=== PATIENT | female | born 1935 | race Caucasian/White ===

== ENCOUNTER → 2018-01-29 | Day surgery (SDC) | payer MEDICARE, OTHER ==
[2018-01-28 12:03] VITALS: BMI 23.9
[~2018-01-29] MED LIST: LACTATED RINGERS 1,000 ML IV SCH; LIDOCAINE 1% 20 ML VIAL (10MG/ML) FOR IV START INTRADERMA ONE; LIDOCAINE 1% INJ 10MG/ML (20 ML MDV) ONE; ONDANSETRON 4 MG/2 ML VIAL IVP ONE; PROPOFOL 10 MG/ML 20 ML VIAL IV ONE
[2018-01-29 12:51] VITALS: RESP 16; TEMP 98
[2018-01-29 13:02] LABS: Glucose,Whole Blood 84 mg/dL (75-99)
--- NOTE | 2018-01-29 13:49 | P.PCN ---
Date of Procedure: 01/29/18 Procedure(s) Performed: BRIEF HISTORY: Patient is a 82-year-old pleasant female, scheduled for an elective colonoscopy as a part of evaluation of prior history of colon polyps. PROCEDURE PERFORMED: Colonoscopy with snare polypectomy, hot biopsy and argon plasma coagulation. PREOPERATIVE DIAGNOSIS: Of colon polyps. IV sedation per Anesthesia. PROCEDURE: After informed consent was obtained, the patient, was brought into the endoscopy unit. IV sedation was administered by Anesthesia under continuous monitoring. Digital rectal examination was normal. Initially the Olympus CF- 160 flexible video colonoscope was then inserted in the rectum, gradually advanced into the cecum without any difficulty. Careful examination was performed as the scope was gradually being withdrawn. Ileocecal valve and the appendiceal orifice were visualized and appeared normal. Prep was fair.. Mucosa of the cecum, appeared normal. In the ascending colon there was a 2.5 cm broad-based polyp that was partially removed by piecemeal snare polypectomy. Following this the rest of polyp was removed by hot biopsy and some of the polyp was a bit tolerated using argon plasma coagulation. Rest of the ascending colon, transverse colon, descending colon, sigmoid colon, and rectum appeared normal. Retroflexion was performed in the rectum and no lesions were seen. At her sigmoidal diverticulosis seen. The patient tolerated the procedure well. IMPRESSION: 2.5 cm broad-based ascending colon polyp status post piecemeal snare polypectomy , hot biopsy and argon plasma coagulation and complete polypectomy accomplished Scattered sigmoid diverticulosis RECOMMENDATIONS: Findings of this examination were discussed with the patient as well as a family. She was advised to follow with the biopsy results and based the biopsy results will plan a repeat colonoscopy in one year.
[2018-01-29 14:01] VITALS: BP 175/89; PULSE 79
== END | disposition home or self-care (01) ==
LOC: ORWHC2ENDO 11:44
PROVIDERS: ATTEND Internal Medicine Gastroenterology
DX: D12.2 Benign neoplasm of ascending colon (principal); K57.30 Diverticulosis of large intestine without perforation or abscess without bleeding; I10 Essential (primary) hypertension; E78.5 Hyperlipidemia, unspecified; Z79.891 Long term (current) use of opiate analgesic; Z79.899 Other long term (current) drug therapy; Z88.5 Allergy status to narcotic agent
CPT/HCPCS: 88305; 45385; 45384; 45388; J2405; J2001; J2704

== ENCOUNTER 2018-08-17 10:15 | Emergency (ER) | payer MEDICARE, OTHER ==
[2018-08-17 10:22] VITALS: RESP 18
[2018-08-17] MEDS ORDERED: KETOROLAC 60 MG/2 ML VIAL IM STA (10:46)
--- NOTE | 2018-08-17 11:03 | XR ---
EXAMINATION TYPE: XR ribs LT w pa chest xray DATE OF EXAM: 08/17/2018 COMPARISON: NONE HISTORY: Pain TECHNIQUE: Single view of the chest left views of the ribs are submitted. FINDINGS: The lungs are clear. No Evidence for pneumothorax. No evidence for focal contusion. Medi astinal structures are midline. Evaluation of the ribs fails to demonstrate evidence for displaced r ib fracture or secondary sign of rib fracture. IMPRESSION: Negative study
--- NOTE | 2018-08-17 11:11 | ED ---
Fall HPI - General Source: patient, RN notes reviewed Mode of arrival: ambulatory <Jose D Soares - Last Filed: 08/17/18 11:34> <Shyam Betts - Last Filed: 08/17/18 11:38> - General Chief Complaint: Fall Stated Complaint: fall/arm & back pain Time Seen by Provider: 08/17/18 10:35 - History of Present Illness Initial Comments: 82-year-old female presents emergency Department chief complaint of left-sided rib and arm pain. Patient states she fell a few weeks ago in her bathroom fell back onto bathtub. She states she's had pain this a improving but states her last week she's had worsening pain again. Patient it's worse with deep inspiration and with movement. Patient states her tramadol was not helping her pain and she states that she called her doctor and they told her there is nothing for them to do about it but she was concerned. Patient's concerned that she may have injured her lung. Patient denies any resting shortness breath she only reports pain. Denies any abdominal pain including nausea, vomiting diarrhea constipation. Denies any anterior or substernal chest pain. (Jose D Soares) - Related Data Home Medications Medication Instructions Recorded Confirmed LORazepam [Ativan] 2 mg PO TID 01/28/18 08/17/18 Rosuvastatin [Crestor] 10 mg PO HS 01/28/18 08/17/18 amLODIPine [Norvasc] 5 mg PO DAILY 01/28/18 08/17/18 hydrOXYzine HCL [Atarax] 25 mg PO QID 01/28/18 08/17/18 Qrnxveanwqnjcx-DE-Qnqqnngvfk 1 tab PO DAILY 08/17/18 08/17/18 [Folbic] Gi Cocktail 30 ml PO TID 08/17/18 08/17/18 Omeprazole 20 mg PO BID 08/17/18 08/17/18 Ondansetron HCl [Zofran] 8 mg PO TID 08/17/18 08/17/18 Valsartan [Diovan] 320 mg PO HS 08/17/18 08/17/18 traMADol HCl [Ultram] 50 mg PO QID PRN 08/17/18 08/17/18 Allergies Allergy/AdvReac Type Severity Reaction Status Date / Time morphine Allergy Rash/Hives Verified 08/17/18 10:40 Review of Systems ROS Other: All systems not noted in ROS Statement are negative. <Jose D Soares - Last Filed: 08/17/18 11:34> ROS Other: All systems not noted in ROS Statement are negative. <Shyam Betts - Last Filed: 08/17/18 11:38> ROS Statement: Those systems with pertinent positive or pertinent negative responses have been documented in the HPI. Past Medical History Past Medical History: Hyperlipidemia, Hypertension, Osteoarthritis (OA) Additional Past Medical History / Comment(s): Gastroporesis, problems with nausea. History of Any Multi-Drug Resistant Organisms: None Reported Past Surgical History: Appendectomy, Hysterectomy, Orthopedic Surgery, Tonsillectomy Additional Past Surgical History / Comment(s): L Shoulder surgery with plate, R knee replacement, colonoscopy. Past Anesthesia/Blood Transfusion Reactions: Postoperative Nausea & Vomiting (PONV) Past Psychological History: No Psychological Hx Reported Smoking Status: Never smoker Past Alcohol Use History: None Reported Past Drug Use History: None Reported - Past Family History Mother Family Medical History: Cancer Additional Family Medical History / Comment(s): Colon Father Family Medical History: Coronary Artery Disease (CAD) <Jose D Soares - Last Filed: 08/17/18 11:34> General Exam Limitations: no limitations General appearance: alert, in no apparent distress Head exam: Present: atraumatic, normocephalic, normal inspection Eye exam: Present: normal appearance, PERRL, EOMI. Absent: scleral icterus, conjunctival injection, periorbital swelling ENT exam: Present: normal exam, normal oropharynx, mucous membranes moist, TM's normal bilaterally Neck exam: Present: normal inspection, full ROM. Absent: tenderness, meningismus, lymphadenopathy Respiratory exam: Present: normal lung sounds bilaterally, chest wall tenderness (Tenderness to the lateral posterior ribs on the left). Absent: respiratory distress, wheezes, rales, rhonchi, stridor Cardiovascular Exam: Present: regular rate, normal rhythm, normal heart sounds. Absent: systolic murmur, diastolic murmur, rubs, gallop, clicks GI/Abdominal exam: Present: soft, normal bowel sounds. Absent: distended, tenderness, guarding, rebound, rigid Back exam: Present: full ROM, tenderness. Absent: CVA tenderness (R), CVA tenderness (L) Skin exam: Present: warm, dry, intact, normal color. Absent: rash <Jose D Soares - Last Filed: 08/17/18 11:34> Course <Shyam Betts - Last Filed: 08/17/18 11:38> Vital Signs 08/17/18 10:19 Temperature 99.0 F Pulse Rate 94 Respiratory 18 Rate Blood Pressure 161/96 O2 Sat by Pulse 98 Oximetry - Reevaluation(s) Reevaluation #1: 08/17/18 11:37 PA supervision: I proceeded [id number] evaluation the patient. She presents with complaints of left lateral rib pain. She did fall 3 weeks ago. Patient has no evidence on x-ray of any rib fracture evidence pneumothorax no infiltrate. Patient will be discharged with outpatient follow-up we did discuss that if she does start presenting with fever cough phlegm production or other symptoms to be reevaluated. I do agree with the assessment and plan at this time. (Shyam Betts) Medical Decision Making <Jose D Soares - Last Filed: 08/17/18 11:34> - Medical Decision Making 82-year-old female presented from it for fall, rib pain. X-rays reviewed no acute fracture, pneumothorax or evidence of pneumonia. This is reproducible chest pain over the ribs. Patient has a rib contusion return parameters were discussed. (Jose D Soares) Disposition Is patient prescribed a controlled substance at d/c from ED?: No Time of Disposition: 11:35 <Jose D Soares - Last Filed: 08/17/18 11:34> <Shyam Betts - Last Filed: 08/17/18 11:38> Clinical Impression: Fall, Contusion of rib on left side Disposition: HOME SELF-CARE Condition: Stable Instructions (If sedation given, give patient instructions): Rib Contusion (ED) Additional Instructions: Please return to the Emergency Department if symptoms worsen or any other concerns. Referrals: Nonstaff,Physician [Primary Care Provider] - 1-2 days
[2018-08-17 11:49] VITALS: BP 146/93; PULSE 89; TEMP 98.3
== END 2018-08-17 11:49 | disposition home or self-care (01) ==
LOC: EC 10:15
DX: S20.212A Contusion of left front wall of thorax, initial encounter (principal); M79.602 Pain in left arm; E78.5 Hyperlipidemia, unspecified; I10 Essential (primary) hypertension; M19.90 Unspecified osteoarthritis, unspecified site; Z79.899 Other long term (current) drug therapy; Z88.5 Allergy status to narcotic agent; Z96.651 Presence of right artificial knee joint; W19.XXXA Unspecified fall, initial encounter; Y92.009 Unspecified place in unspecified non-institutional (private) residence as the place of occurrence of the external cause
CPT/HCPCS: 71101; 99283; 96372; J1885

== ENCOUNTER → 2018-09-20 | Outpatient (CLI) | payer MEDICARE, OTHER ==
[2018-09-20 18:26] LABS: Albumin/Globulin Ratio 2.22 (1.60-3.17); Anion Gap 6.1 mmol/L (4.00-12.00); Calcium 8.7 mg/dL (8.7-10.3); Carbon Dioxide 26.9 mmol/L (21.6-31.8); Globulin 1.8 g/dL (1.6-3.3); Potassium 4.6 mmol/L (3.5-5.5); Total Bilirubin 0.4 mg/dL (0.3-1.2); Total Protein 5.8 g/dL (6.2-8.2)
== END ==
LOC: LABWHC1 11:23
PROVIDERS: ATTEND Internal Medicine
DX: E87.8 Other disorders of electrolyte and fluid balance, not elsewhere classified (principal)
CPT/HCPCS: 36415; 80053

== ENCOUNTER → 2018-09-28 | Outpatient (CLI) | payer MEDICARE, OTHER ==
[2018-09-28 20:57] LABS: Albumin/Globulin Ratio 2.11 (1.60-3.17); Anion Gap 8.4 mmol/L (4.00-12.00); Calcium 8.9 mg/dL (8.7-10.3); Carbon Dioxide 24.6 mmol/L (21.6-31.8); Globulin 1.9 g/dL (1.6-3.3); Potassium 4.2 mmol/L (3.5-5.5); Total Bilirubin 0.3 mg/dL (0.2-1.2); Total Protein 5.9 g/dL (6.2-8.2)
== END | disposition home or self-care (01) ==
LOC: LABWHC1 12:19
PROVIDERS: ATTEND Internal Medicine
DX: E87.8 Other disorders of electrolyte and fluid balance, not elsewhere classified (principal)
CPT/HCPCS: 36415; 80053

== ENCOUNTER → 2018-10-25 | Outpatient (CLI) | payer MEDICARE, OTHER ==
[2018-10-25 21:21] LABS: Albumin 4.1 g/dL (3.80-4.90); Albumin/Globulin Ratio 2.05 (1.60-3.17); Anion Gap 3.5 mmol/L (4.00-12.00); BUN/Creat Ratio 15.56 Ratio (12.00-20.00); Calcium 9.2 mg/dL (8.7-10.3); Carbon Dioxide 28.5 mmol/L (21.6-31.8); Potassium 5.2 mmol/L (3.5-5.5); Total Bilirubin 0.3 mg/dL (0.2-1.2); Total Protein 6.1 g/dL (6.2-8.2)
== END | disposition home or self-care (01) ==
LOC: LABWHC1 09:59
PROVIDERS: ATTEND Internal Medicine Endocrinology, Diabetes & Metabolism
DX: E04.2 Nontoxic multinodular goiter (principal); E87.1 Hypo-osmolality and hyponatremia
CPT/HCPCS: 36415; 80053; 82024; 82533; 83930; 83935; 84439; 84443

== ENCOUNTER → 2018-11-22 | Outpatient (CLI) | payer MEDICARE, OTHER ==
--- NOTE | 2018-11-22 11:32 | US ---
EXAMINATION TYPE: US thyroid st tissue head/neck DATE OF EXAM: 11/22/2018 COMPARISON: NONE CLINICAL HISTORY: E04.2 Nontoxic multinodular goiter. Difficulty swallowing GLAND SIZE: Right Lobe: 6.2 x 2.6 x 2.6 cm Overall Parenchyma: heterogenous Left Lobe: 5.6 x 2.4 x 2.1 cm Overall Parenchyma: heterogeneous Isthmus Thickness: 2.0 cm NODULES RIGHT: # of nodules measured on right: 2 1. 2.3 X 2.2 x 1.9 cm hyperechoic mixed nodule at the upper pole with well-defined margins. This n odule is wider than tall and shows intranodular vascularity. 2. 0.9 X 0.9 x 0.7 cm hypoechoic cystic nodule at the lower pole with well-defined margins. This no dule is wider than tall and shows no intranodular vascularity. LEFT: # of nodules measured on left: 2 1. 1.2 X 0.8 x 0.8 cm hypoechoic solid nodule at the upper pole with well-defined margins. This no dule is wider as is tall and shows no intranodular vascularity. 2. 1.5 X 1.1 x 0.8 cm hypoechoic mixed nodule at the upper pole with poorly defined margins. This n odule is wider than tall and shows intranodular vascularity. ISTHMUS: # of nodules measured in the isthmus: 1 1. 3.2 X 3.4 x 2.2 cm isoechoic mixed nodule at the lower pole with well-defined margins; present w ith calcification. This nodule is wider than tall and shows intranodular vascularity. Bilateral neck scanned: no evidence of lymphadenopathy. IMPRESSION: 1. Thyromegaly with findings suggestive of thyroiditis and multinodular thyroid.
== END | disposition home or self-care (01) ==
LOC: RADUSWWP 10:10
PROVIDERS: ATTEND Internal Medicine Endocrinology, Diabetes & Metabolism
DX: E04.9 Nontoxic goiter, unspecified (principal)
CPT/HCPCS: 76536

== ENCOUNTER 2018-12-10 12:16 | Day surgery (SDC) | payer MEDICARE, OTHER ==
[2018-12-10 12:40] VITALS: RESP 20; TEMP 98.1
[2018-12-10] MEDS ORDERED: ALPRAZolam 0.25 MG TAB PO STA (12:40)
--- NOTE | 2018-12-10 14:10 | US ---
ULTRASOUND GUIDED FNA THYROID BIOPSY: CLINICAL HISTORY: Request for isthmus and 1.5 cm left thyroid nodule FINDINGS: The procedure was explained to the patient. The risks, complications, benefits and alternatives were discussed and any questions were answered. Informed consent was obtained. Patient was placed supin e on the ultrasound table and prepped and draped in the usual sterile fashion. Utilizing a 25 gauge needle, five passes were made into the 2 requested nodules. Patient was stable throughout the procedure. Pathology is pending. All elements of maximal barrier technique were utilized. IMPRESSION: 1. Successful ultrasound guided FNA thyroid biopsy.
[2018-12-10 14:13] VITALS: BP 128/78; PULSE 70
== END 2018-12-10 14:00 | disposition home or self-care (01) ==
LOC: RADPROMAIN 12:16
PROVIDERS: ATTEND Internal Medicine Endocrinology, Diabetes & Metabolism
DX: E04.1 Nontoxic single thyroid nodule (principal)
CPT/HCPCS: 10005; 10006; 88173; 88305

== ENCOUNTER 2019-06-21 15:23 | Emergency (ER) | payer MEDICARE, OTHER ==
[2019-06-21] MEDS ORDERED: HYDROmorphone 0.5 MG/0.5 ML SYRINGE IVP STA ×3 (16:07→18:05)
[2019-06-21] MEDS ORDERED: ONDANSETRON 4 MG/2 ML VIAL IVP STA ×2 (16:07→18:31)
[2019-06-21 17:00] LABS: Basophils % (A) 1 %; Eosinophils # (A) 0.1 k/uL (0-0.7); Eosinophils % (A) 2 %; HCT 39.5 % (34.0-46.0); HGB 12.7 gm/dL (11.4-16.0); Lymphocytes # (A) 1.2 k/uL (1.0-4.8); Lymphocytes % (A) 20 %; MCH 27.4 pg (25.0-35.0); MCHC 32.3 g/dL (31.0-37.0); MCV 84.9 fL (80.0-100.0); Monocytes # (A) 0.7 k/uL (0-1.0); Monocytes % (A) 11 %; Neutrophils % (A) 66 %; Platelet Count 235 k/uL (150-450); RBC 4.65 m/uL (3.80-5.40); RDW 12.6 % (11.5-15.5); WBC 6.1 k/uL (3.8-10.6)
[2019-06-21 17:07] LABS: Calcium 8.8 mg/dL (8.4-10.2); Potassium 4.8 mmol/L (3.5-5.1); Total Bilirubin 0.6 mg/dL (0.2-1.3); Total Protein 6.7 g/dL (6.3-8.2)
[2019-06-21] MEDS ORDERED: SODIUM CHLORIDE 0.9% 1,000 ML IV SCH (19:00)
[2019-06-21 19:13] LABS: Magnesium 1.9 mg/dL (1.6-2.3); Phosphorus 3.7 mg/dL (2.5-4.5)
--- NOTE | 2019-06-21 19:39 | ED ---
Abdominal Pain HPI - General Chief Complaint: Abdominal Pain Stated Complaint: Abd.pain Time Seen by Provider: 06/21/19 16:01 Source: patient, family Mode of arrival: wheelchair Limitations: physical limitation - History of Present Illness Initial Comments: 83-year-old female presenting today for chief complaint of left upper quadrant abdominal pain, nausea. Patient's history of hyponatremia and gastroparesis. Patient states this feels typical of the pain she experiences with gastroparesis denies chest pain shortness of breath patient denies vomiting melena hematochezia or hematemesis. Remaining abuse is negative upon arrival patient appears nontoxic. VS within acceptable limits. - Related Data Home Medications Medication Instructions Recorded Confirmed LORazepam [Ativan] 2 mg PO TID PRN 01/28/18 12/10/18 Rosuvastatin [Crestor] 10 mg PO HS 01/28/18 12/10/18 amLODIPine [Norvasc] 5 mg PO DAILY 01/28/18 12/10/18 hydrOXYzine HCL [Atarax] 25 mg PO QID PRN 01/28/18 12/10/18 Lroofgqwvswkjq-MR-Grcnaaqmtn 1 tab PO DAILY 08/17/18 12/10/18 [Folbic] Gi Cocktail 30 ml PO TID 08/17/18 12/10/18 Omeprazole 20 mg PO AC-BID 08/17/18 12/10/18 Ondansetron HCl [Zofran] 8 mg PO TID PRN 08/17/18 12/10/18 Hydrocodone/Acetaminophen [[place] 1 tab PO TID PRN 12/03/18 12/10/18 10-325] Losartan [Cozaar] 100 mg PO HS 12/03/18 12/10/18 Allergies Allergy/AdvReac Type Severity Reaction Status Date / Time morphine Allergy Rash/Hives Verified 12/10/18 12:38 tetracycline Allergy Rash/Hives Verified 12/10/18 12:38 Review of Systems ROS Statement: Those systems with pertinent positive or pertinent negative responses have been documented in the HPI. ROS Other: All systems not noted in ROS Statement are negative. Past Medical History Past Medical History: Hyperlipidemia, Hypertension, Osteoarthritis (OA) Additional Past Medical History / Comment(s): Gastroporesis, problems with nausea, thyroid nodules History of Any Multi-Drug Resistant Organisms: None Reported Past Surgical History: Appendectomy, Hysterectomy, Orthopedic Surgery, Tonsillectomy Additional Past Surgical History / Comment(s): L Shoulder surgery with plate, R knee replacement, colonoscopy, partial hysterectomy---still has her ovaries, carpal tunnel release bilaterally Past Anesthesia/Blood Transfusion Reactions: Postoperative Nausea & Vomiting (PONV) Past Psychological History: Anxiety, Panic Disorder Smoking Status: Never smoker Past Alcohol Use History: None Reported Past Drug Use History: None Reported - Past Family History Mother Family Medical History: Cancer Additional Family Medical History / Comment(s): Colon Father Family Medical History: Coronary Artery Disease (CAD) General Exam - General Exam Comments Initial Comments: General: The patient is awake and alert, in no distress, and does not appear acutely ill. Eye: +3 mm pupils are equal, round and reactive to light, extra-ocular movements are intact. No nystagmus. There is normal conjunctiva bilaterally. No signs of icterus. Ears, nose, mouth and throat: There are moist mucous membranes and no oral lesions. Neck: The neck is supple, there is no tenderness or JVD. Cardiovascular: There is a regular rate and rhythm. No murmur, rub or gallop is appreciated. Respiratory: Lungs are clear to auscultation, respirations are non-labored, breath sounds are equal. No wheezes, stridor, rales, or rhonchi. Gastrointestinal: Soft, non-distended, mild-moderate LUQ pain, remaining abdomen is nontender and without masses or organomegaly noted. There is no rebound or guarding present. Musculoskeletal: Normal ROM, no tenderness. Strength 5/5. Sensation intact. Radial pulses equal bilaterally 2+. Neurological: A&O x 3. CN II-XII intact grossly, There are no obvious motor or sensory deficits. Coordination appears grossly intact. Speech is normal. Skin: Skin is warm and dry and no rashes or lesions are noted. No LE edema. Psychiatric: Cooperative, appropriate mood & affect, normal judgment. Limitations: physical limitation Course Vital Signs 06/21/19 06/21/19 15:28 19:15 Temperature 99.5 F 99.0 F Pulse Rate 102 H 85 Respiratory 19 18 Rate Blood Pressure 150/82 139/86 O2 Sat by Pulse 98 100 Oximetry Medical Decision Making - Medical Decision Making 83-year-old female presenting today for chief complaint of nausea left upper quadrant abdominal pain history of gastroparesis. Patient with pain medications as well as antiemetics in the emergency department. Patient was found to have hyponatremia which she states she has been following nephrology outpatient 4. She states that 124 is lower than her usual baseline. Patient continues to have nausea, and at this time we feel is appropriate patient's hyponatremia to admit for further evaluation and treatment. Patient refuses admission to [facility] Emergency Department she states she would like to leave AGAINST MEDICAL ADVICE she refuses transportation via EMS tomorrow, which is the hospital she prefers treatment. Patient is aware that if she leaves the hospital she her condition may worsen with risk of permanent disability or . She states she will take all liability for this risk her son who is bedside is agreeable with patient leaving AMA and states he is transporting her to [facility] ER. Patient filled out AMA form with nurse Debora Faulkner as my witness. Ventricular rate 76 bpm, [place] interval 164 ms, QR anglican 82 ms, QT/QTC 356/400 ms. This is normal sinus normal EKG no ST elevation or depression noted. No hyperacute or flattening of the T waves. - Lab Data Result diagrams: 06/21/19 16:45 06/21/19 16:45 Lab Results 06/21/19 06/21/19 06/21/19 Range/Units 16:45 16:45 16:45 WBC 6.1 (3.8-10.6) k/uL RBC 4.65 (3.80-5.40) m/uL Hgb 12.7 (11.4-16.0) gm/dL Hct 39.5 (34.0-46.0) % MCV 84.9 (80.0-100.0) fL MCH 27.4 (25.0-35.0) pg MCHC 32.3 (31.0-37.0) g/dL RDW 12.6 (11.5-15.5) % Plt Count 235 (150-450) k/uL Neutrophils % 66 % Lymphocytes % 20 % Monocytes % 11 % Eosinophils % 2 % Basophils % 1 % Neutrophils # 4.0 (1.3-7.7) k/uL Lymphocytes # 1.2 (1.0-4.8) k/uL Monocytes # 0.7 (0-1.0) k/uL Eosinophils # 0.1 (0-0.7) k/uL Basophils # 0.0 (0-0.2) k/uL Sodium 124 L (137-145) mmol/L Potassium 4.8 (3.5-5.1) mmol/L Chloride 93 L (98-107) mmol/L Carbon Dioxide 23 (22-30) mmol/L Anion Gap 8 mmol/L BUN 9 (7-17) mg/dL Creatinine 0.76 (0.52-1.04) mg/dL Est GFR (CKD-EPI)AfAm 86 (>60 ml/min/1.73 sqM) Est GFR (CKD-EPI)NonAf 74 (>60 ml/min/1.73 sqM) Glucose 100 H (74-99) mg/dL Uric Acid (3.7-7.4) mg/dL Calcium 8.8 (8.4-10.2) mg/dL Phosphorus (2.5-4.5) mg/dL Magnesium (1.6-2.3) mg/dL Total Bilirubin 0.6 (0.2-1.3) mg/dL AST 26 (14-36) U/L ALT 14 (4-34) U/L Alkaline Phosphatase 80 (38-126) U/L Troponin I <0.012 (0.000-0.034) ng/mL Total Protein 6.7 (6.3-8.2) g/dL Albumin 4.0 (3.5-5.0) g/dL Lipase (23-300) U/L 06/21/19 Range/Units 16:45 WBC (3.8-10.6) k/uL RBC (3.80-5.40) m/uL Hgb (11.4-16.0) gm/dL Hct (34.0-46.0) % MCV (80.0-100.0) fL MCH (25.0-35.0) pg MCHC (31.0-37.0) g/dL RDW (11.5-15.5) % Plt Count (150-450) k/uL Neutrophils % % Lymphocytes % % Monocytes % % Eosinophils % % Basophils % % Neutrophils # (1.3-7.7) k/uL Lymphocytes # (1.0-4.8) k/uL Monocytes # (0-1.0) k/uL Eosinophils # (0-0.7) k/uL Basophils # (0-0.2) k/uL Sodium (137-145) mmol/L Potassium (3.5-5.1) mmol/L Chloride (98-107) mmol/L Carbon Dioxide (22-30) mmol/L Anion Gap mmol/L BUN (7-17) mg/dL Creatinine (0.52-1.04) mg/dL Est GFR (CKD-EPI)AfAm (>60 ml/min/1.73 sqM) Est GFR (CKD-EPI)NonAf (>60 ml/min/1.73 sqM) Glucose (74-99) mg/dL Uric Acid 2.0 L (3.7-7.4) mg/dL Calcium (8.4-10.2) mg/dL Phosphorus 3.7 (2.5-4.5) mg/dL Magnesium 1.9 (1.6-2.3) mg/dL Total Bilirubin (0.2-1.3) mg/dL AST (14-36) U/L ALT (4-34) U/L Alkaline Phosphatase (38-126) U/L Troponin I (0.000-0.034) ng/mL Total Protein (6.3-8.2) g/dL Albumin (3.5-5.0) g/dL Lipase 168 (23-300) U/L Disposition Clinical Impression: Hyponatremia, Nausea, LUQ abdominal pain Disposition: Left Against Medical Advice Condition: Undetermined Referrals: Davida Doss MD [Primary Care Provider] - 1-2 days Time of Disposition: 19:39
[2019-06-21 19:40] VITALS: BP 139/86; PULSE 85; RESP 18; TEMP 99
== END 2019-06-21 19:28 | disposition left against medical advice (07) ==
LOC: EC 15:23
DX: E87.1 Hypo-osmolality and hyponatremia (principal); R11.0 Nausea; R10.12 Left upper quadrant pain; I10 Essential (primary) hypertension; E78.5 Hyperlipidemia, unspecified; Z79.899 Other long term (current) drug therapy; Z88.5 Allergy status to narcotic agent; Z88.1 Allergy status to other antibiotic agents; Z96.651 Presence of right artificial knee joint
CPT/HCPCS: 36415; 93005; 80053; 84443; 82533; 83690; 83735; 84100; 84550; 84484; 85025; 99284; 96374; 96375; 96376 ×3; J2405; J1170

== ENCOUNTER 2019-07-01 20:33 | Emergency (ER) | payer MEDICARE, OTHER ==
[2019-07-01] MEDS ORDERED: SODIUM CHLORIDE 0.9% 500 ML 500 ML IV ONE (21:10)
[2019-07-01] MEDS ORDERED: HYDROmorphone 1 MG/ML 1 ML SYRINGE IVP STA (21:10)
--- NOTE | 2019-07-01 21:22 | ED ---
General Adult HPI - General Source: EMS, RN notes reviewed, old records reviewed Mode of arrival: EMS Limitations: no limitations <Benjamin Colbert - Last Filed: 07/02/19 02:06> <Adia Graham - Last Filed: 07/04/19 22:04> - General Chief complaint: Abdominal Pain Stated complaint: Nausea, abdominal pain Time Seen by Provider: 07/01/19 20:56 - History of Present Illness Initial comments: 83-year-old female patient past history significant for gastroparesis, chronic abdominal pain. Presents to ED with ceif complaint of exacerbation of chronic left upper quadrant abdominal pain, nausea and vomiting. He reports that the symptoms are typical for her. Denies any other complaints. Systemic: Pt denies fatigue, fever/chills, rash. Pt denies weakness, night sweats, weight loss. Neuro: Pt denies headache, visual disturbances, syncope or pre-syncope. HEENT: Pt denies ocular discharge or irritation, otalgia, rhinorrhea, pharyngitis or notable lymphadenopathy. Cardiopulmonary: Pt denies chest pain, SOB, heart palpitations, dyspnea on exertion. Abdominal/GI: Pt denies diarrhea. : Pt denies dysuria, burning w/ urination, frequency/urgency. Denies new onset urinary or bowel incontinence. MSK: Pt denies myalgia, loss of strength or function in extremities. Neuro: Pt denies new onset weakness, paresthesias. (Benjamin Colbert) - Related Data Home Medications Medication Instructions Recorded Confirmed LORazepam [Ativan] 2 mg PO TID PRN 01/28/18 12/10/18 Rosuvastatin [Crestor] 10 mg PO HS 01/28/18 12/10/18 amLODIPine [Norvasc] 5 mg PO DAILY 01/28/18 12/10/18 hydrOXYzine HCL [Atarax] 25 mg PO QID PRN 01/28/18 12/10/18 Vnlwxuaujxchmn-AT-Fdqxvprvyg 1 tab PO DAILY 08/17/18 12/10/18 [Folbic] Gi Cocktail 30 ml PO TID 08/17/18 12/10/18 Omeprazole 20 mg PO AC-BID 08/17/18 12/10/18 Ondansetron HCl [Zofran] 8 mg PO TID PRN 08/17/18 12/10/18 Hydrocodone/Acetaminophen [[place] 1 tab PO TID PRN 12/03/18 12/10/18 10-325] Losartan [Cozaar] 100 mg PO HS 12/03/18 12/10/18 Allergies Allergy/AdvReac Type Severity Reaction Status Date / Time morphine Allergy Rash/Hives Verified 07/01/19 20:41 tetracycline Allergy Rash/Hives Verified 07/01/19 20:41 Review of Systems ROS Other: All systems not noted in ROS Statement are negative. <Benjamin Colbert - Last Filed: 07/02/19 02:06> ROS Other: All systems not noted in ROS Statement are negative. <Adia Graham - Last Filed: 07/04/19 22:04> ROS Statement: Those systems with pertinent positive or pertinent negative responses have been documented in the HPI. Past Medical History Past Medical History: Hyperlipidemia, Hypertension, Osteoarthritis (OA) Additional Past Medical History / Comment(s): Gastroporesis, problems with nausea, thyroid nodules History of Any Multi-Drug Resistant Organisms: None Reported Past Surgical History: Appendectomy, Hysterectomy, Orthopedic Surgery, Tonsillectomy Additional Past Surgical History / Comment(s): L Shoulder surgery with plate, R knee replacement, colonoscopy, partial hysterectomy---still has her ovaries, carpal tunnel release bilaterally Past Anesthesia/Blood Transfusion Reactions: Postoperative Nausea & Vomiting (PONV) Past Psychological History: Anxiety, Panic Disorder Smoking Status: Never smoker Past Alcohol Use History: None Reported Past Drug Use History: None Reported - Past Family History Mother Family Medical History: Cancer Additional Family Medical History / Comment(s): Colon Father Family Medical History: Coronary Artery Disease (CAD) <Benjamin Colbert - Last Filed: 07/02/19 02:06> General Exam Limitations: no limitations <Benjamin Colbert - Last Filed: 07/02/19 02:06> - General Exam Comments Initial Comments: Constitutional: NAD, AOX3, Pt has pleasant affect. HEENT: NC/AT, trachea midline, neck supple, no lymphadenopathy. Posterior pharynx non erythematous, without exudates. External ears appear normal, without discharge. Mucous membranes moist. Eyes PERRLA, EOM intact. There is no scleral icterus. No pallor noted. Cardiopulmonary: RRR, no murmurs, rubs or gallops, no JVD noted. Lungs CTAB in anterior and posterior carey. No peripheral edema. Abdominal exam: Abdomen soft and non-distended. Abdomen mildly tender to palpation left upper quadrant. swathi Umbilical region. Bowel sounds active in LLQ. No hepatosplenomegaly. No ecchymosis Neuro: CN II-XII grossly intact. No nuchal rigidity. No raccon eyes, no scott sign, no hemotympanum. No cervical spinal tenderness. MSK: No posterior calf tenderness bilaterally, homans sign negative bilaterally. Posterior tibialis and radial pulse +2 bilaterally. Sensation intact in upper and lower extremities. Full active ROM in upper and lower extremities, 5/5 stregnth. (Benjamin Colbert) Course Vital Signs 07/01/19 07/01/19 07/02/19 20:42 23:25 00:44 Temperature 98.1 F 97.8 F Pulse Rate 75 70 71 Respiratory 16 18 18 Rate Blood Pressure 165/88 157/80 163/82 O2 Sat by Pulse 99 98 98 Oximetry Medical Decision Making - Lab Data Result diagrams: 07/01/19 20:57 07/01/19 20:57 - EKG Data -: EKG Interpreted by Me (and Dr. Graham ) <Benjamin Colbert - Last Filed: 07/02/19 02:06> - Lab Data Result diagrams: 07/01/19 20:57 07/01/19 20:57 <Adia Graham - Last Filed: 07/04/19 22:04> - Medical Decision Making 83-year-old female patient past history significant for gastroparesis, chronic abdominal pain. Presents to ED with ceif complaint of exacerbation of chronic left upper quadrant abdominal pain, nausea and vomiting. He reports that the symptoms are typical for her. Denies any other complaints. Patient vital signs stable, some mild tenderness of palpation on crown broke a left upper quadrant region. Laboratory investigations are non impressive. Troponin is negative. Patient declined any imaging which was recommended. EKG displayed new T-wave inversions. Patient not having chest pain. A second troponin was drawn was also negative. Patient declines admission. Patient feeling improved with analgesia. We'll follow up with primary care provider and biology professor tomorrow return to ER if condition worsens. Case discussed with Dr. Graham. (Benjamin Colbert) I was available for consultation in the emergency department. The history and physical exam were done by the midlevel provider. I was consulted for this patients care. I reviewed the case with the midlevel provider and based on their presentation of the patient, I agree with the assessment, medical decision making and plan of care as documented. Chart was dictated using Piazza dictation software. Attempts were made to correct any dictation errors however some typographical errors may persist. (Adia Graham) - Lab Data Lab Results 07/01/19 07/01/19 07/01/19 Range/Units 20:57 20:57 20:57 WBC 5.4 (3.8-10.6) k/uL RBC 4.79 (3.80-5.40) m/uL Hgb 13.1 (11.4-16.0) gm/dL Hct 41.3 (34.0-46.0) % MCV 86.2 (80.0-100.0) fL MCH 27.4 (25.0-35.0) pg MCHC 31.8 (31.0-37.0) g/dL RDW 12.9 (11.5-15.5) % Plt Count 226 (150-450) k/uL Neutrophils % 56 % Lymphocytes % 30 % Monocytes % 8 % Eosinophils % 4 % Basophils % 0 % Neutrophils # 3.0 (1.3-7.7) k/uL Lymphocytes # 1.6 (1.0-4.8) k/uL Monocytes # 0.4 (0-1.0) k/uL Eosinophils # 0.2 (0-0.7) k/uL Basophils # 0.0 (0-0.2) k/uL Sodium 134 L (137-145) mmol/L Potassium 4.3 (3.5-5.1) mmol/L Chloride 99 (98-107) mmol/L Carbon Dioxide 25 (22-30) mmol/L Anion Gap 10 mmol/L BUN 11 (7-17) mg/dL Creatinine 0.85 (0.52-1.04) mg/dL Est GFR (CKD-EPI)AfAm 75 (>60 ml/min/1.73 sqM) Est GFR (CKD-EPI)NonAf 65 (>60 ml/min/1.73 sqM) Glucose 95 (74-99) mg/dL Calcium 9.2 (8.4-10.2) mg/dL Total Bilirubin 0.5 (0.2-1.3) mg/dL AST 24 (14-36) U/L ALT 13 (4-34) U/L Alkaline Phosphatase 71 (38-126) U/L Troponin I <0.012 (0.000-0.034) ng/mL Total Protein 6.8 (6.3-8.2) g/dL Albumin 4.1 (3.5-5.0) g/dL Urine Color Urine Appearance (Clear) Urine pH (5.0-8.0) Ur Specific [place] (1.001-1.035) Urine Protein (Negative) Urine Glucose (UA) (Negative) Urine Ketones (Negative) Urine Blood (Negative) Urine Nitrite (Negative) Urine Bilirubin (Negative) Urine Urobilinogen (<2.0) mg/dL Ur Leukocyte Esterase (Negative) 07/01/19 07/02/19 Range/Units 23:22 00:43 WBC (3.8-10.6) k/uL RBC (3.80-5.40) m/uL Hgb (11.4-16.0) gm/dL Hct (34.0-46.0) % MCV (80.0-100.0) fL MCH (25.0-35.0) pg MCHC (31.0-37.0) g/dL RDW (11.5-15.5) % Plt Count (150-450) k/uL Neutrophils % % Lymphocytes % % Monocytes % % Eosinophils % % Basophils % % Neutrophils # (1.3-7.7) k/uL Lymphocytes # (1.0-4.8) k/uL Monocytes # (0-1.0) k/uL Eosinophils # (0-0.7) k/uL Basophils # (0-0.2) k/uL Sodium (137-145) mmol/L Potassium (3.5-5.1) mmol/L Chloride (98-107) mmol/L Carbon Dioxide (22-30) mmol/L Anion Gap mmol/L BUN (7-17) mg/dL Creatinine (0.52-1.04) mg/dL Est GFR (CKD-EPI)AfAm (>60 ml/min/1.73 sqM) Est GFR (CKD-EPI)NonAf (>60 ml/min/1.73 sqM) Glucose (74-99) mg/dL Calcium (8.4-10.2) mg/dL Total Bilirubin (0.2-1.3) mg/dL AST (14-36) U/L ALT (4-34) U/L Alkaline Phosphatase (38-126) U/L Troponin I <0.012 (0.000-0.034) ng/mL Total Protein (6.3-8.2) g/dL Albumin (3.5-5.0) g/dL Urine Color Colorless Urine Appearance Clear (Clear) Urine pH 6.0 (5.0-8.0) Ur Specific [place] 1.006 (1.001-1.035) Urine Protein Negative (Negative) Urine Glucose (UA) Negative (Negative) Urine Ketones Negative (Negative) Urine Blood Negative (Negative) Urine Nitrite Negative (Negative) Urine Bilirubin Negative (Negative) Urine Urobilinogen <2.0 (<2.0) mg/dL Ur Leukocyte Esterase Negative (Negative) - EKG Data EKG Comments: Integrated 62, Trental and 66, QRS 76, QT/QTc 410/416. Sinus rhythm with premature atrial complexes. New T-wave inversions are noted V2 V3. (Benjamin Colbert) Disposition Is patient prescribed a controlled substance at d/c from ED?: No <Benjamin Colbert - Last Filed: 07/02/19 02:06> <Adia Graham - Last Filed: 07/04/19 22:04> Clinical Impression: Chronic abdominal pain Disposition: HOME SELF-CARE Condition: Stable Instructions (If sedation given, give patient instructions): Abdominal Pain (ED) Additional Instructions: Follow-up with primary care provider, active directory architect and biology professor tomorrow. Return to ER if condition worsens. Referrals: Davida Doss MD [Primary Care Provider] - 1-2 days Luigi Schwartz MD [STAFF PHYSICIAN] - 1-2 days
[2019-07-01 21:32] LABS: Basophils % (A) 0 %; Eosinophils # (A) 0.2 k/uL (0-0.7); Eosinophils % (A) 4 %; HCT 41.3 % (34.0-46.0); HGB 13.1 gm/dL (11.4-16.0); Lymphocytes # (A) 1.6 k/uL (1.0-4.8); Lymphocytes % (A) 30 %; MCH 27.4 pg (25.0-35.0); MCHC 31.8 g/dL (31.0-37.0); MCV 86.2 fL (80.0-100.0); Mean Platelet Volume 7.1; Monocytes # (A) 0.4 k/uL (0-1.0); Monocytes % (A) 8 %; Neutrophils % (A) 56 %; Platelet Count 226 k/uL (150-450); RBC 4.79 m/uL (3.80-5.40); RDW 12.9 % (11.5-15.5); WBC 5.4 k/uL (3.8-10.6)
[2019-07-01 21:50] LABS: Albumin 4.1 g/dL (3.5-5.0); Calcium 9.2 mg/dL (8.4-10.2); Potassium 4.3 mmol/L (3.5-5.1); Total Bilirubin 0.5 mg/dL (0.2-1.3); Total Protein 6.8 g/dL (6.3-8.2)
[2019-07-01] MEDS ORDERED: LORazepam 2 MG/ML INJ IV STA (22:47)
[2019-07-01] MEDS ORDERED: HYDROmorphone 0.5 MG/0.5 ML SYRINGE IVP STA ×2 (22:48→22:50)
[2019-07-01 23:26] VITALS: RESP 18; TEMP 97.8
[2019-07-01 23:33] LABS: Appearance,Urine Clear (Clear); Color,Urine Colorless; Glucose,Urine (UA) Negative (Negative); Protein,Urine Negative (Negative); Specific Gravity,Urine 1.006 (1.001-1.035)
[2019-07-01 23:34] LABS: Bilirubin,Urine Negative (Negative); Blood,Urine Negative (Negative); Ketones,Urine Negative (Negative); Leukocyte Esterase,Urine Negative (Negative); Nitrite,Urine Negative (Negative); Urobilinogen,Urine <2.0 mg/dL (<2.0)
[2019-07-01] MEDS ORDERED: METOCLOPRAMIDE 5 MG/ML 2 ML VIAL IVP STA (23:38)
[2019-07-02 00:44] VITALS: BP 163/82; PULSE 71
== END 2019-07-02 02:39 | disposition home or self-care (01) ==
LOC: EC 20:33
DX: R10.12 Left upper quadrant pain (principal); G89.29 Other chronic pain; R94.31 Abnormal electrocardiogram [ECG] [EKG]; R11.2 Nausea with vomiting, unspecified; E78.5 Hyperlipidemia, unspecified; I10 Essential (primary) hypertension; M19.90 Unspecified osteoarthritis, unspecified site; K31.84 Gastroparesis; Z88.1 Allergy status to other antibiotic agents; Z88.5 Allergy status to narcotic agent; Z79.899 Other long term (current) drug therapy; Z90.49 Acquired absence of other specified parts of digestive tract; Z96.651 Presence of right artificial knee joint; Z96.698 Presence of other orthopedic joint implants; Z80.0 Family history of malignant neoplasm of digestive organs; Z82.49 Family history of ischemic heart disease and other diseases of the circulatory system; Z53.9 Procedure and treatment not carried out, unspecified reason; Z53.20 Procedure and treatment not carried out because of patient's decision for unspecified reasons
CPT/HCPCS: 36415 ×2; 93005; 80053; 84484 ×2; 85025; 81003; 99285; 96374; 96375; 96376; 96361 ×2; J2765; J1170 ×2

== ENCOUNTER 2019-11-29 22:21 | Emergency (ER) | payer MEDICARE, OTHER ==
[2019-11-29] MEDS ORDERED: SODIUM CHLORIDE 0.9% 500 ML 500 ML IV STA (22:38)
[2019-11-29] MEDS ORDERED: NALOXONE 0.4 MG/ML 10 ML VIAL IVP PRN (22:42)
--- NOTE | 2019-11-29 22:44 | ED ---
General Adult HPI - General Chief complaint: Overdose Stated complaint: overdose Time Seen by Provider: 11/29/19 22:25 Source: EMS Mode of arrival: EMS Limitations: no limitations - History of Present Illness Initial comments: Patient is an 83-year-old female past history of gastroparesis, hypertension who presents to the emergency department after a suicide attempt. Patient took an unknown amount of Ativan, Harrison and Remeron. Initial report stated that the patient took the medications at 7:30 however the patient reports that she took them at 9 PM. She has chronic issues with abdominal pain and gastroparesis. States that she took this medication in excess because her pain has been so severe and she is "tired of dealing with it". Patient wanted to "not wake up." She wrote a suicide note. She put money and embolism was on the table. She then began calling family members to notify them of what she had done. Daughter answered her phone and called police immediately after she heard what her mother done. They arrived also find the patient sedated. IV was established. No medications were administered. The remainder of HPI is limited because the patient's current condition - Related Data Home Medications Medication Instructions Recorded Confirmed LORazepam [Ativan] 2 mg PO TID PRN 01/28/18 11/29/19 Rosuvastatin [Crestor] 10 mg PO HS 01/28/18 11/29/19 amLODIPine [Norvasc] 5 mg PO DAILY 01/28/18 11/29/19 hydrOXYzine HCL [Atarax] 25 mg PO QID 01/28/18 11/29/19 Ondansetron HCl [Zofran] 8 mg PO TID 08/17/18 11/29/19 Hydrocodone/Acetaminophen [[place] 1 tab PO Q6H PRN 12/03/18 11/29/19 10-325] Aprepitant 80 mg PO MOTH 11/29/19 11/29/19 Ergocalciferol [Vitamin D2] 50,000 unit PO MOFR 11/29/19 11/29/19 Gi Cocktail( 30 ml PO Q4H 11/29/19 11/29/19 Elixir/Lidocaine Viscous/Maalox 1:1:1) Losartan Potassium 100 mg PO DAILY 11/29/19 11/29/19 Meloxicam [Mobic] 15 mg PO DAILY 11/29/19 11/29/19 Remeron Soluspan 45mg Odt 45 mg PO HS 11/29/19 11/29/19 rOPINIRole HCL [Requip] 0.25 mg PO HS 11/29/19 11/29/19 Allergies Allergy/AdvReac Type Severity Reaction Status Date / Time morphine Allergy Rash/Hives Verified 11/29/19 23:14 tetracycline Allergy Rash/Hives Verified 11/29/19 23:14 Review of Systems ROS Statement: Those systems with pertinent positive or pertinent negative responses have been documented in the HPI. ROS Other: All systems not noted in ROS Statement are negative. Past Medical History Past Medical History: Hyperlipidemia, Hypertension, Osteoarthritis (OA) Additional Past Medical History / Comment(s): Gastroporesis, problems with nausea, thyroid nodules History of Any Multi-Drug Resistant Organisms: None Reported Past Surgical History: Appendectomy, Hysterectomy, Orthopedic Surgery, Tonsillectomy Additional Past Surgical History / Comment(s): L Shoulder surgery with plate, R knee replacement, colonoscopy, partial hysterectomy---still has her ovaries, carpal tunnel release bilaterally Past Anesthesia/Blood Transfusion Reactions: Postoperative Nausea & Vomiting (PONV) Past Psychological History: Anxiety, Panic Disorder Past Alcohol Use History: None Reported Past Drug Use History: None Reported - Past Family History Mother Family Medical History: Cancer Additional Family Medical History / Comment(s): Colon Father Family Medical History: Coronary Artery Disease (CAD) General Exam Limitations: altered mental status General appearance: lethargic Head exam: Present: atraumatic, normocephalic, normal inspection Eye exam: Present: other (3 mm, sluggish) ENT exam: Present: normal exam, mucous membranes moist Neck exam: Present: normal inspection. Absent: tenderness, meningismus, lymphadenopathy Respiratory exam: Present: other (12 RR per minute) Cardiovascular Exam: Present: regular rate, normal rhythm, normal heart sounds. Absent: systolic murmur, diastolic murmur, rubs, gallop, clicks GI/Abdominal exam: Present: soft, normal bowel sounds. Absent: distended, tenderness, guarding, rebound, rigid Extremities exam: Present: normal inspection, full ROM, normal capillary refill. Absent: tenderness, pedal edema, joint swelling, calf tenderness Neurological exam: Present: altered Psychiatric exam: Present: depressed Skin exam: Present: warm, dry, intact, normal color. Absent: rash Course Vital Signs 11/29/19 11/29/19 11/29/19 22:23 22:36 23:17 Temperature 97.9 F 97.8 F Pulse Rate 89 84 Respiratory 12 12 16 Rate Blood Pressure 152/82 130/75 O2 Sat by Pulse 95 95 Oximetry 11/30/19 00:00 Temperature 97.9 F Pulse Rate 80 Respiratory 16 Rate Blood Pressure 116/61 O2 Sat by Pulse 97 Oximetry EKG Findings - EKG Comments: EKG Findings:: EKG demonstrates normal sinus rhythm with ventricular rate of 85. MD interval 160. QRS 85. QTC of 461. No acute ST segment elevations or depressions concerning for ischemic changes Medical Decision Making - Medical Decision Making Upon arrival patient is placed into room 1. A thorough exam was performed. I do obtain a history from the patient however it is limited because of her current mental status. She does have 12 respirations per minute. Patient is minimal responsive to painful stimuli and therefore she is given 0.4 mg of Narcan IV. Patient does arouse. She continues to report that she is unsure how many additional tablets of her Harrison, Remeron and Ativan that she took. She continues to deny taking any other medications. Reports that she "just wants the pain go away" laboratory studies were obtained. Sodium is 129. Tylenol level is 68.8. EKG demonstrates a QTC of 461. Patient does remain sedated in the exam room however does awaken easily to verbal stimuli. I'm currently waiting a urine sample. Daughter does present to bedside and is requesting transfer to [facility]. She states that all of her physicians are out of this facility. I do believe the patient needs to be medically admitted for observation with a psychiatry consult once the patient is clear for evaluation. I called and discussed case with Dr. Loo who agreed to accept transfer the patient. Patient is currently awaiting EMS arrival - Lab Data Result diagrams: 11/29/19 22:40 11/29/19 22:40 Lab Results 11/29/19 11/29/19 11/29/19 Range/Units 22:40 22:40 22:40 WBC 5.8 (3.8-10.6) k/uL RBC 4.26 (3.80-5.40) m/uL Hgb 12.5 (11.4-16.0) gm/dL Hct 37.7 (34.0-46.0) % MCV 88.5 (80.0-100.0) fL MCH 29.4 (25.0-35.0) pg MCHC 33.2 (31.0-37.0) g/dL RDW 13.5 (11.5-15.5) % Plt Count 213 (150-450) k/uL Neutrophils % 47 % Lymphocytes % 40 % Monocytes % 7 % Eosinophils % 3 % Basophils % 0 % Neutrophils # 2.7 (1.3-7.7) k/uL Lymphocytes # 2.3 (1.0-4.8) k/uL Monocytes # 0.4 (0-1.0) k/uL Eosinophils # 0.2 (0-0.7) k/uL Basophils # 0.0 (0-0.2) k/uL PT 10.8 (9.0-12.0) sec INR 1.0 (<1.2) APTT 24.4 (22.0-30.0) sec Sodium 129 L (137-145) mmol/L Potassium 3.7 (3.5-5.1) mmol/L Chloride 100 (98-107) mmol/L Carbon Dioxide 20 L (22-30) mmol/L Anion Gap 9 mmol/L BUN 10 (7-17) mg/dL Creatinine 0.90 (0.52-1.04) mg/dL Est GFR (CKD-EPI)AfAm 70 (>60 ml/min/1.73 sqM) Est GFR (CKD-EPI)NonAf 60 (>60 ml/min/1.73 sqM) Glucose 99 (74-99) mg/dL Plasma Lactic Acid [place] (0.7-2.0) mmol/L Calcium 8.5 (8.4-10.2) mg/dL Total Bilirubin 0.4 (0.2-1.3) mg/dL AST 25 (14-36) U/L ALT 14 (4-34) U/L Alkaline Phosphatase 77 (38-126) U/L Creatine Kinase 66 (30-135) U/L Troponin I (0.000-0.034) ng/mL Total Protein 6.2 L (6.3-8.2) g/dL Albumin 3.8 (3.5-5.0) g/dL Urine Color Urine Appearance (Clear) Urine pH (5.0-8.0) Ur Specific [place] (1.001-1.035) Urine Protein (Negative) Urine Glucose (UA) (Negative) Urine Ketones (Negative) Urine Blood (Negative) Urine Nitrite (Negative) Urine Bilirubin (Negative) Urine Urobilinogen (<2.0) mg/dL Ur Leukocyte Esterase (Negative) Salicylates <1.0 mg/dL Urine Opiates Screen (NotDetected) Ur Oxycodone Screen (NotDetected) Urine Methadone Screen (NotDetected) Ur Propoxyphene Screen (NotDetected) Acetaminophen 68.8 H* ug/mL Ur Barbiturates Screen (NotDetected) U Tricyclic Antidepress (NotDetected) Ur Phencyclidine Scrn (NotDetected) Ur Amphetamines Screen (NotDetected) U Methamphetamines Scrn (NotDetected) U Benzodiazepines Scrn (NotDetected) Urine Cocaine Screen (NotDetected) U Marijuana (THC) Screen (NotDetected) Serum Alcohol <10 mg/dL 11/29/19 11/29/19 11/30/19 Range/Units 22:40 22:40 00:08 WBC (3.8-10.6) k/uL RBC (3.80-5.40) m/uL Hgb (11.4-16.0) gm/dL Hct (34.0-46.0) % MCV (80.0-100.0) fL MCH (25.0-35.0) pg MCHC (31.0-37.0) g/dL RDW (11.5-15.5) % Plt Count (150-450) k/uL Neutrophils % % Lymphocytes % % Monocytes % % Eosinophils % % Basophils % % Neutrophils # (1.3-7.7) k/uL Lymphocytes # (1.0-4.8) k/uL Monocytes # (0-1.0) k/uL Eosinophils # (0-0.7) k/uL Basophils # (0-0.2) k/uL PT (9.0-12.0) sec INR (<1.2) APTT (22.0-30.0) sec Sodium (137-145) mmol/L Potassium (3.5-5.1) mmol/L Chloride (98-107) mmol/L Carbon Dioxide (22-30) mmol/L Anion Gap mmol/L BUN (7-17) mg/dL Creatinine (0.52-1.04) mg/dL Est GFR (CKD-EPI)AfAm (>60 ml/min/1.73 sqM) Est GFR (CKD-EPI)NonAf (>60 ml/min/1.73 sqM) Glucose (74-99) mg/dL Plasma Lactic Acid [place] 0.8 (0.7-2.0) mmol/L Calcium (8.4-10.2) mg/dL Total Bilirubin (0.2-1.3) mg/dL AST (14-36) U/L ALT (4-34) U/L Alkaline Phosphatase (38-126) U/L Creatine Kinase (30-135) U/L Troponin I <0.012 (0.000-0.034) ng/mL Total Protein (6.3-8.2) g/dL Albumin (3.5-5.0) g/dL Urine Color Urine Appearance (Clear) Urine pH (5.0-8.0) Ur Specific [place] (1.001-1.035) Urine Protein (Negative) Urine Glucose (UA) (Negative) Urine Ketones (Negative) Urine Blood (Negative) Urine Nitrite (Negative) Urine Bilirubin (Negative) Urine Urobilinogen (<2.0) mg/dL Ur Leukocyte Esterase (Negative) Salicylates mg/dL Urine Opiates Screen Detected H (NotDetected) Ur Oxycodone Screen Not Detected (NotDetected) Urine Methadone Screen Not Detected (NotDetected) Ur Propoxyphene Screen Not Detected (NotDetected) Acetaminophen ug/mL Ur Barbiturates Screen Detected H (NotDetected) U Tricyclic Antidepress Not Detected (NotDetected) Ur Phencyclidine Scrn Not Detected (NotDetected) Ur Amphetamines Screen Not Detected (NotDetected) U Methamphetamines Scrn Not Detected (NotDetected) U Benzodiazepines Scrn Detected H (NotDetected) Urine Cocaine Screen Not Detected (NotDetected) U Marijuana (THC) Screen Not Detected (NotDetected) Serum Alcohol mg/dL 07/22/20 Range/Units 00:08 WBC (3.8-10.6) k/uL RBC (3.80-5.40) m/uL Hgb (11.4-16.0) gm/dL Hct (34.0-46.0) % MCV (80.0-100.0) fL MCH (25.0-35.0) pg MCHC (31.0-37.0) g/dL RDW (11.5-15.5) % Plt Count (150-450) k/uL Neutrophils % % Lymphocytes % % Monocytes % % Eosinophils % % Basophils % % Neutrophils # (1.3-7.7) k/uL Lymphocytes # (1.0-4.8) k/uL Monocytes # (0-1.0) k/uL Eosinophils # (0-0.7) k/uL Basophils # (0-0.2) k/uL PT (9.0-12.0) sec INR (<1.2) APTT (22.0-30.0) sec Sodium (137-145) mmol/L Potassium (3.5-5.1) mmol/L Chloride (98-107) mmol/L Carbon Dioxide (22-30) mmol/L Anion Gap mmol/L BUN (7-17) mg/dL Creatinine (0.52-1.04) mg/dL Est GFR (CKD-EPI)AfAm (>60 ml/min/1.73 sqM) Est GFR (CKD-EPI)NonAf (>60 ml/min/1.73 sqM) Glucose (74-99) mg/dL Plasma Lactic Acid [place] (0.7-2.0) mmol/L Calcium (8.4-10.2) mg/dL Total Bilirubin (0.2-1.3) mg/dL AST (14-36) U/L ALT (4-34) U/L Alkaline Phosphatase (38-126) U/L Creatine Kinase (30-135) U/L Troponin I (0.000-0.034) ng/mL Total Protein (6.3-8.2) g/dL Albumin (3.5-5.0) g/dL Urine Color Light Yellow Urine Appearance Clear (Clear) Urine pH 5.0 (5.0-8.0) Ur Specific [place] 1.004 (1.001-1.035) Urine Protein Negative (Negative) Urine Glucose (UA) Negative (Negative) Urine Ketones Negative (Negative) Urine Blood Negative (Negative) Urine Nitrite Negative (Negative) Urine Bilirubin Negative (Negative) Urine Urobilinogen <2.0 (<2.0) mg/dL Ur Leukocyte Esterase Negative (Negative) Salicylates mg/dL Urine Opiates Screen (NotDetected) Ur Oxycodone Screen (NotDetected) Urine Methadone Screen (NotDetected) Ur Propoxyphene Screen (NotDetected) Acetaminophen ug/mL Ur Barbiturates Screen (NotDetected) U Tricyclic Antidepress (NotDetected) Ur Phencyclidine Scrn (NotDetected) Ur Amphetamines Screen (NotDetected) U Methamphetamines Scrn (NotDetected) U Benzodiazepines Scrn (NotDetected) Urine Cocaine Screen (NotDetected) U Marijuana (THC) Screen (NotDetected) Serum Alcohol mg/dL Disposition Clinical Impression: Suicide attempt by multiple drug overdose Disposition: OTHER INSTITUTION NOT DEFINED Condition: Serious Is patient prescribed a controlled substance at d/c from ED?: No Referrals: None,Stated [REFERRING] - 1-2 days - Out of Hospital Transfer - Req. Specs Out of Hospital Transfer - Requested Specifics: Other Emergency Center ([facility]
[2019-11-29 22:53] LABS: Basophils % (A) 0 %; Eosinophils # (A) 0.2 k/uL (0-0.7); Eosinophils % (A) 3 %; HCT 37.7 % (34.0-46.0); HGB 12.5 gm/dL (11.4-16.0); Lymphocytes # (A) 2.3 k/uL (1.0-4.8); Lymphocytes % (A) 40 %; MCH 29.4 pg (25.0-35.0); MCHC 33.2 g/dL (31.0-37.0); MCV 88.5 fL (80.0-100.0); Mean Platelet Volume 7.5; Monocytes # (A) 0.4 k/uL (0-1.0); Monocytes % (A) 7 %; Neutrophils # (A) 2.7 k/uL (1.3-7.7); Neutrophils % (A) 47 %; Platelet Count 213 k/uL (150-450); RBC 4.26 m/uL (3.80-5.40); RDW 13.5 % (11.5-15.5); WBC 5.8 k/uL (3.8-10.6)
[2019-11-29 23:01] LABS: ALT 14 U/L (4-34); AST 25 U/L (14-36); African American GFR (CKD) 70 (>60 ml/min/1.73 sqM); Albumin 3.8 g/dL (3.5-5.0); Alcohol <10 mg/dL; Alkaline Phosphatase 77 U/L (38-126); Anion Gap 9 mmol/L; Blood Urea Nitrogen 10 mg/dL (7-17); Calcium 8.5 mg/dL (8.4-10.2); Carbon Dioxide 20 mmol/L (22-30); Chloride 100 mmol/L (98-107); Creatine Kinase 66 U/L (30-135); Glucose 99 mg/dL (74-99); Non-African American GFR(CKD) 60 (>60 ml/min/1.73 sqM); Potassium 3.7 mmol/L (3.5-5.1); Salicylate <1.0 mg/dL; Sodium 129 mmol/L (137-145); Total Bilirubin 0.4 mg/dL (0.2-1.3); Total Protein 6.2 g/dL (6.3-8.2)
[2019-11-29 23:07] LABS: Acetaminophen 68.8 ug/mL; Partial Thromboplastin Time 24.4 sec (22.0-30.0); Prothrombin Time 10.8 sec (9.0-12.0)
[2019-11-29 23:19] VITALS: RESP 16
[2019-11-29] MEDS ORDERED: SODIUM CHLORIDE 0.9% 1,000 ML IV SCH (23:45)
[2019-11-30 00:16] LABS: Appearance,Urine Clear (Clear); Bilirubin,Urine Negative (Negative); Blood,Urine Negative (Negative); Color,Urine Light Yellow; Glucose,Urine (UA) Negative (Negative); Ketones,Urine Negative (Negative); Leukocyte Esterase,Urine Negative (Negative); Nitrite,Urine Negative (Negative); Protein,Urine Negative (Negative); Specific Gravity,Urine 1.004 (1.001-1.035); Urobilinogen,Urine <2.0 mg/dL (<2.0)
[2019-11-30 00:36] LABS: Amphetamine Screen,Urine Not Detected (NotDetected); Barbiturate Screen,Urine Detected (NotDetected); Benzodiazepines Screen,Urine Detected (NotDetected); Cocaine Screen,Urine Not Detected (NotDetected); Methadone Screen, Urine Not Detected (NotDetected); Opiate Screen,Urine Detected (NotDetected); Oxycodone Screen, Urine Not Detected (NotDetected); Phencyclidine Screen,Urine Not Detected (NotDetected); Tricyclic Antidepressant,Urine Not Detected (NotDetected); Urn Cannabinoid Scrn Not Detected (NotDetected)
[2019-11-30 00:38] VITALS: BP 116/61; PULSE 80; TEMP 97.9
== END 2019-11-30 01:20 | disposition other institution (70) ==
LOC: EC 22:21
DX: T42.4X2A Poisoning by benzodiazepines, intentional self-harm, initial encounter (principal); T39.1X2A Poisoning by 4-Aminophenol derivatives, intentional self-harm, initial encounter; I10 Essential (primary) hypertension; M19.90 Unspecified osteoarthritis, unspecified site; E78.5 Hyperlipidemia, unspecified; F41.0 Panic disorder [episodic paroxysmal anxiety]; Z79.1 Long term (current) use of non-steroidal anti-inflammatories (NSAID); Z79.899 Other long term (current) drug therapy; Z88.5 Allergy status to narcotic agent; Z88.1 Allergy status to other antibiotic agents; Z96.651 Presence of right artificial knee joint
CPT/HCPCS: 99285 ×2; 96374 ×2; 96361 ×2; 36415; 93005; 80053; 82550; 83605; 84484; 85025; 85610; 85730; 81003; 80306; 83520; G0480 ×2; J2310; 80320; 80329

== ENCOUNTER 2020-04-04 18:57 | Emergency (ER) | payer MEDICARE, OTHER ==
[2020-04-04] MEDS ORDERED: HYDROmorphone 0.5 MG/0.5 ML SYRINGE IVP STA (19:25)
[2020-04-04] MEDS ORDERED: METOCLOPRAMIDE 5 MG/ML 2 ML VIAL IVP STA (19:25)
[2020-04-04] MEDS ORDERED: SODIUM CHLORIDE 0.9% 500 ML 500 ML IV STA (19:25)
[2020-04-04 20:33] LABS: Basophils % (A) 0 %; Eosinophils # (A) 0.3 k/uL (0-0.7); Eosinophils % (A) 5 %; HCT 36.8 % (34.0-46.0); HGB 11.8 gm/dL (11.4-16.0); Lymphocytes % (A) 32 %; MCH 26.4 pg (25.0-35.0); MCHC 32.1 g/dL (31.0-37.0); Mean Platelet Volume 6.5; Monocytes # (A) 0.4 k/uL (0-1.0); Monocytes % (A) 7 %; Neutrophils # (A) 3.3 k/uL (1.3-7.7); Neutrophils % (A) 54 %; Platelet Count 314 k/uL (150-450); RBC 4.49 m/uL (3.80-5.40); RDW 13.4 % (11.5-15.5)
[2020-04-04 20:36] LABS: Appearance,Urine Clear (Clear); Bilirubin,Urine Negative (Negative); Blood,Urine Negative (Negative); Color,Urine Colorless; Glucose,Urine (UA) Negative (Negative); Ketones,Urine Negative (Negative); Leukocyte Esterase,Urine Negative (Negative); Nitrite,Urine Negative (Negative); PH, Urine 6.5 (5.0-8.0); Protein,Urine Negative (Negative); Specific Gravity,Urine 1.003 (1.001-1.035); Urobilinogen,Urine <2.0 mg/dL (<2.0)
[2020-04-04 20:43] LABS: ALT 11 U/L (4-34); AST 27 U/L (14-36); African American GFR (CKD) >90 (>60 ml/min/1.73 sqM); Albumin 3.6 g/dL (3.5-5.0); Alkaline Phosphatase 66 U/L (38-126); Anion Gap 7 mmol/L; Blood Urea Nitrogen 8 mg/dL (7-17); Calcium 8.7 mg/dL (8.4-10.2); Carbon Dioxide 22 mmol/L (22-30); Chloride 99 mmol/L (98-107); Glucose 109 mg/dL (74-99); Lipase 130 U/L (23-300); Non-African American GFR(CKD) 81 (>60 ml/min/1.73 sqM); Sodium 128 mmol/L (137-145); Total Bilirubin 0.4 mg/dL (0.2-1.3); Total Protein 6.4 g/dL (6.3-8.2)
--- NOTE | 2020-04-04 20:45 | XR ---
EXAMINATION TYPE: XR KUB DATE OF EXAM: 04/04/2020 COMPARISON: NONE HISTORY: Abdominal pain TECHNIQUE: Single view FINDINGS: Single view upright shows no sign of intestinal obstruction or pneumoperitoneum. Fecal amor elijah is normal. Lung bases are clear of consolidation. There is no evidence of a mass. There are no pa thologic calcifications over the kidneys. IMPRESSION: Nonacute abdomen.
[2020-04-04 20:48] LABS: Potassium 4.3 mmol/L (3.5-5.1)
[2020-04-04] MEDS ORDERED: LORazepam 2 MG/ML INJ IV STA ×2 (21:26→21:32)
[2020-04-04 22:02] VITALS: BP 134/79; PULSE 81; RESP 17; TEMP 98.3
--- NOTE | 2020-04-04 22:26 | ED ---
General Adult HPI - General Chief complaint: Abdominal Pain Stated complaint: ABD pain Time Seen by Provider: 04/04/20 19:12 Source: patient, RN notes reviewed, old records reviewed Mode of arrival: EMS Limitations: no limitations - History of Present Illness Initial comments: 84-year-old female patient history gastroparesis chronic abdominal pain to ED for abdominal pain left upper quadrant feels identical is before. Denies any or concerning symptoms. Denies any other acute complaints. Systemic: Pt denies fatigue, fever/chills, rash. Pt denies weakness, night sweats, weight loss. Neuro: Pt denies headache, visual disturbances, syncope or pre-syncope. HEENT: Pt denies ocular discharge or irritation, otalgia, rhinorrhea, pharyngitis or notable lymphadenopathy. Cardiopulmonary: Pt denies chest pain, SOB, heart palpitations, dyspnea on exertion. : Pt denies dysuria, burning w/ urination, frequency/urgency. Denies new onset urinary or bowel incontinence. MSK: Pt denies myalgia, loss of strength or function in extremities. Neuro: Pt denies new onset weakness, paresthesias. - Related Data Home Medications Medication Instructions Recorded Confirmed Rosuvastatin [Crestor] 10 mg PO HS 01/28/18 04/04/20 amLODIPine [Norvasc] 5 mg PO DAILY 01/28/18 04/04/20 hydrOXYzine HCL [Atarax] 25 mg PO QID PRN 01/28/18 04/04/20 ondansetron HCL [Zofran] 8 mg PO TID PRN 08/17/18 04/04/20 Hydrocodone/Acetaminophen [[place] 1 tab PO Q6H PRN 12/03/18 04/04/20 10-325] Ergocalciferol [Vitamin D2] 50,000 unit PO TUSA 11/29/19 04/04/20 Gi Cocktail( 30 ml PO Q4H 11/29/19 04/04/20 Elixir/Lidocaine Viscous/Maalox 1:1:1) Losartan Potassium 100 mg PO HS 11/29/19 04/04/20 Remeron Soluspan 45mg Odt 45 mg PO HS 11/29/19 04/04/20 [id number] 1 tab PO HS 04/04/20 04/04/20 [Folbic] Dicyclomine [Bentyl] 10 mg PO QID 04/04/20 04/04/20 OLANZapine [ZyPREXA] 2.5 mg PO HS 04/04/20 04/04/20 Omeprazole 40 mg PO DAILY 04/04/20 04/04/20 diazePAM [Valium] 2 mg PO BID 04/04/20 04/04/20 Allergies Allergy/AdvReac Type Severity Reaction Status Date / Time morphine Allergy Rash/Hives Verified 04/04/20 20:42 tetracycline Allergy Rash/Hives Verified 04/04/20 20:42 Review of Systems ROS Statement: Those systems with pertinent positive or pertinent negative responses have been documented in the HPI. ROS Other: All systems not noted in ROS Statement are negative. Past Medical History Past Medical History: Hyperlipidemia, Hypertension, Osteoarthritis (OA) Additional Past Medical History / Comment(s): Gastroporesis, problems with nausea, thyroid nodules History of Any Multi-Drug Resistant Organisms: None Reported Past Surgical History: Appendectomy, Hysterectomy, Orthopedic Surgery, Tonsillectomy Additional Past Surgical History / Comment(s): L Shoulder surgery with plate, R knee replacement, colonoscopy, partial hysterectomy---still has her ovaries, carpal tunnel release bilaterally Past Anesthesia/Blood Transfusion Reactions: Postoperative Nausea & Vomiting (PONV) Past Psychological History: Anxiety, Panic Disorder Smoking Status: Former smoker Past Alcohol Use History: None Reported Past Drug Use History: None Reported - Past Family History Mother Family Medical History: Cancer Additional Family Medical History / Comment(s): Colon Father Family Medical History: Coronary Artery Disease (CAD) General Exam - General Exam Comments Initial Comments: Constitutional: NAD, AOX3, Pt has pleasant affect. HEENT: NC/AT, trachea midline, neck supple, no lymphadenopathy. Posterior pharynx non erythematous, without exudates. External ears appear normal, without discharge. Mucous membranes moist. Eyes PERRLA, EOM intact. There is no scleral icterus. No pallor noted. Cardiopulmonary: RRR, no murmurs, rubs or gallops, no JVD noted. Lungs CTAB in anterior and posterior carey. No peripheral edema. Abdominal exam: Abdomen soft and non-distended. Abdomen mild tender palpation left upper quadrant region.. Bowel sounds active in LLQ. No hepatosplenomegaly. No ecchymosis Neuro: CN II-XII grossly intact. No nuchal rigidity. No raccon eyes, no scott sign, no hemotympanum. No cervical spinal tenderness. MSK: Full active ROM in upper and lower extremities, 5/5 stregnth. Limitations: no limitations Course Vital Signs 04/04/20 04/04/20 19:09 22:01 Temperature 99.1 F 98.3 F Pulse Rate 84 81 Respiratory 18 17 Rate Blood Pressure 181/83 134/79 O2 Sat by Pulse 97 98 Oximetry Medical Decision Making - Medical Decision Making 84-year-old female patient to ED for chronic abdominal pain. Physical exam a mild left upper quadrant tenderness. Laboratory Investigations revealed mild hyponatremia unchanged from before. KUB displayed no acute process. Symptoms are well controlled. Patient is comfortable with discharge and outpatient. Return precautions. Case discussed with Dr. Galaviz. - Lab Data Result diagrams: 04/04/20 20:20 04/04/20 20:20 Lab Results 04/04/20 04/04/20 04/04/20 Range/Units 20:20 20:20 20:20 WBC 6.0 (3.8-10.6) k/uL RBC 4.49 (3.80-5.40) m/uL Hgb 11.8 (11.4-16.0) gm/dL Hct 36.8 (34.0-46.0) % MCV 82.0 (80.0-100.0) fL MCH 26.4 (25.0-35.0) pg MCHC 32.1 (31.0-37.0) g/dL RDW 13.4 (11.5-15.5) % Plt Count 314 (150-450) k/uL MPV 6.5 Neutrophils % 54 % Lymphocytes % 32 % Monocytes % 7 % Eosinophils % 5 % Basophils % 0 % Neutrophils # 3.3 (1.3-7.7) k/uL Lymphocytes # 2.0 (1.0-4.8) k/uL Monocytes # 0.4 (0-1.0) k/uL Eosinophils # 0.3 (0-0.7) k/uL Basophils # 0.0 (0-0.2) k/uL Sodium 128 L (137-145) mmol/L Potassium 4.3 (3.5-5.1) mmol/L Chloride 99 (98-107) mmol/L Carbon Dioxide 22 (22-30) mmol/L Anion Gap 7 mmol/L BUN 8 (7-17) mg/dL Creatinine 0.70 (0.52-1.04) mg/dL Est GFR (CKD-EPI)AfAm >90 (>60 ml/min/1.73 sqM) Est GFR (CKD-EPI)NonAf 81 (>60 ml/min/1.73 sqM) Glucose 109 H (74-99) mg/dL Plasma Lactic Acid [place] (0.7-2.0) mmol/L Calcium 8.7 (8.4-10.2) mg/dL Total Bilirubin 0.4 (0.2-1.3) mg/dL AST 27 (14-36) U/L ALT 11 (4-34) U/L Alkaline Phosphatase 66 (38-126) U/L Total Protein 6.4 (6.3-8.2) g/dL Albumin 3.6 (3.5-5.0) g/dL Lipase 130 (23-300) U/L Urine Color Colorless Urine Appearance Clear (Clear) Urine pH 6.5 (5.0-8.0) Ur Specific Maria Stein 1.003 (1.001-1.035) Urine Protein Negative (Negative) Urine Glucose (UA) Negative (Negative) Urine Ketones Negative (Negative) Urine Blood Negative (Negative) Urine Nitrite Negative (Negative) Urine Bilirubin Negative (Negative) Urine Urobilinogen <2.0 (<2.0) mg/dL Ur Leukocyte Esterase Negative (Negative) 04/04/20 Range/Units 20:20 WBC (3.8-10.6) k/uL RBC (3.80-5.40) m/uL Hgb (11.4-16.0) gm/dL Hct (34.0-46.0) % MCV (80.0-100.0) fL MCH (25.0-35.0) pg MCHC (31.0-37.0) g/dL RDW (11.5-15.5) % Plt Count (150-450) k/uL MPV Neutrophils % % Lymphocytes % % Monocytes % % Eosinophils % % Basophils % % Neutrophils # (1.3-7.7) k/uL Lymphocytes # (1.0-4.8) k/uL Monocytes # (0-1.0) k/uL Eosinophils # (0-0.7) k/uL Basophils # (0-0.2) k/uL Sodium (137-145) mmol/L Potassium (3.5-5.1) mmol/L Chloride (98-107) mmol/L Carbon Dioxide (22-30) mmol/L Anion Gap mmol/L BUN (7-17) mg/dL Creatinine (0.52-1.04) mg/dL Est GFR (CKD-EPI)AfAm (>60 ml/min/1.73 sqM) Est GFR (CKD-EPI)NonAf (>60 ml/min/1.73 sqM) Glucose (74-99) mg/dL Plasma Lactic Acid [place] 0.9 (0.7-2.0) mmol/L Calcium (8.4-10.2) mg/dL Total Bilirubin (0.2-1.3) mg/dL AST (14-36) U/L ALT (4-34) U/L Alkaline Phosphatase (38-126) U/L Total Protein (6.3-8.2) g/dL Albumin (3.5-5.0) g/dL Lipase (23-300) U/L Urine Color Urine Appearance (Clear) Urine pH (5.0-8.0) Ur Specific Maria Stein (1.001-1.035) Urine Protein (Negative) Urine Glucose (UA) (Negative) Urine Ketones (Negative) Urine Blood (Negative) Urine Nitrite (Negative) Urine Bilirubin (Negative) Urine Urobilinogen (<2.0) mg/dL Ur Leukocyte Esterase (Negative) Disposition Clinical Impression: Chronic abdominal pain Disposition: HOME SELF-CARE Condition: Stable Instructions (If sedation given, give patient instructions): Abdominal Pain (ED) Additional Instructions: Follow up with primary care provider tomorrow. Follow-up with biotechnologist tomorrow. Return to ER if any worsening symptoms. Is patient prescribed a controlled substance at d/c from ED?: No Referrals: Davida Doss MD [Primary Care Provider] - 1-2 days
== END 2020-04-04 22:49 | disposition home or self-care (01) ==
LOC: EC 18:57
DX: G89.29 Other chronic pain (principal); R10.12 Left upper quadrant pain; E87.1 Hypo-osmolality and hyponatremia; I10 Essential (primary) hypertension; E78.5 Hyperlipidemia, unspecified; F41.0 Panic disorder [episodic paroxysmal anxiety]; M19.90 Unspecified osteoarthritis, unspecified site; Z79.899 Other long term (current) drug therapy; Z88.5 Allergy status to narcotic agent; Z88.1 Allergy status to other antibiotic agents; Z87.891 Personal history of nicotine dependence; Z96.651 Presence of right artificial knee joint
CPT/HCPCS: 36415; 80053; 83605; 83690; 85025; 81003; 74018; 99285; 96374; 96375 ×2; 96361; J2060; J2765; J1170

== ENCOUNTER 2020-04-19 09:19 | Emergency (ER) | payer MEDICARE, OTHER ==
[2020-04-19 09:29] VITALS: RESP 18
[2020-04-19] MEDS ORDERED: ACETAMINOPHEN TAB 500 MG TAB PO STA (09:29)
[2020-04-19] MEDS ORDERED: LIDOCAINE 1% INJ 10MG/ML (20 ML MDV) SQ ONE (09:29)
[2020-04-19] MEDS ORDERED: HYDROcodone/APAP 10-325MG 1 EACH TAB PO ONE (09:36)
--- NOTE | 2020-04-19 09:39 | ED ---
Fall HPI <Fariba Loza - Last Filed: 04/19/20 12:33> - General Source: patient, EMS Mode of arrival: EMS - History of Present Illness MD Complaint: fall <AlpeshShyam - Last Filed: 04/19/20 12:35> - General Chief Complaint: Fall Stated Complaint: Fall Time Seen by Provider: 04/19/20 09:19 - History of Present Illness Initial Comments: This 84-year-old female with a history of gastroparesis who apparently drinks on a water who is going to the bathroom this morning around 7:30 AM she slipped in the bathtub and fell striking the left side of her head and face and chest as well as right knee on the floor. He had no loss of consciousness no loss of function to her upper or lower extremities he took a little while to get up her from this. She was brought in for evaluation she did sustain a laceration over the lateral left eyebrow complains of anterior chest wall pain no neck pain and also some right knee pain. She has a history of right in the past with prosthetic placement. No other complaints of any other injury. She has had pain to the above areas. (Shyam Betts) - Related Data Home Medications Medication Instructions Recorded Confirmed Rosuvastatin [Crestor] 10 mg PO HS 01/28/18 04/19/20 amLODIPine [Norvasc] 5 mg PO DAILY 01/28/18 04/19/20 hydrOXYzine HCL [Atarax] 25 mg PO QID PRN 01/28/18 04/19/20 ondansetron HCL [Zofran] 8 mg PO TID PRN 08/17/18 04/19/20 Hydrocodone/Acetaminophen [[place] 1 tab PO Q6H PRN 12/03/18 04/19/20 10-325] Ergocalciferol [Vitamin D2] 50,000 unit PO TUSA 11/29/19 04/19/20 Gi Cocktail( 30 ml PO Q4H 11/29/19 04/19/20 Elixir/Lidocaine Viscous/Maalox 1:1:1) Losartan Potassium 100 mg PO HS 11/29/19 04/19/20 Remeron Soluspan 45mg Odt 45 mg PO HS 11/29/19 04/19/20 Xfappdjzzvflte-VV-Rsicqefcki 1 tab PO DAILY 04/04/20 04/19/20 [Folbic] Dicyclomine [Bentyl] 10 mg PO QID 04/04/20 04/19/20 OLANZapine [ZyPREXA] 2.5 mg PO HS 04/04/20 04/19/20 Omeprazole 20 mg PO BID 04/04/20 04/19/20 LORazepam [Ativan] 2 mg PO TID PRN 04/19/20 04/19/20 Allergies Allergy/AdvReac Type Severity Reaction Status Date / Time morphine Allergy Rash/Hives Verified 04/19/20 10:57 tetracycline Allergy Rash/Hives Verified 04/19/20 10:57 Review of Systems ROS Other: All systems not noted in ROS Statement are negative. <Fariba Loza - Last Filed: 04/19/20 12:33> ROS Other: All systems not noted in ROS Statement are negative. <Shyam Betts - Last Filed: 04/19/20 12:35> ROS Statement: Those systems with pertinent positive or pertinent negative responses have been documented in the HPI. Past Medical History Past Medical History: Hyperlipidemia, Hypertension, Osteoarthritis (OA) Additional Past Medical History / Comment(s): Gastroporesis, problems with nausea, thyroid nodules History of Any Multi-Drug Resistant Organisms: None Reported Past Surgical History: Appendectomy, Hysterectomy, Orthopedic Surgery, Tonsillectomy Additional Past Surgical History / Comment(s): L Shoulder surgery with plate, R knee replacement, colonoscopy, partial hysterectomy---still has her ovaries, carpal tunnel release bilaterally Past Anesthesia/Blood Transfusion Reactions: Postoperative Nausea & Vomiting (PONV) Past Psychological History: Anxiety, Panic Disorder Smoking Status: Former smoker Past Alcohol Use History: None Reported Past Drug Use History: None Reported - Past Family History Mother Family Medical History: Cancer Additional Family Medical History / Comment(s): Colon Father Family Medical History: Coronary Artery Disease (CAD) <Shyam Betts - Last Filed: 04/19/20 12:35> General Exam Limitations: no limitations General appearance: alert, anxious Head exam: Present: normocephalic, other (Laceration left lateral eyebrow approximately 2.5 cm. No open active bleeding no formed by seen no step-off or crepitation) Eye exam: Present: normal appearance, PERRL, EOMI. Absent: scleral icterus, conjunctival injection, periorbital swelling ENT exam: Present: mucous membranes dry Neck exam: Present: normal inspection, full ROM. Absent: tenderness, meningismus, lymphadenopathy Respiratory exam: Present: normal lung sounds bilaterally, chest wall tenderness. Absent: respiratory distress, wheezes, rales, rhonchi, stridor Cardiovascular Exam: Present: regular rate, normal rhythm, normal heart sounds. Absent: systolic murmur, diastolic murmur, rubs, gallop, clicks GI/Abdominal exam: Present: soft, normal bowel sounds. Absent: distended, tenderness, guarding, rebound, rigid Extremities exam: Present: full ROM, tenderness, normal capillary refill, other (No hip tenderness palpation there is some tenderness palpation of the right anterior lateral knee with some ecchymosis noted well-healed surgical scar. No step-off no crepitation no other injuries proximal or distal to this or any other side.) Back exam: Present: normal inspection, full ROM. Absent: tenderness Neurological exam: Present: alert, oriented X3, CN II-XII intact Psychiatric exam: Present: normal affect, normal mood Skin exam: Present: warm, dry, intact, normal color. Absent: rash <Shyam Betts - Last Filed: 04/19/20 12:35> - General Exam Comments Initial Comments: This is a well-developed well-nourished awake alert oriented 5 female [place] Coma Scale of 15 (Shyam Betts) Course Vital Signs 04/19/20 09:21 Temperature 98.5 F Pulse Rate 91 Respiratory 18 Rate Blood Pressure 141/85 O2 Sat by Pulse 98 Oximetry Procedures - Laceration Laceration #1 Consent Obtained: verbal consent Indication: laceration Site: face Size (cm): 2 Description: linear Depth: simple, single layer Anesthetic Used: lidocaine 1% Anesthesia Technique: local infiltration Amount (mls): 1 Pre-repair: wound explored, irrigated extensively, deep structures intact Size of Sutures: 6-0 Number of Sutures: 5 Technique: simple, interrupted Patient Tolerated Procedure: well, no complications <Fariba Loza - Last Filed: 04/19/20 12:33> Medical Decision Making - Radiology Data Radiology results: report reviewed (Imaging reviewed no acute findings.), image reviewed <Shyam Betts - Last Filed: 04/19/20 12:35> - Medical Decision Making I did discuss the findings with the patient she has a left facial/orbital laceration was repaired by my physician hospital administrative assistant. Additionally chest wall contusion and right knee contusion. No evidence of fractures or any other pathology. Patient will be discharged he is in agreement with this. (Dwight anton,Shyam) Disposition <Fariba Loza - Last Filed: 04/19/20 12:33> Is patient prescribed a controlled substance at d/c from ED?: No <Shyam Betts - Last Filed: 04/19/20 12:35> Clinical Impression: Fall, Facial laceration, Chest wall contusion, Contusion of right knee Disposition: HOME SELF-CARE Condition: Good Instructions (If sedation given, give patient instructions): Laceration (ED), Fall Prevention for Older Adults (ED), Contusion in Adults (ED), Facial Contusion (ED) Referrals: Davida Doss MD [Primary Care Provider] - 1-2 days
--- NOTE | 2020-04-19 10:59 | XR ---
EXAMINATION TYPE: XR knee complete RT DATE OF EXAM: 04/19/2020 CLINICAL HISTORY: Pain after fall injury. TECHNIQUE: Three views of the right knee are obtained. COMPARISON: None. FINDINGS: [place] osseous structures are demineralized. There is no acute fracture/dislocation eviden t in the right knee. Metallic hardware from total right knee arthroplasty is satisfactory in position . Mild subcutaneous edema laterally is seen. IMPRESSION: There is no acute fracture or dislocation in the right knee.
--- NOTE | 2020-04-19 11:08 | XR ---
EXAMINATION TYPE: XR chest 2V DATE OF EXAM: 04/19/2020 COMPARISON: 08/17/2018 INDICATION: Trauma, pain TECHNIQUE: Frontal and lateral views of the chest are obtained. FINDINGS: The heart size is normal. The pulmonary vasculature is normal. Minimal plate atelectasis at the left base. No pneumothorax is evident. Osseous structures are osteopenic. There is a left shoulder prosthesis. IMPRESSION: 1. Plate atelectasis left base. 2. No acute posttraumatic changes identified
[2020-04-19] MEDS ORDERED: LORazepam 1 MG TAB PO STA (11:21)
[2020-04-19 12:41] VITALS: BP 132/80; PULSE 74; TEMP 98.2
== END 2020-04-19 12:41 | disposition home or self-care (01) ==
LOC: EC 09:19
DX: S01.81XA Laceration without foreign body of other part of head, initial encounter (principal); S20.219A Contusion of unspecified front wall of thorax, initial encounter; S80.01XA Contusion of right knee, initial encounter; I10 Essential (primary) hypertension; E78.5 Hyperlipidemia, unspecified; F41.0 Panic disorder [episodic paroxysmal anxiety]; Z79.899 Other long term (current) drug therapy; Z88.5 Allergy status to narcotic agent; Z88.1 Allergy status to other antibiotic agents; Z87.891 Personal history of nicotine dependence; Z96.653 Presence of artificial knee joint, bilateral; W01.198A Fall on same level from slipping, tripping and stumbling with subsequent striking against other object, initial encounter; Y92.002 Bathroom of unspecified non-institutional (private) residence as the place of occurrence of the external cause
CPT/HCPCS: 12011; 71046; 99283

== ENCOUNTER 2020-04-21 10:25 | Inpatient (IN) | payer MEDICARE, OTHER ==
[2020-04-21] MEDS ORDERED: ONDANSETRON 4 MG/2 ML VIAL IVP STA (10:45)
[2020-04-21] MEDS ORDERED: SODIUM CHLORIDE 0.9% 500 ML 500 ML IV STA (10:45)
[2020-04-21] MEDS ORDERED: PANTOPRAZOLE 40 MG/10 ML VIAL IVP STA (10:45)
[2020-04-21] MEDS ORDERED: KETOROLAC 15 MG/ML 1 ML VIAL IVP STA (10:46)
[2020-04-21 11:00] LABS: Basophils % (A) 0 %; Eosinophils # (A) 0.1 k/uL (0-0.7); Eosinophils % (A) 1 %; HCT 37.5 % (34.0-46.0); HGB 12.6 gm/dL (11.4-16.0); Lymphocytes # (A) 1.1 k/uL (1.0-4.8); Lymphocytes % (A) 13 %; MCH 27.3 pg (25.0-35.0); MCHC 33.6 g/dL (31.0-37.0); MCV 81.5 fL (80.0-100.0); Mean Platelet Volume 7.1; Monocytes # (A) 0.5 k/uL (0-1.0); Monocytes % (A) 6 %; Neutrophils # (A) 6.7 k/uL (1.3-7.7); Neutrophils % (A) 79 %; Platelet Count 266 k/uL (150-450); RDW 13.2 % (11.5-15.5); WBC 8.4 k/uL (3.8-10.6)
[2020-04-21 11:09] LABS: Albumin 4.1 g/dL (3.5-5.0); Calcium 8.7 mg/dL (8.4-10.2); Potassium 4.2 mmol/L (3.5-5.1); Total Bilirubin 0.7 mg/dL (0.2-1.3)
[2020-04-21 11:10] LABS: Partial Thromboplastin Time 24.9 sec (22.0-30.0); Prothrombin Time 10.5 sec (9.0-12.0)
--- NOTE | 2020-04-21 11:29 | CT ---
EXAMINATION TYPE: CT brain tash wo con DATE OF EXAM: 04/21/2020 COMPARISON: None HISTORY: Multiple falls today with facial injuries. CT DLP: 1031.7 mGycm, Automated exposure control for dose reduction was used. CONTRAST: Patient injected with mL of . CT of the brain is performed utilizing 3 mm thick sections through the posterior fossa and 3 mm thick sections through the remaining calvarium. Study is performed within 24 hours of arrival to the hospital. No abnormal hyperdensity is present to suggest an acute intracranial hemorrhage. No mass lesion is evident. No acute infarcts are evident. Ventricles and sulci are appropriate for the patient age. Paranasal sinuses and mastoid air cells within the [id number] are clear. Right frontal subcutaneou s hematoma is present. No underlying fractures evident IMPRESSIONS: 1. No acute intracranial process. CT cervical spine. COMPARISON: None CT of the cervical spine is performed in the axial plane at 2 mm thick sections. Reconstructed image s in the coronal, and sagittal plane are reviewed on the computer. No acute fractures are evident. Vertebral body alignment is normal. There is loss of disc height throughout the cervical spine. Vertebral body heights are preserved. Endplate spurring is present C4-5 with mild anterior thecal sac compression. Some uncovertebral joint hypertrophy is in the mid to lower cervical spine with mild foraminal narrowing. IMPRESSIONS: 1. No acute osseous abnormality. 2. 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
--- NOTE | 2020-04-21 11:47 | ED ---
Fall HPI - General Chief Complaint: Fall Stated Complaint: fall dizzyness.facial injury Time Seen by Provider: 04/21/20 10:33 Source: EMS Mode of arrival: EMS - History of Present Illness Initial Comments: Patient is an 84-year-old female presenting to the emergency department via EMS with complaints of abdominal pain and also falling this morning. Patient states she felt nauseous and weak this morning and fell in her bathroom, she did hit her head, she does not know what she had on. She denies loss of consciousness or being on blood thinners. She is also complaining of right-sided rib pain as well as knee pain. Patient was in the ER 2 days ago for same complaint after falling. She received some sutures on the left side of her forehead. Patient hit the right side of her forehead today, no active bleeding. She is also complaining of epigastric pain, she states she has a history of gastroparesis. She's had no vomiting, no diarrhea his increase in her pain. Patient states she has been taking her medications as prescribed. Patient denies any nausea at this time, no recent fever or chills. Patient has no further complaints at this time. Upon arrival to the ER, her vitals are stable. - Related Data Home Medications Medication Instructions Recorded Confirmed Rosuvastatin [Crestor] 10 mg PO HS 01/28/18 04/21/20 amLODIPine [Norvasc] 5 mg PO DAILY 01/28/18 04/21/20 hydrOXYzine HCL [Atarax] 25 mg PO QID PRN 01/28/18 04/21/20 ondansetron HCL [Zofran] 8 mg PO TID PRN 08/17/18 04/21/20 Hydrocodone/Acetaminophen [[place] 1 tab PO Q6H PRN 12/03/18 04/21/20 10-325] Ergocalciferol [Vitamin D2] 50,000 unit PO TUSA 11/29/19 04/21/20 Gi Cocktail( 30 ml PO Q4H 11/29/19 04/21/20 Elixir/Lidocaine Viscous/Maalox 1:1:1) Losartan Potassium 100 mg PO HS 11/29/19 04/21/20 Remeron Soluspan 45mg Odt 45 mg PO HS 11/29/19 04/21/20 Yklohqothbuemf-DS-Ptebxqfdff 1 tab PO DAILY 04/04/20 04/21/20 [Folbic] Dicyclomine [Bentyl] 10 mg PO QID 04/04/20 04/21/20 OLANZapine [ZyPREXA] 2.5 mg PO HS 04/04/20 04/21/20 Omeprazole 20 mg PO BID 04/04/20 04/21/20 LORazepam [Ativan] 2 mg PO TID PRN 04/19/20 04/21/20 Allergies Allergy/AdvReac Type Severity Reaction Status Date / Time morphine Allergy Rash/Hives Verified 04/21/20 11:29 tetracycline Allergy Rash/Hives Verified 04/21/20 11:29 Review of Systems ROS Statement: Those systems with pertinent positive or pertinent negative responses have been documented in the HPI. ROS Other: All systems not noted in ROS Statement are negative. Past Medical History Past Medical History: Hyperlipidemia, Hypertension, Osteoarthritis (OA) Additional Past Medical History / Comment(s): Gastroporesis, problems with nausea, thyroid nodules History of Any Multi-Drug Resistant Organisms: None Reported Past Surgical History: Appendectomy, Hysterectomy, Orthopedic Surgery, Tonsillectomy Additional Past Surgical History / Comment(s): L Shoulder surgery with plate, R knee replacement, colonoscopy, partial hysterectomy---still has her ovaries, carpal tunnel release bilaterally Past Anesthesia/Blood Transfusion Reactions: Postoperative Nausea & Vomiting (PONV) Past Psychological History: Anxiety, Panic Disorder Smoking Status: Former smoker Past Alcohol Use History: None Reported Past Drug Use History: None Reported - Past Family History Mother Family Medical History: Cancer Additional Family Medical History / Comment(s): Colon Father Family Medical History: Coronary Artery Disease (CAD) General Exam - General Exam Comments Initial Comments: GENERAL: Patient is nontoxic and in mild distress. HEAD: Patient has a hematoma on the right side of the forehead, she also has sutures in bruising on the left side of her forehead from fall 2 days ago. No other hematoma seen, no signs of basal skull fracture. EYES: Pupils equal round and reactive to light, extraocular movements intact, sclera anicteric, conjunctiva are normal. Eyelids were unremarkable. ENT: TMs normal, nares patent, oropharynx clear without exudates. Moist mucous membranes. NECK: Normal range of motion, supple without lymphadenopathy or JVD. No midline tenderness. LUNGS: Unlabored respirations. Breath sounds clear to auscultation bilaterally and equal. No wheezes rales or rhonchi. No pain with palpation of the anterior chest, mild pain on the right side of the ribs, no bruising. HEART: Regular rate and rhythm without murmurs, rubs or gallops. ABDOMEN: Epigastric and right upper quadrant pain. Soft, normoactive bowel sounds. No guarding, no rebound. No masses appreciated. : Deferred MUSCULOSKELETAL: Normal extremities with adequate strength and normal range of motion, no pitting or edema. No clubbing or cyanosis. NEUROLOGICAL: Patient is alert and oriented x 3. Motor and sensory are also intact. Cranial nerves II through XII grossly intact. Symmetrical smile. Normal speech, normal gait. PSYCH: Normal mood, normal affect. SKIN: Warm, Dry, normal turgor, no rashes. Limitations: no limitations Course Vital Signs 04/21/20 04/21/20 10:30 13:56 Temperature 98.1 F Pulse Rate 89 90 Respiratory 18 18 Rate Blood Pressure 165/86 165/95 O2 Sat by Pulse 99 99 Oximetry Medical Decision Making - Medical Decision Making Patient is an 84-year-old female arriving via EMS after having a fall in her bathroom. Patient was seen in ER 2 days ago for same complaint. She has a history of gastroparesis and is also experiencing epigastric pain, nausea. Her vital signs are stable upon arrival, her EKG shows no acute process. Labs show a stable hemoglobin, sodium is 121, kidney function is stable, troponin is negative, lipase was 370. Urine shows no evidence of infection. CT of the head, C-spine, facial bones revealed no acute process. Patient was given fluids, Protonix and Zofran for her symptoms. She has been resting comfortably. Patient will be admitted for multiple falls, hyponatremia, mild pancreatitis. Patient is in agreement that Medicare. Patient accepted by Dr. Tanner. Case discussed with Dr. Burger. - Lab Data Result diagrams: 04/21/20 10:49 04/21/20 14:38 Lab Results 04/21/20 04/21/20 04/21/20 Range/Units 10:49 10:49 10:49 WBC 8.4 (3.8-10.6) k/uL RBC 4.60 (3.80-5.40) m/uL Hgb 12.6 (11.4-16.0) gm/dL Hct 37.5 (34.0-46.0) % MCV 81.5 (80.0-100.0) fL MCH 27.3 (25.0-35.0) pg MCHC 33.6 (31.0-37.0) g/dL RDW 13.2 (11.5-15.5) % Plt Count 266 (150-450) k/uL MPV 7.1 Neutrophils % 79 % Lymphocytes % 13 % Monocytes % 6 % Eosinophils % 1 % Basophils % 0 % Neutrophils # 6.7 (1.3-7.7) k/uL Lymphocytes # 1.1 (1.0-4.8) k/uL Monocytes # 0.5 (0-1.0) k/uL Eosinophils # 0.1 (0-0.7) k/uL Basophils # 0.0 (0-0.2) k/uL PT 10.5 (9.0-12.0) sec INR 1.0 (<1.2) APTT 24.9 (22.0-30.0) sec Sodium 121 L (137-145) mmol/L Potassium 4.2 (3.5-5.1) mmol/L Chloride 92 L (98-107) mmol/L Carbon Dioxide 19 L (22-30) mmol/L Anion Gap 10 mmol/L BUN 10 (7-17) mg/dL Creatinine 0.80 (0.52-1.04) mg/dL Est GFR (CKD-EPI)AfAm 80 (>60 ml/min/1.73 sqM) Est GFR (CKD-EPI)NonAf 69 (>60 ml/min/1.73 sqM) Glucose 110 H (74-99) mg/dL Plasma Lactic Acid [place] (0.7-2.0) mmol/L Calcium 8.7 (8.4-10.2) mg/dL Total Bilirubin 0.7 (0.2-1.3) mg/dL AST 46 H (14-36) U/L ALT 27 (4-34) U/L Alkaline Phosphatase 96 (38-126) U/L Troponin I (0.000-0.034) ng/mL Total Protein 7.0 (6.3-8.2) g/dL Albumin 4.1 (3.5-5.0) g/dL Lipase 369 H (23-300) U/L 04/21/20 04/21/20 Range/Units 10:49 10:49 WBC (3.8-10.6) k/uL RBC (3.80-5.40) m/uL Hgb (11.4-16.0) gm/dL Hct (34.0-46.0) % MCV (80.0-100.0) fL MCH (25.0-35.0) pg MCHC (31.0-37.0) g/dL RDW (11.5-15.5) % Plt Count (150-450) k/uL MPV Neutrophils % % Lymphocytes % % Monocytes % % Eosinophils % % Basophils % % Neutrophils # (1.3-7.7) k/uL Lymphocytes # (1.0-4.8) k/uL Monocytes # (0-1.0) k/uL Eosinophils # (0-0.7) k/uL Basophils # (0-0.2) k/uL PT (9.0-12.0) sec INR (<1.2) APTT (22.0-30.0) sec Sodium (137-145) mmol/L Potassium (3.5-5.1) mmol/L Chloride (98-107) mmol/L Carbon Dioxide (22-30) mmol/L Anion Gap mmol/L BUN (7-17) mg/dL Creatinine (0.52-1.04) mg/dL Est GFR (CKD-EPI)AfAm (>60 ml/min/1.73 sqM) Est GFR (CKD-EPI)NonAf (>60 ml/min/1.73 sqM) Glucose (74-99) mg/dL Plasma Lactic Acid [place] 0.9 (0.7-2.0) mmol/L Calcium (8.4-10.2) mg/dL Total Bilirubin (0.2-1.3) mg/dL AST (14-36) U/L ALT (4-34) U/L Alkaline Phosphatase (38-126) U/L Troponin I <0.012 (0.000-0.034) ng/mL Total Protein (6.3-8.2) g/dL Albumin (3.5-5.0) g/dL Lipase (23-300) U/L - EKG Data EKG Comments: Normal sinus rhythm, normal ECG, no signs of acute ischemia. Ventricular rate 85, MI 146, QT 358. Disposition Clinical Impression: Multiple falls, Hyponatremia, Pancreatitis Disposition: ADMITTED IP TO THIS HOSP Condition: Stable Is patient prescribed a controlled substance at d/c from ED?: No Decision Date: 04/21/20 Decision Time: 13:23
--- NOTE | 2020-04-21 11:50 | CT ---
EXAMINATION TYPE: CT facial bones wo con DATE OF EXAM: 04/21/2020 COMPARISON: None HISTORY: Multiple falls today with facial injuries. CT DLP: 1031.7 mGycm CONTRAST: 0 mL of Isovue 300 The facial bones are examined in the axial plane at 2 mm thick sections. Reconstructed images in the coronal plane were obtained. There is dental amalgam scatter artifact The maxillary sinuses are clear. The ethmoid air cells are clear. The sphenoid sinuses are clear. The frontal sinuses are clear. The septum is evaluated. There is septal deviation to the left. Nasal bones are intact. Greater wing s of sphenoid are normal. Frontal bone is intact. There is superficial soft tissue swelling over the right frontal region. A small subcutaneous hematoma is evident. Zygomatic arches are normal. The ostiomeatal units are patent. IMPRESSIONS: 1. No acute osseous abnormality facial bones. 2. Superficial soft tissue swelling right frontal region
[2020-04-21] MEDS ORDERED: SODIUM CHLORIDE 0.9% 1,000 ML IV STA (12:44)
[2020-04-21 13:07] LABS: Appearance,Urine Clear (Clear); Bilirubin,Urine Negative (Negative); Blood,Urine Negative (Negative); Color,Urine Light Yellow; Glucose,Urine (UA) Negative (Negative); Ketones,Urine Negative (Negative); Leukocyte Esterase,Urine Negative (Negative); Nitrite,Urine Negative (Negative); PH, Urine 5.5 (5.0-8.0); Protein,Urine Negative (Negative); Specific Gravity,Urine 1.017 (1.001-1.035); Urobilinogen,Urine <2.0 mg/dL (<2.0)
[2020-04-21] MEDS ORDERED: HYDROmorphone 0.5 MG/0.5 ML SYRINGE IVP STA (13:16)
[2020-04-21] MEDS ORDERED: HYDROcodone/APAP 5-325MG 1 EACH TAB PO PRN (13:20)
[2020-04-21] MEDS ORDERED: NALOXONE 0.4 MG/ML 1 ML VIAL IV PRN ×2 (13:20→13:45)
[2020-04-21] MEDS ORDERED: HYDROmorphone 0.5 MG/0.5 ML SYRINGE IVP PRN (13:20)
[2020-04-21] MEDS ORDERED: ONDANSETRON 4 MG/2 ML VIAL IVP PRN ×2 (13:20→13:45)
[2020-04-21] MEDS: SODIUM CHLORIDE 0.9% 1,000 ML IV SCH (13:38)
[2020-04-21] MEDS ORDERED: ONDANSETRON 4 MG TAB PO PRN (13:55)
--- NOTE | 2020-04-21 14:29 | XR ---
Result: History: Right rib and sternal pain status post fall. Comparison: 04/19/2020. Technique: Four radiographs of the right ribs and PA view chest. Findings: There is no definite displaced rib fracture. The visualized osseous structures are in anatomic align ment. Left shoulder arthroplasty seen. The cardiac silhouette is within normal limits for size and appearance. The lungs are clear without evidence of focal consolidation, pleural effusion, pulmonary edema, or pneumothorax. Impression: 1. No definite displaced rib fracture is seen. 2. No acute cardiopulmonary abnormality.
[2020-04-21 15:13] LABS: African American GFR (CKD) 83 (>60 ml/min/1.73 sqM); Anion Gap 8 mmol/L; Blood Urea Nitrogen 10 mg/dL (7-17); Calcium 8.4 mg/dL (8.4-10.2); Carbon Dioxide 18 mmol/L (22-30); Chloride 94 mmol/L (98-107); Glucose 100 mg/dL (74-99); Non-African American GFR(CKD) 72 (>60 ml/min/1.73 sqM); Potassium 4.1 mmol/L (3.5-5.1); Sodium 120 mmol/L (137-145)
[2020-04-21] MEDS: HYDROcodone/APAP 10-325MG 1 EACH TAB PO PRN ×2 (15:14→20:07)
--- NOTE | 2020-04-21 16:31 | P.HPIM ---
History of Present Illness H&P Date: 04/21/20 Chief Complaint: fall, hyponatremia 84 year old woman with history of HLD, HTN, OA, Anxiety/Depression, and gastroparesis of unidentified etiology presented after mechanical fall. Patient says that she had to go to the bathroom urgently, and as she was rushing to the toilet, she tripped over herself and fell flat on her face and chest causing immediate pain and bruising, which prompted her emergency room visit. During the course of her work up she was noted to have hyponatremia worse than her baseline down to 121 prompting request for admission. Patient has complaints of chest and abdominal pain from the trauma, and she also reports some pain in her face and ribs. She also continues to report significant pain with eating, and as a consequence her nutrition has suffered recently. Specifically, she says she eats a piece of toast for breakfast every morning and a stouffers microwaveable dinner at night and nothing else. She reports abdominal pain, but denies n/v, dyspnea, palpitations, flushing, diaphoresis, tunnel vision, visual changes, dysuria, dyschezia, numbness of her UEs. She does report chest pain, syncope, numbness of her toes. Na 120 in the ER, with osmolality of 251. UOsm pending. CXR without cardiopulmonary pathology. EKG is NSR without ischemic changes. Cr is 0.77. UA appears clear to light yellow with normal specific gravity. Review of Systems All Systems reviewed and pertinent positives and negatives noted in HPI, all other symptoms are negative Past Medical History Past Medical History: Hyperlipidemia, Hypertension, Osteoarthritis (OA) Additional Past Medical History / Comment(s): Gastroporesis, problems with nausea, thyroid nodules History of Any Multi-Drug Resistant Organisms: None Reported Past Surgical History: Appendectomy, Hysterectomy, Orthopedic Surgery, Tonsillectomy Additional Past Surgical History / Comment(s): L Shoulder surgery with plate, R knee replacement, colonoscopy, partial hysterectomy---still has her ovaries, carpal tunnel release bilaterally Past Anesthesia/Blood Transfusion Reactions: Postoperative Nausea & Vomiting (PONV) Past Psychological History: Anxiety, Panic Disorder Smoking Status: Former smoker Past Alcohol Use History: None Reported Past Drug Use History: None Reported - Past Family History Mother Family Medical History: Cancer Additional Family Medical History / Comment(s): Colon Father Family Medical History: Coronary Artery Disease (CAD) Medications and Allergies Home Medications Medication Instructions Recorded Confirmed Type Rosuvastatin [Crestor] 10 mg PO HS 01/28/18 04/21/20 History amLODIPine [Norvasc] 5 mg PO DAILY 01/28/18 04/21/20 History hydrOXYzine HCL [Atarax] 25 mg PO QID PRN 01/28/18 04/21/20 History ondansetron HCL [Zofran] 8 mg PO TID PRN 08/17/18 04/21/20 History Hydrocodone/Acetaminophen [[place] 1 tab PO Q6H PRN 12/03/18 04/21/20 History 10-325] Ergocalciferol [Vitamin D2] 50,000 unit PO TUSA 11/29/19 04/21/20 History Gi Cocktail( 30 ml PO Q4H 11/29/19 04/21/20 History Elixir/Lidocaine Viscous/Maalox 1:1:1) Losartan Potassium 100 mg PO HS 11/29/19 04/21/20 History Remeron Soluspan 45mg Odt 45 mg PO HS 11/29/19 04/21/20 History Lbeisthhtzdwas-ZF-Ltmwipabdu 1 tab PO DAILY 04/04/20 04/21/20 History [Folbic] Dicyclomine [Bentyl] 10 mg PO QID 04/04/20 04/21/20 History OLANZapine [ZyPREXA] 2.5 mg PO HS 04/04/20 04/21/20 History Omeprazole 20 mg PO BID 04/04/20 04/21/20 History LORazepam [Ativan] 2 mg PO TID PRN 04/19/20 04/21/20 History Allergies Allergy/AdvReac Type Severity Reaction Status Date / Time morphine Allergy Rash/Hives Verified 04/21/20 11:29 tetracycline Allergy Rash/Hives Verified 04/21/20 11:29 Physical Exam Osteopathic Statement: *. No significant issues noted on an osteopathic structural exam other than those noted in the History and Physical/Consult. Vitals: Vital Signs Temp Pulse Pulse Resp BP BP Pulse Ox 04/21/20 13:56 90 18 165/95 99 04/21/20 13:30 98.3 F 92 16 143/83 96 04/21/20 10:30 98.1 F 89 18 165/86 99 Intake and Output 04/21/20 04/21/20 04/21/20 06:59 14:59 22:59 Other: Weight 55.792 kg Gen: awake, alert HEENT: normocephalic, bruising around both eyes, left and right frontal superficial hematoma, good hearing acuity, moist mucous membranes Resp: good air exchange, breathing comfortably with no accessory muscle use CVS: good distal perfusion x 4, GI: soft, NTTP, ND : no SPT, no CVAT, pacheco catheter not present MSK: no pitting edema, no clubbing Neuro: non-focal, moving all extremities Psych: cooperative, euthymic mood Results CBC & Chem 7: 04/21/20 10:49 04/21/20 14:38 Labs: Abnormal Lab Results - Last 24 Hours (Table) 04/21/20 04/21/20 Range/Units 10:49 14:38 Sodium 121 L 120 L (137-145) mmol/L Chloride 92 L 94 L (98-107) mmol/L Carbon Dioxide 19 L 18 L (22-30) mmol/L Glucose 110 H 100 H (74-99) mg/dL Osmolality 251 L (280-301) mosm/kg AST 46 H (14-36) U/L Lipase 369 H (23-300) U/L Assessment and Plan Assessment: 1. Syncope 2. Hypo-osmolar Hyponatremia 3. Protein Calorie Malnutrition, mild 4. Gastroparesis 5. Hypertension 6. Hyperlipidemia 7. Osteoarthritis 8. Anxiety/Depression 84 year old woman with history of HTN/HLD, Anx/Dep, OA, and gastroparesis presented after mechanical fall resulted in some superficial facial trauma, but she was noted to have hyponatremia down to 120 in the background of poor nutritional intake as assessed on interview due to gastroparesis related abdominal pain with eating. Plan: - admit to telemetry - orthostatics BID - I/Os, daily weights - echocardiogram, pending - IVF: NS @ 75cc/hr, rec'd 1L bolus in the ER - nutrition consult for PO intake analysis and nutritional education - 5x small meals/day - can consider mirtazipine to improve appetite - pain control with norco PRN per home regimen - bowel regimen - admission med rec completed - BMP q6h to monitor hyponatremia - UOsm pending Full Code heparin 5000 BID for VTE PPx
[2020-04-21] MEDS: PANTOPRAZOLE 40 MG TABLET PO SCH (17:03)
[2020-04-21] MEDS: DICYCLOMINE 10 MG CAP PO SCH ×2 (17:03→20:53)
[2020-04-21] MEDS: ATORVASTATIN 20 MG TAB PO SCH (20:08)
[2020-04-21] MEDS: MIRTAZAPINE 45 MG TABLET PO SCH (20:08)
[2020-04-21] MEDS: LOSARTAN 50 MG TAB PO SCH (20:08)
[2020-04-21] MEDS: HEPARIN SODIUM,PORCINE 5,000 UNIT/ML 1 ML VIAL SQ SCH (20:08)
[2020-04-21] MEDS: OLANZapine 2.5 MG TAB PO SCH (20:08)
[2020-04-21] MEDS: LORazepam 1 MG TAB PO PRN (20:52)
[2020-04-21 21:21] LABS: African American GFR (CKD) 73 (>60 ml/min/1.73 sqM); Anion Gap 5 mmol/L; Blood Urea Nitrogen 13 mg/dL (7-17); Carbon Dioxide 20 mmol/L (22-30); Chloride 95 mmol/L (98-107); Glucose 86 mg/dL (74-99); Non-African American GFR(CKD) 64 (>60 ml/min/1.73 sqM); Sodium 120 mmol/L (137-145)
[2020-04-22] MEDS: ACETAMINOPHEN TAB 325 MG TAB PO PRN (00:44)
[2020-04-22] MEDS: HYDROcodone/APAP 10-325MG 1 EACH TAB PO PRN ×4 (02:33→23:56)
[2020-04-22 02:43] LABS: Basophils % (A) 1 %; Eosinophils # (A) 0.2 k/uL (0-0.7); Eosinophils % (A) 3 %; HCT 35.4 % (34.0-46.0); HGB 11.5 gm/dL (11.4-16.0); Lymphocytes # (A) 1.4 k/uL (1.0-4.8); Lymphocytes % (A) 24 %; MCH 27.6 pg (25.0-35.0); MCHC 32.5 g/dL (31.0-37.0); Mean Platelet Volume 6.9; Monocytes # (A) 0.6 k/uL (0-1.0); Monocytes % (A) 11 %; Neutrophils # (A) 3.5 k/uL (1.3-7.7); Neutrophils % (A) 60 %; Platelet Count 179 k/uL (150-450); RBC 4.16 m/uL (3.80-5.40); RDW 13.4 % (11.5-15.5); WBC 5.8 k/uL (3.8-10.6)
[2020-04-22] MEDS: SODIUM CHLORIDE 0.9% 1,000 ML IV SCH ×4 (03:50→23:59)
[2020-04-22] MEDS: DICYCLOMINE 10 MG CAP PO SCH ×4 (07:59→21:41)
[2020-04-22] MEDS: CYANOCOBALAMIN-FA-PYRIDOXINE 1 EACH TAB PO SCH (07:59)
[2020-04-22] MEDS: amLODIPine 5 MG TAB PO SCH (07:59)
[2020-04-22] MEDS: HEPARIN SODIUM,PORCINE 5,000 UNIT/ML 1 ML VIAL SQ SCH ×2 (07:59→21:40)
[2020-04-22] MEDS: PANTOPRAZOLE 40 MG TABLET PO SCH ×2 (07:59→17:09)
[2020-04-22 10:18] LABS: African American GFR (CKD) 79.6 (60.0-200.0); Anion Gap 7.5 mmol/L (4.00-12.00); BUN/Creat Ratio 18.75 Ratio (12.00-20.00); Calcium 8.3 mg/dL (8.7-10.3); Carbon Dioxide 19.5 mmol/L (21.6-31.8); Magnesium 1.9 mg/dL (1.5-2.4); Non-African American GFR(CKD) 68.7 (60.0-200.0); Potassium 3.9 mmol/L (3.5-5.5)
[2020-04-22] MEDS: LORazepam 1 MG TAB PO PRN ×2 (10:46→21:40)
--- NOTE | 2020-04-22 13:34 | P.PN ---
Subjective Progress Note Date: 04/22/20 No new complaints. Feels like she's improving. Objective - Vital Signs Vital signs: Vital Signs Temp 98.1 F 04/22/20 08:00 Pulse 91 04/22/20 08:10 Resp 17 04/22/20 08:00 BP 142/78 04/22/20 08:10 Pulse Ox 97 04/22/20 08:00 Intake & Output 04/21/20 04/22/20 04/22/20 18:59 06:59 18:59 Intake Total 150 Balance 150 Weight 55.792 kg Intake: IV 150 Sodium Chloride 0.9% 1, 150 000 ml @ 75 mls/hr IV . [id number] [facility] Rx#:[id number] Other: Voiding Method Toilet # Voids 2 1 - Exam Gen: awake, alert HEENT: normocephalic, bruising around both eyes, left and right frontal superficial hematoma, good hearing acuity, moist mucous membranes Resp: good air exchange, breathing comfortably with no accessory muscle use CVS: good distal perfusion x 4, GI: soft, NTTP, ND : no SPT, no CVAT, pacheco catheter not present MSK: no pitting edema, no clubbing Neuro: non-focal, moving all extremities Psych: cooperative, euthymic mood - Labs CBC & Chem 7: 04/22/20 02:18 04/22/20 02:18 Labs: Abnormal Lab Results - Last 24 Hours (Table) 04/21/20 04/21/20 04/22/20 Range/Units 14:38 20:02 02:18 Sodium 120 L 120 L 122 L (137-145) mmol/L Chloride 94 L 95 L 95 L (98-107) mmol/L Carbon Dioxide 18 L 20 L 19.5 L (22-30) mmol/L Glucose 100 H (74-99) mg/dL Osmolality 251 L (280-301) mosm/kg Calcium 8.0 L 8.3 L (8.4-10.2) mg/dL Assessment and Plan Assessment: 1. Syncope 2. Hypo-osmolar Hyponatremia 3. Protein Calorie Malnutrition, mild 4. Gastroparesis 5. Hypertension 6. Hyperlipidemia 7. Osteoarthritis 8. Anxiety/Depression 84 year old woman with history of HTN/HLD, Anx/Dep, OA, and gastroparesis presented after mechanical fall resulted in some superficial facial trauma, but she was noted to have hyponatremia down to 120 in the background of poor nutriti onal intake as assessed on interview due to gastroparesis related abdominal pain with eating. Plan: - admit to telemetry - orthostatics BID - I/Os, daily weights - echocardiogram, pending - IVF: NS @ 75cc/hr, rec'd 1L bolus in the ER - nutrition consult for PO intake analysis and nutritional education - 5x small meals/day - can consider mirtazipine to improve appetite - pain control with norco PRN per home regimen - bowel regimen - admission med rec completed - BMP q6h to monitor hyponatremia - UOsm pending Full Code heparin 5000 BID for VTE PPx
[2020-04-22 15:08] VITALS: BMI 21.7
[2020-04-22] MEDS: ATORVASTATIN 20 MG TAB PO SCH (21:41)
[2020-04-22] MEDS: LOSARTAN 50 MG TAB PO SCH (21:41)
[2020-04-22] MEDS: OLANZapine 2.5 MG TAB PO SCH (21:41)
[2020-04-22] MEDS: MIRTAZAPINE 45 MG TABLET PO SCH (21:41)
[2020-04-23 04:03] VITALS: TEMP 98.3
[2020-04-23] MEDS: HYDROcodone/APAP 10-325MG 1 EACH TAB PO PRN ×2 (05:58→12:05)
[2020-04-23] MEDS: SODIUM CHLORIDE 0.9% 1,000 ML IV SCH (05:59)
[2020-04-23 06:33] LABS: Basophils % (A) 1 %; Eosinophils # (A) 0.2 k/uL (0-0.7); Eosinophils % (A) 3 %; HCT 30.8 % (34.0-46.0); Lymphocytes # (A) 1.3 k/uL (1.0-4.8); Lymphocytes % (A) 29 %; MCH 27.7 pg (25.0-35.0); MCHC 32.6 g/dL (31.0-37.0); MCV 84.9 fL (80.0-100.0); Mean Platelet Volume 7.1; Monocytes # (A) 0.5 k/uL (0-1.0); Monocytes % (A) 12 %; Neutrophils # (A) 2.2 k/uL (1.3-7.7); Neutrophils % (A) 52 %; Platelet Count 198 k/uL (150-450); RBC 3.62 m/uL (3.80-5.40); RDW 13.9 % (11.5-15.5); WBC 4.3 k/uL (3.8-10.6)
[2020-04-23 07:42] VITALS: BP 160/76; PULSE 82; RESP 18
[2020-04-23] MEDS: DICYCLOMINE 10 MG CAP PO SCH ×2 (07:55→12:05)
[2020-04-23] MEDS: amLODIPine 5 MG TAB PO SCH (07:55)
[2020-04-23] MEDS: PANTOPRAZOLE 40 MG TABLET PO SCH (07:55)
[2020-04-23] MEDS: CYANOCOBALAMIN-FA-PYRIDOXINE 1 EACH TAB PO SCH (07:55)
[2020-04-23] MEDS: HEPARIN SODIUM,PORCINE 5,000 UNIT/ML 1 ML VIAL SQ SCH (07:55)
[2020-04-23 09:53] LABS: African American GFR (CKD) 75 (>60 ml/min/1.73 sqM); Anion Gap 3 mmol/L; Blood Urea Nitrogen 18 mg/dL (7-17); Calcium 8.1 mg/dL (8.4-10.2); Carbon Dioxide 20 mmol/L (22-30); Chloride 107 mmol/L (98-107); Glucose 103 mg/dL (74-99); Non-African American GFR(CKD) 65 (>60 ml/min/1.73 sqM); Potassium 4.8 mmol/L (3.5-5.1); Sodium 130 mmol/L (137-145)
--- NOTE | 2020-04-23 12:38 | ECHOF ---
Referral Reason:syncope MEASUREMENTS -------- HEIGHT: 160.0 cm WEIGHT: 55.8 kg BP: IVSd: 1.4 cm (0.6 - 1.1) LVIDd: 3.1 cm (3.9 - 5.3) LVPWd: 1.3 cm (0.6 - 1.1) IVSs: 1.9 cm LVIDs: 1.7 cm LVPWs: 1.7 cm LAESV Index (A-L): 32.19 ml/m Ao Diam: 2.9 cm (2.0 - 3.7) AV Cusp: 1.8 cm (1.5 - 2.6) LA Diam: 2.4 cm (2.7 - 3.8) MV EXCURSION: 11.453 mm (> 18.000) MV EF SLOPE: 55 mm/s (70 - 150) EPSS: 0.6 cm MV E Manuel: 0.86 m/s MV DecT: 166 ms MV A Manuel: 1.11 m/s MV E/A Ratio: 0.77 RAP: 5.00 mmHg RVSP: 29.86 mmHg FINDINGS -------- This was a technically good study. The left ventricular size is normal. There is mild concentric left ventricular hypertrophy. Overa ll left ventricular systolic function is normal with, an EF between 55 - 60 %. The diastolic fillin g pattern is normal for the age of the patient 12.13. The right ventricle is normal in size. The left atrial size is normal. The right atrial size is normal. The aortic valve is trileaflet and appears structurally normal. The mitral valve is normal. There is trace mitral regurgitation. The tricuspid valve appears structurally normal. Trace tricuspid regurgitation present. Right ingrid tricular systolic pressure is normal at < 35 mmHg. There is no pulmonic regurgitation present. The aortic root size is normal. Normal inferior vena cava with normal inspiratory collapse consistent with estimated right atrial pre ssure of 5 mmHg. There is no pericardial effusion. CONCLUSIONS -------- 1. The left ventricular size is normal. 2. There is mild concentric left ventricular hypertrophy. 3. Overall left ventricular systolic function is normal with, an EF between 55 - 60 %. 4. The diastolic filling pattern is normal for the age of the patient 12.13 5. There is trace mitral regurgitation. 6. Trace tricuspid regurgitation present. 7. There is no pericardial effusion. ANALYST COMPETITIVE INTELLIGENCE: Mary Brandon RDCS
--- NOTE | 2020-04-23 12:50 | P.DS ---
Providers Date of admission: 04/21/20 12:44 Expected date of discharge: 04/23/20 Attending physician: Marisol Serrano DO Primary care physician: Physician Nonstaff Hospital Course: This is a 84-year-old female with past medical history noted below who presented to the emergency room with a mechanical fall at home landing face forward. The patient was evaluated in the ER and had a computed tomography scan of the head and cervical spine and a computed tomography scan of the face showing no acute abnormalities. She was noted to have periorbital bruising bilaterally. She was admitted to the hospital for further management of her medical problems noted below. 1. Hypovolemic hyponatremia, improved with IV fluid hydration. Sodium level at the day of discharge 130. Apparently patient has chronic hyponatremia that may be attributed to low protein intake. She was counseled extensively to improve her nutrition and hydrate herself. 2. Mechanical fall with no reported syncope, imaging in the ER with no acute findings as above. PT/OT evaluation requested. Discontinue medications that can increase her risk of falling including Ativan and hydroxyzine. Patient had an echocardiogram that showed preserved ejection fraction with no significant valvular abnormalities. 3. Chronic medical problems: Essential hypertension, underlying anxiety/depression, hyperlipidemia, osteoarthritis, and gastroparesis Patient will be discharged home in a stable condition. For further details about this hospitalization please refer to the electronic chart. Time spent on discharge > 30 minutes including counseling and coordination of care Patient Condition at Discharge: Stable Plan - Discharge Summary Discharge Rx Participant: No New Discharge Prescriptions: Continue amLODIPine [Norvasc] 5 mg PO DAILY Rosuvastatin [Crestor] 10 mg PO HS ondansetron HCL [Zofran] 8 mg PO TID PRN PRN Reason: Nausea Hydrocodone/Acetaminophen [[place] 10-325] 1 tab PO Q6H PRN PRN Reason: Pain Ergocalciferol [Vitamin D2 (DRISDOL)] 50,000 unit PO TUSA Remeron Soluspan 45mg Odt 45 mg PO HS Losartan Potassium 100 mg PO HS Gi Cocktail( Elixir/Lidocaine Viscous/Maalox 1:1:1) 30 ml PO Q4H Fogverhrvlzyvw-RW-Wkwllqgpev [Folbic] 1 tab PO DAILY Dicyclomine [Bentyl] 10 mg PO QID OLANZapine [ZyPREXA] 2.5 mg PO HS Omeprazole 20 mg PO BID Discontinued hydrOXYzine HCL [Atarax] 25 mg PO QID PRN PRN Reason: Anxiety LORazepam [Ativan] 2 mg PO TID PRN PRN Reason: Anxiety Discharge Medication List Rosuvastatin [Crestor] 10 mg PO HS 01/28/18 [History] amLODIPine [Norvasc] 5 mg PO DAILY 01/28/18 [History] ondansetron HCL [Zofran] 8 mg PO TID PRN 08/17/18 [History] Hydrocodone/Acetaminophen [[place] 10-325] 1 tab PO Q6H PRN 12/03/18 [History] Ergocalciferol [Vitamin D2 (DRISDOL)] 50,000 unit PO TUSA 11/29/19 [History] Gi Cocktail( Elixir/Lidocaine Viscous/Maalox 1:1:1) 30 ml PO Q4H 11/29/19 [History] Losartan Potassium 100 mg PO HS 11/29/19 [History] Remeron Soluspan 45mg Odt 45 mg PO HS 11/29/19 [History] Uohjrayjvxbbpe-SP-Myjylwtjii [Folbic] 1 tab PO DAILY 04/04/20 [History] Dicyclomine [Bentyl] 10 mg PO QID 04/04/20 [History] OLANZapine [ZyPREXA] 2.5 mg PO HS 04/04/20 [History] Omeprazole 20 mg PO BID 04/04/20 [History] Follow up Appointment(s)/Referral(s): Nonstaff,Physician [Primary Care Provider] - 1-2 days Discharge Disposition: HOME SELF-CARE
[2020-04-23] MEDS: ACETAMINOPHEN TAB 325 MG TAB PO PRN (14:43)
[2020-04-23] MEDS: LORazepam 1 MG TAB PO PRN (14:43)
--- NOTE | 2020-04-24 23:57 | CDI ---
Documentation Clarification Form Date: 04/25/20 From: Errol Hughes Phone: If you have a question about this query, please contact Yarely العراقي Apartment Assistant Manager at [phone] between 8am and 5pm. Admit Date: 04/21/2020 12:44:00 PM Patient Name: Tisha Hugo Visit Number: [id number] Discharge Date: 04/23/2020 04:34:00 PM ATTENTION: The Clinical Documentation Specialists (CDI) and [facility] Coding Staff appreciate your assistance in clarifying documentation. Please respond to the clarification below the line at the bottom and electronically sign. The CDI & [facility] Coding staff will review the response and follow-up if needed. Please note: Queries are made part of the Legal Health Record. If you have any questions, please contact the author of this message via ITS. Dr. Brando Agee MD., Pancreatitis is documented in the ED under clinical impression. Patient history/risk factors: Gastroparesis, hyperlipidemia, malnutrition Clinical Indicators: Patient will be admitted for multiple falls, hyponatremia, mild pancreatitis. Labs: Lipase 369H Vital Signs: Temperature 98.1 F Pulse Rate 89 90 Respiratory 18 18 Rate Blood Pressure 165/86 165/95 O2 Sat by Pulse 99 99 Oximetry Other Clinical Indicators: Treatment: IV fluids In ED documentation stated "Hyponatremia and Pancreatitis". In your professional opinion, can you please clarify the Pancreatitis Presence , if known? Acuity Acute Acute on Chronic Etiology Drug induced Gallstone Idiopathic Other, please specify Unable to determine Patient does not have pancreatitis at all MTDD
== END 2020-04-23 16:34 | disposition home health service (06) | DRG 641 ==
LOC: EC 10:25 → 4SSUR 12:44
PROVIDERS: ADMIT Internal Medicine; ATTEND Internal Medicine
DX: E87.1 Hypo-osmolality and hyponatremia (principal); E44.1 Mild protein-calorie malnutrition; F41.0 Panic disorder [episodic paroxysmal anxiety]; F32.9 Major depressive disorder, single episode, unspecified; E86.1 Hypovolemia; E78.5 Hyperlipidemia, unspecified; I10 Essential (primary) hypertension; Z96.651 Presence of right artificial knee joint; M19.90 Unspecified osteoarthritis, unspecified site; K31.84 Gastroparesis; R29.6 Repeated falls; S00.11XA Contusion of right eyelid and periocular area, initial encounter; S00.12XA Contusion of left eyelid and periocular area, initial encounter; W01.0XXA Fall on same level from slipping, tripping and stumbling without subsequent striking against object, initial encounter; Z79.899 Other long term (current) drug therapy; Z87.891 Personal history of nicotine dependence; Z90.711 Acquired absence of uterus with remaining cervical stump; Z82.49 Family history of ischemic heart disease and other diseases of the circulatory system; Z88.5 Allergy status to narcotic agent; Z88.1 Allergy status to other antibiotic agents; Z90.49 Acquired absence of other specified parts of digestive tract; Z98.890 Other specified postprocedural states; Z90.89 Acquired absence of other organs; Z80.0 Family history of malignant neoplasm of digestive organs; Y92.002 Bathroom of unspecified non-institutional (private) residence as the place of occurrence of the external cause
CPT/HCPCS: 12011; 36415; 70450; 70486; 71046; 72125; 80048; 80053; 81003; 83605; 83690; 83735; 83930; 84484; 85025; 85610; 85730; 93005; 93306; 96361; 96374; 96375; 99283; 99285

== ENCOUNTER 2020-07-24 17:31 | Emergency (ER) | payer MEDICARE, OTHER ==
[2020-07-24 17:35] VITALS: BP 164/84; PULSE 83; RESP 20; TEMP 98.9
[2020-07-24] MEDS ORDERED: HYDROmorphone 1 MG/ML 1 ML SYRINGE IVP STA (18:50)
[2020-07-24] MEDS ORDERED: METOCLOPRAMIDE 5 MG/ML 2 ML VIAL IVP STA (18:50)
[2020-07-24] MEDS ORDERED: diphenhydrAMINE 50 MG/ML 1 ML VIAL IVP STA (18:50)
[2020-07-24] MEDS ORDERED: SODIUM CHLORIDE 0.9% 1,000 ML IV STA (18:50)
[2020-07-24 19:10] LABS: Basophils % (A) 0 %; Eosinophils # (A) 0.1 k/uL (0-0.7); Eosinophils % (A) 3 %; HCT 34.4 % (34.0-46.0); HGB 11.4 gm/dL (11.4-16.0); Lymphocytes # (A) 1.5 k/uL (1.0-4.8); Lymphocytes % (A) 35 %; MCH 26.5 pg (25.0-35.0); MCHC 33.1 g/dL (31.0-37.0); MCV 80.2 fL (80.0-100.0); Mean Platelet Volume 8.3; Monocytes # (A) 0.4 k/uL (0-1.0); Monocytes % (A) 10 %; Neutrophils # (A) 2.2 k/uL (1.3-7.7); Neutrophils % (A) 51 %; Platelet Count 137 k/uL (150-450); RBC 4.29 m/uL (3.80-5.40); RDW 14.7 % (11.5-15.5); WBC 4.3 k/uL (3.8-10.6)
[2020-07-24 19:22] LABS: Albumin 3.8 g/dL (3.5-5.0); Calcium 8.9 mg/dL (8.4-10.2); Potassium 4.2 mmol/L (3.5-5.1); Total Bilirubin 0.4 mg/dL (0.2-1.3); Total Protein 6.5 g/dL (6.3-8.2)
--- NOTE | 2020-07-24 20:13 | XR ---
EXAMINATION TYPE: XR KUB DATE OF EXAM: 07/24/2020 COMPARISON: 04/04/2020 HISTORY: Abdominal pain TECHNIQUE: FINDINGS: Upright view shows no sign of intestinal obstruction or pneumoperitoneum. Fecal pattern is normal. There is gas down to the rectum. Lung bases are clear. There are no pathologic calcifications . There is mild thoracolumbar levoscoliosis. IMPRESSION: Nonacute abdomen. No change.
--- NOTE | 2020-07-24 20:23 | ED ---
General Adult HPI - General Chief complaint: Abdominal Pain Stated complaint: stomach issues Time Seen by Provider: 07/24/20 18:13 Source: patient Mode of arrival: ambulatory Limitations: no limitations - History of Present Illness Initial comments: 84-year-old female patient presents to the emergency department today for evaluation of abdominal pain. Patient states she has a history of gastroparesis and chronic abdominal pain. States symptoms started to worsen for her around 12:00 this afternoon. States that she has had increased pain and has vomited 1 time. States she is quite nauseous. States she tried Moon at home without relief. States she generally has some level of pain a daily basis. Denies any fever or chills. Denies any constipation or diarrhea. Denies any hematemesis, hematochezia, or melena. Patient denies any recent rash, cough, shortness of breath, chest pain, back pain, numbness, tingling, dizziness, weakness, hemat uria, dysuria, urinary urgency, urinary frequency, headache, visual changes, or any other complaints. - Related Data Home Medications Medication Instructions Recorded Confirmed Rosuvastatin [Crestor] 10 mg PO HS 01/28/18 07/24/20 amLODIPine [Norvasc] 5 mg PO DAILY 01/28/18 07/24/20 ondansetron HCL [Zofran] 8 mg PO TID PRN 08/17/18 07/24/20 Hydrocodone/Acetaminophen [Moon 1 tab PO Q6H PRN 12/03/18 07/24/20 10-325] Ergocalciferol [Vitamin D2 50,000 unit PO TUSA 11/29/19 07/24/20 (DRISDOL)] Gi Cocktail( 30 ml PO Q4H 11/29/19 07/24/20 Elixir/Lidocaine Viscous/Maalox 1:1:1) Losartan Potassium 100 mg PO HS 11/29/19 07/24/20 Remeron Soluspan 45mg Odt 45 mg PO HS 11/29/19 07/24/20 Asyivbaxqmyyda-UM-Ppxdbjxfwe 1 tab PO DAILY 04/04/20 07/24/20 [Folbic] LORazepam [Ativan] 2 mg PO TID PRN 07/24/20 07/24/20 Lidocaine [Aspercreme Patch] 1 patch TRANSDERM DAILY PRN 07/24/20 07/24/20 hydrOXYzine HCL [Atarax] 25 mg PO QID PRN 07/24/20 07/24/20 rOPINIRole HCL [Requip] 0.25 mg PO HS PRN 07/24/20 07/24/20 Allergies Allergy/AdvReac Type Severity Reaction Status Date / Time morphine Allergy Rash/Hives Verified 07/24/20 19:10 tetracycline Allergy Rash/Hives Verified 07/24/20 19:10 Review of Systems ROS Statement: Those systems with pertinent positive or pertinent negative responses have been documented in the HPI. ROS Other: All systems not noted in ROS Statement are negative. Past Medical History Past Medical History: Hyperlipidemia, Hypertension, Osteoarthritis (OA) Additional Past Medical History / Comment(s): Gastroporesis, problems with nausea, thyroid nodules History of Any Multi-Drug Resistant Organisms: None Reported Past Surgical History: Appendectomy, Hysterectomy, Orthopedic Surgery, Tonsillectomy Additional Past Surgical History / Comment(s): L Shoulder surgery with plate, R knee replacement, colonoscopy, partial hysterectomy---still has her ovaries, carpal tunnel release bilaterally Past Anesthesia/Blood Transfusion Reactions: Postoperative Nausea & Vomiting (PONV) Past Psychological History: Anxiety, Panic Disorder Smoking Status: Former smoker Past Alcohol Use History: None Reported Past Drug Use History: None Reported - Past Family History Mother Family Medical History: Cancer Additional Family Medical History / Comment(s): Colon Father Family Medical History: Coronary Artery Disease (CAD) General Exam Limitations: no limitations General appearance: alert, in no apparent distress, other (Physical well- developed, well-nourished adult female patient in no acute distress. Vital signs upon presentation are temperature 98.9F, pulse 83, respirations 20, blood pressure 164/84, pulse ox 97% on room air.) Eye exam: Present: normal appearance, PERRL, EOMI. Absent: scleral icterus, conjunctival injection, periorbital swelling ENT exam: Present: normal exam, normal oropharynx, mucous membranes moist Respiratory exam: Present: normal lung sounds bilaterally. Absent: respiratory distress, wheezes, rales, rhonchi, stridor Cardiovascular Exam: Present: regular rate, normal rhythm, normal heart sounds. Absent: systolic murmur, diastolic murmur, rubs, gallop, clicks GI/Abdominal exam: Present: soft, tenderness (Left upper quadrant), normal bowel sounds. Absent: distended, guarding, rebound, rigid Neurological exam: Present: alert, oriented X3, CN II-XII intact Psychiatric exam: Present: normal affect, normal mood Skin exam: Present: warm, dry, intact, normal color. Absent: rash Course Vital Signs 07/24/20 17:33 Temperature 98.9 F Pulse Rate 83 Respiratory 20 Rate Blood Pressure 164/84 O2 Sat by Pulse 97 Oximetry EKG Findings - EKG Comments: EKG Findings:: EKG obtained at 1911 shows normal sinus rhythm with a ventricular rate is 75, VT interval 154, QRS duration 82, QT 388, QTC 433. No evidence of ST elevation or depression. Medical Decision Making - Medical Decision Making 84-year-old female patient presents to the emergency department today for evaluation of upper abdominal pain and one episode of vomiting. Physical e xamination revealed some left upper quadrant tenderness. Patient has history of gastroparesis and symptoms are chronic for her though get worse at times. Labs reviewed and are unremarkable. KUB is negative. Vital signs are unremarkable. Urinalysis is negative. Upon reevaluation she is resting comfortably in bed. She'll be discharged. The primary care physician for recheck in 1-2 days. Ret urn parameters were discussed in detail. She verbalizes understanding and agrees with this plan. Case discussed with my attending Dr. Guy. - Lab Data Result diagrams: 07/24/20 19:03 07/24/20 18:59 Lab Results 07/24/20 07/24/20 07/24/20 Range/Units 18:59 18:59 18:59 WBC (3.8-10.6) k/uL RBC (3.80-5.40) m/uL Hgb (11.4-16.0) gm/dL Hct (34.0-46.0) % MCV (80.0-100.0) fL MCH (25.0-35.0) pg MCHC (31.0-37.0) g/dL RDW (11.5-15.5) % Plt Count (150-450) k/uL MPV Neutrophils % % Lymphocytes % % Monocytes % % Eosinophils % % Basophils % % Neutrophils # (1.3-7.7) k/uL Lymphocytes # (1.0-4.8) k/uL Monocytes # (0-1.0) k/uL Eosinophils # (0-0.7) k/uL Basophils # (0-0.2) k/uL Sodium 131 L (137-145) mmol/L Potassium 4.2 (3.5-5.1) mmol/L Chloride 101 (98-107) mmol/L Carbon Dioxide 21 L (22-30) mmol/L Anion Gap 9 mmol/L BUN 10 (7-17) mg/dL Creatinine 1.12 H (0.52-1.04) mg/dL Est GFR (CKD-EPI)AfAm 53 (>60 ml/min/1.73 sqM) Est GFR (CKD-EPI)NonAf 46 (>60 ml/min/1.73 sqM) Glucose 93 (74-99) mg/dL Plasma Lactic Acid Chato 2.0 (0.7-2.0) mmol/L Calcium 8.9 (8.4-10.2) mg/dL Total Bilirubin 0.4 (0.2-1.3) mg/dL AST 24 (14-36) U/L ALT 12 (4-34) U/L Alkaline Phosphatase 90 (38-126) U/L Troponin I <0.012 (0.000-0.034) ng/mL Total Protein 6.5 (6.3-8.2) g/dL Albumin 3.8 (3.5-5.0) g/dL Amylase 68 (30-110) U/L Lipase 162 (23-300) U/L Urine Color Urine Appearance (Clear) Urine pH (5.0-8.0) Ur Specific [place] (1.001-1.035) Urine Protein (Negative) Urine Glucose (UA) (Negative) Urine Ketones (Negative) Urine Blood (Negative) Urine Nitrite (Negative) Urine Bilirubin (Negative) Urine Urobilinogen (<2.0) mg/dL Ur Leukocyte Esterase (Negative) 07/24/20 07/24/20 Range/Units 19:03 21:25 WBC 4.3 (3.8-10.6) k/uL RBC 4.29 (3.80-5.40) m/uL Hgb 11.4 (11.4-16.0) gm/dL Hct 34.4 (34.0-46.0) % MCV 80.2 (80.0-100.0) fL MCH 26.5 (25.0-35.0) pg MCHC 33.1 (31.0-37.0) g/dL RDW 14.7 (11.5-15.5) % Plt Count 137 L (150-450) k/uL MPV 8.3 Neutrophils % 51 % Lymphocytes % 35 % Monocytes % 10 % Eosinophils % 3 % Basophils % 0 % Neutrophils # 2.2 (1.3-7.7) k/uL Lymphocytes # 1.5 (1.0-4.8) k/uL Monocytes # 0.4 (0-1.0) k/uL Eosinophils # 0.1 (0-0.7) k/uL Basophils # 0.0 (0-0.2) k/uL Sodium (137-145) mmol/L Potassium (3.5-5.1) mmol/L Chloride (98-107) mmol/L Carbon Dioxide (22-30) mmol/L Anion Gap mmol/L BUN (7-17) mg/dL Creatinine (0.52-1.04) mg/dL Est GFR (CKD-EPI)AfAm (>60 ml/min/1.73 sqM) Est GFR (CKD-EPI)NonAf (>60 ml/min/1.73 sqM) Glucose (74-99) mg/dL Plasma Lactic Acid Chato (0.7-2.0) mmol/L Calcium (8.4-10.2) mg/dL Total Bilirubin (0.2-1.3) mg/dL AST (14-36) U/L ALT (4-34) U/L Alkaline Phosphatase (38-126) U/L Troponin I (0.000-0.034) ng/mL Total Protein (6.3-8.2) g/dL Albumin (3.5-5.0) g/dL Amylase (30-110) U/L Lipase (23-300) U/L Urine Color Colorless Urine Appearance Clear (Clear) Urine pH 7.0 (5.0-8.0) Ur Specific [place] 1.004 (1.001-1.035) Urine Protein Negative (Negative) Urine Glucose (UA) Negative (Negative) Urine Ketones Negative (Negative) Urine Blood Negative (Negative) Urine Nitrite Negative (Negative) Urine Bilirubin Negative (Negative) Urine Urobilinogen <2.0 (<2.0) mg/dL Ur Leukocyte Esterase Negative (Negative) - Radiology Data Radiology results: report reviewed, image reviewed KUB is obtained. Report was reviewed in its entirety. Impression by Dr. Lydia sprague shows nonacute abdomen. No change. Disposition Clinical Impression: Abdominal pain Disposition: HOME SELF-CARE Condition: Good Instructions (If sedation given, give patient instructions): Abdominal Pain (ED), Gastroparesis (ED) Additional Instructions: Follow-up through primary care physician for recheck in 1-2 days. Return to the emergency department for any new, worsening, or concerning symptoms. Is patient prescribed a controlled substance at d/c from ED?: No Referrals: Nonstaff,Physician [Primary Care Provider] - 1-2 days Time of Disposition: 21:56
[2020-07-24] MEDS ORDERED: HYDROmorphone 1 MG/ML 1 ML SYRINGE IM STA (20:34)
[2020-07-24 21:32] LABS: Appearance,Urine Clear (Clear); Bilirubin,Urine Negative (Negative); Blood,Urine Negative (Negative); Color,Urine Colorless; Glucose,Urine (UA) Negative (Negative); Ketones,Urine Negative (Negative); Leukocyte Esterase,Urine Negative (Negative); Nitrite,Urine Negative (Negative); Protein,Urine Negative (Negative); Specific Gravity,Urine 1.004 (1.001-1.035); Urobilinogen,Urine <2.0 mg/dL (<2.0)
== END 2020-07-24 22:12 | disposition home or self-care (01) ==
LOC: EC 17:31
DX: R10.12 Left upper quadrant pain (principal); E78.5 Hyperlipidemia, unspecified; I10 Essential (primary) hypertension; M19.90 Unspecified osteoarthritis, unspecified site; F41.9 Anxiety disorder, unspecified; Z87.891 Personal history of nicotine dependence; Z96.653 Presence of artificial knee joint, bilateral
CPT/HCPCS: 36415; 93005; 80053; 82150; 83605; 83690; 84484; 85025; 81003; 74018; 99284; 96365; 96375; 96372; 96361; J1200; J2765; J1170

== ENCOUNTER → 2020-08-08 | Outpatient (CLI) | payer MEDICARE, OTHER ==
--- NOTE | 2020-08-08 13:29 | NM ---
EXAMINATION TYPE: NM hepatobiliary w CCK DATE OF EXAM: 08/08/2020 COMPARISON: NONE INDICATION: Chronic cholecystitis TECHNIQUE: After the intravenous administration of 4.7 mCi Tc 99m Mebrofenin hepatobiliary scintigrap hy is performed. Images were obtained immediately post injection. FINDINGS: There is prompt uptake and excretion of radiotracer by the liver. Extrahepatic ducts are identified at 5 minutes. The gallbladder is visualized within 8 minutes. At one hour CCK was administered, patient was injected with 1.2 mcg of Kinevac, and gallbladder eject ion fraction is calculated at 78 %, which is in the normal range.. (Normal >35% and <80%.). IMPRESSION: 1. Normal hepatobiliary scan.
== END | disposition home or self-care (01) ==
LOC: RADNMMAIN 06:54
PROVIDERS: ATTEND Surgery Plastic and Reconstructive Surgery
DX: K81.1 Chronic cholecystitis (principal)
CPT/HCPCS: 78227; A9537; J2805

== ENCOUNTER 2020-08-24 03:05 | Emergency (ER) | payer MEDICARE, OTHER ==
[2020-08-24 03:11] VITALS: TEMP 98.9
[2020-08-24] MEDS ORDERED: METOCLOPRAMIDE 5 MG/ML 2 ML VIAL IVP STA (03:21)
[2020-08-24] MEDS ORDERED: SODIUM CHLORIDE 0.9% 500 ML 500 ML IV STA (03:22)
[2020-08-24 03:41] LABS: Basophils % (A) 0 %; Eosinophils # (A) 0.1 k/uL (0-0.7); Eosinophils % (A) 2 %; HCT 38.6 % (34.0-46.0); HGB 12.8 gm/dL (11.4-16.0); Lymphocytes # (A) 1.5 k/uL (1.0-4.8); Lymphocytes % (A) 22 %; MCH 26.1 pg (25.0-35.0); MCHC 33.2 g/dL (31.0-37.0); MCV 78.7 fL (80.0-100.0); Mean Platelet Volume 7.6; Monocytes # (A) 0.5 k/uL (0-1.0); Monocytes % (A) 7 %; Neutrophils # (A) 4.5 k/uL (1.3-7.7); Neutrophils % (A) 68 %; Platelet Count 235 k/uL (150-450); RDW 15.3 % (11.5-15.5); WBC 6.7 k/uL (3.8-10.6)
[2020-08-24 03:52] LABS: Albumin 4.6 g/dL (3.5-5.0); Calcium 9.4 mg/dL (8.4-10.2); Potassium 3.5 mmol/L (3.5-5.1); Total Bilirubin 0.4 mg/dL (0.2-1.3); Total Protein 7.3 g/dL (6.3-8.2)
[2020-08-24] MEDS ORDERED: HYDROmorphone 0.5 MG/0.5 ML SYRINGE IVP STA (03:56)
[2020-08-24] MEDS ORDERED: LORazepam 2 MG/ML INJ IV STA (05:55)
[2020-08-24 06:05] LABS: Appearance,Urine Cloudy (Clear); Bacteria,Urine Rare /hpf; Bilirubin,Urine Negative (Negative); Blood,Urine Moderate (Negative); Color,Urine Yellow; Glucose,Urine (UA) Negative (Negative); Hyaline Casts,Urine 24 /lpf (0-2); Ketones,Urine 2+ (Negative); Leukocyte Esterase,Urine Trace (Negative); Mucus,Urine Rare /hpf; Nitrite,Urine Negative (Negative); PH, Urine 5.5 (5.0-8.0); Protein,Urine Trace (Negative); RBC,Urine 3 /hpf (0-5); Specific Gravity,Urine 1.011 (1.001-1.035); Squamous Epithelial Cell,Urine 1 /hpf (0-4); Urobilinogen,Urine <2.0 mg/dL (<2.0); WBC,Urine 2 /hpf (0-5)
[2020-08-24 06:08] VITALS: RESP 16
--- NOTE | 2020-08-24 06:29 | XR ---
EXAM: XR Abdomen, 2 Views CLINICAL HISTORY: ITS.REASON XR Reason: abdominal pain TECHNIQUE: Frontal view of the abdomen/pelvis with upright view of the abdomen. COMPARISON: 07/24/2020 FINDINGS: Intraperitoneal space: No free air. Gastrointestinal tract: Unremarkable. No dilation. Bones/joints: Unremarkable. IMPRESSION: Nonobstructive bowel gas pattern.
--- NOTE | 2020-08-24 07:31 | ED ---
Abdominal Pain HPI - General Chief Complaint: Abdominal Pain Stated Complaint: Abd Pain Time Seen by Provider: 08/24/20 03:20 Source: patient Mode of arrival: EMS - History of Present Illness Initial Comments: This patient is an 84-year-old woman who presents to be evaluated for left upper quadrant pain. She states it is identical to previous episodes of gastroparesis. Patient does have home medications for this, including ondansetron and [place]. Patient states however that she was not able tolerate the [place] secondary to nausea and vomiting so she presents here for other medication. No new symptoms associated. MD Complaint: abdominal pain -: hour(s) Location: [facility] Radiation: none Migration to: no migration Severity: severe Quality: cramping Consistency: constant Improves With: nothing Worsens With: nothing Associated Symptoms: nausea, vomiting - Related Data Home Medications Medication Instructions Recorded Confirmed Rosuvastatin [Crestor] 10 mg PO HS 01/28/18 08/24/20 amLODIPine [Norvasc] 5 mg PO QAM 01/28/18 08/24/20 ondansetron HCL [Zofran] 8 mg PO TID PRN 08/17/18 08/24/20 Hydrocodone/Acetaminophen [[place] 1 tab PO Q6H PRN 12/03/18 08/24/20 10-325] Ergocalciferol [Vitamin D2 50,000 unit PO TUSA 11/29/19 08/24/20 (DRISDOL)] Gi Cocktail( 30 ml PO Q4H PRN 11/29/19 08/24/20 Elixir/Lidocaine Viscous/Maalox 1:1:1) Losartan Potassium 100 mg PO HS 11/29/19 08/24/20 Remeron Soluspan 45mg Odt 45 mg PO HS 11/29/19 08/24/20 Xdumtzqklbrjsv-EZ-Dimsqylloh 1 tab PO DAILY 04/04/20 08/24/20 [Folbic] LORazepam [Ativan] 2 mg PO TID PRN 07/24/20 08/24/20 hydrOXYzine HCL [Atarax] 25 mg PO QID PRN 07/24/20 08/24/20 rOPINIRole HCL [Requip] 0.25 mg PO HS PRN 07/24/20 08/24/20 Omeprazole [PriLOSEC] 20 mg PO AC-BID 08/24/20 08/24/20 Allergies Allergy/AdvReac Type Severity Reaction Status Date / Time morphine Allergy Rash/Hives Verified 08/24/20 15:18 tetracycline Allergy Rash/Hives Verified 08/24/20 15:18 Review of Systems ROS Statement: Those systems with pertinent positive or pertinent negative responses have been documented in the HPI. ROS Other: All systems not noted in ROS Statement are negative. Constitutional: Denies: fever, chills Respiratory: Denies: cough, dyspnea Cardiovascular: Denies: chest pain, palpitations, edema Gastrointestinal: Reports: abdominal pain, nausea, vomiting. Denies: diarrhea, constipation, hematemesis, melena, hematochezia Genitourinary: Denies: dysuria, hematuria Musculoskeletal: Denies: back pain Skin: Denies: rash Neurological: Denies: headache, weakness, paresthesias Past Medical History Past Medical History: Hyperlipidemia, Hypertension, Osteoarthritis (OA) Additional Past Medical History / Comment(s): Gastroporesis, problems with nausea, thyroid nodules History of Any Multi-Drug Resistant Organisms: None Reported Past Surgical History: Appendectomy, Hysterectomy, Orthopedic Surgery, Tonsillectomy Additional Past Surgical History / Comment(s): L Shoulder surgery with plate, R knee replacement, colonoscopy, partial hysterectomy---still has her ovaries, carpal tunnel release bilaterally Past Anesthesia/Blood Transfusion Reactions: Postoperative Nausea & Vomiting (PONV) Past Psychological History: Anxiety, Panic Disorder Smoking Status: Former smoker Past Alcohol Use History: None Reported Past Drug Use History: None Reported - Past Family History Mother Family Medical History: Cancer Additional Family Medical History / Comment(s): Colon Father Family Medical History: Coronary Artery Disease (CAD) General Exam General appearance: alert, in no apparent distress Head exam: Present: atraumatic, normocephalic Eye exam: Present: normal appearance. Absent: scleral icterus, conjunctival injection ENT exam: Present: normal oropharynx Respiratory exam: Present: normal lung sounds bilaterally. Absent: respiratory distress, wheezes, rales, rhonchi, stridor Cardiovascular Exam: Present: regular rate, normal rhythm, normal heart sounds. Absent: systolic murmur, diastolic murmur, rubs, gallop GI/Abdominal exam: Present: soft, hyperactive bowel sounds. Absent: distended, tenderness, guarding, rebound, rigid, mass, pulsatile mass, hernia Extremities exam: Present: normal inspection, normal capillary refill. Absent: pedal edema, calf tenderness Back exam: Present: normal inspection. Absent: CVA tenderness (R), CVA tenderness (L) Neurological exam: Present: alert Skin exam: Present: warm, dry, intact, normal color. Absent: rash Course Vital Signs 08/24/20 08/24/20 08/24/20 03:07 06:07 08:13 Temperature 98.9 F 98.9 F Pulse Rate 103 H 86 90 Respiratory 24 16 16 Rate Blood Pressure 149/80 178/100 O2 Sat by Pulse 97 98 98 Oximetry Medical Decision Making - Medical Decision Making Patient is an 84-year-old woman here with pain that she states is typical of her gastroparesis and vomiting. She is feeling better with medications. When I initially reevaluated the patient she was not feeling much better and I went to arrange admission. The patient then had told nursing staff she had felt better and called her son to go home. - Lab Data Result diagrams: 08/24/20 03:32 08/24/20 03:32 Lab Results 08/24/20 08/24/20 08/24/20 Range/Units 03:32 03:32 03:32 WBC 6.7 (3.8-10.6) k/uL RBC 4.90 (3.80-5.40) m/uL Hgb 12.8 (11.4-16.0) gm/dL Hct 38.6 (34.0-46.0) % MCV 78.7 L (80.0-100.0) fL MCH 26.1 (25.0-35.0) pg MCHC 33.2 (31.0-37.0) g/dL RDW 15.3 (11.5-15.5) % Plt Count 235 (150-450) k/uL MPV 7.6 Neutrophils % 68 % Lymphocytes % 22 % Monocytes % 7 % Eosinophils % 2 % Basophils % 0 % Neutrophils # 4.5 (1.3-7.7) k/uL Lymphocytes # 1.5 (1.0-4.8) k/uL Monocytes # 0.5 (0-1.0) k/uL Eosinophils # 0.1 (0-0.7) k/uL Basophils # 0.0 (0-0.2) k/uL Sodium 135 L (137-145) mmol/L Potassium 3.5 (3.5-5.1) mmol/L Chloride 102 (98-107) mmol/L Carbon Dioxide 19 L (22-30) mmol/L Anion Gap 14 mmol/L BUN 9 (7-17) mg/dL Creatinine 1.01 (0.52-1.04) mg/dL Est GFR (CKD-EPI)AfAm 60 (>60 ml/min/1.73 sqM) Est GFR (CKD-EPI)NonAf 52 (>60 ml/min/1.73 sqM) Glucose 99 (74-99) mg/dL Plasma Lactic Acid Chato 1.6 (0.7-2.0) mmol/L Calcium 9.4 (8.4-10.2) mg/dL Total Bilirubin 0.4 (0.2-1.3) mg/dL AST 25 (14-36) U/L ALT 15 (4-34) U/L Alkaline Phosphatase 107 (38-126) U/L Total Protein 7.3 (6.3-8.2) g/dL Albumin 4.6 (3.5-5.0) g/dL Amylase 99 (30-110) U/L Lipase 254 (23-300) U/L Urine Color Urine Appearance (Clear) Urine pH (5.0-8.0) Ur Specific [place] (1.001-1.035) Urine Protein (Negative) Urine Glucose (UA) (Negative) Urine Ketones (Negative) Urine Blood (Negative) Urine Nitrite (Negative) Urine Bilirubin (Negative) Urine Urobilinogen (<2.0) mg/dL Ur Leukocyte Esterase (Negative) Urine RBC (0-5) /hpf Urine WBC (0-5) /hpf Ur Squamous Epith Cells (0-4) /hpf Urine Bacteria (None) /hpf Hyaline Casts (0-2) /lpf Urine Mucus (None) /hpf 08/24/20 Range/Units 05:33 WBC (3.8-10.6) k/uL RBC (3.80-5.40) m/uL Hgb (11.4-16.0) gm/dL Hct (34.0-46.0) % MCV (80.0-100.0) fL MCH (25.0-35.0) pg MCHC (31.0-37.0) g/dL RDW (11.5-15.5) % Plt Count (150-450) k/uL MPV Neutrophils % % Lymphocytes % % Monocytes % % Eosinophils % % Basophils % % Neutrophils # (1.3-7.7) k/uL Lymphocytes # (1.0-4.8) k/uL Monocytes # (0-1.0) k/uL Eosinophils # (0-0.7) k/uL Basophils # (0-0.2) k/uL Sodium (137-145) mmol/L Potassium (3.5-5.1) mmol/L Chloride (98-107) mmol/L Carbon Dioxide (22-30) mmol/L Anion Gap mmol/L BUN (7-17) mg/dL Creatinine (0.52-1.04) mg/dL Est GFR (CKD-EPI)AfAm (>60 ml/min/1.73 sqM) Est GFR (CKD-EPI)NonAf (>60 ml/min/1.73 sqM) Glucose (74-99) mg/dL Plasma Lactic Acid [place] (0.7-2.0) mmol/L Calcium (8.4-10.2) mg/dL Total Bilirubin (0.2-1.3) mg/dL AST (14-36) U/L ALT (4-34) U/L Alkaline Phosphatase (38-126) U/L Total Protein (6.3-8.2) g/dL Albumin (3.5-5.0) g/dL Amylase (30-110) U/L Lipase (23-300) U/L Urine Color Yellow Urine Appearance Cloudy H (Clear) Urine pH 5.5 (5.0-8.0) Ur Specific [place] 1.011 (1.001-1.035) Urine Protein Trace H (Negative) Urine Glucose (UA) Negative (Negative) Urine Ketones 2+ H (Negative) Urine Blood Moderate H (Negative) Urine Nitrite Negative (Negative) Urine Bilirubin Negative (Negative) Urine Urobilinogen <2.0 (<2.0) mg/dL Ur Leukocyte Esterase Trace H (Negative) Urine RBC 3 (0-5) /hpf Urine WBC 2 (0-5) /hpf Ur Squamous Epith Cells 1 (0-4) /hpf Urine Bacteria Rare H (None) /hpf Hyaline Casts 24 H (0-2) /lpf Urine Mucus Rare H (None) /hpf Disposition Clinical Impression: Intractable abdominal pain Disposition: ADMITTED IP TO THIS HOSP Condition: Fair Instructions (If sedation given, give patient instructions): Abdominal Pain (ED) Referrals: Nonstaff,Physician [Primary Care Provider] - 1-2 days
[2020-08-24 08:15] VITALS: BP 178/100; PULSE 90
== END 2020-08-24 08:15 | disposition other institution (70) ==
LOC: EC 03:05
DX: R10.12 Left upper quadrant pain (principal); E78.5 Hyperlipidemia, unspecified; I10 Essential (primary) hypertension; M19.90 Unspecified osteoarthritis, unspecified site; F41.9 Anxiety disorder, unspecified; Z87.891 Personal history of nicotine dependence
CPT/HCPCS: 36415; 80053; 82150; 83605; 83690; 85025; 81001; 74018; 99284; 96374 ×2; 96375; J2060; J2765; J1170

== ENCOUNTER 2020-08-29 10:23 | Day surgery (SDC) | payer MEDICARE, OTHER ==
[2020-08-24 15:31] VITALS: BMI 23.0
--- NOTE | 2020-08-29 08:32 | P.GSHP ---
History of Present Illness H&P Date: 08/29/20 CHIEF COMPLAINT: GERD HISTORY OF PRESENT ILLNESS: The patient is a 84-year-old female who presents reports gastroesophageal reflux disease. Upper endoscopy was offered for further evaluation and management. PAST MEDICAL HISTORY: Please see list. PAST SURGICAL HISTORY: Please see list. MEDICATIONS: Please see list. ALLERGIES: Please see list. SOCIAL HISTORY: No illicit drug use FAMILY HISTORY: No reports of Crohn disease or ulcerative colitis. REVIEW OF ORGAN SYSTEMS: CONSTITUTIONAL: No reports of fevers or chills. GI: Denies any blood in stools or constipation. PHYSICAL EXAM: VITAL SIGNS: Stable GENERAL: Well-developed and pleasant in no acute distress. HEENT: No scleral icterus. Extraocular movements grossly intact. Moist buccal mucosa. NECK: Supple without lymphadenopathy. CHEST: Unlabored respirations. Equal bilateral excursions. CARDIOVASCULAR: Regular rate and rhythm. Distal 2+ pulses. ABDOMEN: Soft, nondistended. MUSCULOSKELETAL: No clubbing, cyanosis, or edema. ASSESSMENT: 1. Gastroesophageal reflux disease PLAN: 1. Recommend proceeding with an upper endoscopy Past Medical History Past Medical History: Hyperlipidemia, Hypertension, Osteoarthritis (OA), Thyroid Disorder Additional Past Medical History / Comment(s): Gastroporesis, thyroid nodules, servere abdominal( LUQ) pain,nausea and vomiting, History of Any Multi-Drug Resistant Organisms: None Reported Past Surgical History: Appendectomy, Hysterectomy, Orthopedic Surgery, Tonsillectomy Additional Past Surgical History / Comment(s): L Shoulder surgery with plate, R knee replacement, colonoscopy, partial hysterectomy---still has her ovaries, carpal tunnel release bilaterally, calin cataracts, eye surgery for glaucoma Past Anesthesia/Blood Transfusion Reactions: Postoperative Nausea & Vomiting (PONV) Additional Past Anesthesia/Blood Transfusion Reaction / Comment(s): abdominal pain post op Smoking Status: Former smoker - Past Family History Mother Family Medical History: Cancer Additional Family Medical History / Comment(s): Colon Father Family Medical History: Coronary Artery Disease (CAD) Sister(s) Family Medical History: Deep Vein Thrombosis (DVT) Medications and Allergies Home Medications Medication Instructions Recorded Confirmed Type Rosuvastatin [Crestor] 10 mg PO HS 01/28/18 08/24/20 History amLODIPine [Norvasc] 5 mg PO QAM 01/28/18 08/24/20 History ondansetron HCL [Zofran] 8 mg PO TID PRN 08/17/18 08/24/20 History Hydrocodone/Acetaminophen [[place] 1 tab PO Q6H PRN 12/03/18 08/24/20 History 10-325] Ergocalciferol [Vitamin D2 50,000 unit PO TUSA 11/29/19 08/24/20 History (DRISDOL)] Gi Cocktail( 30 ml PO Q4H PRN 11/29/19 08/24/20 History Elixir/Lidocaine Viscous/Maalox 1:1:1) Losartan Potassium 100 mg PO HS 11/29/19 08/24/20 History Remeron Soluspan 45mg Odt 45 mg PO HS 11/29/19 08/24/20 History Uvnanuioqfboir-XI-Pwnbusejmt 1 tab PO DAILY 04/04/20 08/24/20 History [Folbic] LORazepam [Ativan] 2 mg PO TID PRN 07/24/20 08/24/20 History hydrOXYzine HCL [Atarax] 25 mg PO QID PRN 07/24/20 08/24/20 History rOPINIRole HCL [Requip] 0.25 mg PO HS PRN 07/24/20 08/24/20 History Omeprazole [PriLOSEC] 20 mg PO AC-BID 08/24/20 08/24/20 History Allergies Allergy/AdvReac Type Severity Reaction Status Date / Time morphine Allergy Rash/Hives Verified 08/24/20 15:18 tetracycline Allergy Rash/Hives Verified 08/24/20 15:18
[~2020-08-29 10:23] MED LIST changes: +LIDOCAINE 1% (10MG/ML) FOR IV START INTRADERMA PRN; -LIDOCAINE 1% 20 ML VIAL (10MG/ML) FOR IV START INTRADERMA ONE; -LIDOCAINE 1% INJ 10MG/ML (20 ML MDV) ONE; -ONDANSETRON 4 MG/2 ML VIAL IVP ONE; -PROPOFOL 10 MG/ML 20 ML VIAL IV ONE
[2020-08-29] MEDS ORDERED: ONDANSETRON 4 MG/2 ML VIAL ONE (11:01)
[2020-08-29 11:05] VITALS: TEMP 98.6
[2020-08-29] MEDS ORDERED: METOCLOPRAMIDE 5 MG/ML 2 ML VIAL ONE (11:21)
[2020-08-29] MEDS ORDERED: METOCLOPRAMIDE 5 MG/ML 2 ML VIAL IVP ONE (11:24)
[2020-08-29] MEDS ORDERED: HYDROmorphone 0.5 MG/0.5 ML SYRINGE IVP ONE (11:25)
[2020-08-29] MEDS ORDERED: PROPOFOL 10 MG/ML 20 ML VIAL IV ONE (12:20)
[2020-08-29] MEDS ORDERED: LIDOCAINE 1% INJ 10MG/ML (20 ML MDV) ONE (12:20)
--- NOTE | 2020-08-29 12:53 | P.PCN ---
Date of Procedure: 08/29/20 Description of Procedure: PREOPERATIVE DIAGNOSIS: Gastroparesis Intractable nausea and vomiting Gastritis Epigastric abdominal pain POSTOPERATIVE DIAGNOSIS: Gastroparesis Intractable nausea and vomiting Gastritis Epigastric abdominal pain Presbyesophagus Esophageal stricture OPERATION: Esophagogastroduodenoscopy with rigid dilator over the guidewire 54 Fr. Esophagogastroduodenoscopy with cold forceps biopsies along antrum SURGEON: Danyelle Hardy MD ANESTHESIA: MAC. INDICATIONS: The patient is a 84-year-old male who presents with a history of dysphagia. Benefits and risks of the procedure were described. Informed consent was obtained. DESCRIPTION: The patient was brought into the endoscopy suite and laid in the left lateral decubitus position. After a timeout was confirmed, the procedure was initiated. An Olympus gastroscope was passed and the stomach was entered. Severe tertiary c ontractions along the esophagus was found consistent with presbyesophagus. Mild gastritis was identified. The scope was advanced to the duodenum which was unremarkable. Retroflexion the scope confirmed a Hill grade 2 lower esophageal valve. Next using an Bulgarian rigid dilator, a guidewire was placed through the pediatric gastroscope. Next the scope was withdrawn. A 54-Honduran rigid Bulgarian dilator was passed carefully along the posterior oropharynx to 50 cm and left in place for 2-3 minutes stretch. The dilator was withdrawn including the guidewire. The scope was reentered along the posterior oropharynx with no findings of full-thickness tear of the upper esophageal sphincter. Next, inflammation of the antrum was identified with cold forceps biopsies obtained. No full-thickness injury was encountered. The GI tract was desufflated. The patient tolerated the procedure well. FINDINGS: Squamocolumnar junction unremarkable at 37 cm. Diffuse tertiary contractions consistent with severe presbyesophagus Distal esophageal stricture without ulceration Bulgarian rigid dilator 54-Honduran completed. No hiatus hernia Mild gastritis. Hill grade 2 lower esophageal valve. LA grade A esophagitis. RECOMMENDATIONS: Upper endoscopy as needed Plan - Discharge Summary New Discharge Prescriptions: Continue amLODIPine [Norvasc] 5 mg PO QAM Rosuvastatin [Crestor] 10 mg PO HS ondansetron HCL [Zofran] 8 mg PO TID PRN PRN Reason: Nausea Hydrocodone/Acetaminophen [[place] 10-325] 1 tab PO Q6H PRN PRN Reason: Pain Ergocalciferol [Vitamin D2 (DRISDOL)] 50,000 unit PO TUSA Remeron Soluspan 45mg Odt 45 mg PO HS Losartan Potassium 100 mg PO HS Gi Cocktail( Elixir/Lidocaine Viscous/Maalox 1:1:1) 30 ml PO Q4H PRN PRN Reason: gastroporesis Srtpkfdiwlzdoj-OX-Hbzzbaecje [Folbic] 1 tab PO DAILY LORazepam [Ativan] 2 mg PO TID PRN PRN Reason: Anxiety rOPINIRole HCL [Requip] 0.25 mg PO HS PRN PRN Reason: RESTLESS LEGS hydrOXYzine HCL [Atarax] 25 mg PO QID PRN PRN Reason: hives Omeprazole [PriLOSEC] 20 mg PO AC-BID Discharge Medication List Rosuvastatin [Crestor] 10 mg PO HS 01/28/18 [History] amLODIPine [Norvasc] 5 mg PO QAM 01/28/18 [History] ondansetron HCL [Zofran] 8 mg PO TID PRN 08/17/18 [History] Hydrocodone/Acetaminophen [[place] 10-325] 1 tab PO Q6H PRN 12/03/18 [History] Ergocalciferol [Vitamin D2 (DRISDOL)] 50,000 unit PO TUSA 11/29/19 [History] Gi Cocktail( Elixir/Lidocaine Viscous/Maalox 1:1:1) 30 ml PO Q4H PRN 11/29/19 [History] Losartan Potassium 100 mg PO HS 11/29/19 [History] Remeron Soluspan 45mg Odt 45 mg PO HS 11/29/19 [History] Fkuiwgmjsjwwka-BP-Ssbnchrgml [Folbic] 1 tab PO DAILY 04/04/20 [History] LORazepam [Ativan] 2 mg PO TID PRN 07/24/20 [History] hydrOXYzine HCL [Atarax] 25 mg PO QID PRN 07/24/20 [History] rOPINIRole HCL [Requip] 0.25 mg PO HS PRN 07/24/20 [History] Omeprazole [PriLOSEC] 20 mg PO AC-BID 08/24/20 [History] Follow up Appointment(s)/Referral(s): Danyelle Hardy MD [STAFF PHYSICIAN] - 09/04/20 Patient Instructions/Handouts: Esophageal Dilation (DC) Activity/Diet/Wound Care/Special Instructions: Diet as tolerated Discharge Disposition: HOME SELF-CARE
[2020-08-29 13:21] VITALS: BP 172/83; PULSE 90; RESP 20
== END 2020-08-29 13:31 | disposition home or self-care (01) ==
LOC: ORWHC2ENDO 10:23
PROVIDERS: ATTEND Surgery Plastic and Reconstructive Surgery
DX: K29.50 Unspecified chronic gastritis without bleeding (principal); K22.2 Esophageal obstruction; K31.84 Gastroparesis; E78.5 Hyperlipidemia, unspecified; I10 Essential (primary) hypertension; M19.90 Unspecified osteoarthritis, unspecified site; E04.1 Nontoxic single thyroid nodule; Z90.89 Acquired absence of other organs; Z90.710 Acquired absence of both cervix and uterus; Z96.651 Presence of right artificial knee joint; Z98.42 Cataract extraction status, left eye; Z98.41 Cataract extraction status, right eye; Z98.890 Other specified postprocedural states; Z87.891 Personal history of nicotine dependence; Z80.0 Family history of malignant neoplasm of digestive organs; Z82.49 Family history of ischemic heart disease and other diseases of the circulatory system; Z79.891 Long term (current) use of opiate analgesic; Z79.899 Other long term (current) drug therapy; Z88.1 Allergy status to other antibiotic agents; Z88.5 Allergy status to narcotic agent
CPT/HCPCS: 88305; 43239; 43248; J2765; J2405; J2001; J2704; J1170; 43249

== ENCOUNTER 2020-09-19 10:23 | Day surgery (SDC) | payer MEDICARE, OTHER ==
[2020-09-17 14:44] VITALS: BMI 23.7
--- NOTE | 2020-09-19 09:09 | P.GSHP ---
History of Present Illness H&P Date: 09/19/20 CHIEF COMPLAINT: Colon screen HISTORY OF PRESENT ILLNESS: The patient is a 84-year-old female who presents for colon screen. Lower endoscopy was offered for further evaluation and management. PAST MEDICAL HISTORY: Please see list. PAST SURGICAL HISTORY: Please see list. MEDICATIONS: Please see list. ALLERGIES: Please see list. SOCIAL HISTORY: No illicit drug use FAMILY HISTORY: No reports of Crohn disease or ulcerative colitis. REVIEW OF ORGAN SYSTEMS: CONSTITUTIONAL: No reports of fevers or chills. PHYSICAL EXAM: VITAL SIGNS: Stable GENERAL: Well-developed pleasant in no acute distress. HEENT: No scleral icterus. Extraocular movements grossly intact. Moist buccal mucosa. NECK: Supple without lymphadenopathy. CHEST: Unlabored respirations. Equal bilateral excursions. CARDIOVASCULAR: Regular rate and rhythm. Distal 2+ pulses. ABDOMEN: Soft, nontender, nondistended. MUSCULOSKELETAL: No clubbing, cyanosis, or edema. ASSESSMENT: 1. Colon screen. PLAN: 1. Recommend proceeding with a lower endoscopy Past Medical History Past Medical History: Hyperlipidemia, Hypertension, Osteoarthritis (OA), Thyroid Disorder Additional Past Medical History / Comment(s): recently seen in ER for intractib le abdominal pain,Gastroparesis, thyroid nodules, servere abdominal( LUQ) pain,nausea and vomiting,neuropathy calin feet History of Any Multi-Drug Resistant Organisms: None Reported Past Surgical History: Appendectomy, Hysterectomy, Orthopedic Surgery, Tonsillectomy Additional Past Surgical History / Comment(s): L Shoulder surgery with plate, R knee replacement, colonoscopy, partial hysterectomy---still has her ovaries, carpal tunnel release bilaterally, calin cataracts, eye surgery for glaucoma Past Anesthesia/Blood Transfusion Reactions: Postoperative Nausea & Vomiting (PONV) Additional Past Anesthesia/Blood Transfusion Reaction / Comment(s): abdominal pain post op Smoking Status: Former smoker - Past Family History Mother Family Medical History: Cancer Additional Family Medical History / Comment(s): Colon Father Family Medical History: Coronary Artery Disease (CAD) Sister(s) Family Medical History: Deep Vein Thrombosis (DVT) Medications and Allergies Home Medications Medication Instructions Recorded Confirmed Type Rosuvastatin [Crestor] 10 mg PO HS 01/28/18 09/17/20 History amLODIPine [Norvasc] 5 mg PO QAM 01/28/18 09/17/20 History ondansetron HCL [Zofran] 8 mg PO TID PRN 08/17/18 09/17/20 History Hydrocodone/Acetaminophen [[place] 1 tab PO Q6H PRN 12/03/18 09/17/20 History 10-325] Ergocalciferol [Vitamin D2 50,000 unit PO TUSA 11/29/19 09/17/20 History (DRISDOL)] Gi Cocktail( 30 ml PO Q4H PRN 11/29/19 09/17/20 History Elixir/Lidocaine Viscous/Maalox 1:1:1) Losartan Potassium 100 mg PO HS 11/29/19 09/17/20 History Remeron Soluspan 45mg Odt 45 mg PO HS 11/29/19 09/17/20 History Sbjultpnfdoqze-ZH-Ihqeenwpls 1 tab PO DAILY 04/04/20 09/17/20 History [Folbic] LORazepam [Ativan] 2 mg PO TID PRN 07/24/20 09/17/20 History hydrOXYzine HCL [Atarax] 25 mg PO QID PRN 07/24/20 09/17/20 History rOPINIRole HCL [Requip] 0.25 mg PO HS PRN 07/24/20 09/17/20 History Omeprazole [PriLOSEC] 20 mg PO AC-BID 08/24/20 09/17/20 History Gabapentin [Neurontin] 300 mg PO BID 09/17/20 09/17/20 History Allergies Allergy/AdvReac Type Severity Reaction Status Date / Time morphine Allergy Rash/Hives Verified 09/17/20 14:23 tetracycline Allergy Rash/Hives Verified 09/17/20 14:23
[2020-09-19] MEDS ORDERED: ONDANSETRON 4 MG/2 ML VIAL ONE (11:05)
[2020-09-19] MEDS ORDERED: ONDANSETRON 4 MG/2 ML VIAL IVP ONE (11:07)
[2020-09-19 11:14] VITALS: RESP 16; TEMP 98.6
[2020-09-19] MEDS ORDERED: PROPOFOL 10 MG/ML 20 ML VIAL IV ONE (11:53)
--- NOTE | 2020-09-19 12:22 | P.PCN ---
Date of Procedure: 09/19/20 Description of Procedure: PREOPERATIVE DIAGNOSIS: Personal history higher risk colon polyp, ascending POSTOPERATIVE DIAGNOSIS: Diverticulosis, scattered. OPERATION: Colonoscopy to the cecum, ileocecal valve and appendiceal orifice. SURGEON: Danyelle Hardy MD. ANESTHESIA: MAC. INDICATIONS: The patient is a 84-year-old female with history of over 2 cm colon polyp resected 3 years ago. She presents for surveillance. Benefits and risks were described and informed consent was obtained. DESCRIPTION OF PROCEDURE: The patient had undergone S[place] prep. The patient had been brought into the operating room and laid in the left lateral decubitus position. After adequate intravenous sedation, the rectum was examined with 2% lidocaine jelly. External hemorrhoids were encountered. The rectal tone was within normal limits. No lesions were palpated in the rectal vault. An Olympus colonoscope was advanced until the cecum, ileocecal valve and appendiceal orifice were clearly viewed. The prep was good. Moderate sigmoid scattered diverticulosis was encountered. No colonic polyps were found. No evidence of focal colitis was found. Retroflexion of the scope demonstrated grade 1 internal hemorrhoids without active bleeding or inflammation. The colon was desufflated. The patient had tolerated the procedure well. Withdrawal time was over 6 minutes. FINDINGS: Aronchick preparation quality scale 2 (1-5) Internal hemorrhoids, grade 1 No external prolapsed hemorrhoids. No arteriovenous malformations. No large recurrent adenomatous polyp No focal colitis. RECOMMENDATIONS: Lower endoscopy in 3 years, 2023 or Cologaurd Plan - Discharge Summary Discharge Rx Participant: No New Discharge Prescriptions: Continue amLODIPine [Norvasc] 5 mg PO QAM Rosuvastatin [Crestor] 10 mg PO HS ondansetron HCL [Zofran] 8 mg PO TID PRN PRN Reason: Nausea Hydrocodone/Acetaminophen [[place] 10-325] 1 tab PO Q6H PRN PRN Reason: Pain Ergocalciferol [Vitamin D2 (DRISDOL)] 50,000 unit PO TUSA Remeron Soluspan 45mg Odt 45 mg PO HS Losartan Potassium 100 mg PO HS Gi Cocktail( Elixir/Lidocaine Viscous/Maalox 1:1:1) 30 ml PO Q4H PRN PRN Reason: gastroporesis Vvkmnhovxjsyre-ZN-Gvfzekuzjh [Folbic] 1 tab PO DAILY LORazepam [Ativan] 2 mg PO TID PRN PRN Reason: Anxiety rOPINIRole HCL [Requip] 0.25 mg PO HS PRN PRN Reason: RESTLESS LEGS hydrOXYzine HCL [Atarax] 25 mg PO QID PRN PRN Reason: hives Gabapentin [Neurontin] 300 mg PO BID Omeprazole [PriLOSEC] 20 mg PO AC-BID Discharge Medication List Rosuvastatin [Crestor] 10 mg PO HS 01/28/18 [History] amLODIPine [Norvasc] 5 mg PO QAM 01/28/18 [History] ondansetron HCL [Zofran] 8 mg PO TID PRN 08/17/18 [History] Hydrocodone/Acetaminophen [[place] 10-325] 1 tab PO Q6H PRN 12/03/18 [History] Ergocalciferol [Vitamin D2 (DRISDOL)] 50,000 unit PO TUSA 11/29/19 [History] Gi Cocktail( Elixir/Lidocaine Viscous/Maalox 1:1:1) 30 ml PO Q4H PRN 11/29/19 [History] Losartan Potassium 100 mg PO HS 11/29/19 [History] Remeron Soluspan 45mg Odt 45 mg PO HS 11/29/19 [History] Kywllgakpilgpp-EJ-Ntbsisyznf [Folbic] 1 tab PO DAILY 04/04/20 [History] LORazepam [Ativan] 2 mg PO TID PRN 07/24/20 [History] hydrOXYzine HCL [Atarax] 25 mg PO QID PRN 07/24/20 [History] rOPINIRole HCL [Requip] 0.25 mg PO HS PRN 07/24/20 [History] Omeprazole [PriLOSEC] 20 mg PO AC-BID 08/24/20 [History] Gabapentin [Neurontin] 300 mg PO BID 09/17/20 [History] Follow up Appointment(s)/Referral(s): Danyelle Hardy MD [STAFF PHYSICIAN] - 09/25/20 Patient Instructions/Handouts: Diverticulosis (DC), Diverticulosis Diet (GEN) Activity/Diet/Wound Care/Special Instructions: Patient has history of high risk colon polyp recommend Cologaurd for follow- up/repeat colonoscopy in 3 years, 2023 Discharge Disposition: HOME SELF-CARE
[2020-09-19 12:36] VITALS: BP 137/94; PULSE 89
== END 2020-09-19 13:08 | disposition home or self-care (01) ==
LOC: ORWHC2ENDO 10:23
PROVIDERS: ATTEND Surgery Plastic and Reconstructive Surgery
DX: Z12.11 Encounter for screening for malignant neoplasm of colon (principal); K57.90 Diverticulosis of intestine, part unspecified, without perforation or abscess without bleeding; K64.4 Residual hemorrhoidal skin tags; K64.0 First degree hemorrhoids; Z86.010 Personal history of colon polyps; E78.5 Hyperlipidemia, unspecified; K21.9 Gastro-esophageal reflux disease without esophagitis; I10 Essential (primary) hypertension; M19.90 Unspecified osteoarthritis, unspecified site; E04.1 Nontoxic single thyroid nodule; G62.9 Polyneuropathy, unspecified; Z90.89 Acquired absence of other organs; Z90.710 Acquired absence of both cervix and uterus; Z98.890 Other specified postprocedural states; Z96.651 Presence of right artificial knee joint; Z87.19 Personal history of other diseases of the digestive system; Z98.42 Cataract extraction status, left eye; Z98.41 Cataract extraction status, right eye; Z87.891 Personal history of nicotine dependence; Z80.0 Family history of malignant neoplasm of digestive organs; Z82.49 Family history of ischemic heart disease and other diseases of the circulatory system; Z79.891 Long term (current) use of opiate analgesic; Z79.899 Other long term (current) drug therapy; Z88.1 Allergy status to other antibiotic agents; Z88.5 Allergy status to narcotic agent
CPT/HCPCS: J2405; J2704; G0105; 45378

== ENCOUNTER → 2020-09-24 | Outpatient (CLI) | payer MEDICARE, OTHER ==
--- NOTE | 2020-09-24 13:04 | CT ---
EXAMINATION TYPE: CT abdomen pelvis w con DATE OF EXAM: 09/24/2020 HISTORY: colon mass and calculus. CT DLP: 1115mGycm Automated Exposure Control for Dose Reduction was Utilized. CONTRAST: CT scan of the abdomen and pelvis is performed with IV Contrast, patient injected with 80 mL of Isovu e 300. COMPARISON: None. FINDINGS: LUNG BASES: Mild left greater than right bibasilar linear scarring and/or atelectasis. LIVER/GB: No significant abnormality is appreciated. PANCREAS: No significant abnormality is seen. SPLEEN: No significant abnormality is seen. ADRENALS: No significant abnormality is seen. KIDNEYS: Symmetric cortical medullary uptake and excretion without hydronephrosis seen bilaterally. BOWEL: Oral contrast does level of the distal transverse colon. No suspicious small or large bowel di latation. Moderate prominence of fecal material in the left colon into the sigmoid colon. UTERUS/ADNEXA: Uterus is surgically absent. Scattered bilateral pelvic phleboliths. LYMPH NODES: No greater than 1cm abdominal or pelvic lymph nodes are appreciated. OSSEOUS STRUCTURES: Osseous structures are demineralized. Underlying Scoliosis. Grade 1 anterolisthesis L4 on L5. Grade 1 anterolisthesis L3 on L4. Moderate to severe multilevel disc space narrowing and vacuum disc phenomenon with posterior spur disc complexes effacing the anterior thecal sac at several levels. Moderate to severe narrowing and mild to moderat e spurring in both hip joints. Multilevel facet arthropathy in the mid to lower lumbar spine. OTHER: Mild to moderate calcified plaque of the aorta extends into branch vessels. IMPRESSION: Known colonic mass or neoplasm not well seen. No suspicious mass or adenopathy to suggest metastatic disease.
--- NOTE | 2020-09-24 14:50 | US ---
EXAMINATION TYPE: US gallbladder DATE OF EXAM: 09/24/2020 COMPARISON: NONE CLINICAL HISTORY: K80.20 Calculus; R19.09 mass of colon. Calculus of gallbladder EXAM MEASUREMENTS: Liver Length: 13.1 cm Gallbladder Wall: .2 cm CBD: .5 cm Right Kidney: 9.1 x 3.6 x 4.2 cm Pancreas: Obscured by bowel gas Liver: wnl Gallbladder: Gallbladder is mildly distended measuring 8.9 cm in length. There is a 3 mm gallbladder polyp. Trace Pericholecystic fluid seen. Evidence for sonographic Tran's sign: No CBD: wnl Right Kidney: No hydronephrosis or masses seen IMPRESSION: 1. Mildly distended gallbladder measuring up to 8.9 cm. Trace pericholecystic fluid. Clinical correla tion for cholecystitis is recommended. No gallstones. Tran's sign is negative. 2. Gallbladder polyp measuring 3 mm. 3. The pancreas is obscured by bowel gas.
== END | disposition home or self-care (01) ==
LOC: RADUSWWP 09:32
PROVIDERS: ATTEND Surgery Plastic and Reconstructive Surgery
DX: K82.4 Cholesterolosis of gallbladder (principal); K63.89 Other specified diseases of intestine; K80.20 Calculus of gallbladder without cholecystitis without obstruction
CPT/HCPCS: 82565; 84520; 76705; 74177; 36415; Q9967

== ENCOUNTER → 2020-10-17 | Outpatient (CLI) | payer MEDICARE, OTHER ==
--- NOTE | 2020-10-17 22:37 | CT ---
EXAMINATION TYPE: CT chest wo con DATE OF EXAM: 10/17/2020 COMPARISON: NONE HISTORY: abnormal cxr, mass CT DLP: 193.1 mGycm. Automated Exposure Control for Dose Reduction was Utilized. TECHNIQUE: CT scan of the thorax is performed without IV contrast. FINDINGS: LUNGS: Pczc-ww-jwociuwi bibasilar linear scarring and/or atelectasis. No suspicious focal consolidati on. No concerning pulmonary nodules or masses. No pleural effusion or pneumothorax seen bilaterally. MEDIASTINUM: Lack of IV contrast is noted to limit evaluation for mediastinal and especially hilar ad enopathy. There are no definitive greater than 1 cm hilar or mediastinal lymph nodes. Heart size uppe r limits of normal. No Pericardial effusion is seen. Heterogeneous enlarged thyroid particularly righ t thyroid lobe with substernal extension causing right paratracheal soft tissue prominence on the loc alizer. Some calcification in the isthmus and inferior right thyroid lobe. Underlying goiter suspecte d. Coronary artery calcification identified. OTHER: Moderate calcified plaque of the visualized portion of abdominal aorta. Exaggerated kyphosis w ith moderate multilevel spurring. S-shaped scoliosis. IMPRESSION: No concerning pulmonary nodule or mass. Thyroid goiter with substernal extension asymmetr ically enlarged right thyroid lobe.
== END | disposition home or self-care (01) ==
LOC: RADCTMAIN 17:33
PROVIDERS: ATTEND Registered Nurse
DX: E04.9 Nontoxic goiter, unspecified (principal)
CPT/HCPCS: 71250

== ENCOUNTER → 2020-10-26 | Outpatient (CLI) | payer MEDICARE, OTHER ==
[2020-10-26 10:02] LABS: ALT 14 U/L (4-34); AST 27 U/L (14-36); African American GFR (CKD) 76 (>60 ml/min/1.73 sqM); Albumin 4.1 g/dL (3.5-5.0); Albumin/Globulin Ratio 1.5; Alkaline Phosphatase 84 U/L (38-126); Anion Gap 9 mmol/L; Blood Urea Nitrogen 15 mg/dL (7-17); Calcium 9.1 mg/dL (8.4-10.2); Carbon Dioxide 23 mmol/L (22-30); Chloride 103 mmol/L (98-107); Globulin 2.8 g/dL; Glucose 114 mg/dL (74-99); Non-African American GFR(CKD) 66 (>60 ml/min/1.73 sqM); Potassium 4.2 mmol/L (3.5-5.1); Sodium 135 mmol/L (137-145); Total Bilirubin 0.3 mg/dL (0.2-1.3); Total Protein 6.9 g/dL (6.3-8.2)
[2020-10-26 10:17] LABS: T4, Free (Free Thyroxine) 1.06 ng/dL (0.78-2.19)
== END | disposition home or self-care (01) ==
LOC: LABWHC1 09:05
PROVIDERS: ATTEND Registered Nurse
DX: R25.2 Cramp and spasm (principal)
CPT/HCPCS: 36415; 80053; 82553; 84439; 84443; 84481; 85652

== ENCOUNTER 2020-11-05 19:30 | Emergency (ER) | payer MEDICARE, OTHER ==
[2020-11-05 19:42] VITALS: TEMP 98.7
[2020-11-05 20:50] LABS: Basophils % (A) 0 %; Eosinophils # (A) 0.1 k/uL (0-0.7); Eosinophils % (A) 1 %; HCT 38.4 % (34.0-46.0); HGB 12.9 gm/dL (11.4-16.0); Lymphocytes # (A) 1.6 k/uL (1.0-4.8); Lymphocytes % (A) 25 %; MCH 26.9 pg (25.0-35.0); MCHC 33.7 g/dL (31.0-37.0); MCV 79.9 fL (80.0-100.0); Mean Platelet Volume 7.8; Monocytes # (A) 0.6 k/uL (0-1.0); Monocytes % (A) 8 %; Neutrophils # (A) 4.3 k/uL (1.3-7.7); Neutrophils % (A) 64 %; Platelet Count 192 k/uL (150-450); RDW 14.4 % (11.5-15.5); WBC 6.7 k/uL (3.8-10.6)
[2020-11-05 20:57] LABS: Appearance,Urine Clear (Clear); Bilirubin,Urine Negative (Negative); Blood,Urine Trace (Negative); Color,Urine Light Yellow; Glucose,Urine (UA) Negative (Negative); Ketones,Urine 1+ (Negative); Leukocyte Esterase,Urine Negative (Negative); Mucus,Urine Rare /hpf; Nitrite,Urine Negative (Negative); PH, Urine 5.5 (5.0-8.0); Protein,Urine Negative (Negative); RBC,Urine 1 /hpf (0-5); Specific Gravity,Urine 1.009 (1.001-1.035); Squamous Epithelial Cell,Urine <1 /hpf (0-4); Urobilinogen,Urine <2.0 mg/dL (<2.0); WBC,Urine <1 /hpf (0-5)
[2020-11-05 21:01] LABS: ALT 13 U/L (4-34); AST 25 U/L (14-36); African American GFR (CKD) >90 (>60 ml/min/1.73 sqM); Albumin 4.7 g/dL (3.5-5.0); Alkaline Phosphatase 87 U/L (38-126); Amylase 147 U/L (30-110); Anion Gap 13 mmol/L; Blood Urea Nitrogen 10 mg/dL (7-17); Calcium 9.7 mg/dL (8.4-10.2); Carbon Dioxide 23 mmol/L (22-30); Chloride 101 mmol/L (98-107); Glucose 108 mg/dL (74-99); Lipase 110 U/L (23-300); Non-African American GFR(CKD) 80 (>60 ml/min/1.73 sqM); Potassium 3.5 mmol/L (3.5-5.1); Sodium 137 mmol/L (137-145); Total Bilirubin 0.4 mg/dL (0.2-1.3); Total Protein 7.5 g/dL (6.3-8.2)
[2020-11-05] MEDS ORDERED: SODIUM CHLORIDE 0.9% 500 ML 500 ML IV STA (21:01)
[2020-11-05] MEDS ORDERED: HYDROmorphone 1 MG/ML 1 ML SYRINGE IVP STA (21:01)
--- NOTE | 2020-11-05 21:05 | ED ---
Abdominal Pain HPI - General Chief Complaint: Abdominal Pain Stated Complaint: Abdominal pain Time Seen by Provider: 11/05/20 20:49 Source: patient, EMS Mode of arrival: EMS Limitations: no limitations - History of Present Illness Initial Comments: This is an 84-year-old woman who presents with complaint of diffuse abdominal pain. She states she has been having pains like this going back for years. She states that since May she has been more or less restricted to a recliner because doing anything else causes her abdomen flareup. The patient states that the pain is usually left upper quadrant to today it is affecting everywhere in the abdomen. She states that for the past 5 days she has also been having loose stools. The patient states she has been taking her home [place] including today but doesn't seem to be giving much relief. Patient has nausea but is not having vomiting currently. No change in urination. No bloody or tarry stools. MD Complaint: abdominal pain -: month(s) Location: diffuse Radiation: none Migration to: no migration Severity: severe Quality: cramping, aching Consistency: constant Improves With: nothing Worsens With: nothing Associated Symptoms: diarrhea - Related Data Home Medications Medication Instructions Recorded Confirmed Rosuvastatin [Crestor] 10 mg PO HS 01/28/18 09/17/20 amLODIPine [Norvasc] 5 mg PO QAM 01/28/18 09/17/20 ondansetron HCL [Zofran] 8 mg PO TID PRN 08/17/18 09/17/20 Hydrocodone/Acetaminophen [[place] 1 tab PO Q6H PRN 12/03/18 09/17/20 10-325] Ergocalciferol [Vitamin D2 50,000 unit PO TUSA 11/29/19 09/17/20 (DRISDOL)] Gi Cocktail( 30 ml PO Q4H PRN 11/29/19 09/17/20 Elixir/Lidocaine Viscous/Maalox 1:1:1) Losartan Potassium 100 mg PO HS 11/29/19 09/17/20 Remeron Soluspan 45mg Odt 45 mg PO HS 11/29/19 09/17/20 Yjqmnqdsgqrhaw-SC-Tbxvnpjbmb 1 tab PO DAILY 04/04/20 09/17/20 [Folbic] LORazepam [Ativan] 2 mg PO TID PRN 07/24/20 09/17/20 hydrOXYzine HCL [Atarax] 25 mg PO QID PRN 07/24/20 09/17/20 rOPINIRole HCL [Requip] 0.25 mg PO HS PRN 07/24/20 09/17/20 Omeprazole [PriLOSEC] 20 mg PO AC-BID 08/24/20 09/17/20 Gabapentin [Neurontin] 300 mg PO BID 09/17/20 09/17/20 Allergies Allergy/AdvReac Type Severity Reaction Status Date / Time morphine Allergy Rash/Hives Verified 09/19/20 10:45 tetracycline Allergy Rash/Hives Verified 09/19/20 10:45 Review of Systems ROS Statement: Those systems with pertinent positive or pertinent negative responses have been documented in the HPI. ROS Other: All systems not noted in ROS Statement are negative. Constitutional: Denies: fever, chills Respiratory: Denies: cough, dyspnea Cardiovascular: Denies: chest pain, palpitations, orthopnea, edema Gastrointestinal: Reports: abdominal pain, nausea, diarrhea. Denies: vomiting, constipation, hematemesis, melena, hematochezia Genitourinary: Denies: dysuria, frequency, hematuria Musculoskeletal: Denies: back pain Skin: Denies: rash Neurological: Denies: headache, weakness, numbness Past Medical History Past Medical History: Hyperlipidemia, Hypertension, Osteoarthritis (OA), Thyroid Disorder Additional Past Medical History / Comment(s): recently seen in ER for intractible abdominal pain,Gastroparesis, thyroid nodules, servere abdominal( LUQ) pain,nausea and vomiting,neuropathy calin feet History of Any Multi-Drug Resistant Organisms: None Reported Past Surgical History: Appendectomy, Hysterectomy, Orthopedic Surgery, Tonsillectomy Additional Past Surgical History / Comment(s): L Shoulder surgery with plate, R knee replacement, colonoscopy, partial hysterectomy---still has her ovaries, carpal tunnel release bilaterally, calin cataracts, eye surgery for glaucoma Past Anesthesia/Blood Transfusion Reactions: Postoperative Nausea & Vomiting (PONV) Additional Past Anesthesia/Blood Transfusion Reaction / Comment(s): abdominal p ain post op Past Psychological History: Anxiety, Panic Disorder Smoking Status: Former smoker - Past Family History Mother Family Medical History: Cancer Additional Family Medical History / Comment(s): Colon Father Family Medical History: Coronary Artery Disease (CAD) Sister(s) Family Medical History: Deep Vein Thrombosis (DVT) General Exam Limitations: no limitations General appearance: alert, in no apparent distress Head exam: Present: atraumatic, normocephalic Eye exam: Present: normal appearance. Absent: scleral icterus, conjunctival injection ENT exam: Present: normal oropharynx Neck exam: Present: normal inspection Respiratory exam: Present: normal lung sounds bilaterally. Absent: respiratory distress, wheezes, rales, rhonchi, stridor Cardiovascular Exam: Present: regular rate, normal rhythm, normal heart sounds. Absent: systolic murmur, diastolic murmur, rubs, gallop GI/Abdominal exam: Present: soft, hyperactive bowel sounds. Absent: distended, tenderness, guarding, rebound, rigid, mass, pulsatile mass, hernia Extremities exam: Present: normal inspection, normal capillary refill. Absent: pedal edema, calf tenderness Back exam: Present: normal inspection. Absent: CVA tenderness (R), CVA tenderness (L) Neurological exam: Present: alert Skin exam: Present: warm, dry, intact, normal color. Absent: rash Course Vital Signs 11/05/20 11/06/20 11/06/20 19:36 00:01 00:02 Temperature 98.7 F Pulse Rate 101 H 88 Respiratory 18 18 Rate Blood Pressure 182/124 155/99 O2 Sat by Pulse 99 98 Oximetry Medical Decision Making - Medical Decision Making Following medication here, the patient is reevaluated. She states that she would like to go home, the symptoms are now back at her baseline. Did offer admission based on the x-ray, but again patient declines stating she is back to normal. She will keep a close eye on symptoms and have low threshold for returning here. - Lab Data Result diagrams: 11/05/20 20:30 11/05/20 20:30 Lab Results 11/05/20 11/05/20 11/05/20 Range/Units 20:30 20:30 20:30 WBC 6.7 (3.8-10.6) k/uL RBC 4.80 (3.80-5.40) m/uL Hgb 12.9 (11.4-16.0) gm/dL Hct 38.4 (34.0-46.0) % MCV 79.9 L (80.0-100.0) fL MCH 26.9 (25.0-35.0) pg MCHC 33.7 (31.0-37.0) g/dL RDW 14.4 (11.5-15.5) % Plt Count 192 (150-450) k/uL MPV 7.8 Neutrophils % 64 % Lymphocytes % 25 % Monocytes % 8 % Eosinophils % 1 % Basophils % 0 % Neutrophils # 4.3 (1.3-7.7) k/uL Lymphocytes # 1.6 (1.0-4.8) k/uL Monocytes # 0.6 (0-1.0) k/uL Eosinophils # 0.1 (0-0.7) k/uL Basophils # 0.0 (0-0.2) k/uL Sodium 137 (137-145) mmol/L Potassium 3.5 (3.5-5.1) mmol/L Chloride 101 (98-107) mmol/L Carbon Dioxide 23 (22-30) mmol/L Anion Gap 13 mmol/L BUN 10 (7-17) mg/dL Creatinine 0.71 (0.52-1.04) mg/dL Est GFR (CKD-EPI)AfAm >90 (>60 ml/min/1.73 sqM) Est GFR (CKD-EPI)NonAf 80 (>60 ml/min/1.73 sqM) Glucose 108 H (74-99) mg/dL Calcium 9.7 (8.4-10.2) mg/dL Total Bilirubin 0.4 (0.2-1.3) mg/dL AST 25 (14-36) U/L ALT 13 (4-34) U/L Alkaline Phosphatase 87 (38-126) U/L Total Protein 7.5 (6.3-8.2) g/dL Albumin 4.7 (3.5-5.0) g/dL Amylase 147 H (30-110) U/L Lipase 110 (23-300) U/L Urine Color Light Yellow Urine Appearance Clear (Clear) Urine pH 5.5 (5.0-8.0) Ur Specific [place] 1.009 (1.001-1.035) Urine Protein Negative (Negative) Urine Glucose (UA) Negative (Negative) Urine Ketones 1+ H (Negative) Urine Blood Trace H (Negative) Urine Nitrite Negative (Negative) Urine Bilirubin Negative (Negative) Urine Urobilinogen <2.0 (<2.0) mg/dL Ur Leukocyte Esterase Negative (Negative) Urine RBC 1 (0-5) /hpf Urine WBC <1 (0-5) /hpf Ur Squamous Epith Cells <1 (0-4) /hpf Urine Mucus Rare H (None) /hpf Disposition Clinical Impression: Abdominal pain Disposition: HOME SELF-CARE Condition: Good Instructions (If sedation given, give patient instructions): Abdominal Pain (ED) Is patient prescribed a controlled substance at d/c from ED?: No Referrals: Davida Doss MD [Primary Care Provider] - 1-2 days Danyelle Hardy MD [STAFF PHYSICIAN] - 1-2 days
--- NOTE | 2020-11-05 21:34 | XR ---
EXAM: Abdomen radiograph. HISTORY: Pain. TECHNIQUE: Upright AP view. COMPARISON: CT 09/24/2020. Radiograph 08/24/2020. FINDINGS: There are multiple mildly dilated bowel loops throughout the abdomen. No pneumoperitoneum. There are no pathologic calcifications. No acute osseous abnormality seen. IMPRESSION: Multiple mildly dilated small bowel loops may represent ileus versus partial small bowel obstruction.
[2020-11-05] MEDS ORDERED: HYDROmorphone 0.5 MG/0.5 ML SYRINGE IVP STA (23:02)
[2020-11-05] MEDS ORDERED: LORazepam 2 MG/ML INJ IV STA (23:03)
[2020-11-06] MEDS ORDERED: FAMOTIDINE 20 MG/2 ML VIAL IV STA (01:24)
[2020-11-06 01:52] VITALS: BP 156/92; PULSE 97; RESP 16
== END 2020-11-06 02:02 | disposition home or self-care (01) ==
LOC: EC 19:30
DX: R10.84 Generalized abdominal pain (principal); R10.12 Left upper quadrant pain; R19.7 Diarrhea, unspecified; I10 Essential (primary) hypertension; E78.5 Hyperlipidemia, unspecified; M19.90 Unspecified osteoarthritis, unspecified site; G62.9 Polyneuropathy, unspecified; F41.9 Anxiety disorder, unspecified; Z87.891 Personal history of nicotine dependence
CPT/HCPCS: 99284; 96374; 96375 ×2; 36415; 80053; 82150; 83690; 85025; 81001; 74018; J2060; J1170

== ENCOUNTER 2020-11-08 | Observation (INO) | payer MEDICARE, OTHER | END 2020-11-10 14:55 | disposition home or self-care (01) | PROVIDERS: ADMIT Internal Medicine | CPT/HCPCS: 47562; S2900; 36415; 70450; 74177; 80048; 80053; 81001; 82150; 83605; 83690; 85025; 85027; 88304; 99285 ==

== ENCOUNTER 2020-11-29 12:14 | Emergency (ER) | payer MEDICARE, OTHER ==
[2020-11-29] MEDS ORDERED: HYDROmorphone 1 MG/ML 1 ML SYRINGE IVP STA ×2 (12:50→14:32)
--- NOTE | 2020-11-29 12:52 | ED ---
General Adult HPI - General Stated complaint: Abd Pain Time Seen by Provider: 11/29/20 12:17 - History of Present Illness Initial comments: Dictation was produced using [employer] dictation software. please excuse any grammatical, word or spelling errors. Chief Complaint: 84-year-old female with chronic abdominal pain presents with abdominal pain History of Present Illness: 84-year-old female she states that she has chronic abdominal pain secondary to gastroparesis. She states that 3 weeks ago she had her gallbladder removed by general surgery. She states that she had some postoperative pain for 3 days after however she continued to have what she describes as gastroparesis pain. Patient has any fevers. She's been dry heaving but no nausea. She does have some mild diarrhea. Denies any constitutional symptoms. She localizes the pain to the left upper quadrant area. She states it's constant and dull in nature. States that her pain is moderate not severe. She is requesting Dilaudid. The ROS documented in this emergency department record has been reviewed and confirmed by me. Those systems with pertinent positive or negative responses have been documented in the HPI. All other systems are other negative and/or n oncontributory. PHYSICAL EXAM: General Impression: Alert and oriented x3, not in acute distress HEENT: Normocephalic atraumatic, extra-ocular movements intact, pupils equal and reactive to light bilaterally, mucous membranes moist. Cardiovascular: Heart regular rate and rhythm Chest: Able to complete full sentences, no retractions, no tachypnea Abdomen: abdomen soft, mild tenderness to the left upper quadrant area, non- distended, no organomegaly Musculoskeletal: Pulses present and equal in all extremities, no peripheral edema Motor: no focal deficits noted Neurological: CN II-XII grossly intact, no focal motor or sensory deficits noted Skin: Intact with no visualized rashes Psych: Normal affect and mood ED course: 84-year-old well-appearing female with history of chronic abdominal pain presents to the emergency department for abdominal pain. She is 3 weeks postop from laparoscopic cholecystectomy. As upon arrival are within acceptable limits. Laboratory evaluation obtained. CBC is unremarkable. Metabolic panel shows potassium 3.2. Patient given oral potassium. Urinalysis is negative for infection. Computed tomography scan of the abdomen and pelvis shows no acute processes. Patient reevaluated at bedside. She is well-appearing. She continually asked for Dilaudid and Ativan. Repeat abdominal exam at 2:40 PM shows soft abdomen with minimal tenderness. Patient's well-appearing. Patient discharged advised follow-up with primary care doctor. Return precautions dis cussed. EKG interpretation: Ventricular rate 98, sinus rhythm with first-degree AV block,. Interval to 24, care is 80, QTc 428. No LA prolongation, no QTC prolongation, no ST or T-wave changes noted. EKG compared to 07/27/2020 showing no changes. Overall, this EKG is unremarkable - Related Data Home Medications Medication Instructions Recorded Confirmed amLODIPine [Norvasc] 5 mg PO DAILY 01/28/18 11/29/20 ondansetron HCL [Zofran] 8 mg PO TID PRN 08/17/18 11/29/20 Ergocalciferol [Vitamin D2 50,000 unit PO TUSA 11/29/19 11/29/20 (DRISDOL)] Gi Cocktail( 30 ml PO Q4H PRN 11/29/19 11/29/20 Elixir/Lidocaine Viscous/Maalox 1:1:1) Losartan Potassium 100 mg PO HS 11/29/19 11/29/20 Rxbgjxiihlrybm-VT-Bkruujnkon 1 tab PO DAILY 04/04/20 11/29/20 [Folbic] rOPINIRole HCL [Requip] 0.25 mg PO HS PRN 07/24/20 11/29/20 Omeprazole [PriLOSEC] 40 mg PO DAILY 08/24/20 11/29/20 Mirtazapine [Remeron] 45 mg PO HS 11/08/20 11/29/20 Naloxone HCl [Narcan] 4 mg NASAL ONCE PRN 11/08/20 11/29/20 HYDROcodone/APAP 10-325MG [[place] 1 tab PO QID 11/29/20 11/29/20 10-325] LORazepam [Ativan] 1 mg PO TID PRN 11/29/20 11/29/20 Rosuvastatin [Crestor] 10 mg PO HS 11/29/20 11/29/20 hydrOXYzine HCL [Atarax] 25 mg PO QID PRN 11/29/20 11/29/20 oxyCODONE-APAP 5-325MG [Percocet 1 - 2 tab PO Q6H PRN 11/29/20 11/29/20 5-325 mg] Allergies Allergy/AdvReac Type Severity Reaction Status Date / Time morphine Allergy Rash/Hives Verified 11/29/20 14:09 tetracycline Allergy Rash/Hives Verified 11/29/20 14:09 Review of Systems ROS Statement: Those systems with pertinent positive or pertinent negative responses have been documented in the HPI. ROS Other: All systems not noted in ROS Statement are negative. Past Medical History Past Medical History: Hyperlipidemia, Hypertension, Osteoarthritis (OA), Thyroid Disorder Additional Past Medical History / Comment(s): recently seen in ER for intractible abdominal pain,Gastroparesis, thyroid nodules, servere abdominal( LUQ) pain,nausea and vomiting,neuropathy calin feet History of Any Multi-Drug Resistant Organisms: None Reported Past Surgical History: Appendectomy, Hysterectomy, Orthopedic Surgery, Tonsillectomy Additional Past Surgical History / Comment(s): L Shoulder surgery with plate, R knee replacement, colonoscopy, partial hysterectomy---still has her ovaries, carpal tunnel release bilaterally, calin cataracts, eye surgery for glaucoma Past Anesthesia/Blood Transfusion Reactions: No Reported Reaction, Postoperative Nausea & Vomiting (PONV) Additional Past Anesthesia/Blood Transfusion Reaction / Comment(s): abdominal pain post op Past Psychological History: Anxiety, Panic Disorder Smoking Status: Former smoker Past Alcohol Use History: None Reported Additional Past Alcohol Use History / Comment(s): quit smoking age 22, smoked for a couple yrs Past Drug Use History: Marijuana - Past Family History Mother Family Medical History: Cancer Additional Family Medical History / Comment(s): Colon Father Family Medical History: Coronary Artery Disease (CAD) Sister(s) Family Medical History: Deep Vein Thrombosis (DVT) Course Vital Signs 11/29/20 12:46 Temperature 98.9 F Pulse Rate 98 Respiratory 18 Rate Blood Pressure 153/89 O2 Sat by Pulse 98 Oximetry Medical Decision Making - Lab Data Result diagrams: 11/29/20 12:59 11/29/20 12:59 Lab Results 11/29/20 11/29/20 11/29/20 Range/Units 12:59 12:59 12:59 WBC 4.4 (3.8-10.6) k/uL RBC 4.92 (3.80-5.40) m/uL Hgb 13.0 (11.4-16.0) gm/dL Hct 40.6 (34.0-46.0) % MCV 82.5 (80.0-100.0) fL MCH 26.4 (25.0-35.0) pg MCHC 32.0 (31.0-37.0) g/dL RDW 14.6 (11.5-15.5) % Plt Count 224 (150-450) k/uL MPV 7.8 Neutrophils % 76 % Lymphocytes % 16 % Monocytes % 6 % Eosinophils % 1 % Basophils % 0 % Neutrophils # 3.3 (1.3-7.7) k/uL Lymphocytes # 0.7 L (1.0-4.8) k/uL Monocytes # 0.3 (0-1.0) k/uL Eosinophils # 0.0 (0-0.7) k/uL Basophils # 0.0 (0-0.2) k/uL Sodium 140 (137-145) mmol/L Potassium 3.2 L (3.5-5.1) mmol/L Chloride 107 (98-107) mmol/L Carbon Dioxide 23 (22-30) mmol/L Anion Gap 10 mmol/L BUN 8 (7-17) mg/dL Creatinine 0.67 (0.52-1.04) mg/dL Est GFR (CKD-EPI)AfAm >90 (>60 ml/min/1.73 sqM) Est GFR (CKD-EPI)NonAf 82 (>60 ml/min/1.73 sqM) Glucose 129 H (74-99) mg/dL Calcium 9.4 (8.4-10.2) mg/dL Magnesium 1.9 (1.6-2.3) mg/dL Total Bilirubin 0.4 (0.2-1.3) mg/dL AST 27 (14-36) U/L ALT 15 (4-34) U/L Alkaline Phosphatase 95 (38-126) U/L Total Protein 6.9 (6.3-8.2) g/dL Albumin 4.1 (3.5-5.0) g/dL Lipase 140 (23-300) U/L Urine Color Yellow Urine Appearance Cloudy H (Clear) Urine pH 5.5 (5.0-8.0) Ur Specific [place] 1.023 (1.001-1.035) Urine Protein 1+ H (Negative) Urine Glucose (UA) Negative (Negative) Urine Ketones 1+ H (Negative) Urine Blood Small H (Negative) Urine Nitrite Negative (Negative) Urine Bilirubin Negative (Negative) Urine Urobilinogen <2.0 (<2.0) mg/dL Ur Leukocyte Esterase Negative (Negative) Urine RBC 1 (0-5) /hpf Urine WBC 4 (0-5) /hpf Ur Squamous Epith Cells 2 (0-4) /hpf Hyaline Casts 11 H (0-2) /lpf Urine Mucus Rare H (None) /hpf Disposition Clinical Impression: Abdominal pain Disposition: HOME SELF-CARE Condition: Fair Instructions (If sedation given, give patient instructions): Abdominal Pain (ED) Is patient prescribed a controlled substance at d/c from ED?: No Referrals: Davida Doss MD [Primary Care Provider] - 1-2 days
[2020-11-29 12:56] VITALS: RESP 18; TEMP 98.9
[2020-11-29 13:24] LABS: Basophils % (A) 0 %; Eosinophils % (A) 1 %; HCT 40.6 % (34.0-46.0); Lymphocytes # (A) 0.7 k/uL (1.0-4.8); Lymphocytes % (A) 16 %; MCH 26.4 pg (25.0-35.0); MCV 82.5 fL (80.0-100.0); Mean Platelet Volume 7.8; Monocytes # (A) 0.3 k/uL (0-1.0); Monocytes % (A) 6 %; Neutrophils # (A) 3.3 k/uL (1.3-7.7); Neutrophils % (A) 76 %; Platelet Count 224 k/uL (150-450); RBC 4.92 m/uL (3.80-5.40); RDW 14.6 % (11.5-15.5); WBC 4.4 k/uL (3.8-10.6)
[2020-11-29 13:39] LABS: Appearance,Urine Cloudy (Clear); Bilirubin,Urine Negative (Negative); Blood,Urine Small (Negative); Color,Urine Yellow; Glucose,Urine (UA) Negative (Negative); Hyaline Casts,Urine 11 /lpf (0-2); Ketones,Urine 1+ (Negative); Leukocyte Esterase,Urine Negative (Negative); Mucus,Urine Rare /hpf; Nitrite,Urine Negative (Negative); PH, Urine 5.5 (5.0-8.0); Protein,Urine 1+ (Negative); RBC,Urine 1 /hpf (0-5); Specific Gravity,Urine 1.023 (1.001-1.035); Squamous Epithelial Cell,Urine 2 /hpf (0-4); Urobilinogen,Urine <2.0 mg/dL (<2.0); WBC,Urine 4 /hpf (0-5)
[2020-11-29 13:44] LABS: ALT 15 U/L (4-34); AST 27 U/L (14-36); African American GFR (CKD) >90 (>60 ml/min/1.73 sqM); Albumin 4.1 g/dL (3.5-5.0); Alkaline Phosphatase 95 U/L (38-126); Anion Gap 10 mmol/L; Blood Urea Nitrogen 8 mg/dL (7-17); Calcium 9.4 mg/dL (8.4-10.2); Carbon Dioxide 23 mmol/L (22-30); Chloride 107 mmol/L (98-107); Glucose 129 mg/dL (74-99); Lipase 140 U/L (23-300); Magnesium 1.9 mg/dL (1.6-2.3); Non-African American GFR(CKD) 82 (>60 ml/min/1.73 sqM); Potassium 3.2 mmol/L (3.5-5.1); Sodium 140 mmol/L (137-145); Total Bilirubin 0.4 mg/dL (0.2-1.3); Total Protein 6.9 g/dL (6.3-8.2)
[2020-11-29] MEDS ORDERED: POTASSIUM CHLORIDE ER 20 MEQ TAB.ER PO STA (13:48)
--- NOTE | 2020-11-29 14:23 | CT ---
EXAMINATION TYPE: CT abdomen pelvis w con DATE OF EXAM: 11/29/2020 COMPARISON: 11/08/2020 HISTORY: LUQ pain post laparoscopy CT DLP: 604.5 mGycm CONTRAST: CT scan of the abdomen and pelvis is performed without Oral Contrast and with IV Contrast, patient in jected with 100 mL of Isovue 300. FINDINGS: LUNG BASES-: No visible nodule. No infiltrate. LIVER/GB: The gallbladder has been removed in the interval. No evidence for fluid collection about the gallbladder fossa. No space occupying hepatic lesion. Biliary tree is of normal caliber. PANCREAS: No inflammation. No distinct mass. SPLEEN: No splenic enlargement. No lesion seen. ADRENALS: No nodule. No thickening. KIDNEYS/BLADDER: No hydronephrosis. No nephrolithiasis. Renal cystic changes noted. Urinary bladder grossly unremarkable. BOWEL: Normal appendix. Normal bowel caliber. No inflammation. GENITAL ORGANS: No gross abnormality. LYMPH NODES: No greater than 1cm abdominal or pelvic lymph nodes are appreciated. AORTA: No significant abnormality. OSSEOUS STRUCTURES: Severe degenerative change lumbar spine. OTHER: No significant additional abnormality is seen. IMPRESSION: 1. No acute process identified to account for the patient's symptoms. 2. Status post cholecystectomy.
[2020-11-29] MEDS ORDERED: LORazepam 2 MG/ML INJ IV STA (14:40)
[2020-11-29 16:22] VITALS: BP 182/90; PULSE 113
== END 2020-11-29 16:20 | disposition home or self-care (01) ==
LOC: EC 12:14
DX: R10.12 Left upper quadrant pain (principal); I10 Essential (primary) hypertension; E78.5 Hyperlipidemia, unspecified; F41.9 Anxiety disorder, unspecified; M19.90 Unspecified osteoarthritis, unspecified site; F12.90 Cannabis use, unspecified, uncomplicated; Z79.899 Other long term (current) drug therapy; Z82.49 Family history of ischemic heart disease and other diseases of the circulatory system; Z87.891 Personal history of nicotine dependence; Z90.49 Acquired absence of other specified parts of digestive tract; Z96.653 Presence of artificial knee joint, bilateral
CPT/HCPCS: 36415; 93005; 80053; 83690; 83735; 85025; 81001; 74177; 96374; 96375; 96376; 99284; J2060; J1170; Q9967

== ENCOUNTER 2020-12-23 21:46 | Inpatient (IN) | payer MEDICARE, OTHER ==
[2020-12-23] MEDS ORDERED: HYDROmorphone 0.5 MG/0.5 ML SYRINGE IVP STA (22:33)
[2020-12-23] MEDS ORDERED: ONDANSETRON 4 MG/2 ML VIAL IVP STA (22:33)
--- NOTE | 2020-12-23 22:36 | ED ---
Abdominal Pain HPI - General Chief Complaint: Abdominal Pain Stated Complaint: Abd Pain Time Seen by Provider: 12/23/20 22:00 Source: patient, EMS Mode of arrival: EMS Limitations: no limitations - History of Present Illness MD Complaint: abdominal pain -: month(s) Location: epigastric Radiation: none Migration to: no migration Severity: severe Consistency: constant Improves With: nothing Worsens With: nothing Associated Symptoms: nausea, vomiting - Related Data Home Medications Medication Instructions Recorded Confirmed amLODIPine [Norvasc] 5 mg PO DAILY 01/28/18 12/23/20 ondansetron HCL [Zofran] 8 mg PO TID PRN 08/17/18 12/23/20 Ergocalciferol [Vitamin D2 50,000 unit PO TUSA 11/29/19 12/23/20 (DRISDOL)] Gi Cocktail( 30 ml PO Q4H PRN 11/29/19 12/23/20 Elixir/Lidocaine Viscous/Maalox 1:1:1) Losartan Potassium 100 mg PO HS 11/29/19 12/23/20 Ttugrdfmlkhaoo-UA-Gwrhquhojx 1 tab PO DAILY 04/04/20 12/23/20 [Folbic] rOPINIRole HCL [Requip] 0.25 mg PO HS PRN 07/24/20 12/23/20 Omeprazole [PriLOSEC] 40 mg PO DAILY 08/24/20 12/23/20 Mirtazapine [Remeron] 45 mg PO HS 11/08/20 12/23/20 Naloxone HCl [Narcan] 4 mg NASAL ONCE PRN 11/08/20 12/23/20 HYDROcodone/APAP 10-325MG [[place] 2 tab PO QID 11/29/20 12/25/20 10-325] LORazepam [Ativan] 2 mg PO TID PRN 11/29/20 12/25/20 Rosuvastatin [Crestor] 10 mg PO HS 11/29/20 12/23/20 hydrOXYzine HCL [Atarax] 25 mg PO QID PRN 11/29/20 12/23/20 HYDROcodone/APAP 10-325MG [[place] 1 tab PO DAILY PRN 12/23/20 12/23/20 10-325] Previous Rx's Medication Instructions Recorded Famotidine [Pepcid] 20 mg PO BID 30 Days #60 tab 12/26/20 Loperamide [Imodium] 2 mg PO QID PRN cap 12/26/20 Sucralfate [Carafate] 1 gm PO ACHS 30 Days #120 tab 12/26/20 Allergies Allergy/AdvReac Type Severity Reaction Status Date / Time hydromorphone [From Dilaudid] Allergy Rash/Hives Verified 12/23/20 22:57 morphine Allergy Rash/Hives Verified 12/23/20 22:57 tetracycline Allergy Rash/Hives Verified 12/23/20 22:57 Review of Systems ROS Statement: Those systems with pertinent positive or pertinent negative responses have been documented in the HPI. ROS Other: All systems not noted in ROS Statement are negative. Constitutional: Denies: fever, chills, weakness Respiratory: Denies: cough, dyspnea Cardiovascular: Denies: chest pain, palpitations Gastrointestinal: Reports: abdominal pain, nausea, vomiting. Denies: diarrhea, constipation, melena, hematochezia Genitourinary: Denies: dysuria, frequency, hematuria Musculoskeletal: Denies: back pain Skin: Denies: rash Neurological: Denies: headache, weakness Past Medical History Past Medical History: Hyperlipidemia, Hypertension, Osteoarthritis (OA), Thyroid Disorder Additional Past Medical History / Comment(s): recently seen in ER for intractible abdominal pain,Gastroparesis, thyroid nodules, servere abdominal( LUQ) pain,nausea and vomiting,neuropathy calin feet History of Any Multi-Drug Resistant Organisms: None Reported Past Surgical History: Appendectomy, Hysterectomy, Orthopedic Surgery, T onsillectomy Additional Past Surgical History / Comment(s): L Shoulder surgery with plate, R knee replacement, colonoscopy, partial hysterectomy---still has her ovaries, carpal tunnel release bilaterally, calin cataracts, eye surgery for glaucoma Past Anesthesia/Blood Transfusion Reactions: No Reported Reaction, Postoperative Nausea & Vomiting (PONV) Additional Past Anesthesia/Blood Transfusion Reaction / Comment(s): abdominal pain post op Past Psychological History: Anxiety, Panic Disorder Smoking Status: Former smoker Past Alcohol Use History: None Reported Past Drug Use History: Marijuana - Past Family History Mother Family Medical History: Cancer Additional Family Medical History / Comment(s): Colon Father Family Medical History: Coronary Artery Disease (CAD) Sister(s) Family Medical History: Deep Vein Thrombosis (DVT) General Exam Limitations: no limitations General appearance: alert, in no apparent distress Head exam: Present: atraumatic, normocephalic Eye exam: Present: normal appearance. Absent: scleral icterus, conjunctival injection Respiratory exam: Present: normal lung sounds bilaterally. Absent: respiratory distress, wheezes, rales, rhonchi, stridor Cardiovascular Exam: Present: regular rate, normal rhythm, normal heart sounds. Absent: systolic murmur, diastolic murmur, rubs, gallop GI/Abdominal exam: Present: soft, tenderness (Mild epigastric tenderness without rebound or guarding), normal bowel sounds. Absent: distended, guarding, rebound, rigid, mass, pulsatile mass, hernia Extremities exam: Present: normal inspection, normal capillary refill. Absent: pedal edema, calf tenderness Back exam: Present: normal inspection. Absent: CVA tenderness (R), CVA tenderness (L) Neurological exam: Present: alert Skin exam: Present: warm, dry, intact, normal color. Absent: rash Course Vital Signs 12/23/20 12/24/20 12/24/20 21:46 00:00 00:30 Temperature 98.3 F Pulse Rate 117 H 107 H 88 Respiratory 20 18 18 Rate Blood Pressure 155/108 178/107 150/103 O2 Sat by Pulse 96 97 97 Oximetry Medical Decision Making - Medical Decision Making This patient is an 84-year-old woman presenting with abdominal pain and vomiting since the morning. She had not been able to keep down her medications since that time. She does appear to have developed some hypokalemia as a result. Given this we'll admit this patient for replacement. - Lab Data Result diagrams: 12/26/20 06:02 12/26/20 06:02 Lab Results 12/23/20 12/23/20 12/23/20 Range/Units 22:44 22:44 22:44 WBC 5.4 (3.8-10.6) k/uL RBC 4.84 (3.80-5.40) m/uL Hgb 13.0 (11.4-16.0) gm/dL Hct 39.8 (34.0-46.0) % MCV 82.3 (80.0-100.0) fL MCH 26.8 (25.0-35.0) pg MCHC 32.6 (31.0-37.0) g/dL RDW 15.6 H (11.5-15.5) % Plt Count 214 (150-450) k/uL MPV 7.9 Neutrophils % 70 % Lymphocytes % 18 % Monocytes % 8 % Eosinophils % 1 % Basophils % 0 % Neutrophils # 3.8 (1.3-7.7) k/uL Lymphocytes # 1.0 (1.0-4.8) k/uL Monocytes # 0.5 (0-1.0) k/uL Eosinophils # 0.1 (0-0.7) k/uL Basophils # 0.0 (0-0.2) k/uL Sodium 137 (137-145) mmol/L Potassium 2.6 L* (3.5-5.1) mmol/L Chloride 102 (98-107) mmol/L Carbon Dioxide 20 L (22-30) mmol/L Anion Gap 15 mmol/L BUN 6 L (7-17) mg/dL Creatinine 0.71 (0.52-1.04) mg/dL Est GFR (CKD-EPI)AfAm >90 (>60 ml/min/1.73 sqM) Est GFR (CKD-EPI)NonAf 80 (>60 ml/min/1.73 sqM) BUN/Creatinine Ratio (12.00-20.00) Ratio Glucose 116 H (74-99) mg/dL Calcium 9.2 (8.4-10.2) mg/dL Magnesium (1.5-2.4) mg/dL Total Bilirubin 0.5 (0.2-1.3) mg/dL AST 22 (14-36) U/L ALT 12 (4-34) U/L Alkaline Phosphatase 75 (38-126) U/L C-Reactive Protein <0.5 (<1.0) mg/dL Total Protein 6.8 (6.3-8.2) g/dL Albumin 4.2 (3.5-5.0) g/dL Amylase 87 (30-110) U/L Lipase 442 H (23-300) U/L Vitamin B1 (38-122) ug/L Urine Color Light Yellow Urine Appearance Clear (Clear) Urine pH 6.0 (5.0-8.0) Ur Specific [place] 1.007 (1.001-1.035) Urine Protein Negative (Negative) Urine Glucose (UA) Negative (Negative) Urine Ketones 1+ H (Negative) Urine Blood Negative (Negative) Urine Nitrite Negative (Negative) Urine Bilirubin Negative (Negative) Urine Urobilinogen <2.0 (<2.0) mg/dL Ur Leukocyte Esterase Negative (Negative) 12/24/20 12/25/20 12/25/20 Range/Units 06:19 05:00 05:00 WBC (3.8-10.6) k/uL RBC (3.80-5.40) m/uL Hgb (11.4-16.0) gm/dL Hct (34.0-46.0) % MCV (80.0-100.0) fL MCH (25.0-35.0) pg MCHC (31.0-37.0) g/dL RDW (11.5-15.5) % Plt Count (150-450) k/uL MPV Neutrophils % % Lymphocytes % % Monocytes % % Eosinophils % % Basophils % % Neutrophils # (1.3-7.7) k/uL Lymphocytes # (1.0-4.8) k/uL Monocytes # (0-1.0) k/uL Eosinophils # (0-0.7) k/uL Basophils # (0-0.2) k/uL Sodium 141 139 (137-145) mmol/L Potassium 3.2 L 3.7 (3.5-5.1) mmol/L Chloride 102 103 (98-107) mmol/L Carbon Dioxide 29.3 20.9 L (22-30) mmol/L Anion Gap 9.70 15.10 H mmol/L BUN 6.0 L 5.0 L (7-17) mg/dL Creatinine 0.7 0.6 (0.52-1.04) mg/dL Est GFR (CKD-EPI)AfAm 93.5 98.4 (>60 ml/min/1.73 sqM) Est GFR (CKD-EPI)NonAf 80.7 84.9 (>60 ml/min/1.73 sqM) BUN/Creatinine Ratio 8.57 L 8.33 L (12.00-20.00) Ratio Glucose 104 87 (74-99) mg/dL Calcium 8.3 L 8.4 L (8.4-10.2) mg/dL Magnesium 1.7 (1.5-2.4) mg/dL Total Bilirubin (0.2-1.3) mg/dL AST (14-36) U/L ALT (4-34) U/L Alkaline Phosphatase (38-126) U/L C-Reactive Protein (<1.0) mg/dL Total Protein (6.3-8.2) g/dL Albumin (3.5-5.0) g/dL Amylase (30-110) U/L Lipase (23-300) U/L Vitamin B1 34 L (38-122) ug/L Urine Color Urine Appearance (Clear) Urine pH (5.0-8.0) Ur Specific [place] (1.001-1.035) Urine Protein (Negative) Urine Glucose (UA) (Negative) Urine Ketones (Negative) Urine Blood (Negative) Urine Nitrite (Negative) Urine Bilirubin (Negative) Urine Urobilinogen (<2.0) mg/dL Ur Leukocyte Esterase (Negative) - EKG Data EKG shows normal: sinus rhythm (With PACs), axis (Normal), intervals (Normal) Rate: tachycardia (Rate 103 bpm) When compared to previous EKG there are: no significant change, other (Comparison with November 2020) Disposition Clinical Impression: Hypokalemia, Intractable abdominal pain Disposition[facility] Condition: Stable
[2020-12-23 22:57] LABS: Basophils % (A) 0 %; Eosinophils # (A) 0.1 k/uL (0-0.7); Eosinophils % (A) 1 %; HCT 39.8 % (34.0-46.0); Lymphocytes % (A) 18 %; MCH 26.8 pg (25.0-35.0); MCHC 32.6 g/dL (31.0-37.0); MCV 82.3 fL (80.0-100.0); Mean Platelet Volume 7.9; Monocytes # (A) 0.5 k/uL (0-1.0); Monocytes % (A) 8 %; Neutrophils # (A) 3.8 k/uL (1.3-7.7); Neutrophils % (A) 70 %; Platelet Count 214 k/uL (150-450); RBC 4.84 m/uL (3.80-5.40); RDW 15.6 % (11.5-15.5); WBC 5.4 k/uL (3.8-10.6)
[2020-12-23 22:59] LABS: Appearance,Urine Clear (Clear); Bilirubin,Urine Negative (Negative); Blood,Urine Negative (Negative); Color,Urine Light Yellow; Glucose,Urine (UA) Negative (Negative); Ketones,Urine 1+ (Negative); Leukocyte Esterase,Urine Negative (Negative); Nitrite,Urine Negative (Negative); Protein,Urine Negative (Negative); Specific Gravity,Urine 1.007 (1.001-1.035); Urobilinogen,Urine <2.0 mg/dL (<2.0)
[2020-12-23 23:14] LABS: Potassium 2.6 mmol/L (3.5-5.1)
[2020-12-23 23:16] LABS: ALT 12 U/L (4-34); AST 22 U/L (14-36); African American GFR (CKD) >90 (>60 ml/min/1.73 sqM); Albumin 4.2 g/dL (3.5-5.0); Alkaline Phosphatase 75 U/L (38-126); Amylase 87 U/L (30-110); Anion Gap 15 mmol/L; Blood Urea Nitrogen 6 mg/dL (7-17); C Reactive Protein <0.5 mg/dL (<1.0); Calcium 9.2 mg/dL (8.4-10.2); Carbon Dioxide 20 mmol/L (22-30); Chloride 102 mmol/L (98-107); Glucose 116 mg/dL (74-99); Lipase 442 U/L (23-300); Non-African American GFR(CKD) 80 (>60 ml/min/1.73 sqM); Sodium 137 mmol/L (137-145); Total Bilirubin 0.5 mg/dL (0.2-1.3); Total Protein 6.8 g/dL (6.3-8.2)
[2020-12-23] MEDS ORDERED: POTASSIUM BICARBONATE/CIT AC 20 MEQ TABLET.EFF PO ONE (23:31)
[2020-12-24] MEDS ORDERED: LORazepam 2 MG/ML INJ IV STA (00:12)
[2020-12-24] MEDS ORDERED: ONDANSETRON 4 MG/2 ML VIAL IVP PRN ×2 (00:46→02:02)
[2020-12-24] MEDS ORDERED: NALOXONE 0.4 MG/ML 1 ML VIAL IV PRN (00:46)
[2020-12-24] MEDS: SODIUM CHLORIDE 0.9% 1,000 ML IV SCH ×2 (01:01→13:10)
[2020-12-24] MEDS: HYDROcodone/APAP 10-325MG 1 EACH TAB PO PRN ×3 (01:48→14:39)
[2020-12-24] MEDS: LORazepam 1 MG TAB PO PRN ×3 (01:51→16:12)
--- NOTE | 2020-12-24 01:57 | P.HPIM ---
History of Present Illness H&P Date: 12/24/20 The patient is an 84-year-old female with a PMH of gastroparesis (diagnosed in 2008), status post cholecystectomy 1 month ago, hypertension, and hyperlipidemia who presented to the emergency room with complaints of abdominal pain. The patient reports that ever since undergoing her cholecystectomy, she has been unable to eat or drink much due to her significant worsening of baseline gastroparesis. The patient reports unrelenting epigastric abdominal pain, 8 out of 10 on maximal intensity, nonradiating, worsened with food, with no alleviating factors. The patient reports also having thrown up 5 times over the past 1 month but notes that due to her significantly decreased oral intake, that she recently did just dry heaves. She also reports having lost 15 pounds of weight in that time. She denied fever, chills, cough. Also denied diarrhea, dysuria. Denied weakness, numbness, tingling. EKG in the emergency room revealed sinus tachycardia 103 bpm. Laboratory evaluation in the emergency room revealed a potassium of 2.6. Review of systems: Pertinent positives and negatives as discussed in HPI, a complete review of systems was performed and all other systems are negative. Physical examination: General: non toxic, no distress, appears at stated age, normal weight Derm: no unusual rashes/lesions no unusual ecchymoses, warm, dry Head: atraumatic, normocephalic, symmetric Eyes: EOMI, no lid lag, anicteric sclera, pupils equal round reactive to light ENT: Nose and ears atraumatic, no thrush, no pharyngeal erythema Neck: No thyromegaly, no cervical lymphadenopathy, trachea midline, supple Mouth: no lip lesion, mucus membranes moist Cardiovascular: S1S2 reg, no murmur, positive posterior tibial pulse bilateral, no edema, capillary refill less than 2 seconds Lungs: CTA bilateral, no rhonchi, no rales , no accessory muscle use Abdominal: soft, nontender to palpation, no guarding, no appreciable organomegaly, normal bowel sounds Ext: no gross muscle atrophy, muscle strength 5 out of 5 in all 4 extremities grossly, no contractures, Neuro: CN II-XI grossly intact, light touch intact all 4 extremities, finger to nose within normal limits, Psych: Alert, oriented, appropriate affect Assessment/plan Intractable nausea and vomiting with abdominal pain, likely secondary to gastroparesis -Antiemetics -IV fluids -GI consult Hypokalemia -Replace and monitor Chronic conditions: Hypertension, hyperlipidemia -Continue with home meds DVT prophylaxis -Heparin subcu The patient is admitted with an anticipated less than 2 midnight stay for evaluation of gastroparesis. CODE STATUS: Full Code Discussed with: patient Anticipated discharge date: in am Anticipated discharge place: Home Past Medical History Past Medical History: Hyperlipidemia, Hypertension, Osteoarthritis (OA), Thyroid Disorder Additional Past Medical History / Comment(s): recently seen in ER for intractible abdominal pain,Gastroparesis, thyroid nodules, servere abdominal( LUQ) pain,nausea and vomiting,neuropathy calin feet History of Any Multi-Drug Resistant Organisms: None Reported Past Surgical History: Appendectomy, Hysterectomy, Orthopedic Surgery, Tonsillectomy Additional Past Surgical History / Comment(s): L Shoulder surgery with plate, R knee replacement, colonoscopy, partial hysterectomy---still has her ovaries, carpal tunnel release bilaterally, calin cataracts, eye surgery for glaucoma Past Anesthesia/Blood Transfusion Reactions: No Reported Reaction, Postoperative Nausea & Vomiting (PONV) Additional Past Anesthesia/Blood Transfusion Reaction / Comment(s): abdominal pain post op Past Psychological History: Anxiety, Panic Disorder Smoking Status: Former smoker Past Alcohol Use History: None Reported Additional Past Alcohol Use History / Comment(s): quit smoking age 22, smoked for a couple yrs Past Drug Use History: Marijuana - Past Family History Mother Family Medical History: Cancer Additional Family Medical History / Comment(s): Colon Father Family Medical History: Coronary Artery Disease (CAD) Sister(s) Family Medical History: Deep Vein Thrombosis (DVT) Medications and Allergies Home Medications Medication Instructions Recorded Confirmed Type amLODIPine [Norvasc] 5 mg PO DAILY 01/28/18 12/23/20 History ondansetron HCL [Zofran] 8 mg PO TID PRN 08/17/18 12/23/20 History Ergocalciferol [Vitamin D2 50,000 unit PO TUSA 11/29/19 12/23/20 History (DRISDOL)] Gi Cocktail( 30 ml PO Q4H PRN 11/29/19 12/23/20 History Elixir/Lidocaine Viscous/Maalox 1:1:1) Losartan Potassium 100 mg PO HS 11/29/19 12/23/20 History Aqdponpujlmpik-FY-[place]wwqve 1 tab PO DAILY 04/04/20 12/23/20 History [Folbic] rOPINIRole HCL [Requip] 0.25 mg PO HS PRN 07/24/20 12/23/20 History Omeprazole [PriLOSEC] 40 mg PO DAILY 08/24/20 12/23/20 History Mirtazapine [Remeron] 45 mg PO HS 11/08/20 12/23/20 History Naloxone HCl [Narcan] 4 mg NASAL ONCE PRN 11/08/20 12/23/20 History HYDROcodone/APAP 10-325MG [[place] 1 tab PO QID 11/29/20 12/23/20 History 10-325] LORazepam [Ativan] 1 mg PO TID PRN 11/29/20 12/23/20 History Rosuvastatin [Crestor] 10 mg PO HS 11/29/20 12/23/20 History hydrOXYzine HCL [Atarax] 25 mg PO QID PRN 11/29/20 12/23/20 History HYDROcodone/APAP 10-325MG [[place] 1 tab PO DAILY PRN 12/23/20 12/23/20 History 10-325] Allergies Allergy/AdvReac Type Severity Reaction Status Date / Time hydromorphone [From Dilaudid] Allergy Rash/Hives Verified 12/23/20 22:57 morphine Allergy Rash/Hives Verified 12/23/20 22:57 tetracycline Allergy Rash/Hives Verified 12/23/20 22:57 Physical Exam Vitals: Vital Signs Temp Pulse Resp BP Pulse Ox 12/24/20 00:30 88 18 150/103 97 12/24/20 00:00 107 H 18 178/107 97 12/23/20 21:46 98.3 F 117 H 20 155/108 96 Intake and Output 12/23/20 12/23/20 12/24/20 14:59 22:59 06:59 Other: Weight 56.699 kg 56.699 kg Results CBC & Chem 7: 12/23/20 22:44 12/23/20 22:44 Labs: Abnormal Lab Results - Last 24 Hours (Table) 12/23/20 12/23/20 12/23/20 Range/Units 22:44 22:44 22:44 RDW 15.6 H (11.5-15.5) % Potassium 2.6 L* (3.5-5.1) mmol/L Carbon Dioxide 20 L (22-30) mmol/L BUN 6 L (7-17) mg/dL Glucose 116 H (74-99) mg/dL Lipase 442 H (23-300) U/L Urine Ketones 1+ H (Negative) Thrombosis Risk Factor Assmnt - Choose All That Apply Each Factor Represents 1 point: History of prior major surgery (<1month) Each Risk Factor Represents 3 Points: Age 75 years or older Thrombosis Risk Factor Assessment Total Risk Factor Score: 4 Thrombosis Risk Factor Assessment Level: Moderate Risk
[2020-12-24] MEDS ORDERED: HYDROmorphone 0.5 MG/0.5 ML SYRINGE IVP STA (02:54)
[2020-12-24] MEDS ORDERED: PANTOPRAZOLE 40 MG TABLET PO SCH (07:30)
[2020-12-24] MEDS: POTASSIUM CHLORIDE ER 20 MEQ TAB.ER PO SCH ×3 (08:00→20:16)
[2020-12-24] MEDS: FAMOTIDINE 20 MG TAB PO SCH ×2 (08:00→20:16)
[2020-12-24] MEDS: HEPARIN SODIUM,PORCINE/PF 5,000 UNIT/0.5 ML SYRINGE SQ SCH ×3 (08:00→23:25)
[2020-12-24] MEDS ORDERED: HYDROcodone/APAP 10-325MG 1 EACH TAB PO SCH (09:00)
[2020-12-24 09:36] LABS: African American GFR (CKD) 93.5 (60.0-200.0); Anion Gap 9.7 mmol/L (4.00-12.00); BUN/Creat Ratio 8.57 Ratio (12.00-20.00); Calcium 8.3 mg/dL (8.7-10.3); Carbon Dioxide 29.3 mmol/L (21.6-31.8); Non-African American GFR(CKD) 80.7 (60.0-200.0); Potassium 3.2 mmol/L (3.5-5.5)
[2020-12-24] MEDS: ONDANSETRON 4 MG/2 ML VIAL IVP SCH ×3 (11:40→23:25)
[2020-12-24 14:23] VITALS: BMI 22.1
--- NOTE | 2020-12-24 15:33 | P.PN ---
Subjective Progress Note Date: 12/24/20 Hospital course: Patient is a very pleasant 84-year-old female with a past medical history of hypertension, hyperlipidemia, gastroparesis, and recent cholecystectomy completed 11/09/[address] Call. Patient presented to the emergency department with a chief complaint of abdominal pain and intractable nausea and vomiting. Patient reports chronic pain since recent cholecystectomy progressively worsening in accompanied by nausea and vomiting. Patient reports the pain is made worse with oral intake and states she has lost a total of 15 pounds since her surgery. Patient was seen and fully evaluated in the emergency department and was found to have hypokalemia with potassium of 2.6. This was replaced. Patient admitted under our services for intractable nausea and vomiting believed to be secondary to gastroparesis and hypokalemia with consults to GI and general surgery. Physical examination: Patient was seen and fully evaluated at the bedside. She reports persistent left upper quadrant pain and tenderness accompanied by umbilical tenderness. Order placed for a CT abdomen and pelvis with IV contrast for further evaluation. Patient also reported uncontrolled pain with use of morphine, orders placed for Dilaudid 0.5 mg every 6 hours at this time per patient's request. Patient also reporting persistent nausea but states no further episodes of vomiting. GI placed order for scheduled Zofran every 6 hours. Morning labs reveal persistent hypokalemia with potassium of 3.2, orders placed for replacement at this time. GI and general surgery following, appreciate further recommendations. General: non toxic, no distress, appears at stated age, normal weight Derm: no unusual rashes/lesions no unusual ecchymoses, warm, dry Head: atraumatic, normocephalic, symmetric Eyes: EOMI, no lid lag, anicteric sclera, pupils equal round reactive to light ENT: Nose and ears atraumatic Neck: trachea midline, supple with normal range of motion Mouth: no lip lesion, mucus membranes moist Cardiovascular: S1S2 reg, no murmur, positive posterior tibial pulses bilaterally, no edema, capillary refill less than 2 seconds Lungs: CTA bilateral, no rhonchi, no rales, no wheezes and no accessory muscle use Abdominal: soft, tenderness to palpation left upper quadrant and umbilical region., no guarding, no appreciable organomegaly, normal bowel sounds Ext: no gross muscle atrophy, muscle strength 5 out of 5 in all 4 extremities grossly, no contractures, Neuro: CN II-XI grossly intact, GCS 15 Psych: Alert and oriented, appropriate affect Assessment and Plan of Care: Intractable nausea and vomiting with left upper quadrant and umbilical pain, likely secondary to gastroparesis -Antiemetics -IV fluids -GI consult -Gen. surgery consult -CT abdomen and pelvis Hypokalemia -Potassium 3.2, replaced. We will continue to monitor with repeat a.m. labs. Hypertension -Monitor vital signs and continue daily medication regimen with losartan Hyperlipidemia -Continue daily home medication regimen with atorvastatin. DVT prophylaxis -Heparin subcu CODE STATUS: Full Code Discussed with: Patient and RN Anticipated discharge date: Clinical course to determine Anticipated discharge place: Home A total of 40 minutes was spent on the care of this complex patient more than 50% of the time was spent in counseling and care coordination. Objective - Vital Signs Vital signs: Vital Signs Temp 97.5 F L 12/24/20 04:59 Pulse 103 H 12/24/20 04:59 Resp 16 12/24/20 04:59 BP 139/90 12/24/20 04:59 Pulse Ox 98 12/24/20 04:59 Intake & Output 12/23/20 12/24/20 12/24/20 18:59 06:59 18:59 Weight 56.699 kg Other: Voiding Method Toilet # Voids 1 - Labs CBC & Chem 7: 12/23/20 22:44 12/24/20 06:19 Labs: Abnormal Lab Results - Last 24 Hours (Table) 12/23/20 12/23/20 12/23/20 Range/Units 22:44 22:44 22:44 RDW 15.6 H (11.5-15.5) % Potassium 2.6 L* (3.5-5.1) mmol/L Carbon Dioxide 20 L (22-30) mmol/L BUN 6 L (7-17) mg/dL Glucose 116 H (74-99) mg/dL Lipase 442 H (23-300) U/L Urine Ketones 1+ H (Negative)
--- NOTE | 2020-12-24 15:56 | P.CONS ---
History of Present Illness - Reason for Consult Consult date: 12/24/20 Nausea and vomiting Requesting physician: Lizeth Cabezas - Chief Complaint Nausea and vomiting - History of Present Illness This a pleasant 84-year-old white female with a history of gastroparesis diagnosed in 2008 who is followed up at [facility] Dr. Story who presented to the emergency department with complaints of severe abdominal pain, nausea and vomiting. She recently underwent a cholecystectomy and lysis of abdominal adhesions about 6 weeks ago ago with Dr. Hardy. She also underwent an EGD in August [address] Hardy showing with findings of severe presbyesophagus, distal esophageal stricture dilated, mild gastritis, low-grade to lower esophageal valve, and LA grade a esophagitis. The patient states ever since undergoing her cholecystectomy she has been unable to eat or drink much due to significant worsening of gastroparesis, which has been associated with abdominal pain with nausea and vomiting. She denies any coffee-ground emesis or hematemesis. Denies any lack of bloody bowel movement. She states she feels she's lost about 15 pounds since her surgery. She denies any fever, chills, diarrhea. Initial lab work showed WBC 5, hemoglobin 13, hematocrit 39, platelet count 214,000, lipase 442, total bilirubin 0.5, claim phosphatase 75, AST 22, ALT 12. Patient did have low potassium at 2.6 was replaced. She had a CT of the abdomen with no acute process identified to account for patient's symptoms. Status post cholecystectomy. The patient states she takes Zofran at home and Prilosec. Review of Systems REVIEW OF SYSTEMS: CARDIOPULMONARY: No chest pain or shortness of breath. Gastrointestinal: Abdominal pain, diffuse. Nausea with dry heaves. No hematemesis, coffee-ground emesis. No rectal bleeding, or melena. GENITOURINARY: No dysuria or hematuria. MUSCULOSKELETAL: Reports normal range of motion., Joint pain. SKIN: No rashes. No jaundice. ENDOCRINE: No chills, fevers. No excessive weight gain or loss. No polydipsia or polyuria. PSYCHIATRIC: Unremarkable. NEUROLOGY: No change in mental status. Denies dizziness, headache. ENT: Vision unremarkable. CONSTITUTIONAL: Approximately 15 pounds weight loss in 1-2 months. No fever, chills, night sweats. Past Medical History Past Medical History: Hyperlipidemia, Hypertension, Osteoarthritis (OA), Thyroid Disorder Additional Past Medical History / Comment(s): recently seen in ER for intractible abdominal pain,Gastroparesis, thyroid nodules, servere abdominal( LUQ) pain,nausea and vomiting,neuropathy calin feet History of Any Multi-Drug Resistant Organisms: None Reported Past Surgical History: Appendectomy, Hysterectomy, Orthopedic Surgery, Tonsillectomy Additional Past Surgical History / Comment(s): L Shoulder surgery with plate, R knee replacement, colonoscopy, partial hysterectomy---still has her ovaries, carpal tunnel release bilaterally, calin cataracts, eye surgery for glaucoma Past Anesthesia/Blood Transfusion Reactions: No Reported Reaction, Postoperative Nausea & Vomiting (PONV) Additional Past Anesthesia/Blood Transfusion Reaction / Comm: abdominal pain post op Past Psychological History: Anxiety, Panic Disorder Smoking Status: Former smoker Past Alcohol Use History: None Reported Additional Past Alcohol Use History / Comment(s): quit smoking age 22, smoked for a couple yrs Past Drug Use History: Marijuana - Past Family History Mother Family Medical History: Cancer Additional Family Medical History / Comment(s): Colon Father Family Medical History: Coronary Artery Disease (CAD) Sister(s) Family Medical History: Deep Vein Thrombosis (DVT) Medications and Allergies Home Medications Medication Instructions Recorded Confirmed Type amLODIPine [Norvasc] 5 mg PO DAILY 01/28/18 12/23/20 History ondansetron HCL [Zofran] 8 mg PO TID PRN 08/17/18 12/23/20 History Ergocalciferol [Vitamin D2 50,000 unit PO TUSA 11/29/19 12/23/20 History (EDIE)] Gi Cocktail( 30 ml PO Q4H PRN 11/29/19 12/23/20 History Elixir/Lidocaine Viscous/Maalox 1:1:1) Losartan Potassium 100 mg PO HS 11/29/19 12/23/20 History Eqbbwhwgrtdwpo-HU-Fuddfxjpyr 1 tab PO DAILY 04/04/20 12/23/20 History [Folbic] rOPINIRole HCL [Requip] 0.25 mg PO HS PRN 07/24/20 12/23/20 History Omeprazole [PriLOSEC] 40 mg PO DAILY 08/24/20 12/23/20 History Mirtazapine [Remeron] 45 mg PO HS 11/08/20 12/23/20 History Naloxone HCl [Narcan] 4 mg NASAL ONCE PRN 11/08/20 12/23/20 History HYDROcodone/APAP 10-325MG [[place] 1 tab PO QID 11/29/20 12/23/20 History 10-325] LORazepam [Ativan] 1 mg PO TID PRN 11/29/20 12/23/20 History Rosuvastatin [Crestor] 10 mg PO HS 11/29/20 12/23/20 History hydrOXYzine HCL [Atarax] 25 mg PO QID PRN 11/29/20 12/23/20 History HYDROcodone/APAP 10-325MG [[place] 1 tab PO DAILY PRN 12/23/20 12/23/20 History 10-325] Allergies Allergy/AdvReac Type Severity Reaction Status Date / Time hydromorphone [From Dilaudid] Allergy Rash/Hives Verified 12/23/20 22:57 morphine Allergy Rash/Hives Verified 12/23/20 22:57 tetracycline Allergy Rash/Hives Verified 12/23/20 22:57 Physical Exam Vitals: Vital Signs Temp Pulse Pulse Resp BP BP Pulse Ox 12/24/20 04:59 97.5 F L 103 H 16 139/90 98 12/24/20 00:30 88 18 150/103 97 12/24/20 00:00 107 H 18 178/107 97 12/23/20 21:46 98.3 F 117 H 20 155/108 96 Intake and Output 12/23/20 12/24/20 12/24/20 22:59 06:59 14:59 Other: Voiding Method Toilet # Voids 1 Weight 56.699 kg 56.699 kg General appearance: The patient is alert, oriented, appears in no acute distress. HET: Head is normocephalic and atraumatic. Conjunctiva pink. Sclera anicteric. Neck: Supple without lymphadenopathy. Trachea midline. Heart: S1 S2. Regular rate and rhythm. Lungs: Clear to auscultation. Abdomen: Soft, diffuse tenderness greatest in left upper quadrant to mid abdomen, nondistended with bowel sounds. No guarding or rigidity. Skin: No rashes. No jaundice. Extremities: Normal skin color and turgor. No pedal edema. Neurological: No focal deficits. Alert and oriented 3.. Results CBC & Chem 7: 12/23/20 22:44 12/24/20 06:19 Labs: Abnormal Lab Results - Last 24 Hours (Table) 12/23/20 12/23/20 12/23/20 Range/Units 22:44 22:44 22:44 RDW 15.6 H (11.5-15.5) % Potassium 2.6 L* (3.5-5.1) mmol/L Carbon Dioxide 20 L (22-30) mmol/L BUN 6 L (7-17) mg/dL Glucose 116 H (74-99) mg/dL Lipase 442 H (23-300) U/L Urine Ketones 1+ H (Negative) Comments: CT of abdomen shows no acute process identified to account for patient's symptoms. Status post cholecystectomy. Assessment and Plan (1) Abdominal pain Narrative/Plan: 84-year-old female who presented to the emergency department with complaints of abdominal pain nausea and vomiting. She has a long-standing history of gastroparesis diagnosed in 2008, she's had complete workup and follow-up at the [facility] with Dr. Story. She recently underwent cholecystectomy approximately [address] Martinez. She states ever since her surgeries she's had worsening abdominal pain, nausea and vomiting which she attributes possibly to her gastroparesis. She underwent a CT of the abdomen with no acute findings. LFTs all normal, labs unremarkable other then evidence of hypokalemia. Patient had previous EGD in August of this year by Dr. Hardy. Current Visit: Yes Status: Acute Code(s): R10.9 - UNSPECIFIED ABDOMINAL PAIN SNOMED Code(s): 73728960 (2) Gastroparesis Current Visit: Yes Status: Acute Code(s): K31.84 - GASTROPARESIS SNOMED Code(s): 097922903 (3) Nausea and vomiting Current Visit: Yes Status: Acute Code(s): R11.2 - NAUSEA WITH VOMITING, UNSPECIFIED SNOMED Code(s): 60715415 Plan: 1. Continue symptomatic and supportive care 2. Will change Zofran to [id number] 3. Increase Protonix to 40 mg IV [id number] 4. Will consult general surgery for ongoing abdominal pain, recent chol ecystectomy with lysis of adhesions 5. No plans on endoscopic evaluation at this time 6. Continue with pain management as ordered per primary medicine team Thank you for this consultation, we will continue to follow Dr. Anne Easley I agree with the dictator's note, documented as a scribe by Louise Faulkner.
--- NOTE | 2020-12-24 16:59 | P.GSCN ---
History of Present Illness Consult date: 12/24/20 History of present illness: CHIEF COMPLAINT: Abdominal pain with diarrhea HISTORY OF PRESENT ILLNESS: The patient is a 84 year old female with previous illnesses history of gastroparesis status post upper and lower endoscopy and cholecystectomy presents with new diarrhea including left upper quadrant and left lower quadrant abdominal pain. She reports nausea. She also reports weight loss of 15 pounds unintentional. She presented to the emergency room with moderate severe abdominal cramping pain. Gen. surgery is consulted for further assessment. PAST MEDICAL HISTORY: See list and reviewed PAST SURGICAL HISTORY: See list and reviewed MEDICATIONS: See list and reviewed ALLERGIES: See list and reviewed SOCIAL HISTORY: See list and reviewed FAMILY HISTORY: See list and reviewed REVIEW OF ORGAN SYSTEMS: CONSTITUTIONAL: No fevers or chills. Weight loss of 15 pounds in 1 month. EYES: Denies any trouble with vision. No glasses. HEENT: No difficulties with hearing. No nosebleeds. Previous history of difficulty swallowing status post dilation. RESPIRATORY: Denies pneumonia. Denies any troubles with breathing or dyspnea on exertion. CARDIOVASCULAR: Has hypertension. GASTROINTESTINAL: Reports intractable nausea and vomiting. Reports history of gastroparesis. GENITOURINARY: Denies any blood in urine or increased urinary frequency. NEUROLOGICAL: Has bilateral neuropathy lower extremities. MUSCULOSKELETAL: Denies any back pain, stiffness or joint arthritis. SKIN: No current skin cancer. No rash. PSYCHIATRIC: Has anxiety. Has panic disorder. ENDOCRINE: Has thyroid nodules. Denies any blood sugar glucose intolerance. HEME/LYMPHATIC: Denies any lumps and bumps around the neck. No recent deep venous thrombosis. ALLERGY/IMMUNOLOGY: No immunoglobulin therapy. No immune deficiencies. BREAST: Denies current breast lumps, pain or nipple discharge. PHYSICAL EXAM: VITALS: Reviewed CONSTITUTIONAL: Well developed and in no acute distress. EYES: Conjuctivae without sclera icterus. Extraocular movements grossly intact. HEAD, EARS, NOSE, THROAT: Moist buccal mucosa. Head is atraumatic, normocephalic. Hears conversational speech. No nasal drainage. NECK: Supple. No gross JV distention. No thyroidomegaly. RESPIRATORY: Non-labored respirations and equal bilateral excursions. No gross wheezes. CARDIOVASCULAR: Regular rate and rhythm. Extremities without moderate edema. Palpable 2+ radial pulses. ABDOMEN: No peritonitis. Minimal tenderness left upper left lower quadrant. No palpable hernias. LYMPH: No gross neck lymphadenopathy. MUSCULOSKELETAL: Nail and fingers with good capillary refill. SKIN: Warm and well perfused with good skin turgor. NEUROLOGIC: Cranial nerves II through XII grossly intact. Sensation upper and extremities intact. No focal or lateralizing signs. PSYCH: Appropriate affect. Alert and oriented to person, place and time. Displays appropriate insight. CLINCAL LABS: Reviewed. Sodium low 2.6 now 3.2. Lipase elevated 442. IMAGING: Independently reviewed CT of the abdomen and pelvis from November 2020 with thickening of the sigmoid colon identified for colitis. ASSESSMENT: 1. Elevated lipase pancreatitis 2. Lower abdominal pain 3. Hyponatremia 4. Hypokalemia 5. Intractable nausea and vomiting PLAN: 1. She reports chronic diarrhea which exacerbates hypokalemia. May need repeat lower endoscopy for assessment of colitis. Send for stool cultures including C. diff colitis 2. Recommend checking magnesium, thiamine for chronic intractable nausea and vomiting Thank you for this kind consultation. Past Medical History Past Medical History: Hyperlipidemia, Hypertension, Osteoarthritis (OA), Thyroid Disorder Additional Past Medical History / Comment(s): recently seen in ER for intractible abdominal pain,Gastroparesis, thyroid nodules, servere abdominal( LUQ) pain,nausea and vomiting,neuropathy calin feet History of Any Multi-Drug Resistant Organisms: None Reported Past Surgical History: Appendectomy, Hysterectomy, Orthopedic Surgery, Tonsillectomy Additional Past Surgical History / Comment(s): L Shoulder surgery with plate, R knee replacement, colonoscopy, partial hysterectomy---still has her ovaries, carpal tunnel release bilaterally, calin cataracts, eye surgery for glaucoma Past Anesthesia/Blood Transfusion Reactions: No Reported Reaction, Postoperative Nausea & Vomiting (PONV) Additional Past Anesthesia/Blood Transfusion Reaction / Comm: abdominal pain post op Past Psychological History: Anxiety, Panic Disorder Smoking Status: Former smoker Past Alcohol Use History: None Reported Additional Past Alcohol Use History / Comment(s): quit smoking age 22, smoked for a couple yrs Past Drug Use History: Marijuana - Past Family History Mother Family Medical History: Cancer Additional Family Medical History / Comment(s): Colon Father Family Medical History: Coronary Artery Disease (CAD) Sister(s) Family Medical History: Deep Vein Thrombosis (DVT) Medications and Allergies Home Medications Medication Instructions Recorded Confirmed Type amLODIPine [Norvasc] 5 mg PO DAILY 01/28/18 12/23/20 History ondansetron HCL [Zofran] 8 mg PO TID PRN 08/17/18 12/23/20 History Ergocalciferol [Vitamin D2 50,000 unit PO TUSA 11/29/19 12/23/20 History (DRISDOL)] Gi Cocktail( 30 ml PO Q4H PRN 11/29/19 12/23/20 History Elixir/Lidocaine Viscous/Maalox 1:1:1) Losartan Potassium 100 mg PO HS 11/29/19 12/23/20 History Dijltakxsalqak-BQ-Yidebwkikj 1 tab PO DAILY 04/04/20 12/23/20 History [Folbic] rOPINIRole HCL [Requip] 0.25 mg PO HS PRN 07/24/20 12/23/20 History Omeprazole [PriLOSEC] 40 mg PO DAILY 08/24/20 12/23/20 History Mirtazapine [Remeron] 45 mg PO HS 11/08/20 12/23/20 History Naloxone HCl [Narcan] 4 mg NASAL ONCE PRN 11/08/20 12/23/20 History HYDROcodone/APAP 10-325MG [Satin 1 tab PO QID 11/29/20 12/23/20 History 10-325] LORazepam [Ativan] 1 mg PO TID PRN 11/29/20 12/23/20 History Rosuvastatin [Crestor] 10 mg PO HS 11/29/20 12/23/20 History hydrOXYzine HCL [Atarax] 25 mg PO QID PRN 11/29/20 12/23/20 History HYDROcodone/APAP 10-325MG [Satin 1 tab PO DAILY PRN 12/23/20 12/23/20 History 10-325] Allergies Allergy/AdvReac Type Severity Reaction Status Date / Time hydromorphone [From Dilaudid] Allergy Rash/Hives Verified 12/23/20 22:57 morphine Allergy Rash/Hives Verified 12/23/20 22:57 tetracycline Allergy Rash/Hives Verified 12/23/20 22:57 Surgical - Exam Vital Signs Temp Pulse Resp BP Pulse Ox 98.3 F 117 H 20 155/108 96 12/23/20 21:46 12/23/20 21:46 12/23/20 21:46 12/23/20 21:46 12/23/20 21:46 Results - Labs 12/23/20 22:44 12/24/20 06:19 Abnormal Lab Results - Last 24 Hours (Table) 12/23/20 12/23/20 12/23/20 Range/Units 22:44 22:44 22:44 RDW 15.6 H (11.5-15.5) % Potassium 2.6 L* (3.5-5.1) mmol/L Carbon Dioxide 20 L (22-30) mmol/L BUN 6 L (7-17) mg/dL BUN/Creatinine Ratio (12.00-20.00) Ratio Glucose 116 H (74-99) mg/dL Calcium (8.7-10.3) mg/dL Lipase 442 H (23-300) U/L Urine Ketones 1+ H (Negative) 12/24/20 Range/Units 06:19 RDW (11.5-15.5) % Potassium 3.2 L (3.5-5.1) mmol/L Carbon Dioxide (22-30) mmol/L BUN 6.0 L (7-17) mg/dL BUN/Creatinine Ratio 8.57 L (12.00-20.00) Ratio Glucose (74-99) mg/dL Calcium 8.3 L (8.7-10.3) mg/dL Lipase (23-300) U/L Urine Ketones (Negative) Diabetes panel 12/23/20 12/24/20 Range/Units 22:44 06:19 Sodium 137 141 (137-145) mmol/L Potassium 2.6 L* 3.2 L (3.5-5.1) mmol/L Chloride 102 102 (98-107) mmol/L Carbon Dioxide 20 L 29.3 (22-30) mmol/L BUN 6 L 6.0 L (7-17) mg/dL Creatinine 0.71 0.7 (0.52-1.04) mg/dL Glucose 116 H 104 (74-99) mg/dL Calcium 9.2 8.3 L (8.4-10.2) mg/dL AST 22 (14-36) U/L ALT 12 (4-34) U/L Alkaline Phosphatase 75 (38-126) U/L Total Protein 6.8 (6.3-8.2) g/dL Albumin 4.2 (3.5-5.0) g/dL Calcium panel 12/23/20 12/24/20 Range/Units 22:44 06:19 Calcium 9.2 8.3 L (8.4-10.2) mg/dL Albumin 4.2 (3.5-5.0) g/dL Pituitary panel 12/23/20 12/24/20 Range/Units 22:44 06:19 Sodium 137 141 (137-145) mmol/L Potassium 2.6 L* 3.2 L (3.5-5.1) mmol/L Chloride 102 102 (98-107) mmol/L Carbon Dioxide 20 L 29.3 (22-30) mmol/L BUN 6 L 6.0 L (7-17) mg/dL Creatinine 0.71 0.7 (0.52-1.04) mg/dL Glucose 116 H 104 (74-99) mg/dL Calcium 9.2 8.3 L (8.4-10.2) mg/dL Adrenal panel 12/23/20 12/24/20 Range/Units 22:44 06:19 Sodium 137 141 (137-145) mmol/L Potassium 2.6 L* 3.2 L (3.5-5.1) mmol/L Chloride 102 102 (98-107) mmol/L Carbon Dioxide 20 L 29.3 (22-30) mmol/L BUN 6 L 6.0 L (7-17) mg/dL Creatinine 0.71 0.7 (0.52-1.04) mg/dL Glucose 116 H 104 (74-99) mg/dL Calcium 9.2 8.3 L (8.4-10.2) mg/dL Total Bilirubin 0.5 (0.2-1.3) mg/dL AST 22 (14-36) U/L ALT 12 (4-34) U/L Alkaline Phosphatase 75 (38-126) U/L Total Protein 6.8 (6.3-8.2) g/dL Albumin 4.2 (3.5-5.0) g/dL Assessment and Plan (1) Hypokalemia Current Visit: Yes Status: Acute Code(s): E87.6 - HYPOKALEMIA SNOMED Code(s): 83177572 (2) Diarrhea Current Visit: Yes Status: Acute Code(s): R19.7 - DIARRHEA, UNSPECIFIED SNOMED Code(s): 75527391 (3) Gastroparesis Current Visit: Yes Status: Acute Code(s): K31.84 - GASTROPARESIS SNOMED Code(s): 903064545 (4) Intractable abdominal pain Current Visit: No Status: Acute Code(s): R10.9 - UNSPECIFIED ABDOMINAL PAIN SNOMED Code(s): 42027401
[2020-12-24] MEDS: HYDROmorphone 0.5 MG/0.5 ML SYRINGE IVP PRN (18:03)
[2020-12-24] MEDS: amLODIPine 5 MG TAB PO SCH (18:33)
[2020-12-24] MEDS: LOSARTAN 50 MG TAB PO SCH (20:16)
[2020-12-24] MEDS: ATORVASTATIN 20 MG TAB PO SCH (20:16)
[2020-12-24] MEDS: MIRTAZAPINE 45 MG TABLET PO SCH (20:16)
[2020-12-24] MEDS: PANTOPRAZOLE 40 MG/10 ML VIAL IVP SCH (20:16)
--- NOTE | 2020-12-24 20:55 | CT ---
EXAMINATION TYPE: CT abdomen pelvis w con DATE OF EXAM: 12/24/2020 COMPARISON: 11/29/2020 HISTORY: Persistent left upper quadrant and umbilical pain CT DLP: 430 mGycm Automated exposure control for dose reduction was used. CONTRAST: Performed with IV Contrast, patient injected with 80 mL of Isovue 300. Images obtained from the diaphragm to the floor the pelvis with IV contrast. Lung bases are clear. There is no pleural effusion. Heart size is normal. There is no pericardial eff usion. Liver spleen pancreas stomach appear intact. The bile ducts are nondilated. Gallbladder appears absen t. There is no adrenal mass. Kidneys show satisfactory contrast opacification. There is no hydronephrosi s. There is 1.8 cm posterior left renal cortical cyst. There is 1.5 cm lateral lower pole left renal cortical cyst. Ureters are not dilated. There is no retroperitoneal adenopathy. Bladder distends smoo thly. There is no inguinal hernia. There is no free fluid in the pelvis. There is no sign of mesenteric edema. There is no ascites or free air. There is no sign of a bowel ob struction. Appendix is not clearly seen. There is no sign of thickened appendix. There is degenerativ e first-degree L3-4 L4-5 spondylolisthesis. There is no lumbar compression fracture. There is multile nirmala lumbar disc space narrowing. The bony pelvis is intact. The hip joints are intact. There is bilat eral hip joint space narrowing. Abdominal aorta is atheromatous. There is mild thoracolumbar levoscol iosis. There is small air bubbles in the subcutaneous fat over the anterior mid abdomen. This could be injec tion site. Exam limited somewhat by patient positioning. IMPRESSION: Renal cysts appear unchanged. No acute abnormality within the abdomen pelvis. Spondylotic changes and subluxation deformities in the lumbar spine appear stable.
[2020-12-25] MEDS: SODIUM CHLORIDE 0.9% 1,000 ML IV SCH ×2 (02:14→16:15)
[2020-12-25] MEDS: HYDROmorphone 0.5 MG/0.5 ML SYRINGE IVP PRN ×4 (02:30→18:08)
[2020-12-25] MEDS: ONDANSETRON 4 MG/2 ML VIAL IVP SCH ×3 (05:03→17:55)
[2020-12-25] MEDS: LORazepam 1 MG TAB PO PRN ×4 (05:07→21:06)
[2020-12-25] MEDS: amLODIPine 5 MG TAB PO SCH (07:25)
[2020-12-25] MEDS: PANTOPRAZOLE 40 MG/10 ML VIAL IVP SCH ×2 (07:25→21:03)
[2020-12-25] MEDS: POTASSIUM CHLORIDE ER 20 MEQ TAB.ER PO SCH ×3 (07:25→21:03)
[2020-12-25] MEDS: FAMOTIDINE 20 MG TAB PO SCH ×2 (07:26→21:03)
[2020-12-25] MEDS: HEPARIN SODIUM,PORCINE/PF 5,000 UNIT/0.5 ML SYRINGE SQ SCH ×2 (07:26→16:13)
[2020-12-25] MEDS: ONDANSETRON 4 MG TAB PO PRN (07:39)
[2020-12-25] MEDS: HYDROcodone/APAP 10-325MG 1 EACH TAB PO PRN ×3 (08:52→21:04)
--- NOTE | 2020-12-25 09:24 | P.PN ---
<Scott Miranda - Last Filed: 12/25/20 14:02> Subjective Progress Note Date: 12/25/20 Hospital course: Patient is a very pleasant 84-year-old female with a past medical history of h ypertension, hyperlipidemia, gastroparesis, and recent cholecystectomy completed 11/09/[address] Call. Patient presented to the emergency department with a chief complaint of abdominal pain and intractable nausea and vomiting. Patient reports chronic pain since recent cholecystectomy progressively worsening in accompanied by nausea and vomiting and loose stools. Patient reports the pain is made worse with oral intake and states she has lost a total of 15 pounds since her surgery. Patient was seen and fully evaluated in the emergency department and was found to have hypokalemia with potassium of 2.6. This was replaced. Patient admitted under our services for intractable nausea and v omiting believed to be secondary to gastroparesis and hypokalemia with consults to GI and general surgery. Physical examination: Patient was seen and fully evaluated at the bedside. She reports continued persistent left upper quadrant pain and tenderness accompanied by umbilical tenderness. CT abdomen and pelvis completed yesterday revealing unchanged renal cyst with no acute abdominal/pelvic abnormalities. Patient does report having better pain management with Dilaudid, but continues to report persistent nausea with no further episodes of vomiting. Patient does report eating breakfast this morning but states since eating breakfast her pain has significantly exacerbated. General: non toxic, no distress, appears at stated age, normal weight Derm: no unusual rashes/lesions no unusual ecchymoses, warm, dry Head: atraumatic, normocephalic, symmetric Eyes: EOMI, no lid lag, anicteric sclera, pupils equal round reactive to light ENT: Nose and ears atraumatic Neck: trachea midline, supple with normal range of motion Mouth: no lip lesion, mucus membranes moist Cardiovascular: S1S2 reg, no murmur, positive posterior tibial pulses bilaterally, no edema, capillary refill less than 2 seconds Lungs: CTA bilateral, no rhonchi, no rales, no wheezes and no accessory muscle use Abdominal: soft, tenderness to palpation left upper quadrant and umbilical region., no guarding, no appreciable organomegaly, normal bowel sounds Ext: no gross muscle atrophy, muscle strength 5 out of 5 in all 4 extremities grossly, no contractures, Neuro: CN II-XI grossly intact, GCS 15 Psych: Alert and oriented, appropriate affect Assessment and Plan of Care: Intractable nausea and vomiting with left upper quadrant and umbilical pain, likely secondary to gastroparesis -Antiemetics scheduled and PRN -IV fluids -GI following, appreciate further recommendations -Gen. surgery following, appreciate further recommendations -CT abdomen and pelvis negative for acute intra-abdominal/pelvic abnormalities. -Symptomatic care and pain management. Hypokalemia, resolved We will continue to monitor with repeat a.m. labs and replace abnormal electrolyte values as needed. Hypertension -Monitor vital signs and continue daily medication regimen with losartan Hyperlipidemia -Continue daily home medication regimen with atorvastatin. DVT prophylaxis -Heparin subcu CODE STATUS: Full Code Discussed with: Patient and RN Anticipated discharge date: Clinical course to determine Anticipated discharge place: Home A total of 40 minutes was spent on the care of this complex patient more than 50% of the time was spent in counseling and care coordination. Objective - Vital Signs Vital signs: Vital Signs Temp 98.6 F 12/24/20 19:30 Pulse 111 H 12/25/20 04:30 Resp 20 12/25/20 04:30 BP 152/78 12/25/20 04:30 Pulse Ox 98 12/25/20 04:30 Intake & Output 12/24/20 12/25/20 12/25/20 18:59 06:59 18:59 Intake Total 100 Output Total 3 Balance 97 Weight 56.699 kg Intake: Oral 100 Output: Urine/Stool Mix 3 Other: Voiding Method Toilet Toilet Toilet Diaper Diaper # Voids 4 # Bowel Movements 2 - Labs CBC & Chem 7: 12/23/20 22:44 12/25/20 05:00 Labs: Abnormal Lab Results - Last 24 Hours (Table) 12/24/20 Range/Units 06:19 Potassium 3.2 L (3.5-5.5) mmol/L BUN 6.0 L (9.0-27.0) mg/dL BUN/Creatinine Ratio 8.57 L (12.00-20.00) Ratio Calcium 8.3 L (8.7-10.3) mg/dL <Marisol Serrano - Last Filed: 12/25/20 20:01> Subjective Scott Miranda NP rendered care for this patient independently, reviewed the findings and plan as documented in the note above. I did not physically speak with or examine the patient on this date. Objective - Vital Signs Vital signs: Vital Signs Temp 98.1 F 12/25/20 13:00 Pulse 108 H 12/25/20 13:00 Resp 16 12/25/20 13:00 BP 165/81 12/25/20 13:00 Pulse Ox 98 12/25/20 13:00 Intake & Output 12/25/20 12/25/20 12/26/20 06:59 18:59 06:59 Intake Total 100 Output Total 3 Balance 97 Intake: Oral 100 Output: Urine/Stool Mix 3 Other: Voiding Method Toilet Toilet Diaper Diaper # Voids 2 # Bowel Movements 1 - Labs CBC & Chem 7: 12/23/20 22:44 12/25/20 05:00 Labs: Abnormal Lab Results - Last 24 Hours (Table) 12/25/20 Range/Units 05:00 Carbon Dioxide 20.9 L (21.6-31.8) mmol/L Anion Gap 15.10 H (4.00-12.00) mmol/L BUN 5.0 L (9.0-27.0) mg/dL BUN/Creatinine Ratio 8.33 L (12.00-20.00) Ratio Calcium 8.4 L (8.7-10.3) mg/dL
[2020-12-25 10:22] LABS: African American GFR (CKD) 98.4 (60.0-200.0); Anion Gap 15.1 mmol/L (4.00-12.00); BUN/Creat Ratio 8.33 Ratio (12.00-20.00); Calcium 8.4 mg/dL (8.7-10.3); Carbon Dioxide 20.9 mmol/L (21.6-31.8); Magnesium 1.7 mg/dL (1.5-2.4); Non-African American GFR(CKD) 84.9 (60.0-200.0); Potassium 3.7 mmol/L (3.5-5.5)
--- NOTE | 2020-12-25 13:13 | P.PN ---
Subjective Progress Note Date: 12/25/20 Principal diagnosis: Abdominal pain, nausea and vomiting 84-year-old female who presented to the emergency department with complaints of chronic abdominal pain, nausea and vomiting. Has long-standing history of gastroparesis diagnosed in 2008. She recently underwent a cholecystectomy approximately [address] Hardy.today the patient states her abdominal pain is the same, as she is not able to eat much as it causes increased pain. Gen. surgery is on consult.apparently the patient states she has been having loose bowel movements, states that this has been chronic since her cholecystectomy. Objective - Vital Signs Vital signs: Vital Signs Temp 98.6 F 12/24/20 19:30 Pulse 111 H 12/25/20 04:30 Resp 20 12/25/20 04:30 BP 152/78 12/25/20 04:30 Pulse Ox 98 12/25/20 04:30 Intake & Output 12/24/20 12/25/20 12/25/20 18:59 06:59 18:59 Intake Total 100 Output Total 3 Balance 97 Weight 56.699 kg Intake: Oral 100 Output: Urine/Stool Mix 3 Other: Voiding Method Toilet Toilet Toilet Diaper Diaper # Voids 4 # Bowel Movements 2 - Exam General appearance: The patient is alert, oriented, appears in no acute distress. HET: Head is normocephalic and atraumatic. Conjunctiva pink. Sclera anicteric. Neck: Supple without lymphadenopathy. Abdomen: Soft, nontender, nondistended with bowel sounds. No guarding or rigidity. Extremities: Normal skin color and turgor. No pedal edema Skin: No rashes, no jaundice Neurological: No focal deficits. Alert and oriented 3. - Labs CBC & Chem 7: 12/23/20 22:44 12/25/20 05:00 Labs: Abnormal Lab Results - Last 24 Hours (Table) 12/24/20 Range/Units 06:19 Potassium 3.2 L (3.5-5.5) mmol/L BUN 6.0 L (9.0-27.0) mg/dL BUN/Creatinine Ratio 8.57 L (12.00-20.00) Ratio Calcium 8.3 L (8.7-10.3) mg/dL Assessment and Plan (1) Abdominal pain Narrative/Plan: 84-year-old female who presented to the emergency department with complaints of abdominal pain nausea and vomiting. She has a long-standing history of gastroparesis diagnosed in 2008, she's had complete workup and follow-up at the [facility] with Dr. Story. She recently underwent cholecystectomy approximately [address] Martinez. She states ever since her surgeries she's had worsening abdominal pain, nausea and vomiting which she attributes possibly to her gastroparesis. She underwent a CT of the abdomen with no acute findings. LFTs all normal, labs unremarkable other then evidence of hypokalemia. Patient had previous EGD in August of this year by Dr. Doris pereira. Current Visit: Yes Status: Acute Code(s): R10.9 - UNSPECIFIED ABDOMINAL PAIN SNOMED Code(s): 78363823 (2) Gastroparesis Current Visit: Yes Status: Acute Code(s): K31.84 - GASTROPARESIS SNOMED Code(s): 496049011 (3) Nausea and vomiting Current Visit: Yes Status: Acute Code(s): R11.2 - NAUSEA WITH VOMITING, UNSPECIFIED SNOMED Code(s): 51023072 Plan: 1. Continue symptomatic and supportive care 2. Will change Zofran to [id number] 3. Increase Protonix to 40 mg IV BID 4. C. difficile cytotoxin and stool cultures ordered 5. Gen. surgery on consult, await their recommendations 6. No plans on endoscopic evaluation at this time 7. Continue with pain management as ordered per primary medicine team 8. Recommend outpatient follow-up with [facility] Dr. Story for gastroparesis Thank you for this consultation, we will continue to follow Dr. Anne Easley I agree with the dictator's note, documented as a scribe by Louise Faulkner.
[2020-12-25 13:16] VITALS: RESP 16
[2020-12-25] MEDS: MAGNESIUM SULFATE-D5W PMX 1 GM in DEXTROSE/WATER 1 100ML.BAG IVPB SCH ×2 (14:19→16:13)
[2020-12-25] MEDS: ATORVASTATIN 20 MG TAB PO SCH (21:03)
[2020-12-25] MEDS: LOSARTAN 50 MG TAB PO SCH (21:04)
[2020-12-25] MEDS: MIRTAZAPINE 45 MG TABLET PO SCH (21:07)
[2020-12-26] MEDS: ONDANSETRON 4 MG/2 ML VIAL IVP SCH ×3 (00:08→11:14)
[2020-12-26] MEDS: HEPARIN SODIUM,PORCINE/PF 5,000 UNIT/0.5 ML SYRINGE SQ SCH ×2 (00:08→08:21)
[2020-12-26] MEDS: SODIUM CHLORIDE 0.9% 1,000 ML IV SCH (05:21)
[2020-12-26] MEDS: HYDROcodone/APAP 10-325MG 1 EACH TAB PO PRN ×2 (05:21→10:29)
[2020-12-26] MEDS: LORazepam 1 MG TAB PO PRN ×2 (05:39→12:43)
[2020-12-26 07:47] LABS: Anisocytosis Slight; HCT 36.8 % (34.0-46.0); Hypochromasia Slight; MCH 27.7 pg (25.0-35.0); MCHC 32.5 g/dL (31.0-37.0); MCV 85.3 fL (80.0-100.0); Mean Platelet Volume 8.3; Platelet Count 176 k/uL (150-450); RBC 4.32 m/uL (3.80-5.40); RDW 16.2 % (11.5-15.5); WBC 3.7 k/uL (3.8-10.6)
[2020-12-26] MEDS: PANTOPRAZOLE 40 MG/10 ML VIAL IVP SCH (08:21)
[2020-12-26] MEDS: POTASSIUM CHLORIDE ER 20 MEQ TAB.ER PO SCH ×2 (08:21→16:48)
[2020-12-26] MEDS: FAMOTIDINE 20 MG TAB PO SCH (08:21)
[2020-12-26] MEDS: ONDANSETRON 4 MG TAB PO PRN ×2 (08:21→16:48)
[2020-12-26] MEDS: amLODIPine 5 MG TAB PO SCH (08:21)
[2020-12-26] MEDS: HYDROmorphone 0.5 MG/0.5 ML SYRINGE IVP PRN ×2 (08:22→14:10)
[2020-12-26 09:57] LABS: ALT 15 U/L (8-44); AST 23 U/L (13-35); African American GFR (CKD) 98.4 (60.0-200.0); Albumin/Globulin Ratio 1.71 (1.60-3.17); Alkaline Phosphatase 51 U/L (41-126); Blood Urea Nitrogen <5.0 mg/dL (9.0-27.0); Calcium 8.2 mg/dL (8.7-10.3); Chloride 105 mmol/L (96-109); Globulin 2.1 g/dL (1.6-3.3); Glucose 75 mg/dL (70-110); Lipase 222 U/L (14-63); Non-African American GFR(CKD) 84.9 (60.0-200.0); Potassium 4.4 mmol/L (3.5-5.5); Sodium 137 mmol/L (135-145); Total Bilirubin 0.5 mg/dL (0.2-1.2); Total Protein 5.7 g/dL (6.2-8.2)
[2020-12-26] MEDS ORDERED: LOPERAMIDE 2 MG CAP PO PRN (10:12)
--- NOTE | 2020-12-26 12:09 | P.PN ---
Subjective Progress Note Date: 12/26/20 Principal diagnosis: Abdominal pain, nausea and vomiting 84-year-old female who presented to the emergency department with complaints of chronic abdominal pain, nausea and vomiting. Has long-standing history of gastroparesis diagnosed in 2008. She recently underwent a cholecystectomy approximately [address] Hardy.today the patient states her abdominal pain is the same, as she is not able to eat much as it causes increased pain. The patient was seen and examined today sitting up in bed. States she still having abdominal pain. States she's had some nausea and pain since she had to take her potassium this morning. States she still having loose bowel movements and had 2 this morning. C. diff as I'll toxin was negative, stool cultures are pending. AFebrile. She has had some mild elevation in her lipase. CT of the abdomen and pelvis show no acute findings, no findings of pancreatitis. Objective - Vital Signs Vital signs: Vital Signs Temp 97.9 F 12/26/20 05:00 Pulse 126 H 12/26/20 05:00 Resp 16 12/26/20 05:00 BP 170/99 12/26/20 05:00 Pulse Ox 98 12/26/20 05:00 Intake & Output 12/25/20 12/26/20 12/26/20 18:59 06:59 18:59 Intake Total 60 Balance 60 Intake: Oral 60 Other: Voiding Method Toilet Toilet Toilet Diaper Diaper Diaper # Voids 2 3 # Bowel Movements 1 - Exam General appearance: The patient is alert, oriented, appears in no acute distress. HET: Head is normocephalic and atraumatic. Conjunctiva pink. Sclera anicteric. Neck: Supple without lymphadenopathy. Abdomen: Soft, diffuse tenderness, nondistended with bowel sounds. No guarding or rigidity. Extremities: Normal skin color and turgor. No pedal edema Skin: No rashes, no jaundice Neurological: No focal deficits. Alert and oriented 3. - Labs CBC & Chem 7: 12/26/20 06:02 12/26/20 06:02 Labs: Abnormal Lab Results - Last 24 Hours (Table) 12/25/20 12/26/20 12/26/20 Range/Units 05:00 06:02 06:02 WBC 3.7 L (3.8-10.6) k/uL RDW 16.2 H (11.5-15.5) % Carbon Dioxide 20.9 L 19.0 L (21.6-31.8) mmol/L Anion Gap 15.10 H 13.00 H (4.00-12.00) mmol/L BUN 5.0 L <5.0 L (9.0-27.0) mg/dL BUN/Creatinine Ratio 8.33 L (12.00-20.00) Ratio Calcium 8.4 L 8.2 L (8.7-10.3) mg/dL Total Protein 5.7 L (6.2-8.2) g/dL Albumin 3.60 L (3.80-4.90) g/dL Lipase 222 H (14-63) U/L Microbiology - Last 24 Hours (Table) 12/25/20 14:30 Stool Culture - Preliminary Stool Assessment and Plan (1) Abdominal pain Narrative/Plan: 84-year-old female who presented to the emergency department with complaints of abdominal pain nausea and vomiting. She has a long-standing history of gastroparesis diagnosed in 2008, she's had complete workup and follow-up at the [facility] with Dr. Story. She recently underwent cholecystectomy approximately [address] Martinez. She states ever since her surgeries she's had worsening abdominal pain, nausea and vomiting which she attributes possibly to her gastroparesis. She underwent a CT of the abdomen with no acute findings. LFTs all normal, labs unremarkable other then evidence of hypokalemia. Patient had previous EGD in August of this year by Dr. Hardy. Current Visit: Yes Status: Acute Code(s): R10.9 - UNSPECIFIED ABDOMINAL PAIN SNOMED Code(s): 06256177 (2) Gastroparesis Current Visit: Yes Status: Acute Code(s): K31.84 - GASTROPARESIS SNOMED Code(s): 214116743 (3) Nausea and vomiting Current Visit: Yes Status: Acute Code(s): R11.2 - NAUSEA WITH VOMITING, UNSPECIFIED SNOMED Code(s): 61009898 (4) Elevated lipase Current Visit: Yes Status: Acute Code(s): R74.8 - ABNORMAL LEVELS OF OTHER SERUM ENZYMES SNOMED Code(s): 851881863 Plan: 1. Continue symptomatic and supportive care 2. Continue Zofran to [id number] 3. Continue Protonix to 40 mg IV BID 4. C. difficile cytotoxin and stool cultures ordered 5. Gen. surgery on consult, await their recommendations 6. No plans on endoscopic evaluation at this time 7. Continue with pain management as ordered per primary medicine team 8. Recommend outpatient follow-up with [facility] Dr. Story for gastroparesis 9. Questran ordered, Imodium as needed Thank you for this consultation, we will sign off at this time Dr. Anne Easley I agree with the dictator's note, documented as a scribe by Louise Faulkner.
[2020-12-26 13:10] VITALS: BP 164/96; PULSE 115; TEMP 98.3
--- NOTE | 2020-12-26 15:38 | P.DS ---
<Scott Miranda - Last Filed: 12/26/20 15:07> Providers Expected date of discharge: 12/26/20 Hospital Course: Discharge Diagnosis: Intractable nausea and vomiting, resolved Gastroparesis, follow-up with Rehab Office Coordinator, with [facility] Dr. Story for gastroparesis and further evaluation and long-term monitoring/management of your symptoms. Hypokalemia, resolved Hypomagnesemia, resolved Elevated lipase, improving Hypertension Hyperlipidemia Chronic pain Hospital Course: Patient is a very pleasant 84-year-old female with a past medical history of hypertension, hyperlipidemia, gastroparesis, and recent cholecystectomy completed 11/09/[address] Call. Patient presented to the emergency department with a chief complaint of abdominal pain and intractable nausea and vomiting. Patient reports chronic pain since recent cholecystectomy progressively worsening in accompanied by nausea and vomiting and loose stools. Patient reports the pain is made worse with oral intake and states she has lost a total of 15 pounds since her surgery. Patient was seen and fully evaluated in the emergency department and was found to have hypokalemia with potassium of 2.6. This was replaced. Patient was admitted under our services for intractable nausea and vomiting believed to be secondary to gastroparesis and hypokalemia with consults to GI and general surgery. Patient was hydrated and abnormal electrolyte values were replaced. She was evaluated and cleared for discharge by both GI and general surgery. She reports pain remains unchanged. Intractable nausea and vomiting was controlled and patient has not had any further episodes of vomiting since arrival on 12/23/20. Continues to have reports of loose stool, but states this is unchanged in the amount or consistency since surgery on 11/09/20. Lipase is trending down from 442 down to 222. Liver profile remains unremarkable. Hypomagnesemia and hypokalemia have resolved. C. diff toxin negative. Patient is stable for discharge home at this time. She was educated on the importance of following up with her PCP as well as Rehab Office Coordinator, with [facility] Dr. Story for gastroparesis and further evaluation with long-term monitoring/management of her symptoms. She was also started on Carafate 4 times daily before meals and at bedtime and Pepcid 20 mg twice daily. Physical examination: General: non toxic, no distress, appears at stated age, normal weight Derm: no unusual rashes/lesions no unusual ecchymoses, warm, dry Head: atraumatic, normocephalic, symmetric Eyes: EOMI, no lid lag, anicteric sclera, pupils equal round reactive to light ENT: Nose and ears atraumatic Neck: trachea midline, supple with normal range of motion Mouth: no lip lesion, mucus membranes moist Cardiovascular: S1S2 reg, no murmur, positive posterior tibial pulses bilaterally, no edema, capillary refill less than 2 seconds Lungs: CTA bilateral, no rhonchi, no rales, no wheezes and no accessory muscle use Abdominal: soft, tenderness to palpation left upper quadrant and epigastric region., no guarding, no appreciable organomegaly, normal bowel sounds Ext: no gross muscle atrophy, muscle strength 5 out of 5 in all 4 extremities grossly, no contractures, Neuro: CN II-XI grossly intact, GCS 15 Psych: Alert and oriented, appropriate affect A total of 50 minutes of time were spent preparing this complex discharge summary. Patient Condition at Discharge: Stable Plan - Discharge Summary New Discharge Prescriptions: New Loperamide [Imodium] 2 mg PO QID PRN cap PRN Reason: Diarrhea Famotidine [Pepcid] 20 mg PO BID 30 Days #60 tab Sucralfate [Carafate] 1 gm PO ACHS 30 Days #120 tab Continue amLODIPine [Norvasc] 5 mg PO DAILY ondansetron HCL [Zofran] 8 mg PO TID PRN PRN Reason: Nausea Ergocalciferol [Vitamin D2 (DRISDOL)] 50,000 unit PO TUSA Losartan Potassium 100 mg PO HS Gi Cocktail( Elixir/Lidocaine Viscous/Maalox 1:1:1) 30 ml PO Q4H PRN PRN Reason: gastroporesis Glwcjersitgysq-GR-Fplxkjbdgs [Folbic] 1 tab PO DAILY rOPINIRole HCL [Requip] 0.25 mg PO HS PRN PRN Reason: RESTLESS LEGS Naloxone HCl [Narcan] 4 mg NASAL ONCE PRN PRN Reason: OVERDOSE Omeprazole [PriLOSEC] 40 mg PO DAILY Mirtazapine [Remeron] 45 mg PO HS hydrOXYzine HCL [Atarax] 25 mg PO QID PRN PRN Reason: Anxiety/itching Rosuvastatin [Crestor] 10 mg PO HS HYDROcodone/APAP 10-325MG [[place] 10-325] 2 tab PO QID LORazepam [Ativan] 2 mg PO TID PRN PRN Reason: Anxiety HYDROcodone/APAP 10-325MG [[place] 10-325] 1 tab PO DAILY PRN PRN Reason: Breakthrough Pain Discharge Medication List amLODIPine [Norvasc] 5 mg PO DAILY 01/28/18 [History] ondansetron HCL [Zofran] 8 mg PO TID PRN 08/17/18 [History] Ergocalciferol [Vitamin D2 (DRISDOL)] 50,000 unit PO TUSA 11/29/19 [History] Gi Cocktail( Elixir/Lidocaine Viscous/Maalox 1:1:1) 30 ml PO Q4H PRN 11/29/19 [History] Losartan Potassium 100 mg PO HS 11/29/19 [History] Mpczzusrghdtyp-BX-Cjbvzpasmk [Folbic] 1 tab PO DAILY 04/04/20 [History] rOPINIRole HCL [Requip] 0.25 mg PO HS PRN 07/24/20 [History] Omeprazole [PriLOSEC] 40 mg PO DAILY 08/24/20 [History] Mirtazapine [Remeron] 45 mg PO HS 11/08/20 [History] Naloxone HCl [Narcan] 4 mg NASAL ONCE PRN 11/08/20 [History] HYDROcodone/APAP 10-325MG [[place] 10-325] 2 tab PO QID 11/29/20 [History] LORazepam [Ativan] 2 mg PO TID PRN 11/29/20 [History] Rosuvastatin [Crestor] 10 mg PO HS 11/29/20 [History] hydrOXYzine HCL [Atarax] 25 mg PO QID PRN 11/29/20 [History] HYDROcodone/APAP 10-325MG [[place] 10-325] 1 tab PO DAILY PRN 12/23/20 [History] Famotidine [Pepcid] 20 mg PO BID 30 Days #60 tab 12/26/20 [Rx] Loperamide [Imodium] 2 mg PO QID PRN cap 12/26/20 [Rx] Sucralfate [Carafate] 1 gm PO ACHS 30 Days #120 tab 12/26/20 [Rx] Follow up Appointment(s)/Referral(s): Davida Doss MD [Primary Care Provider] - 1-2 days (The office would like you to call and make follow up appointment.) Danyelle Hardy MD [STAFF PHYSICIAN] - 01/08/21 4:45 pm Licha Easley MD [STAFF PHYSICIAN] - 01/07/21 12:00 pm Patient Instructions/Handouts: Famotidine (By mouth), Sucralfate (By mouth) Activity/Diet/Wound Care/Special Instructions: Activity: As tolerated Diet: Heart healthy and low fat diet Special Instructions: You are being discharged home at this time. Gen. surgery and gastroenterology have recommended that you follow up on an outpatient basis for these chronic issues. You will need to follow-up outpatient in office with General Surgery, Dr. Hardy, in 1-2 weeks for further evaluation as well as Rehab Office Coordinator, with [facility] Dr. Story for gastroparesis for further evaluation and long-term monitoring/management of your symptoms. We have started you on 2 separate medications for assistance with managing your symptoms. Pepcid is a tablet that you will need to take once every morning and once every night. Carafate is a liquid and this medication should be taken with each meal and at bedtime for a total of 4 doses per day. Discharge Disposition: HOME SELF-CARE <Marisol Serrano - Last Filed: 12/26/20 20:15> Providers Date of admission: 12/25/20 08:58 Attending physician: Lizeth Cabezas MD Consults: 12/24/20 01:56 Consult Physician Urgent Consulting Provider: Licha Easley Consult Reason/Comments: n/v Do you want consulting provider notified?: Yes 12/24/20 09:41 Consult Physician Urgent Consulting Provider: Danyelle Hardy Consult Reason/Comments: abdominal pain, nausea/vomiting, known to you. Recent surgery Do you want consulting provider notified?: Yes Primary care physician: Davida Doss MD Hospital Course: Scott Miranda NP rendered care for this patient independently, reviewed the findings and plan as documented in the note above. I did not physically speak with or examine the patient on this date. Detailed discharge summary, labs, imaging, and other consults were reviewed extensively. Agree with plan of discharge home and follow up with gastroenterology at [facility].
[2020-12-26] MEDS ORDERED: CHOLESTYRAMINE (WITH SUGAR) 4 GM PACKET PO SCH (18:00)
--- NOTE | 2020-12-26 21:56 | P.PN ---
Subjective Progress Note Date: 12/26/20 CHIEF COMPLAINT: Abdominal pain with diarrhea HISTORY OF PRESENT ILLNESS: The patient is a 84 year old female with previous illness of gastroparesis. She reports chronic left upper quadrant pain present prior to her gallbladder surgery. She reports in the last several weeks of unexpected weight loss over 15 pounds including chronic diarrhea and decreased appetite. She reports her abdominal pain is crampy and moderate to severe in nature. Gastroenterology team also following. She reports this is a chronic abdomen more than 5 years. She has seen multiple providers including [facility] gastroenterologists. She has tried cannabis gummies with some improvement of symptoms. REVIEW OF ORGAN SYSTEMS: No fevers or chills. No dyspnea. No chest pain. PHYSICAL EXAM: VITALS: Reviewed CONSTITUTIONAL: Well developed and in no acute distress. EYES: Conjuctivae without sclera icterus. Extraocular movements grossly intact. HEAD, EARS, NOSE, THROAT: Moist buccal mucosa. Head is atraumatic, normocephalic. Hears conversational speech. No nasal drainage. RESPIRATORY: Non-labored respirations and equal bilateral excursions. No gross wheezes. CARDIOVASCULAR: Regular rate and rhythm. Extremities without moderate edema. Palpable 2+ radial pulses. ABDOMEN: No peritonitis. Mild tenderness left upper quadrant. MUSCULOSKELETAL: Nail and fingers with good capillary refill. SKIN: Warm and well perfused with good skin turgor. NEUROLOGIC: Cranial nerves II through XII grossly intact. Sensation upper and extremities intact. No focal or lateralizing signs. PSYCH: Appropriate affect. Alert and oriented to person, place and time. Displays appropriate insight. CLINCAL LABS: Reviewed. Potassium low 2.6 now 4.4. Lipase elevated 442 now 222. WBC 3.7, not elevated. IMAGING: CT of the abdomen and pelvis independently reviewed without free air of small bowel obstruction. This is my independent interpretation. 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 Elevated lipase pancreatitis 2. Lower abdominal pain 3. Hyponatremia 4. Hypokalemia 5. Intractable nausea and vomiting 6. Chronic gastroparesis 7. Diarrhea PLAN: 1. She does report improvement in her symptoms and has been tolerating diet with correction of her hypokalemia. 2. Clostridium difficile is negative. 3. From a surgical standpoint, patient stable for discharge. 4. Recommend nonsurgical management with follow-up with gastroenterology team 5. All questions addressed with patient. Objective - Vital Signs Vital signs: Vital Signs Temp 98.3 F 12/26/20 13:00 Pulse 115 H 12/26/20 13:00 Resp 16 12/26/20 13:00 BP 164/96 12/26/20 13:00 Pulse Ox 97 12/26/20 13:00 Intake & Output 12/26/20 12/26/20 12/27/20 06:59 18:59 06:59 Weight 56.699 kg Other: Voiding Method Toilet Toilet Diaper Diaper # Voids 3 - Labs CBC & Chem 7: 12/26/20 06:02 12/26/20 06:02 Labs: Abnormal Lab Results - Last 24 Hours (Table) 12/26/20 12/26/20 Range/Units 06:02 06:02 WBC 3.7 L (3.8-10.6) k/uL RDW 16.2 H (11.5-15.5) % Carbon Dioxide 19.0 L (21.6-31.8) mmol/L Anion Gap 13.00 H (4.00-12.00) mmol/L BUN <5.0 L (9.0-27.0) mg/dL Calcium 8.2 L (8.7-10.3) mg/dL Total Protein 5.7 L (6.2-8.2) g/dL Albumin 3.60 L (3.80-4.90) g/dL Lipase 222 H (14-63) U/L Microbiology - Last 24 Hours (Table) 12/25/20 14:30 Stool Culture - Preliminary Stool Assessment and Plan (1) Hypokalemia Status: Acute Code(s): E87.6 - HYPOKALEMIA SNOMED Code(s): 32534436 (2) Diarrhea Status: Acute Code(s): R19.7 - DIARRHEA, UNSPECIFIED SNOMED Code(s): 93584322 (3) Gastroparesis Status: Acute Code(s): K31.84 - GASTROPARESIS SNOMED Code(s): 058994035 (4) Intractable abdominal pain Status: Acute Code(s): R10.9 - UNSPECIFIED ABDOMINAL PAIN SNOMED Code(s): 24113271
--- NOTE | 2020-12-28 08:11 | CDI ---
Documentation Clarification Form Date: 12/28/2020 08:00:40 AM From: Brandon Redding Admit Date: 12/25/2020 08:58:00 AM Patient Name: Tisha Hugo Visit Number: [id number] Discharge Date: 12/26/2020 05:15:00 PM ATTENTION: The Clinical Documentation Specialists (CDI) and [facility] Coding Staff appreciate your assistance in clarifying documentation. Please respond to the clarification below the line at the bottom and electronically sign. The CDI & [facility] Coding staff will review the response and follow-up if needed. Please note: Queries are made part of the Legal Health Record. If you have any questions, please contact the author of this message via ITS. Dr. Lizeth Cabezas Your patient has the documented diagnosis of elevated lipase pancreatitis in progress notes 12/24 and 12/26. Discharge summary states elevated lipase. Need to determine the acuity of the pancreatits or wether it was ruled out. Patient history/risk factors: abdominal pain and elevated lipase, gastroparesis Please provide additional clarification regarding the pancreatitis [ ] Acute pancreatitis [ ] chronic pancreatitis [ ] Acute and chronic pancreatitis [ ] Elevated lipase only-pancreatitis ruled out [ ] Other, suspected lipase elevation due to gastroparesis exacerbation. Low suspicion for pancreatitis [ ] Unable to determine MTDD
== END 2020-12-26 17:15 | disposition home or self-care (01) | DRG 392 ==
LOC: EC 21:46 → 5NMEDONC 12-24 00:48 → OBSVTOIN 12-25 08:58
PROVIDERS: ADMIT Internal Medicine; ATTEND Internal Medicine
DX: K31.84 Gastroparesis (principal); E87.1 Hypo-osmolality and hyponatremia; Z88.1 Allergy status to other antibiotic agents; Z88.5 Allergy status to narcotic agent; E78.5 Hyperlipidemia, unspecified; I10 Essential (primary) hypertension; Z87.891 Personal history of nicotine dependence; Z82.49 Family history of ischemic heart disease and other diseases of the circulatory system; E87.6 Hypokalemia; Z90.49 Acquired absence of other specified parts of digestive tract; Z96.651 Presence of right artificial knee joint; M19.90 Unspecified osteoarthritis, unspecified site; E83.42 Hypomagnesemia; G89.29 Other chronic pain; F41.0 Panic disorder [episodic paroxysmal anxiety]; K29.70 Gastritis, unspecified, without bleeding; Z90.711 Acquired absence of uterus with remaining cervical stump; K22.8 Other specified diseases of esophagus; Z79.899 Other long term (current) drug therapy
CPT/HCPCS: 36415; 74177; 80048; 80053; 81003; 82150; 83690; 83735; 84425; 85025; 85027; 86140; 87045; 87046; 87324; 93005; 96374; 96375; 99285

== ENCOUNTER 2021-03-09 17:14 | Inpatient (IN) | payer MEDICARE, OTHER ==
[2021-03-09] MEDS ORDERED: ONDANSETRON 4 MG/2 ML VIAL IVP STA (17:35)
[2021-03-09] MEDS ORDERED: HYDROmorphone 1 MG/ML 1 ML SYRINGE IVP STA (17:35)
[2021-03-09] MEDS ORDERED: SODIUM CHLORIDE 0.9% 500 ML 500 ML IV STA (17:35)
--- NOTE | 2021-03-09 18:10 | ED ---
Abdominal Pain HPI - General Chief Complaint: Abdominal Pain Stated Complaint: Abdominal Pain Time Seen by Provider: 03/09/21 17:17 Source: patient, EMS Mode of arrival: EMS Limitations: no limitations - History of Present Illness Initial Comments: 85-year-old female patient with past medical history significant for gastroparesis and pancreatitis presents to the emergency department today for evaluation of upper abdominal pain. Patient states she has been nauseated and has vomited today. States symptoms have been worsening over the last 2 days. States she does take [place] at home however did vomit of all her pills today. Patient states that she has pain on a daily basis though at times it does get worse and she requires IV medication. She denies any fever or chills. Denies any constipation or diarrhea. States the pain is similar to previous episodes. She did have an abdominal surgery about a year ago. Patient denies any recent rash, cough, shortness of breath, chest pain, back pain, numbness, tingling, dizziness, weakness, hematuria, dysuria, urinary urgency, urinary frequency, headache, visual changes, or any other complaints. - Related Data Home Medications Medication Instructions Recorded Confirmed amLODIPine [Norvasc] 5 mg PO DAILY 01/28/18 03/09/21 ondansetron HCL [Zofran] 8 mg PO TID PRN 08/17/18 03/09/21 Ergocalciferol [Vitamin D2 50,000 unit PO TUSA 11/29/19 03/09/21 (DRISDOL)] Losartan Potassium 100 mg PO DAILY 11/29/19 03/09/21 rOPINIRole HCL [Requip] 0.25 mg PO HS 07/24/20 03/09/21 Omeprazole [PriLOSEC] 20 mg PO BID 08/24/20 03/09/21 Mirtazapine [Remeron] 45 mg PO HS 11/08/20 03/09/21 HYDROcodone/APAP 10-325MG [[place] 1 tab PO QID 11/29/20 03/09/21 10-325] Rosuvastatin [Crestor] 10 mg PO HS 11/29/20 03/09/21 hydrOXYzine HCL [Atarax] 25 mg PO QID PRN 11/29/20 03/09/21 Ztzmdzgiovhavl-DT-Twwfityhnl 1 tab PO DAILY 03/09/21 03/09/21 [Folbic] LORazepam [Ativan] 2 mg PO TID 03/09/21 03/09/21 Previous Rx's Medication Instructions Recorded Famotidine [Pepcid] 20 mg PO BID 30 Days #60 tab 12/26/20 Sucralfate [Carafate] 1 gm PO ACHS 30 Days #120 tab 12/26/20 Allergies Allergy/AdvReac Type Severity Reaction Status Date / Time hydromorphone [From Dilaudid] Allergy Rash/Hives Verified 03/09/21 20:34 morphine Allergy Rash/Hives Verified 03/09/21 20:34 tetracycline Allergy Rash/Hives Verified 03/09/21 20:34 Review of Systems ROS Statement: Those systems with pertinent positive or pertinent negative responses have been documented in the HPI. ROS Other: All systems not noted in ROS Statement are negative. Past Medical History Past Medical History: Hyperlipidemia, Hypertension, Osteoarthritis (OA), Thyroid Disorder Additional Past Medical History / Comment(s): recently seen in ER for intractible abdominal pain,Gastroparesis, thyroid nodules, servere abdominal( LUQ) pain,nausea and vomiting,neuropathy calin feet History of Any Multi-Drug Resistant Organisms: None Reported Past Surgical History: Appendectomy, Hysterectomy, Orthopedic Surgery, Tonsillectomy Additional Past Surgical History / Comment(s): L Shoulder surgery with plate, R knee replacement, colonoscopy, partial hysterectomy---still has her ovaries, carpal tunnel release bilaterally, calin cataracts, eye surgery for glaucoma Past Anesthesia/Blood Transfusion Reactions: No Reported Reaction, Postoperative Nausea & Vomiting (PONV) Additional Past Anesthesia/Blood Transfusion Reaction / Comment(s): abdominal pain post op Past Psychological History: Anxiety, Panic Disorder Smoking Status: Former smoker Past Alcohol Use History: None Reported Past Drug Use History: Marijuana - Past Family History Mother Family Medical History: Cancer Additional Family Medical History / Comment(s): Colon Father Family Medical History: Coronary Artery Disease (CAD) Sister(s) Family Medical History: Deep Vein Thrombosis (DVT) General Exam Limitations: no limitations General appearance: alert, in no apparent distress, other (This is a well- developed, well-nourished adult female patient in mild distress related to pain.) Eye exam: Present: normal appearance, PERRL, EOMI. Absent: scleral icterus, conjunctival injection, periorbital swelling ENT exam: Present: normal exam, normal oropharynx, mucous membranes moist Respiratory exam: Present: normal lung sounds bilaterally. Absent: respiratory distress, wheezes, rales, rhonchi, stridor Cardiovascular Exam: Present: normal rhythm, tachycardia, normal heart sounds. Absent: systolic murmur, diastolic murmur, rubs, gallop, clicks GI/Abdominal exam: Present: soft, tenderness (Upper abdominal), normal bowel sounds. Absent: distended, guarding, rebound, rigid Neurological exam: Present: alert, oriented X3, CN II-XII intact Psychiatric exam: Present: normal affect, normal mood Skin exam: Present: warm, dry, intact, normal color. Absent: rash Course Vital Signs 03/09/21 17:30 Temperature 98.3 F Pulse Rate 102 H Respiratory 18 Rate Blood Pressure 144/106 O2 Sat by Pulse 98 Oximetry Medical Decision Making - Medical Decision Making 85-year-old female patient presents to the emergency department today for evaluation of upper abdominal pain and vomiting for the last 2 days. Patient states she has been attempting to take her home medicines without relief. Physical examination did reveal upper abdominal tenderness. She is afebrile normal vital signs. Labs reviewed and did reveal mildly decreased sodium level. KUB was unremarkable. She was given multiple doses of pain medication nausea medication while here. Upon reevaluation she is still quite uncomfortable, shaking and clutching her abdomen. She will be admitted to the hospital for intractable abdominal pain. Case is discussed with my attending Dr. Gentile. - Lab Data Result diagrams: 03/09/21 18:31 03/09/21 18:31 Lab Results 03/09/21 03/09/21 03/09/21 Range/Units 18:31 18:31 18:31 WBC 4.8 (3.8-10.6) k/uL RBC 4.63 (3.80-5.40) m/uL Hgb 12.2 (11.4-16.0) gm/dL Hct 39.1 (34.0-46.0) % MCV 84.3 (80.0-100.0) fL MCH 26.4 (25.0-35.0) pg MCHC 31.3 (31.0-37.0) g/dL RDW 14.2 (11.5-15.5) % Plt Count 174 (150-450) k/uL MPV 9.5 Neutrophils % 56 % Lymphocytes % 31 % Monocytes % 9 % Eosinophils % 2 % Basophils % 0 % Neutrophils # 2.7 (1.3-7.7) k/uL Lymphocytes # 1.5 (1.0-4.8) k/uL Monocytes # 0.4 (0-1.0) k/uL Eosinophils # 0.1 (0-0.7) k/uL Basophils # 0.0 (0-0.2) k/uL Hypochromasia Slight Sodium 135 L (137-145) mmol/L Potassium 3.5 (3.5-5.1) mmol/L Chloride 104 (98-107) mmol/L Carbon Dioxide 23 (22-30) mmol/L Anion Gap 8 mmol/L BUN 8 (7-17) mg/dL Creatinine 0.83 (0.52-1.04) mg/dL Est GFR (CKD-EPI)AfAm 76 (>60 ml/min/1.73 sqM) Est GFR (CKD-EPI)NonAf 66 (>60 ml/min/1.73 sqM) Glucose 107 H (74-99) mg/dL Plasma Lactic Acid [place] (0.7-2.0) mmol/L Calcium 9.2 (8.4-10.2) mg/dL Total Bilirubin 0.4 (0.2-1.3) mg/dL AST 21 (14-36) U/L ALT 12 (4-34) U/L Alkaline Phosphatase 73 (38-126) U/L Total Protein 6.9 (6.3-8.2) g/dL Albumin 4.0 (3.5-5.0) g/dL Lipase 113 (23-300) U/L Urine Color Light Yellow Urine Appearance Clear (Clear) Urine pH 7.0 (5.0-8.0) Ur Specific [place] 1.010 (1.001-1.035) Urine Protein Negative (Negative) Urine Glucose (UA) Negative (Negative) Urine Ketones Trace H (Negative) Urine Blood Negative (Negative) Urine Nitrite Negative (Negative) Urine Bilirubin Negative (Negative) Urine Urobilinogen <2.0 (<2.0) mg/dL Ur Leukocyte Esterase Negative (Negative) 03/09/21 Range/Units 18:31 WBC (3.8-10.6) k/uL RBC (3.80-5.40) m/uL Hgb (11.4-16.0) gm/dL Hct (34.0-46.0) % MCV (80.0-100.0) fL MCH (25.0-35.0) pg MCHC (31.0-37.0) g/dL RDW (11.5-15.5) % Plt Count (150-450) k/uL MPV Neutrophils % % Lymphocytes % % Monocytes % % Eosinophils % % Basophils % % Neutrophils # (1.3-7.7) k/uL Lymphocytes # (1.0-4.8) k/uL Monocytes # (0-1.0) k/uL Eosinophils # (0-0.7) k/uL Basophils # (0-0.2) k/uL Hypochromasia Sodium (137-145) mmol/L Potassium (3.5-5.1) mmol/L Chloride (98-107) mmol/L Carbon Dioxide (22-30) mmol/L Anion Gap mmol/L BUN (7-17) mg/dL Creatinine (0.52-1.04) mg/dL Est GFR (CKD-EPI)AfAm (>60 ml/min/1.73 sqM) Est GFR (CKD-EPI)NonAf (>60 ml/min/1.73 sqM) Glucose (74-99) mg/dL Plasma Lactic Acid [place] 1.8 (0.7-2.0) mmol/L Calcium (8.4-10.2) mg/dL Total Bilirubin (0.2-1.3) mg/dL AST (14-36) U/L ALT (4-34) U/L Alkaline Phosphatase (38-126) U/L Total Protein (6.3-8.2) g/dL Albumin (3.5-5.0) g/dL Lipase (23-300) U/L Urine Color Urine Appearance (Clear) Urine pH (5.0-8.0) Ur Specific [place] (1.001-1.035) Urine Protein (Negative) Urine Glucose (UA) (Negative) Urine Ketones (Negative) Urine Blood (Negative) Urine Nitrite (Negative) Urine Bilirubin (Negative) Urine Urobilinogen (<2.0) mg/dL Ur Leukocyte Esterase (Negative) - Radiology Data Radiology results: report reviewed, image reviewed KUB was obtained. Report was reviewed in its entirety. Impression by Dr. Covington shows nonacute abdomen. No change. Disposition Clinical Impression: Gastroparesis, Intractable abdominal pain Disposition: ADMITTED IP TO THIS [facility] Condition: Serious Decision to Admit Reason: Admit from EC Decision Date: 03/09/21 Decision Time: 21:05
[2021-03-09 18:49] LABS: Basophils % (A) 0 %; Eosinophils # (A) 0.1 k/uL (0-0.7); Eosinophils % (A) 2 %; HCT 39.1 % (34.0-46.0); HGB 12.2 gm/dL (11.4-16.0); Hypochromasia Slight; Lymphocytes # (A) 1.5 k/uL (1.0-4.8); Lymphocytes % (A) 31 %; MCH 26.4 pg (25.0-35.0); MCHC 31.3 g/dL (31.0-37.0); MCV 84.3 fL (80.0-100.0); Mean Platelet Volume 9.5; Monocytes # (A) 0.4 k/uL (0-1.0); Monocytes % (A) 9 %; Neutrophils # (A) 2.7 k/uL (1.3-7.7); Neutrophils % (A) 56 %; Platelet Count 174 k/uL (150-450); RBC 4.63 m/uL (3.80-5.40); RDW 14.2 % (11.5-15.5); WBC 4.8 k/uL (3.8-10.6)
[2021-03-09 18:52] LABS: Appearance,Urine Clear (Clear); Bilirubin,Urine Negative (Negative); Blood,Urine Negative (Negative); Color,Urine Light Yellow; Glucose,Urine (UA) Negative (Negative); Ketones,Urine Trace (Negative); Leukocyte Esterase,Urine Negative (Negative); Nitrite,Urine Negative (Negative); Protein,Urine Negative (Negative); Urobilinogen,Urine <2.0 mg/dL (<2.0)
[2021-03-09 19:04] LABS: Calcium 9.2 mg/dL (8.4-10.2); Potassium 3.5 mmol/L (3.5-5.1); Total Bilirubin 0.4 mg/dL (0.2-1.3); Total Protein 6.9 g/dL (6.3-8.2)
--- NOTE | 2021-03-09 19:06 | XR ---
EXAMINATION TYPE: XR KUB DATE OF EXAM: 03/09/2021 COMPARISON: 11/05/2020 HISTORY: Abdominal pain TECHNIQUE: Single view FINDINGS: There is a mild thoracolumbar levoscoliosis. There is no sign of intestinal obstruction or pneumoperitoneum. Fecal pattern is normal. Lung bases are clear. There are no pathologic calcificatio ns over the kidneys. IMPRESSION: Nonacute abdomen. No change.
[2021-03-09] MEDS ORDERED: HYDROmorphone 0.5 MG/0.5 ML SYRINGE IVP STA (19:35)
[2021-03-09] MEDS ORDERED: FAMOTIDINE 20 MG/2 ML VIAL IV STA (19:35)
[2021-03-09] MEDS ORDERED: LORazepam 2 MG/ML INJ IV STA (20:45)
[2021-03-09] MEDS ORDERED: NALOXONE 0.4 MG/ML 1 ML VIAL IV PRN (21:06)
[2021-03-09] MEDS: SODIUM CHLORIDE 0.9% 1,000 ML IV SCH (21:36)
[2021-03-10] MEDS: ONDANSETRON 4 MG/2 ML VIAL IVP PRN ×3 (01:33→21:54)
--- NOTE | 2021-03-10 02:16 | P.HPIM ---
History of Present Illness H&P Date: 03/09/21 The patient is an 85-year-old female with a PMH of gastroparesis status post cholecystectomy, hypertension, hyperlipidemia with multiple prior admissions for gastroparesis exacerbation who now presents with complaints of nausea, vomiting, and abdominal pain. The patient reports that her symptoms started roughly 2 nights ago, and she has since experienced 3-4 episodes of vomiting followed by dry heaving and diffuse abdominal pain. She reports that the pain is worsened with the dry heaves, is 10 out of 10 at maximal intensity, and is currently a 7 out of 10 at time of interview. She reports that this is in line with her previous episodes of gastroparesis. She denied additional complaints. Denied fever, chills, chest pain, shortness of breath. Laboratory evaluation from the emergency room was reviewed and was unremarkable except for sodium 135. Review of systems: Pertinent positives and negatives as discussed in HPI, a complete review of systems was performed and all other systems are negative. Physical examination: General: non toxic, no distress, appears at stated age, normal weight Derm: no unusual rashes/lesions no unusual ecchymoses, warm, dry Head: atraumatic, normocephalic, symmetric Eyes: EOMI, no lid lag, anicteric sclera, pupils equal round reactive to light ENT: Nose and ears atraumatic, no thrush, no pharyngeal erythema Neck: No thyromegaly, no cervical lymphadenopathy, trachea midline, supple Mouth: no lip lesion, mucus membranes moist Cardiovascular: S1S2 reg, no murmur, positive posterior tibial pulse bilateral, no edema, capillary refill less than 2 seconds Lungs: CTA bilateral, no rhonchi, no rales , no accessory muscle use Abdominal: soft, nontender to palpation, no guarding, no appreciable organomegaly, normal bowel sounds Ext: no gross muscle atrophy, muscle strength 5 out of 5 in all 4 extremities grossly, no contractures, Neuro: CN II-XI grossly intact, light touch intact all 4 extremities, finger to nose within normal limits, Psych: Alert, oriented, appropriate affect Assessment/plan Nausea, vomiting, suspected due to gastroparesis exacerbation -Antiemetics -IV fluids -Nothing by mouth for now -GI consult Chronic conditions: Hypertension, hyperlipidemia -Continue with home meds DVT prophylaxis -Heparin subcu The patient is admitted with an anticipated less than 2 midnight stay for evaluation of nausea and vomiting CODE STATUS: Full Code Discussed with: Sharad Anticipated discharge date: in am Anticipated discharge place: Home Past Medical History Past Medical History: Hyperlipidemia, Hypertension, Osteoarthritis (OA), Thyroid Disorder Additional Past Medical History / Comment(s): recently seen in ER for intractible abdominal pain,Gastroparesis, thyroid nodules, servere abdominal( LUQ) pain,nausea and vomiting,neuropathy calin feet History of Any Multi-Drug Resistant Organisms: None Reported Past Surgical History: Appendectomy, Hysterectomy, Orthopedic Surgery, Tonsillectomy Additional Past Surgical History / Comment(s): L Shoulder surgery with plate, R knee replacement, colonoscopy, partial hysterectomy---still has her ovaries, carpal tunnel release bilaterally, calin cataracts, eye surgery for glaucoma Past Anesthesia/Blood Transfusion Reactions: No Reported Reaction, Postoperative Nausea & Vomiting (PONV) Additional Past Anesthesia/Blood Transfusion Reaction / Comment(s): abdominal pain post op Past Psychological History: Anxiety, Panic Disorder Smoking Status: Never smoker Past Alcohol Use History: None Reported Additional Past Alcohol Use History / Comment(s): quit smoking age 22, smoked for a couple yrs Past Drug Use History: Marijuana - Past Family History Mother Family Medical History: Cancer Additional Family Medical History / Comment(s): Colon Father Family Medical History: Coronary Artery Disease (CAD) Sister(s) Family Medical History: Deep Vein Thrombosis (DVT) Medications and Allergies Home Medications Medication Instructions Recorded Confirmed Type amLODIPine [Norvasc] 5 mg PO DAILY 01/28/18 03/09/21 History ondansetron HCL [Zofran] 8 mg PO TID PRN 08/17/18 03/09/21 History Ergocalciferol [Vitamin D2 50,000 unit PO TUSA 11/29/19 03/09/21 History (DRISDOL)] Losartan Potassium 100 mg PO DAILY 11/29/19 03/09/21 History rOPINIRole HCL [Requip] 0.25 mg PO HS 07/24/20 03/09/21 History Omeprazole [PriLOSEC] 20 mg PO BID 08/24/20 03/09/21 History Mirtazapine [Remeron] 45 mg PO HS 11/08/20 03/09/21 History HYDROcodone/APAP 10-325MG [[place] 1 tab PO QID 11/29/20 03/09/21 History 10-325] Rosuvastatin [Crestor] 10 mg PO HS 11/29/20 03/09/21 History hydrOXYzine HCL [Atarax] 25 mg PO QID PRN 11/29/20 03/09/21 History Famotidine [Pepcid] 20 mg PO BID 30 Days #60 tab 12/26/20 03/09/21 Rx Sucralfate [Carafate] 1 gm PO ACHS 30 Days #120 tab 12/26/20 03/09/21 Rx Jauctofeeaqxtq-OQ-Rcylktcktm 1 tab PO DAILY 03/09/21 03/09/21 History [Folbic] LORazepam [Ativan] 2 mg PO TID 03/09/21 03/09/21 History Allergies Allergy/AdvReac Type Severity Reaction Status Date / Time hydromorphone [From Dilaudid] Allergy Rash/Hives Verified 03/09/21 20:34 morphine Allergy Rash/Hives Verified 03/09/21 20:34 tetracycline Allergy Rash/Hives Verified 03/09/21 20:34 Physical Exam Vitals: Vital Signs Temp Pulse Resp BP Pulse Ox 03/09/21 22:30 92 18 136/92 96 03/09/21 17:30 98.3 F 102 H 18 144/106 98 Intake and Output 03/09/21 03/09/21 03/10/21 14:59 22:59 06:59 Other: Weight 65.771 kg 65.771 kg Results CBC & Chem 7: 03/09/21 18:31 03/09/21 18:31 Labs: Abnormal Lab Results - Last 24 Hours (Table) 03/09/21 03/09/21 Range/Units 18:31 18:31 Sodium 135 L (137-145) mmol/L Glucose 107 H (74-99) mg/dL Urine Ketones Trace H (Negative) Thrombosis Risk Factor Assmnt - Choose All That Apply Any of the Below Risk Factors Present?: No Other Risk Factors: Yes Each Risk Factor Represents 3 Points: Age 75 years or older Other congenital or acquired thrombophilia - If yes, enter type in comment: No Thrombosis Risk Factor Assessment Total Risk Factor Score: 3 Thrombosis Risk Factor Assessment Level: Moderate Risk
[2021-03-10] MEDS: HYDROmorphone 1 MG/ML 1 ML SYRINGE IVP PRN ×2 (02:53→09:56)
[2021-03-10] MEDS: LORazepam 2 MG/ML INJ IV PRN ×2 (04:44→10:59)
[2021-03-10] MEDS: HEPARIN SODIUM,PORCINE/PF 5,000 UNIT/0.5 ML SYRINGE SQ SCH ×2 (09:57→16:21)
[2021-03-10] MEDS: amLODIPine 5 MG TAB PO SCH (09:57)
[2021-03-10] MEDS: PANTOPRAZOLE 40 MG/10 ML VIAL IVP SCH (10:02)
[2021-03-10] MEDS ORDERED: MAG HYDROX/AL HYDROX/SIMETH 30 ML, HYOSCYAMINE ELIXIR 10 ML, LIDOCAINE VISCOUS 2% 10 ML PO ONE ×3 (11:29)
[2021-03-10] MEDS ORDERED: PROCHLORPERAZINE INJ 10 MG/2 ML VIAL IVP PRN (11:29)
[2021-03-10] MEDS ORDERED: DICYCLOMINE 10 MG/ML 2 ML AMP IM STA (11:34)
--- NOTE | 2021-03-10 12:02 | P.PN ---
Subjective Progress Note Date: 03/10/21 Hospital course: The patient is a very pleasant 85-year-old female with a past medical history of recurrent gastroparesis status post cholecystectomy, hypertension, hyperlipidemia, chronic pain syndrome, and opioid dependency. She presented to the emergency department on 03/09/21 with a chief complaint of intractable nausea and vomiting accompanied by abdominal pain. Patient has had multiple previous admissions for same complaints status post cholecystectomy completed 11/09/20. Patient previously referred to [facility], Dr. Story for gastroparesis but was unclear on whether or not she followed up. Patient was fully evaluated in the emergency department and found to have unremarkable labs including CBC, CMP, and lipase and unremarkable urinalysis. She was admitted under our services for general medical observation for intractable nausea and vomiting.. Physical examination: Patient seen and fully evaluated at bedside this morning she has emesis basin at bedside and continues to report persistent abdominal/epigastric pain described as a burning and gnawing sensation accompanied by nausea and recurrent episodes of dry heaving and vomiting consistent with her previous episodes of gastropa resis. Patient reports continued loose stools but unchanged from her baseline as she reports having chronic loose stools since removal of gallbladder back in November. Patient denies having any dizziness, lightheadedness, headache, chest pain, palpitations, shortness of breath, dyspnea with exertion, changes in her difficulties with urinary function, or experiencing any numbness/tingling/weakness in her extremities. Patient has been ambulatory to and from bathroom unassisted without any difficulties. At this time we will continue with IV fluid hydration, add additional antiemetic Compazine to assist with controlling patient's nausea, and add-on GI cocktail for patient's reports of burning sensation to her epigastric region. General: non toxic, no distress, appears at stated age, thin build Derm: no unusual rashes/lesions no unusual ecchymoses, warm, dry Head: atraumatic, normocephalic, symmetric Eyes: EOMI, no lid lag, anicteric sclera, pupils equal round reactive to light ENT: Nose and ears atraumatic, no thrush, no pharyngeal erythema Neck: No thyromegaly, no cervical lymphadenopathy, trachea midline, supple Mouth: no lip lesion, mucus membranes moist Cardiovascular: S1S2 reg, no murmur, positive posterior tibial pulse bilateral, no edema, capillary refill less than 2 seconds Lungs: CTA bilateral, no rhonchi, no rales , no accessory muscle use Abdominal: soft, tenderness to epigastric region upon palpation. No guarding, no appreciable organomegaly, normal bowel sounds Ext: no gross muscle atrophy, muscle strength 5 out of 5 in all 4 extremities grossly, no contractures, Neuro: CN II-XI grossly intact, light touch intact all 4 extremities, finger to nose within normal limits, Psych: Alert, oriented, appropriate affect Assessment and plan of care: Intractable nausea and vomiting Recurrent gastroparesis -Continue with IV fluid hydration -Add additional antiemetic Compazine to assist with controlling patient's persistent reports of nausea -GI cocktail for patient's reports of burning sensation to her epigastric region. Hypertension Monitor vital signs and continue daily medication regimen with amlodipine Chronic pain syndrome Opioid dependency/abuse -Recurrent gastroparesis likely secondary to chronic opioid dependency/abuse. -Patient is going to have drug-seeking behaviors, Dilaudid decreased to 0.25 mg every 3 hours. -Patient educated on risks of continued persistent opioid and benzodiazepine use/abuse. CODE STATUS: Full Code DVT prophylaxis: Lovenox Discussed with: Patient and RN Anticipated discharge date: tomorrow morning, strongly recommend follow-up as previously recommended to [facility] with Dr. Story and avoidance of continued persistant opioid and benzodiazapine use/abuse. Anticipated discharge place: Home Objective - Vital Signs Vital signs: Vital Signs Temp 98.4 F 03/10/21 02:32 Pulse 92 03/10/21 02:32 Resp 15 03/10/21 02:32 BP 155/83 03/10/21 02:32 Pulse Ox 99 03/10/21 02:32 Intake & Output 03/09/21 03/10/21 03/10/21 18:59 06:59 18:59 Weight 65.771 kg 65.771 kg Other: # Voids 1 - Labs CBC & Chem 7: 03/09/21 18:31 03/09/21 18:31 Labs: Abnormal Lab Results - Last 24 Hours (Table) 03/09/21 03/09/21 Range/Units 18:31 18:31 Sodium 135 L (137-145) mmol/L Glucose 107 H (74-99) mg/dL Urine Ketones Trace H (Negative)
[2021-03-10] MEDS: SODIUM CHLORIDE 0.9% 1,000 ML IV SCH (12:31)
--- NOTE | 2021-03-10 15:16 | P.GSCN ---
History of Present Illness Consult date: 03/10/21 History of present illness: CHIEF COMPLAINT: Abdominal pain HISTORY OF PRESENT ILLNESS: The patient is a 89 year old female with chronic abdominal pain and gastroparesis status post upper and lower endoscopy and cholecystectomy who presents with recurrent abdominal pain. She had prior upper endoscopy including cholecystectomy over 3 months ago. She has pre-existing intractable upper abdominal pain long-standing for many years. She sees multiple consultants including specialist at [facility] for similar abdominal pain for over 5-10 years. At home, she was unable to take her medications with progressive intractable nausea and vomiting. She presents for recurrent symptoms. No blood in stools. No hematemesis. She did have recent pancreatitis 2 months ago. PAST MEDICAL HISTORY: See list and reviewed PAST SURGICAL HISTORY: See list and reviewed MEDICATIONS: See list and reviewed ALLERGIES: See list and reviewed SOCIAL HISTORY: See list and reviewed FAMILY HISTORY: See list and reviewed REVIEW OF ORGAN SYSTEMS: CONSTITUTIONAL: No fevers or chills. Weight loss over 15 pounds. EYES: Denies any trouble with vision. No glasses. HEENT: No difficulties with hearing. No nosebleeds. Previous history of difficulty swallowing status post dilation. RESPIRATORY: Denies pneumonia. Denies any troubles with breathing or dyspnea on exertion. CARDIOVASCULAR: Has hypertension. GASTROINTESTINAL: Reports intractable nausea and vomiting. Reports history of gastroparesis. GENITOURINARY: Denies any blood in urine or increased urinary frequency. NEUROLOGICAL: Has bilateral neuropathy lower extremities. MUSCULOSKELETAL: Denies any back pain, stiffness or joint arthritis. SKIN: No current skin cancer. No rash. PSYCHIATRIC: Has anxiety. Has panic disorder. ENDOCRINE: Has thyroid nodules. Denies any blood sugar glucose intolerance. HEME/LYMPHATIC: Denies any lumps and bumps around the neck. No recent deep venous thrombosis. ALLERGY/IMMUNOLOGY: No immunoglobulin therapy. No immune deficiencies. BREAST: Denies current breast lumps, pain or nipple discharge. PHYSICAL EXAM: VITALS: Reviewed CONSTITUTIONAL: Well developed and in no acute distress. EYES: Conjuctivae without sclera icterus. Extraocular movements grossly intact. HEAD, EARS, NOSE, THROAT: Moist buccal mucosa. Head is atraumatic, normocephalic. Hears conversational speech. No nasal drainage. NECK: Supple. No gross JV distention. No thyroidomegaly. RESPIRATORY: Non-labored respirations and equal bilateral excursions. No gross wheezes. CARDIOVASCULAR: Regular rate and rhythm. ABDOMEN: No peritonitis. LYMPH: No gross neck lymphadenopathy. MUSCULOSKELETAL: No clubbing cyanosis or edema. SKIN: Warm and well perfused with good skin turgor. NEUROLOGIC: Cranial nerves II through XII grossly intact. No focal or lateralizing signs. PSYCH: Appropriate affect. Alert and oriented to person, place and time. Displays appropriate insight. CLINCAL LABS: Reviewed. WBC normal 4.8. Hemoglobin normal 12.2. Sodium low at 135, hyponatremia. Potassium 3.5, low IMAGING: Independently abdominal x-ray demonstrates osteopenia including s coliosis of the spine. Nonspecific bowel gas pattern. No evidence of free air. This is my independent interpretation. ASSESSMENT: 1. Acute on chronic abdominal pain 2. Gastroparesis with intractable nausea and vomiting PLAN: 1. Recommend potassium supplementation 2. Recommend magnesium supplementation 3. Recommend IV fluid hydration 4. Recommend conservative, supportive management Past Medical History Past Medical History: Hyperlipidemia, Hypertension, Osteoarthritis (OA), Thyroid Disorder Additional Past Medical History / Comment(s): recently seen in ER for intractible abdominal pain,Gastroparesis, thyroid nodules, servere abdominal( LUQ) pain,nausea and vomiting,neuropathy calin feet History of Any Multi-Drug Resistant Organisms: None Reported Past Surgical History: Appendectomy, Hysterectomy, Orthopedic Surgery, Tonsillectomy Additional Past Surgical History / Comment(s): L Shoulder surgery with plate, R knee replacement, colonoscopy, partial hysterectomy---still has her ovaries, carpal tunnel release bilaterally, calin cataracts, eye surgery for glaucoma Past Anesthesia/Blood Transfusion Reactions: No Reported Reaction, Postoperative Nausea & Vomiting (PONV) Additional Past Anesthesia/Blood Transfusion Reaction / Comm: abdominal pain post op Past Psychological History: Anxiety, Panic Disorder Smoking Status: Never smoker Past Alcohol Use History: None Reported Additional Past Alcohol Use History / Comment(s): quit smoking age 22, smoked for a couple yrs Past Drug Use History: Marijuana - Past Family History Mother Family Medical History: Cancer Additional Family Medical History / Comment(s): Colon Father Family Medical History: Coronary Artery Disease (CAD) Sister(s) Family Medical History: Deep Vein Thrombosis (DVT) Medications and Allergies Home Medications Medication Instructions Recorded Confirmed Type amLODIPine [Norvasc] 5 mg PO DAILY 01/28/18 03/09/21 History ondansetron HCL [Zofran] 8 mg PO TID PRN 08/17/18 03/09/21 History Ergocalciferol [Vitamin D2 50,000 unit PO TUSA 11/29/19 03/09/21 History (DRISDOL)] Losartan Potassium 100 mg PO DAILY 11/29/19 03/09/21 History rOPINIRole HCL [Requip] 0.25 mg PO HS 07/24/20 03/09/21 History Omeprazole [PriLOSEC] 20 mg PO BID 08/24/20 03/09/21 History Mirtazapine [Remeron] 45 mg PO HS 11/08/20 03/09/21 History HYDROcodone/APAP 10-325MG [[place] 1 tab PO QID 11/29/20 03/09/21 History 10-325] Rosuvastatin [Crestor] 10 mg PO HS 11/29/20 03/09/21 History hydrOXYzine HCL [Atarax] 25 mg PO QID PRN 11/29/20 03/09/21 History Famotidine [Pepcid] 20 mg PO BID 30 Days #60 tab 12/26/20 03/09/21 Rx Sucralfate [Carafate] 1 gm PO ACHS 30 Days #120 tab 12/26/20 03/09/21 Rx Bmnvinbygewxbn-TU-Ygsfzrelsy 1 tab PO DAILY 03/09/21 03/09/21 History [Folbic] LORazepam [Ativan] 2 mg PO TID 03/09/21 03/09/21 History Allergies Allergy/AdvReac Type Severity Reaction Status Date / Time hydromorphone [From Dilaudid] Allergy Rash/Hives Verified 03/09/21 20:34 morphine Allergy Rash/Hives Verified 03/09/21 20:34 tetracycline Allergy Rash/Hives Verified 03/09/21 20:34 Surgical - Exam Vital Signs Temp Pulse Resp BP Pulse Ox 98.3 F 102 H 18 144/106 98 03/09/21 17:30 03/09/21 17:30 03/09/21 17:30 03/09/21 17:30 03/09/21 17:30 Results - Labs 03/09/21 18:31 03/09/21 18:31 Abnormal Lab Results - Last 24 Hours (Table) 03/09/21 03/09/21 Range/Units 18:31 18:31 Sodium 135 L (137-145) mmol/L Glucose 107 H (74-99) mg/dL Urine Ketones Trace H (Negative) Diabetes panel 03/09/21 Range/Units 18:31 Sodium 135 L (137-145) mmol/L Potassium 3.5 (3.5-5.1) mmol/L Chloride 104 (98-107) mmol/L Carbon Dioxide 23 (22-30) mmol/L BUN 8 (7-17) mg/dL Creatinine 0.83 (0.52-1.04) mg/dL Glucose 107 H (74-99) mg/dL Calcium 9.2 (8.4-10.2) mg/dL AST 21 (14-36) U/L ALT 12 (4-34) U/L Alkaline Phosphatase 73 (38-126) U/L Total Protein 6.9 (6.3-8.2) g/dL Albumin 4.0 (3.5-5.0) g/dL Calcium panel 03/09/21 Range/Units 18:31 Calcium 9.2 (8.4-10.2) mg/dL Albumin 4.0 (3.5-5.0) g/dL Pituitary panel 03/09/21 Range/Units 18:31 Sodium 135 L (137-145) mmol/L Potassium 3.5 (3.5-5.1) mmol/L Chloride 104 (98-107) mmol/L Carbon Dioxide 23 (22-30) mmol/L BUN 8 (7-17) mg/dL Creatinine 0.83 (0.52-1.04) mg/dL Glucose 107 H (74-99) mg/dL Calcium 9.2 (8.4-10.2) mg/dL Adrenal panel 03/09/21 Range/Units 18:31 Sodium 135 L (137-145) mmol/L Potassium 3.5 (3.5-5.1) mmol/L Chloride 104 (98-107) mmol/L Carbon Dioxide 23 (22-30) mmol/L BUN 8 (7-17) mg/dL Creatinine 0.83 (0.52-1.04) mg/dL Glucose 107 H (74-99) mg/dL Calcium 9.2 (8.4-10.2) mg/dL Total Bilirubin 0.4 (0.2-1.3) mg/dL AST 21 (14-36) U/L ALT 12 (4-34) U/L Alkaline Phosphatase 73 (38-126) U/L Total Protein 6.9 (6.3-8.2) g/dL Albumin 4.0 (3.5-5.0) g/dL Assessment and Plan (1) Gastroparesis Current Visit: Yes Status: Acute Code(s): K31.84 - GASTROPARESIS SNOMED Code(s): 189916457 (2) Intractable abdominal pain Current Visit: Yes Status: Acute Code(s): R10.9 - UNSPECIFIED ABDOMINAL PAIN SNOMED Code(s): 50560192 (3) Dehydration Current Visit: No Status: Acute Code(s): E86.0 - DEHYDRATION SNOMED Code(s): 22854933 (4) Nausea and vomiting Current Visit: No Status: Acute Code(s): R11.2 - NAUSEA WITH VOMITING, UNSP ECIFIED SNOMED Code(s): 67347788
[2021-03-10] MEDS: HYDROmorphone 0.5 MG/0.5 ML SYRINGE IVP PRN ×2 (16:20→21:58)
[2021-03-10] MEDS: LORazepam 1 MG TAB PO PRN (17:05)
[2021-03-11] MEDS: HEPARIN SODIUM,PORCINE/PF 5,000 UNIT/0.5 ML SYRINGE SQ SCH ×4 (00:57→23:06)
[2021-03-11] MEDS: LORazepam 1 MG TAB PO PRN ×3 (00:58→15:38)
[2021-03-11] MEDS: SODIUM CHLORIDE 0.9% 1,000 ML IV SCH ×2 (02:02→14:22)
[2021-03-11] MEDS: HYDROmorphone 0.5 MG/0.5 ML SYRINGE IVP PRN ×3 (04:50→14:21)
[2021-03-11] MEDS: PANTOPRAZOLE 40 MG/10 ML VIAL IVP SCH (07:50)
[2021-03-11] MEDS: ONDANSETRON 4 MG/2 ML VIAL IVP PRN ×2 (07:51→23:04)
[2021-03-11] MEDS: amLODIPine 5 MG TAB PO SCH (07:52)
[2021-03-11 08:42] LABS: HCT 35.8 % (37.2-46.3); HGB 11.4 g/dL (12.0-15.0); MCH 26.1 pg (27.0-32.0); MCHC 31.8 g/dL (32.0-37.0); MCV 81.9 fL (80.0-97.0); Mean Platelet Volume 11.7 fL (9.5-12.2); Platelet Count 188 X 10*3/uL (140-440); RBC 4.37 X 10*6/uL (4.10-5.20); RDW 14.7 % (11.5-14.5); WBC 5.45 X 10*3/uL (4.50-10.00)
[2021-03-11 09:10] LABS: African American GFR (CKD) 92.9 (60.0-200.0); Albumin 4.1 g/dL (3.8-4.9); Albumin/Globulin Ratio 1.78 (1.60-3.17); Anion Gap 16.8 mmol/L (4.00-12.00); BUN/Creat Ratio 7.29 Ratio (12.00-20.00); Blood Urea Nitrogen 5.1 mg/dL (9.0-27.0); Calcium 8.7 mg/dL (8.7-10.3); Carbon Dioxide 19.2 mmol/L (21.6-31.8); Globulin 2.3 g/dL (1.6-3.3); Magnesium 1.9 mg/dL (1.5-2.4); Non-African American GFR(CKD) 80.1 (60.0-200.0); Potassium 3.2 mmol/L (3.5-5.5); Total Bilirubin 0.3 mg/dL (0.30-1.20); Total Protein 6.4 g/dL (6.2-8.2)
[2021-03-11] MEDS ORDERED: POTASSIUM CHLORIDE ER 20 MEQ TAB.ER PO STA (14:31)
--- NOTE | 2021-03-11 16:02 | P.PN ---
Subjective Progress Note Date: 03/11/21 Principal diagnosis: vomiting Still not eating well. She ate just 2 bites of her lunch. States she can't eat because she does not have appetite. Objective - Vital Signs Vital signs: Vital Signs Temp 98.5 F 03/11/21 07:35 Pulse 112 H 03/11/21 14:00 Resp 16 03/11/21 14:00 BP 163/93 03/11/21 07:35 Pulse Ox 97 03/11/21 07:35 Intake & Output 03/10/21 03/11/21 03/11/21 18:59 06:59 18:59 Other: Voiding Method Toilet # Voids 2 3 5 # Bowel Movements 2 2 5 - Exam Constitutional: No acute distress, conversant, pleasant Eyes:Anicteric sclerae, moist conjunctiva, no lid-lag, PERRLA, ENMT: Oropharynx clear, no erythema, exudates Neck: Supple, FROM, no masses, or JVD, No carotid bruits, No thyromegaly Lungs: Clear to auscultation, Clear to percussion, Normal respiratory effort, no accessory muscle use Cardiovascular: Heart regular in rate and rhythm, No murmurs, gallops, or rubs, No peripheral edema Abdominal: Soft, tender in the left upper quadrant, no guarding, rebound or rigidity, Normoactive bowel sounds, No hepatomegaly, No splenomegaly, No palpable mass Skin: Normal temperature, tone, texture, turgor, no induration, No subcutaneous nodules, No rash, lesions, No ulcers Extremities: No digital cyanosis, No clubbing, Pedal pulses intact and symmetrical, Radial pulses intact and symmetrical, No calf tenderness Psychiatric: Alert and oriented to person, place and time, appropriate affect, intact judgement Neuro: Muscles Strength 5/5 in all 4 extremities, Sensation to light touch grossly present throughout, Cranial nerves II-XII grossly intact, no focal sensory deficits - Labs CBC & Chem 7: 03/11/21 05:00 03/11/21 05:00 Labs: Abnormal Lab Results - Last 24 Hours (Table) 03/11/21 03/11/21 Range/Units 05:00 05:00 Hgb 11.4 L (12.0-15.0) g/dL Hct 35.8 L (37.2-46.3) % MCH 26.1 L (27.0-32.0) pg MCHC 31.8 L (32.0-37.0) g/dL RDW 14.7 H (11.5-14.5) % Potassium 3.2 L (3.5-5.5) mmol/L Carbon Dioxide 19.2 L (21.6-31.8) mmol/L Anion Gap 16.80 H (4.00-12.00) mmol/L BUN 5.1 L (9.0-27.0) mg/dL BUN/Creatinine Ratio 7.29 L (12.00-20.00) Ratio Lipase 79 H (14-63) U/L Assessment and Plan Plan: Intractable nausea and vomiting Recurrent gastroparesis -Continue with IV fluid hydration -D/c dilaudid, d/c compazine. Start reglan scheduled. Zofran prn. -Consult GI Hypertension Monitor vital signs and continue daily medication regimen with amlodipine Chronic pain syndrome Opioid dependency/abuse -D/c IV dilaudid and start norco. CODE STATUS: Full Code DVT prophylaxis: Lovenox Discussed with: Patient and RN Anticipated discharge date: tomorrow morning, strongly recommend follow-up as previously recommended to [facility] with Dr. Story and avoidance of continued persistant opioid and benzodiazapine use/abuse. Anticipated discharge place: Home
[2021-03-11] MEDS ORDERED: MAGNESIUM SULFATE-D5W PMX 1 GM in DEXTROSE/WATER 1 100ML.BAG IVPB ONE (16:08)
--- NOTE | 2021-03-11 16:16 | P.PN ---
Subjective Progress Note Date: 03/11/21 CHIEF COMPLAINT: Abdominal pain HISTORY OF PRESENT ILLNESS: The patient is a 89 year old female with chronic abdominal pain and gastroparesis status post upper and lower endoscopy and cholecystectomy who presents with recurrent abdominal pain. She had prior upper endoscopy including cholecystectomy over 3 months ago. She has pre-existing intractable upper abdominal pain long-standing for many years. She sees multiple consultants including specialist at [facility] for similar abdominal pain for over 5-10 years. Patient continues to complain of epigastric pain. She denies any nausea or vomiting. She is now having multiple episodes of diarrhea. Afebrile. Tachycardic WBC is 5.45 hemoglobin 11.4 platelets 188 sodium 137 potassium is 3.2 BUN is 5.1 creatinine 0.7-1.8 magnesium is 1.9 lipase 79 PHYSICAL EXAM: VITAL SIGNS: Reviewed GENERAL: Well-developed in no acute distress. HEENT: No sclera icterus. Extraocular movements grossly intact. Moist buccal mucosa. Head is atraumatic, normocephalic. Hears conversational speech. No nasal drainage. NECK: Supple without lymphadenopathy. CHEST: Non-labored respirations and equal bilateral excursions. CARDIOVASCULAR: Palpable 2+ radial pulses. ABDOMEN: Soft. Nondistended. Epigastric tenderness MUSCULOSKELETAL: No clubbing or cyanosis. NEUROLOGIC: No focal or lateralizing signs. Cranial nerves II through XII grossly intact. PSYCH: Appropriate affect. Alert and oriented to person, place and time. SKIN: Well perfused. Good skin turgor. ASSESSMENT: 1. Acute on chronic abdominal pain 2. Gastroparesis with intractable nausea and vomiting 3. Diarrhea 4. Hypokalemia and hypomagnesemia PLAN: -Patient's potassium is being replaced -We'll replace magnesium -Check phosphorus level -Continue to monitor electrolytes -Add lactobacillus acidophilus for diarrhea -Continue IV fluids -Continue supportive care and conservative management Physician Vending Route Servicer note has been reviewed by physician. Signing provider agrees with the documented findings, assessment, and plan of care. Objective - Vital Signs Vital signs: Vital Signs Temp 98.1 F 03/11/21 14:55 Pulse 106 H 03/11/21 14:55 Resp 17 03/11/21 14:55 BP 160/75 03/11/21 14:55 Pulse Ox 98 03/11/21 14:55 Intake & Output 03/10/21 03/11/2103/11/21 18:59 06:59 18:59 Other: Voiding Method Toilet # Voids 2 3 5 # Bowel Movements 2 2 5 - Labs CBC & Chem 7: 03/11/21 05:00 03/11/21 05:00 Labs: Abnormal Lab Results - Last 24 Hours (Table) 03/11/21 03/11/21 Range/Units 05:00 05:00 Hgb 11.4 L (12.0-15.0) g/dL Hct 35.8 L (37.2-46.3) % MCH 26.1 L (27.0-32.0) pg MCHC 31.8 L (32.0-37.0) g/dL RDW 14.7 H (11.5-14.5) % Potassium 3.2 L (3.5-5.5) mmol/L Carbon Dioxide 19.2 L (21.6-31.8) mmol/L Anion Gap 16.80 H (4.00-12.00) mmol/L BUN 5.1 L (9.0-27.0) mg/dL BUN/Creatinine Ratio 7.29 L (12.00-20.00) Ratio Lipase 79 H (14-63) U/L
[2021-03-11] MEDS: METOCLOPRAMIDE 5 MG/ML 2 ML VIAL IVP SCH ×2 (18:05→23:07)
[2021-03-11] MEDS: HYDROcodone/APAP 5-325MG 1 EACH TAB PO PRN (18:15)
[2021-03-11] MEDS ORDERED: KETOROLAC 15 MG/ML 1 ML VIAL IVP STA (22:04)
[2021-03-11] MEDS: LACTOBACILLUS ACIDOPH & BULGAR 1 EACH PACKET PO SCH (22:49)
[2021-03-12] MEDS: LORazepam 1 MG TAB PO PRN ×3 (00:03→16:17)
[2021-03-12] MEDS: HYDROcodone/APAP 5-325MG 1 EACH TAB PO PRN ×4 (03:57→23:57)
[2021-03-12] MEDS ORDERED: MORPHINE SULFATE 2 MG/ML SYRINGE IVP STA (04:33)
[2021-03-12] MEDS: SODIUM CHLORIDE 0.9% 1,000 ML IV SCH (04:40)
[2021-03-12] MEDS: METOCLOPRAMIDE 5 MG/ML 2 ML VIAL IVP SCH ×4 (04:52→23:59)
[2021-03-12] MEDS: ONDANSETRON 4 MG/2 ML VIAL IVP PRN ×2 (08:27→20:11)
[2021-03-12] MEDS: LACTOBACILLUS ACIDOPH & BULGAR 1 EACH PACKET PO SCH ×2 (08:28→20:11)
[2021-03-12] MEDS: amLODIPine 5 MG TAB PO SCH (08:28)
[2021-03-12] MEDS: HEPARIN SODIUM,PORCINE/PF 5,000 UNIT/0.5 ML SYRINGE SQ SCH ×4 (08:28→20:12)
[2021-03-12] MEDS: PANTOPRAZOLE 40 MG TABLET PO SCH (08:29)
[2021-03-12 10:13] LABS: African American GFR (CKD) 88.4 (60.0-200.0); Anion Gap 19.3 mmol/L (4.00-12.00); BUN/Creat Ratio 6.83 Ratio (12.00-20.00); Calcium 8.7 mg/dL (8.7-10.3); Carbon Dioxide 16.1 mmol/L (21.6-31.8); Non-African American GFR(CKD) 76.3 (60.0-200.0); Potassium 3.3 mmol/L (3.5-5.5)
[2021-03-12] MEDS ORDERED: POTASSIUM CHLORIDE ER 20 MEQ TAB.ER PO STA (11:23)
--- NOTE | 2021-03-12 13:04 | P.PN ---
Subjective Progress Note Date: 03/12/21 Hospital course: The patient is a very pleasant 85-year-old female with a past medical history of recurrent gastroparesis status post cholecystectomy, hypertension, hyperlipidemia, chronic pain syndrome, and opioid dependency. She presented to the emergency department on 03/09/21 with a chief complaint of intractable nausea and vomiting accompanied by abdominal pain. Patient has had multiple previous admissions for same complaints status post cholecystectomy completed 11/09/20. Patient previously referred to [facility], Dr. Story for gastroparesis but was unclear on whether or not she followed up. Patient was fully evaluated in the emergency department and found to have unremarkable labs including CBC, CMP, and lipase and unremarkable urinalysis. She was admitted under our services for general medical observation for intractable nausea and vomiting.. Physical examination: Patient seen and fully evaluated at bedside this morning. She reports nausea has resolved and though she continues to have mild epigastric abdominal pain, she states significant improvement. Patient requesting diet to be advanced as she has been tolerating clear liquid diet. Orders placed for low fiber diet and we will continue to monitor patient's toleration with advancement of diet. Morning labs revealing hyponatremia with sodium of 133, hypokalemia with potassium of 3.3,a mild acidosis with chloride of 98, carbon dioxide of 16.1, and anion gap of 19.3. Lipase also slightly elevated at 100. Potassium replaced. We will continue to monitor closely with repeat a.m. labs and if patient continues to tolerate diet plan for likely discharge tomorrow with encouragement to follow up with gastroenterology at [facility] as previously discussed.. General: non toxic, no distress, appears at stated age, thin build Derm: no unusual rashes/lesions no unusual ecchymoses, warm, dry Head: atraumatic, normocephalic, symmetric Eyes: EOMI, no lid lag, anicteric sclera, pupils equal round reactive to light ENT: Nose and ears atraumatic, no thrush, no pharyngeal erythema Neck: No thyromegaly, no cervical lymphadenopathy, trachea midline, supple Mouth: no lip lesion, mucus membranes moist Cardiovascular: S1S2 reg, no murmur, positive posterior tibial pulse bilateral, no edema, capillary refill less than 2 seconds Lungs: CTA bilateral, no rhonchi, no rales , no accessory muscle use Abdominal: soft, nontender to palpation. No guarding, no appreciable organomegaly, normal bowel sounds Ext: no gross muscle atrophy, muscle strength 5 out of 5 in all 4 extremities grossly, no contractures, Neuro: CN II-XI grossly intact, light touch intact all 4 extremities, finger to nose within normal limits, Psych: Alert, oriented, appropriate affect Assessment and plan of care: Intractable nausea and vomiting Recurrent gastroparesis -Continue with IV fluid hydration -Add additional antiemetic Compazine to assist with controlling patient's persistent reports of nausea -GI cocktail for patient's reports of burning sensation to her epigastric region. Hypertension Monitor vital signs and continue daily medication regimen with amlodipine Chronic pain syndrome Opioid dependency/abuse -Recurrent gastroparesis likely secondary to chronic opioid dependency/abuse. -Patient is going to have drug-seeking behaviors, Dilaudid decreased to 0.25 mg every 3 hours. -Patient educated on risks of continued persistent opioid and benzodiazepine use/abuse. CODE STATUS: Full Code DVT prophylaxis: Lovenox Discussed with: Patient and RN Anticipated discharge date: Tomorrow morning, strongly recommend follow-up as previously recommended to [facility] with Dr. Story and avoidance of continued persistant opioid and benzodiazapine use/abuse. Anticipated discharge place: Home Objective - Vital Signs Vital signs: Vital Signs Temp 98.0 F 03/12/21 07:00 Pulse 99 03/12/21 07:00 Resp 17 03/12/21 07:00 BP 155/84 03/12/21 07:00 Pulse Ox 98 03/12/21 07:00 Intake & Output 03/11/21 03/12/21 03/12/21 18:59 06:59 18:59 Other: Voiding Method Toilet Toilet # Voids 5 3 # Bowel Movements 5 - Labs CBC & Chem 7: 03/11/21 05:00 03/12/21 05:04 Labs: Abnormal Lab Results - Last 24 Hours (Table) 03/11/21 Range/Units 05:00 Potassium 3.2 L (3.5-5.5) mmol/L Carbon Dioxide 19.2 L (21.6-31.8) mmol/L Anion Gap 16.80 H (4.00-12.00) mmol/L BUN 5.1 L (9.0-27.0) mg/dL BUN/Creatinine Ratio 7.29 L (12.00-20.00) Ratio Lipase 79 H (14-63) U/L
--- NOTE | 2021-03-12 13:56 | P.PN ---
Subjective Progress Note Date: 03/12/21 CHIEF COMPLAINT: Abdominal pain HISTORY OF PRESENT ILLNESS: The patient is a 89 year old female with chronic abdominal pain and gastroparesis status post upper and lower endoscopy and cholecystectomy who presents with recurrent abdominal pain. She had prior upper endoscopy including cholecystectomy over 3 months ago. She has pre-existing intractable upper abdominal pain long-standing for many years. She sees multiple consultants including specialist at [facility] for similar abdominal pain for over 5-10 years. Patient continues to complain of epigastric pain. She denies any nausea or vomiting. She is now having multiple episodes of diarrhea. She did eat a small amount of regular food this morning. Afebrile. Tachycardia has resolved. Sodium 133 potassium is 3.3 BUN is 5 cre atinine 0.7 phosphorus is 3.6 magnesium 2.0 lipase is up from 79 to 100 PHYSICAL EXAM: VITAL SIGNS: Reviewed GENERAL: Well-developed in no acute distress. HEENT: No sclera icterus. Extraocular movements grossly intact. Moist buccal mucosa. Head is atraumatic, normocephalic. Hears conversational speech. No nasal drainage. NECK: Supple without lymphadenopathy. CHEST: Non-labored respirations and equal bilateral excursions. CARDIOVASCULAR: Palpable 2+ radial pulses. ABDOMEN: Soft. Nondistended. Epigastric tenderness MUSCULOSKELETAL: No clubbing or cyanosis. NEUROLOGIC: No focal or lateralizing signs. Cranial nerves II through XII grossly intact. PSYCH: Appropriate affect. Alert and oriented to person, place and time. SKIN: Well perfused. Good skin turgor. ASSESSMENT: 1. Acute on chronic abdominal pain 2. Gastroparesis with intractable nausea and vomiting 3. Diarrhea 4. Hypokalemia 5. Hypomagnesemia improved PLAN: -start low fat diet -Replace potassium -Continue to monitor electrolytes -Add lactobacillus acidophilus for diarrhea -Continue IV fluids -Continue supportive care and conservative management Physician Customs Entry Writer note has been reviewed by physician. Signing provider agrees with the documented findings, assessment, and plan of care. Objective - Vital Signs Vital signs: Vital Signs Temp 98.0 F 03/12/21 07:00 Pulse 99 03/12/21 08:00 Resp 17 03/12/21 08:00 BP 155/84 03/12/21 07:00 Pulse Ox 98 03/12/21 07:00 Intake & Output 03/11/21 03/12/21 03/12/21 18:59 06:59 18:59 Other: Voiding Method Toilet Toilet Toilet # Voids 5 3 # Bowel Movements 5 - Labs CBC & Chem 7: 03/11/21 05:00 03/12/21 05:04 Labs: Abnormal Lab Results - Last 24 Hours (Table) 03/12/21 Range/Units 05:04 Sodium 133 L (135-145) mmol/L Potassium 3.3 L (3.5-5.5) mmol/L Carbon Dioxide 16.1 L (21.6-31.8) mmol/L Anion Gap 19.30 H (4.00-12.00) mmol/L BUN 5.0 L (9.0-27.0) mg/dL BUN/Creatinine Ratio 6.83 L (12.00-20.00) Ratio Lipase 100 H (14-63) U/L
[2021-03-13] MEDS: LORazepam 1 MG TAB PO PRN ×2 (01:24→09:08)
[2021-03-13 02:36] VITALS: RESP 16
[2021-03-13] MEDS: METOCLOPRAMIDE 5 MG/ML 2 ML VIAL IVP SCH (04:54)
[2021-03-13] MEDS: HYDROcodone/APAP 5-325MG 1 EACH TAB PO PRN (05:51)
[2021-03-13] MEDS: ONDANSETRON 4 MG/2 ML VIAL IVP PRN (05:52)
[2021-03-13 07:22] VITALS: BP 137/87; PULSE 106; TEMP 98.1
[2021-03-13] MEDS: HEPARIN SODIUM,PORCINE/PF 5,000 UNIT/0.5 ML SYRINGE SQ SCH (07:22)
[2021-03-13] MEDS: amLODIPine 5 MG TAB PO SCH (07:23)
[2021-03-13] MEDS: PANTOPRAZOLE 40 MG TABLET PO SCH (07:23)
[2021-03-13] MEDS: LACTOBACILLUS ACIDOPH & BULGAR 1 EACH PACKET PO SCH (07:23)
[2021-03-13 09:41] LABS: HCT 36.8 % (37.2-46.3); HGB 11.4 g/dL (12.0-15.0); MCH 25.1 pg (27.0-32.0); MCV 80.9 fL (80.0-97.0); Mean Platelet Volume 12.3 fL (9.5-12.2); Platelet Count 192 X 10*3/uL (140-440); RBC 4.55 X 10*6/uL (4.10-5.20); RDW 14.8 % (11.5-14.5); WBC 5.57 X 10*3/uL (4.50-10.00)
[2021-03-13 10:55] LABS: African American GFR (CKD) 92.9 (60.0-200.0); Anion Gap 16.7 mmol/L (4.00-12.00); BUN/Creat Ratio 9.43 Ratio (12.00-20.00); Blood Urea Nitrogen 6.6 mg/dL (9.0-27.0); Calcium 8.9 mg/dL (8.7-10.3); Carbon Dioxide 19.3 mmol/L (21.6-31.8); Magnesium 1.9 mg/dL (1.5-2.4); Non-African American GFR(CKD) 80.1 (60.0-200.0); Potassium 3.5 mmol/L (3.5-5.5)
--- NOTE | 2021-03-13 14:21 | P.PN ---
Subjective Progress Note Date: 03/13/21 CHIEF COMPLAINT: Abdominal pain HISTORY OF PRESENT ILLNESS: The patient is a 89 year old female with chronic abdominal pain and gastroparesis status post upper and lower endoscopy and cholecystectomy who presents with recurrent abdominal pain. She had prior upper endoscopy including cholecystectomy over 3 months ago. She has pre-existing intractable upper abdominal pain long-standing for many years. She sees multiple consultants including specialist at [facility] for similar abdominal pain for over 5-10 years. Patient continues to complain of epigastric pain. She denies any nausea or vomiting. Patient reports that her diarrhea is improving. She is able to eat small amounts of regular food. Patient reports that her pain is better than on admission. Afebrile. WBC 5.57 potassium 3.5 PHYSICAL EXAM: VITAL SIGNS: Reviewed GENERAL: Well-developed in no acute distress. HEENT: No sclera icterus. Extraocular movements grossly intact. Moist buccal mucosa. Head is atraumatic, normocephalic. Hears conversational speech. No nasal drainage. NECK: Supple without lymphadenopathy. CHEST: Non-labored respirations and equal bilateral excursions. CARDIOVASCULAR: Palpable 2+ radial pulses. ABDOMEN: Soft. Nondistended. Epigastric tenderness MUSCULOSKELETAL: No clubbing or cyanosis. NEUROLOGIC: No focal or lateralizing signs. Cranial nerves II through XII grossly intact. PSYCH: Appropriate affect. Alert and oriented to person, place and time. SKIN: Well perfused. Good skin turgor. ASSESSMENT: 1. Acute on chronic abdominal pain 2. Gastroparesis with intractable nausea and vomiting 3. Diarrhea 4. Hypokalemia improved 5. Hypomagnesemia improved PLAN: -Patient can be discharged from surgical standpoint -Continue supportive care and conservative management Physician Technologist Infectious Disease note has been reviewed by physician. Signing provider agrees with the documented findings, assessment, and plan of care. Objective - Vital Signs Vital signs: Vital Signs Temp 98.1 F 03/13/21 07:00 Pulse 106 H 03/13/21 07:00 Resp 16 03/13/21 07:00 BP 137/87 03/13/21 07:00 Pulse Ox 98 03/13/21 07:00 Intake & Output 03/12/21 03/13/21 03/13/21 18:59 06:59 18:59 Other: Voiding Method Toilet Toilet Toilet # Voids 5 3 # Bowel Movements 3 - Labs CBC & Chem 7: 03/13/21 05:43 03/13/21 05:43 Labs: Abnormal Lab Results - Last 24 Hours (Table) 03/13/21 03/13/21 Range/Units 05:43 05:43 Hgb 11.4 L (12.0-15.0) g/dL Hct 36.8 L (37.2-46.3) % MCH 25.1 L (27.0-32.0) pg MCHC 31.0 L (32.0-37.0) g/dL RDW 14.8 H (11.5-14.5) % MPV 12.3 H (9.5-12.2) fL Carbon Dioxide 19.3 L (21.6-31.8) mmol/L Anion Gap 16.70 H (4.00-12.00) mmol/L BUN 6.6 L (9.0-27.0) mg/dL BUN/Creatinine Ratio 9.43 L (12.00-20.00) Ratio
--- NOTE | 2021-03-13 19:33 | P.DS ---
<Scott Miranda - Last Filed: 03/13/21 19:26> Providers Expected date of discharge: 03/13/21 Hospital Course: Discharge Diagnosis: Intractable nausea and vomiting Recurrent gastroparesis Hypertension Chronic pain syndrome Opioid dependency/abuse Chronic diarrhea Hospital Course: The patient is a very pleasant 85-year-old female with a past medical history of recurrent gastroparesis status post cholecystectomy, hypertension, hyperlipidemia, chronic pain syndrome, and opioid dependency. She presented to the emergency department on 03/09/21 with a chief complaint of intractable nausea and vomiting accompanied by abdominal pain. Patient has had multiple previous admissions for same complaints status post cholecystectomy completed 11/09/20. Patient previously referred to [facility], Dr. Story for gastroparesis but was unclear on whether or not she followed up. Patient was fully evaluated in the emergency department and found to have unremarkable labs including CBC, CMP, and lipase and unremarkable urinalysis. She was admitted under our services for general medical observation for intractable nausea and vomiting. Patient treated symptomatically by decreasing diet to clear liquids and slowly advancing back to low fiber diet. Patient was evaluated by surgery and cleared from surgical standpoint for discharge. Patient tolerating low fiber diet. She reports near resolution of abdominal pain and states she is actually having improvement in her chronic diarrhea. Patient medically stable for discharge home at this time, she is encouraged to follow-up with her chair pad maker at [facility] in 1 week as previously discussed as well as her PCP, Dr. Doss in 1-2 days. Patient medically stable for discharge home with palliative and home care at this time. Patient encouraged to decrease Ativan to 1 mg 3 times daily and decrease [place] from 4 times daily to 3 times daily. Physical examination: General: non toxic, no distress, appears at stated age, thin build Derm: no unusual rashes/lesions no unusual ecchymoses, warm, dry Head: atraumatic, normocephalic, symmetric Eyes: EOMI, no lid lag, anicteric sclera, pupils equal round reactive to light ENT: Nose and ears atraumatic, no thrush, no pharyngeal erythema Neck: No thyromegaly, no cervical lymphadenopathy, trachea midline, supple Mouth: no lip lesion, mucus membranes moist Cardiovascular: S1S2 reg, no murmur, positive posterior tibial pulse bilateral, no edema, capillary refill less than 2 seconds Lungs: CTA bilateral, no rhonchi, no rales , no accessory muscle use Abdominal: soft, nontender to palpation. No guarding, no appreciable organomegaly, normal bowel sounds Ext: no gross muscle atrophy, muscle strength 5 out of 5 in all 4 extremities grossly, no contractures, Neuro: CN II-XI grossly intact, light touch intact all 4 extremities, finger to nose within normal limits, Psych: Alert, oriented, appropriate affect A total of 45 minutes of time were spent preparing this complex discharge summary. Patient Condition at Discharge: Stable Plan - Discharge Summary Discharge Rx Participant: No New Discharge Prescriptions: New LORazepam [Ativan] 1 mg PO TID PRN tab PRN Reason: Anxiety Continue amLODIPine [Norvasc] 5 mg PO DAILY ondansetron HCL [Zofran] 8 mg PO TID PRN PRN Reason: Nausea Ergocalciferol [Vitamin D2 (DRISDOL)] 50,000 unit PO TUSA Losartan Potassium 100 mg PO DAILY rOPINIRole HCL [Requip] 0.25 mg PO HS Omeprazole [PriLOSEC] 20 mg PO BID Mirtazapine [Remeron] 45 mg PO HS hydrOXYzine HCL [Atarax] 25 mg PO QID PRN PRN Reason: Anxiety/itching Rosuvastatin [Crestor] 10 mg PO HS Famotidine [Pepcid] 20 mg PO BID 30 Days #60 tab Sucralfate [Carafate] 1 gm PO ACHS 30 Days #120 tab Wjgrfkgtopgfle-TW-Gxtvdqngsj [Folbic] 1 tab PO DAILY Changed HYDROcodone/APAP 10-325MG [[place] 10-325] 1 tab PO TID #0 Discontinued LORazepam [Ativan] 2 mg PO TID Discharge Medication List amLODIPine [Norvasc] 5 mg PO DAILY 01/28/18 [History] ondansetron HCL [Zofran] 8 mg PO TID PRN 08/17/18 [History] Ergocalciferol [Vitamin D2 (DRISDOL)] 50,000 unit PO TUSA 11/29/19 [History] Losartan Potassium 100 mg PO DAILY 11/29/19 [History] rOPINIRole HCL [Requip] 0.25 mg PO HS 07/24/20 [History] Omeprazole [PriLOSEC] 20 mg PO BID 08/24/20 [History] Mirtazapine [Remeron] 45 mg PO HS 11/08/20 [History] Rosuvastatin [Crestor] 10 mg PO HS 11/29/20 [History] hydrOXYzine HCL [Atarax] 25 mg PO QID PRN 11/29/20 [History] Famotidine [Pepcid] 20 mg PO BID 30 Days #60 tab 12/26/20 [Rx] Sucralfate [Carafate] 1 gm PO ACHS 30 Days #120 tab 12/26/20 [Rx] Cclfangygcnhin-MF-Fpyrlmssfl [Folbic] 1 tab PO DAILY 03/09/21 [History] HYDROcodone/APAP 10-325MG [Woolwine 10-325] 1 tab PO TID #0 03/13/21 [Rx] LORazepam [Ativan] 1 mg PO TID PRN tab 03/13/21 [Rx] Follow up Appointment(s)/Referral(s): Davida Doss MD [Primary Care Provider] - 1-2 days (Son to call office to make appointment.) [facility], [NON-STAFF] - 1 Week Patient Instructions/Handouts: Gastroparesis (DC) Activity/Diet/Wound Care/Special Instructions: Activity: As tolerated. Take breaks as needed. Diet: Heart healthy and carb consistent diet. Avoid salts, or foods with hidden salts such as canned or boxed foods and frozen dinners. Extra salt makes your heart work harder and traps the fluid in your body for longer. Special Instructions: You are being discharged home with palliative care through [facility]. As we discussed it is important to refrain from narcotics and benzodiazepines. It is important to wean down your use of benzodiazepines (ativan) and opioids (norco) as we discussed. This can be done by decreasing your dose and frequency of use. I have decreased youNorco dose from 4 times daily to 3 times daily and decreased your ativan to 1 mg three times daily. Take all of your medications as directed and remember to keep all of your doctor's appointments and follow-up as needed. Thank you for allowing us to participate in your care, it was truly a pleasure having you for our patient!!! Discharge Disposition: HOME WITH HOME HEALTH SERVICES <Marisol Serrano - Last Filed: 11/03/21 22:26> Providers Date of admission: 03/11/21 07:38 Attending physician: Lizeth Cabezas MD Primary care physician: Davida Doss MD Hospital Course: Scott Miranda NP rendered care for this patient independently, reviewed the findings and plan as documented in the note above. I did not physically speak with or examine the patient on this date.
== END 2021-03-13 10:54 | disposition home health service (06) | DRG 392 ==
LOC: EC 17:14 → 6NMEDSUR 20:50 → OBSVTOIN 03-11 07:38
PROVIDERS: ADMIT Internal Medicine; ATTEND Internal Medicine
DX: K31.84 Gastroparesis (principal); F11.20 Opioid dependence, uncomplicated; E87.1 Hypo-osmolality and hyponatremia; K52.9 Noninfective gastroenteritis and colitis, unspecified; G89.4 Chronic pain syndrome; F41.0 Panic disorder [episodic paroxysmal anxiety]; E87.6 Hypokalemia; E78.5 Hyperlipidemia, unspecified; E83.42 Hypomagnesemia; E86.0 Dehydration; M85.80 Other specified disorders of bone density and structure, unspecified site; M19.90 Unspecified osteoarthritis, unspecified site; M41.9 Scoliosis, unspecified; I10 Essential (primary) hypertension; H40.9 Unspecified glaucoma; G62.9 Polyneuropathy, unspecified; Z20.822 Contact with and (suspected) exposure to COVID-19; Z79.899 Other long term (current) drug therapy; Z51.5 Encounter for palliative care; Z82.49 Family history of ischemic heart disease and other diseases of the circulatory system; Z87.891 Personal history of nicotine dependence; Z90.49 Acquired absence of other specified parts of digestive tract; Z90.711 Acquired absence of uterus with remaining cervical stump; Z96.651 Presence of right artificial knee joint; Z98.42 Cataract extraction status, left eye; Z98.41 Cataract extraction status, right eye; Z90.710 Acquired absence of both cervix and uterus; Z98.890 Other specified postprocedural states; Z80.0 Family history of malignant neoplasm of digestive organs; Z83.2 Family history of diseases of the blood and blood-forming organs and certain disorders involving the immune mechanism; Z90.89 Acquired absence of other organs
CPT/HCPCS: 36415; 74018; 80048; 80053; 81003; 83605; 83690; 83735; 84100; 85025; 85027; 87635; 96361; 96374; 96375; 96376; 99285

== ENCOUNTER 2021-07-14 07:21 | Emergency (ER) | payer MEDICARE, OTHER ==
[2021-07-14] MEDS ORDERED: HYDROmorphone 0.5 MG/0.5 ML SYRINGE IVP STA (07:32)
[2021-07-14] MEDS ORDERED: SODIUM CHLORIDE 0.9% 1,000 ML IV STA (07:32)
[2021-07-14] MEDS ORDERED: FAMOTIDINE 20 MG/2 ML VIAL IV STA (07:33)
--- NOTE | 2021-07-14 07:36 | ED ---
General Adult HPI - General Chief complaint: Abdominal Pain Stated complaint: Abdominal Pain Time Seen by Provider: 07/14/21 07:23 Source: patient, EMS, RN notes reviewed Mode of arrival: EMS Limitations: no limitations - History of Present Illness Initial comments: Patient is a pleasant 85-year-old female presenting to the emergency department with complaints of abdominal discomfort. Patient states she has had similar symptoms multiple times previously associated with pancreatitis. Patient has had nausea and did vomit 2 days ago. No vomiting since then. Patient states she also has gastroparesis. Patient requests Dilaudid several times - Related Data Home Medications Medication Instructions Recorded Confirmed amLODIPine [Norvasc] 5 mg PO DAILY 01/28/18 03/09/21 ondansetron HCL [Zofran] 8 mg PO TID PRN 08/17/18 03/09/21 Ergocalciferol [Vitamin D2 50,000 unit PO TUSA 11/29/19 03/09/21 (DRISDOL)] Losartan Potassium 100 mg PO DAILY 11/29/19 03/09/21 rOPINIRole HCL [Requip] 0.25 mg PO HS 07/24/20 03/09/21 Omeprazole [PriLOSEC] 20 mg PO BID 08/24/20 03/09/21 Mirtazapine [Remeron] 45 mg PO HS 11/08/20 03/09/21 Rosuvastatin [Crestor] 10 mg PO HS 11/29/20 03/09/21 hydrOXYzine HCL [Atarax] 25 mg PO QID PRN 11/29/20 03/09/21 Oqhhwmdhualsnu-MZ-Thqasxboxb 1 tab PO DAILY 03/09/21 03/09/21 [Folbic] Previous Rx's Medication Instructions Recorded Famotidine [Pepcid] 20 mg PO BID 30 Days #60 tab 12/26/20 Sucralfate [Carafate] 1 gm PO ACHS 30 Days #120 tab 12/26/20 HYDROcodone/APAP 10-325MG [[place] 1 tab PO TID #0 03/13/21 10-325] LORazepam [Ativan] 1 mg PO TID PRN tab 03/13/21 Allergies Allergy/AdvReac Type Severity Reaction Status Date / Time hydromorphone [From Dilaudid] Allergy Rash/Hives Verified 07/14/21 07:29 morphine Allergy Rash/Hives Verified 07/14/21 07:29 tetracycline Allergy Rash/Hives Verified 07/14/21 07:29 Review of Systems ROS Statement: Those systems with pertinent positive or pertinent negative responses have been documented in the HPI. ROS Other: All systems not noted in ROS Statement are negative. Constitutional: Denies: fever Eyes: Denies: eye pain ENT: Denies: ear pain Respiratory: Denies: cough Cardiovascular: Denies: chest pain Endocrine: Denies: fatigue Gastrointestinal: Reports: as per HPI, abdominal pain, nausea, vomiting Genitourinary: Denies: dysuria Musculoskeletal: Denies: back pain Skin: Denies: rash Neurological: Denies: weakness Past Medical History Past Medical History: Hyperlipidemia, Hypertension, Osteoarthritis (OA), Thyroid Disorder Additional Past Medical History / Comment(s): recently seen in ER for intractible abdominal pain,Gastroparesis, thyroid nodules, servere abdominal( LUQ) pain,nausea and vomiting,neuropathy calin feet, gastroparesis, pancreatitis. History of Any Multi-Drug Resistant Organisms: None Reported Past Surgical History: Appendectomy, Hysterectomy, Orthopedic Surgery, Tonsillectomy Additional Past Surgical History / Comment(s): L Shoulder surgery with plate, R knee replacement, colonoscopy, partial hysterectomy---still has her ovaries, carpal tunnel release bilaterally, calin cataracts, eye surgery for glaucoma Past Anesthesia/Blood Transfusion Reactions: No Reported Reaction, Postoperative Nausea & Vomiting (PONV) Additional Past Anesthesia/Blood Transfusion Reaction / Comment(s): abdominal pain post op Past Psychological History: Anxiety, Panic Disorder Smoking Status: Never smoker - Past Family History Mother Family Medical History: Cancer Additional Family Medical History / Comment(s): Colon Father Family Medical History: Coronary Artery Disease (CAD) Sister(s) Family Medical History: Deep Vein Thrombosis (DVT) General Exam Limitations: no limitations General appearance: alert, in no apparent distress Head exam: Present: normocephalic Eye exam: Present: normal appearance Neck exam: Present: normal inspection Respiratory exam: Present: normal lung sounds bilaterally Cardiovascular Exam: Present: regular rate, normal rhythm Expanded Peripheral pulses: 2+: Posterior Tibialis (R), Posterior Tibialis (L) GI/Abdominal exam: Present: soft, normal bowel sounds. Absent: distended, tenderness, guarding, rebound, rigid, pulsatile mass Extremities exam: Present: normal inspection Neurological exam: Present: alert Psychiatric exam: Present: normal affect, normal mood Skin exam: Present: normal color Course Vital Signs 07/14/21 07/14/21 07:21 08:42 Temperature 98.4 F Pulse Rate 91 78 Respiratory 19 18 Rate Blood Pressure 161/87 155/73 O2 Sat by Pulse 99 98 Oximetry Medical Decision Making - Medical Decision Making Patient reevaluated and resting comfortably in bed. Patient states she needs mo re Dilaudid to help her relax. Patient states usually she receives a full milligram and 0.5 is not enough for her. Discussion regarding computed tomography scan however patient refuses this. Patient wants additional pain medicine and discharged. - Lab Data Result diagrams: 07/14/21 07:36 07/14/21 07:36 Lab Results 07/14/21 07/14/21 Range/Units 07:36 07:36 WBC 3.8 (3.8-10.6) k/uL RBC 4.34 (3.80-5.40) m/uL Hgb 11.2 L (11.4-16.0) gm/dL Hct 36.3 (34.0-46.0) % MCV 83.7 (80.0-100.0) fL MCH 25.7 (25.0-35.0) pg MCHC 30.8 L (31.0-37.0) g/dL RDW 14.3 (11.5-15.5) % Plt Count 182 (150-450) k/uL MPV 8.4 Neutrophils % 52 % Lymphocytes % 35 % Monocytes % 8 % Eosinophils % 3 % Basophils % 0 % Neutrophils # 2.0 (1.3-7.7) k/uL Lymphocytes # 1.4 (1.0-4.8) k/uL Monocytes # 0.3 (0-1.0) k/uL Eosinophils # 0.1 (0-0.7) k/uL Basophils # 0.0 (0-0.2) k/uL Hypochromasia Moderate Sodium 136 L (137-145) mmol/L Potassium 3.5 (3.5-5.1) mmol/L Chloride 104 (98-107) mmol/L Carbon Dioxide 22 (22-30) mmol/L Anion Gap 10 mmol/L BUN 10 (7-17) mg/dL Creatinine 0.96 (0.52-1.04) mg/dL Est GFR (CKD-EPI)AfAm 63 (>60 ml/min/1.73 sqM) Est GFR (CKD-EPI)NonAf 55 (>60 ml/min/1.73 sqM) Glucose 89 (74-99) mg/dL Calcium 8.5 (8.4-10.2) mg/dL Total Bilirubin 0.7 (0.2-1.3) mg/dL AST 20 (14-36) U/L ALT 16 (4-34) U/L Alkaline Phosphatase 77 (38-126) U/L Total Protein 6.8 (6.3-8.2) g/dL Albumin 3.8 (3.5-5.0) g/dL Amylase 50 (30-110) U/L Lipase 75 (23-300) U/L - Radiology Data Radiology results: image reviewed (Abdominal x-ray reveals no acute process) Disposition Clinical Impression: Abdominal pain Disposition: HOME SELF-CARE Condition: Stable Instructions (If sedation given, give patient instructions): Abdominal Pain (ED) Additional Instructions: Please do follow-up to primary care physician and your surgeon tomorrow. Return for increased pain, vomiting, fevers, worsening or change in symptoms or any other concerns. Is patient prescribed a controlled substance at d/c from ED?: No Referrals: Sal Oconnell MD [STAFF PHYSICIAN] - 1-2 days Danyelle Hardy MD [STAFF PHYSICIAN] - 1-2 days Time of Disposition: 08:47
[2021-07-14] MEDS: METOCLOPRAMIDE 5 MG/ML 2 ML VIAL IVP STA ×2 (07:40→07:48)
[2021-07-14 07:46] LABS: Basophils % (A) 0 %; Eosinophils # (A) 0.1 k/uL (0-0.7); Eosinophils % (A) 3 %; HCT 36.3 % (34.0-46.0); HGB 11.2 gm/dL (11.4-16.0); Hypochromasia Moderate; Lymphocytes # (A) 1.4 k/uL (1.0-4.8); Lymphocytes % (A) 35 %; MCH 25.7 pg (25.0-35.0); MCHC 30.8 g/dL (31.0-37.0); MCV 83.7 fL (80.0-100.0); Mean Platelet Volume 8.4; Monocytes # (A) 0.3 k/uL (0-1.0); Monocytes % (A) 8 %; Neutrophils % (A) 52 %; Platelet Count 182 k/uL (150-450); RBC 4.34 m/uL (3.80-5.40); RDW 14.3 % (11.5-15.5); WBC 3.8 k/uL (3.8-10.6)
[2021-07-14 08:09] LABS: Albumin 3.8 g/dL (3.5-5.0); Calcium 8.5 mg/dL (8.4-10.2); Potassium 3.5 mmol/L (3.5-5.1); Total Bilirubin 0.7 mg/dL (0.2-1.3); Total Protein 6.8 g/dL (6.3-8.2)
--- NOTE | 2021-07-14 08:27 | XR ---
EXAMINATION TYPE: XR KUB DATE OF EXAM: 07/14/2021 COMPARISON: NONE HISTORY: Pain TECHNIQUE: Single supine KUB image of the abdomen is obtained FINDINGS: Small bowel demonstrates no evidence for dilatation or air fluid levels. Gas and fecal material is seen in non-distended colon. No convincing evidence for pneumoperitoneum. No unusual calcifications. The lung bases are clear. The osseous structures are intact. IMPRESSION: 1. Overall nonobstructive bowel gas pattern.
[2021-07-14 08:42] VITALS: RESP 18
[2021-07-14] MEDS ORDERED: HYDROmorphone 1 MG/ML 1 ML SYRINGE IVP STA (08:48)
[2021-07-14 09:46] VITALS: BP 144/70; PULSE 79; TEMP 98
== END 2021-07-14 09:46 | disposition home or self-care (01) ==
LOC: EC 07:21
DX: R10.9 Unspecified abdominal pain (principal); E78.5 Hyperlipidemia, unspecified; I10 Essential (primary) hypertension; M19.90 Unspecified osteoarthritis, unspecified site; E07.9 Disorder of thyroid, unspecified; F41.9 Anxiety disorder, unspecified; Z88.5 Allergy status to narcotic agent; Z90.49 Acquired absence of other specified parts of digestive tract; Z90.710 Acquired absence of both cervix and uterus
CPT/HCPCS: 99284; 96374; 96375; 96376; 36415; 80053; 82150; 83690; 85025; 74018; J1170 ×2

== ENCOUNTER 2021-08-24 10:54 | Emergency (ER) | payer MEDICARE, OTHER ==
[2021-08-24 11:07] VITALS: RESP 18; TEMP 98.8
[2021-08-24] MEDS ORDERED: ONDANSETRON 4 MG/2 ML VIAL IVP STA (11:22)
[2021-08-24] MEDS ORDERED: SODIUM CHLORIDE 0.9% 500 ML 500 ML IV STA (11:22)
[2021-08-24] MEDS ORDERED: HYDROmorphone 0.5 MG/0.5 ML SYRINGE IVP STA (11:22)
--- NOTE | 2021-08-24 11:53 | ED ---
General Adult HPI - General Chief complaint: Abdominal Pain Stated complaint: Abd pain Time Seen by Provider: 08/24/21 11:05 Source: patient, EMS Mode of arrival: EMS Limitations: no limitations - History of Present Illness Initial comments: This 85-year-old female with past medical history of hypertension, hyperlipidemia, chronic gastroparesis and chronic pancreatitis presents to the emergency department with abdominal pain. Patient states 3 days ago she began to experience upper epigastric pain which has slowly been progressing over the last 3 days. Patient states food does worsen the pain. Patient states she does have narcotics prescribed at home from a pain management doctor which has mildly decreased her abdominal pain. Patient states the abdominal pain has slowly been progressing. Patient describes the pain as dull and burning in nature. Patient states this episode is the same as all of her other "flareups." Patient denies any recent alcohol use. Patient states her pain as 8/10. Patient states she is a little bit nauseous due to increased pain and states she did vomit 2 times last night. Patient states she has been keeping hydrated and states she has been drinking lots of water. Patient states she did eat food yesterday, however it made the pain worse so she has not eaten yet today. Patient denies any radiation of the pain to either side of her abdomen or to her back. Patient states she has had a couple episodes of diarrhea over the last couple days but denies any hematochezia or hemoptysis. Patient states when she gets these flareups she does often experiences interim symptoms such as diarrhea and vomiting. Patient denies any fever, chest pain, shortness of breath, headache, lightheadedness, dizziness, weakness, change in vision. - Related Data Home Medications Medication Instructions Recorded Confirmed amLODIPine [Norvasc] 5 mg PO DAILY 01/28/18 03/09/21 ondansetron HCL [Zofran] 8 mg PO TID PRN 08/17/18 03/09/21 Ergocalciferol [Vitamin D2 50,000 unit PO TUSA 11/29/19 03/09/21 (DRISDOL)] Losartan Potassium 100 mg PO DAILY 11/29/19 03/09/21 rOPINIRole HCL [Requip] 0.25 mg PO HS 07/24/20 03/09/21 Omeprazole [PriLOSEC] 20 mg PO BID 08/24/20 03/09/21 Rosuvastatin [Crestor] 10 mg PO HS 11/29/20 03/09/21 hydrOXYzine HCL [Atarax] 25 mg PO QID PRN 11/29/20 03/09/21 Elyxzwgrqsghqf-VF-Teqiwvypuf 1 tab PO DAILY 03/09/21 03/09/21 [Folbic] HYDROcodone/APAP 10-325MG [[place] 2 tab PO QID 08/24/21 08/24/21 10-325] LORazepam [Ativan] 1 mg PO QID 08/24/21 08/24/21 Mirtazapine 45mg Odt 45 mg SL HS 08/24/21 08/24/21 Previous Rx's Medication Instructions Recorded Famotidine [Pepcid] 20 mg PO BID 30 Days #60 tab 12/26/20 Allergies Allergy/AdvReac Type Severity Reaction Status Date / Time morphine Allergy Rash/Hives Verified 08/24/21 12:41 tetracycline Allergy Rash/Hives Verified 08/24/21 12:41 Review of Systems ROS Statement: Those systems with pertinent positive or pertinent negative responses have been documented in the HPI. ROS Other: All systems not noted in ROS Statement are negative. Past Medical History Past Medical History: Hyperlipidemia, Hypertension, Osteoarthritis (OA), Thyroid Disorder Additional Past Medical History / Comment(s): recently seen in ER for intractible abdominal pain,Gastroparesis, thyroid nodules, servere abdominal( LUQ) pain,nausea and vomiting,neuropathy calin feet, gastroparesis, pancreatitis. History of Any Multi-Drug Resistant Organisms: None Reported Past Surgical History: Appendectomy, Hysterectomy, Orthopedic Surgery, Tonsillectomy Additional Past Surgical History / Comment(s): L Shoulder surgery with plate, R knee replacement, colonoscopy, partial hysterectomy---still has her ovaries, carpal tunnel release bilaterally, calin cataracts, eye surgery for glaucoma Past Anesthesia/Blood Transfusion Reactions: No Reported Reaction, Postoperative Nausea & Vomiting (PONV) Additional Past Anesthesia/Blood Transfusion Reaction / Comment(s): abdominal pain post op Past Psychological History: Anxiety, Panic Disorder Smoking Status: Never smoker Past Alcohol Use History: None Reported Past Drug Use History: None Reported - Past Family History Mother Family Medical History: Cancer Additional Family Medical History / Comment(s): Colon Father Family Medical History: Coronary Artery Disease (CAD) Sister(s) Family Medical History: Deep Vein Thrombosis (DVT) General Exam Limitations: no limitations General appearance: alert, in no apparent distress Head exam: Present: atraumatic, normocephalic, normal inspection Eye exam: Present: normal appearance, PERRL, EOMI. Absent: scleral icterus, conjunctival injection, periorbital swelling ENT exam: Present: normal exam, mucous membranes moist Neck exam: Present: normal inspection, full ROM. Absent: tenderness, meningismus, lymphadenopathy Respiratory exam: Present: normal lung sounds bilaterally. Absent: respiratory distress, wheezes, rales, rhonchi, stridor, chest wall tenderness Cardiovascular Exam: Present: regular rate, normal rhythm, normal heart sounds. Absent: systolic murmur, diastolic murmur, rubs, gallop, clicks GI/Abdominal exam: Present: soft, tenderness (Tenderness over upper/mid epigastric region), normal bowel sounds. Absent: distended, guarding, rebound, rigid Extremities exam: Present: normal inspection, full ROM, normal capillary refill. Absent: tenderness, pedal edema, joint swelling, calf tenderness Back exam: Present: normal inspection, full ROM. Absent: CVA tenderness (R), CVA tenderness (L), paraspinal tenderness, vertebral tenderness Neurological exam: Present: alert, oriented X3, CN II-XII intact Psychiatric exam: Present: normal affect, normal mood Skin exam: Present: warm, dry, intact, normal color. Absent: rash Course Vital Signs 08/24/21 10:55 Temperature 98.8 F Pulse Rate 101 H Respiratory 18 Rate Blood Pressure 155/60 O2 Sat by Pulse 98 Oximetry - Reevaluation(s) Reevaluation #1: 08/24/21 11:52 On reexamination, patient states her pain has significantly decreased. Patient states she does feel a little bit nauseous still. On physical exam, patient's abdominal tenderness has significantly decreased when palpating abdomen. 08/24/21 12:29 On reevaluation, patient sitting up in bed, some is in room with her. Patient states her pain has now decreased from 8/10 to 3/10. Patient states she does have Zofran at home for nausea and does currently have narcotic prescribed to her for her chronic pain. On physical examination, patient's abdominal pain has subsided and she states the tenderness to palpation is very mild compared to when she first came in. Patient is requesting discharge at this time. 08/24/21 12:44 On reexamination, patient is requesting discharge at this time. Patient states her pain has significantly decreased. She states that her pain begins to increase again or she experiences any fever, being unable to keep down any solids or liquids or if any new symptoms occur she states she'll return to the e mergency department. Patient verbally agreed to follow up with her primary care provider on Thursday. EKG Findings - EKG Comments: EKG Findings:: EKG impression: Sinus rhythm. Ventricular rate 90 bpm. NM interval 169. QRS duration 77. QT/QTC 351/399 Medical Decision Making - Medical Decision Making This 85-year-old female with a past medical history of chronic pancreatitis and chronic gastroparesis presents emergency Department with abdominal pain. Labs with leukocytosis. Clinically unremarkable. Chemistry with sodium 136, calcium 8.1, urine without any nitrites, leukocyte esterase or white blood cells. After receiving fluids, Zofran, Reglan and Dilaudid. Patient was requesting discharge. I did advise patient to take her high blood pressure medication when she gets home as her blood pressure was 135/87 prior to discharge and patient states she has not yet taken her morning dose of her hypertension medication. Patient stated her pain had significantly decreased and she felt much better. Patient stated she would return to the emergency department if her pain returned or if any new, worsening or concerning symptoms present. Patient verbally agreed to follow up with her primary care provider on Thursday. Strict return precautions were discussed. Patient verbally. Plan. Patient sent home in stable condition. Case discussed in detail my attending, Dr. Burger. - Lab Data Result diagrams: 08/24/21 11:36 08/24/21 11:36 Lab Results 08/24/21 08/24/21 08/24/21 Range/Units 11:36 11:36 11:36 WBC 4.6 (3.8-10.6) k/uL RBC 4.45 (3.80-5.40) m/uL Hgb 11.2 L (11.4-16.0) gm/dL Hct 37.3 (34.0-46.0) % MCV 83.8 (80.0-100.0) fL MCH 25.3 (25.0-35.0) pg MCHC 30.2 L (31.0-37.0) g/dL RDW 15.4 (11.5-15.5) % Plt Count 193 (150-450) k/uL MPV 8.4 Neutrophils % 57 % Lymphocytes % 30 % Monocytes % 8 % Eosinophils % 2 % Basophils % 0 % Neutrophils # 2.6 (1.3-7.7) k/uL Lymphocytes # 1.4 (1.0-4.8) k/uL Monocytes # 0.4 (0-1.0) k/uL Eosinophils # 0.1 (0-0.7) k/uL Basophils # 0.0 (0-0.2) k/uL Hypochromasia Moderate PT 10.7 (9.0-12.0) sec INR 1.0 (<1.2) APTT 25.3 (22.0-30.0) sec Sodium (137-145) mmol/L Potassium (3.5-5.1) mmol/L Chloride (98-107) mmol/L Carbon Dioxide (22-30) mmol/L Anion Gap mmol/L BUN (7-17) mg/dL Creatinine (0.52-1.04) mg/dL Est GFR (CKD-EPI)AfAm (>60 ml/min/1.73 sqM) Est GFR (CKD-EPI)NonAf (>60 ml/min/1.73 sqM) Glucose (74-99) mg/dL Plasma Lactic Acid [place] (0.7-2.0) mmol/L Calcium (8.4-10.2) mg/dL Total Bilirubin (0.2-1.3) mg/dL AST (14-36) U/L ALT (4-34) U/L Alkaline Phosphatase (38-126) U/L Total Protein (6.3-8.2) g/dL Albumin (3.5-5.0) g/dL Amylase (30-110) U/L Lipase (23-300) U/L Urine Color Light Yellow Urine Appearance Clear (Clear) Urine pH 5.5 (5.0-8.0) Ur Specific [place] 1.008 (1.001-1.035) Urine Protein Negative (Negative) Urine Glucose (UA) Negative (Negative) Urine Ketones 1+ H (Negative) Urine Blood Trace H (Negative) Urine Nitrite Negative (Negative) Urine Bilirubin Negative (Negative) Urine Urobilinogen <2.0 (<2.0) mg/dL Ur Leukocyte Esterase Negative (Negative) Urine RBC 1 (0-5) /hpf Urine WBC <1 (0-5) /hpf Ur Squamous Epith Cells <1 (0-4) /hpf Urine Mucus Rare H (None) /hpf 08/24/21 08/24/21 Range/Units 11:36 11:36 WBC (3.8-10.6) k/uL RBC (3.80-5.40) m/uL Hgb (11.4-16.0) gm/dL Hct (34.0-46.0) % MCV (80.0-100.0) fL MCH (25.0-35.0) pg MCHC (31.0-37.0) g/dL RDW (11.5-15.5) % Plt Count (150-450) k/uL MPV Neutrophils % % Lymphocytes % % Monocytes % % Eosinophils % % Basophils % % Neutrophils # (1.3-7.7) k/uL Lymphocytes # (1.0-4.8) k/uL Monocytes # (0-1.0) k/uL Eosinophils # (0-0.7) k/uL Basophils # (0-0.2) k/uL Hypochromasia PT (9.0-12.0) sec INR (<1.2) APTT (22.0-30.0) sec Sodium 136 L (137-145) mmol/L Potassium 3.7 (3.5-5.1) mmol/L Chloride 108 H (98-107) mmol/L Carbon Dioxide 18 L (22-30) mmol/L Anion Gap 10 mmol/L BUN 7 (7-17) mg/dL Creatinine 0.80 (0.52-1.04) mg/dL Est GFR (CKD-EPI)AfAm 79 (>60 ml/min/1.73 sqM) Est GFR (CKD-EPI)NonAf 69 (>60 ml/min/1.73 sqM) Glucose 91 (74-99) mg/dL Plasma Lactic Acid [place] 1.4 (0.7-2.0) mmol/L Calcium 8.1 L (8.4-10.2) mg/dL Total Bilirubin 0.4 (0.2-1.3) mg/dL AST 27 (14-36) U/L ALT 16 (4-34) U/L Alkaline Phosphatase 69 (38-126) U/L Total Protein 6.5 (6.3-8.2) g/dL Albumin 3.6 (3.5-5.0) g/dL Amylase 43 (30-110) U/L Lipase 99 (23-300) U/L Urine Color Urine Appearance (Clear) Urine pH (5.0-8.0) Ur Specific [place] (1.001-1.035) Urine Protein (Negative) Urine Glucose (UA) (Negative) Urine Ketones (Negative) Urine Blood (Negative) Urine Nitrite (Negative) Urine Bilirubin (Negative) Urine Urobilinogen (<2.0) mg/dL Ur Leukocyte Esterase (Negative) Urine RBC (0-5) /hpf Urine WBC (0-5) /hpf Ur Squamous Epith Cells (0-4) /hpf Urine Mucus (None) /hpf Disposition Clinical Impression: Abdominal pain Disposition: HOME SELF-CARE Condition: Stable Instructions (If sedation given, give patient instructions): Abdominal Pain (ED) Additional Instructions: Please follow-up with your primary care provider in next 1-2 days. Return to the emergency department if any symptoms return or if any new, worsening, or concerning symptoms arise. Take Zofran that you already have been prescribed at home as directed. Is patient prescribed a controlled substance at d/c from ED?: No Referrals: Davida Doss MD [Primary Care Provider] - 1-2 days Time of Disposition: 12:39
[2021-08-24 12:01] LABS: Basophils % (A) 0 %; Eosinophils # (A) 0.1 k/uL (0-0.7); Eosinophils % (A) 2 %; HCT 37.3 % (34.0-46.0); HGB 11.2 gm/dL (11.4-16.0); Hypochromasia Moderate; Lymphocytes # (A) 1.4 k/uL (1.0-4.8); Lymphocytes % (A) 30 %; MCH 25.3 pg (25.0-35.0); MCHC 30.2 g/dL (31.0-37.0); MCV 83.8 fL (80.0-100.0); Mean Platelet Volume 8.4; Monocytes # (A) 0.4 k/uL (0-1.0); Monocytes % (A) 8 %; Neutrophils # (A) 2.6 k/uL (1.3-7.7); Neutrophils % (A) 57 %; Platelet Count 193 k/uL (150-450); RBC 4.45 m/uL (3.80-5.40); RDW 15.4 % (11.5-15.5); WBC 4.6 k/uL (3.8-10.6)
[2021-08-24 12:17] LABS: Partial Thromboplastin Time 25.3 sec (22.0-30.0); Prothrombin Time 10.7 sec (9.0-12.0)
[2021-08-24 12:18] LABS: Albumin 3.6 g/dL (3.5-5.0); Calcium 8.1 mg/dL (8.4-10.2); Potassium 3.7 mmol/L (3.5-5.1); Total Bilirubin 0.4 mg/dL (0.2-1.3); Total Protein 6.5 g/dL (6.3-8.2)
[2021-08-24 12:22] LABS: Appearance,Urine Clear (Clear); Bilirubin,Urine Negative (Negative); Blood,Urine Trace (Negative); Color,Urine Light Yellow; Glucose,Urine (UA) Negative (Negative); Ketones,Urine 1+ (Negative); Leukocyte Esterase,Urine Negative (Negative); Mucus,Urine Rare /hpf; Nitrite,Urine Negative (Negative); PH, Urine 5.5 (5.0-8.0); Protein,Urine Negative (Negative); RBC,Urine 1 /hpf (0-5); Specific Gravity,Urine 1.008 (1.001-1.035); Squamous Epithelial Cell,Urine <1 /hpf (0-4); Urobilinogen,Urine <2.0 mg/dL (<2.0); WBC,Urine <1 /hpf (0-5)
[2021-08-24] MEDS ORDERED: METOCLOPRAMIDE 5 MG/ML 2 ML VIAL IVP STA (12:25)
[2021-08-24 12:52] VITALS: BP 135/84; PULSE 98
== END 2021-08-24 12:52 | disposition home or self-care (01) ==
LOC: EC 10:54
DX: R10.13 Epigastric pain (principal); D72.829 Elevated white blood cell count, unspecified; I10 Essential (primary) hypertension; M19.90 Unspecified osteoarthritis, unspecified site; E78.5 Hyperlipidemia, unspecified; Z87.19 Personal history of other diseases of the digestive system; Z88.0 Allergy status to penicillin; Z88.5 Allergy status to narcotic agent; Z79.899 Other long term (current) drug therapy
CPT/HCPCS: 36415; 93005; 80053; 82150; 83605; 83690; 85025; 85610; 85730; 81001; 99284; 96374; 96375; 96361; J2765; J2405; J1170

== ENCOUNTER 2021-09-03 15:31 | Emergency (ER) | payer MEDICARE, OTHER ==
[2021-09-03 15:47] VITALS: RESP 18
[2021-09-03] MEDS ORDERED: ONDANSETRON 4 MG/2 ML VIAL IVP STA (16:11)
[2021-09-03] MEDS ORDERED: SODIUM CHLORIDE 0.9% 1,000 ML IV STA (16:11)
[2021-09-03] MEDS ORDERED: HYDROmorphone 0.5 MG/0.5 ML SYRINGE IVP STA ×2 (16:11→17:30)
[2021-09-03 16:47] LABS: Anisocytosis Slight; Basophils % (A) 0 %; Eosinophils % (A) 0 %; HCT 43.3 % (34.0-46.0); HGB 13.6 gm/dL (11.4-16.0); Hypochromasia Moderate; Lymphocytes # (A) 0.8 k/uL (1.0-4.8); Lymphocytes % (A) 23 %; MCH 25.9 pg (25.0-35.0); MCHC 31.3 g/dL (31.0-37.0); MCV 82.6 fL (80.0-100.0); Mean Platelet Volume 9.4; Monocytes # (A) 0.3 k/uL (0-1.0); Monocytes % (A) 9 %; Neutrophils # (A) 2.3 k/uL (1.3-7.7); Neutrophils % (A) 64 %; Platelet Count 212 k/uL (150-450); RBC 5.25 m/uL (3.80-5.40); RDW 16.4 % (11.5-15.5); WBC 3.6 k/uL (3.8-10.6)
--- NOTE | 2021-09-03 17:04 | XR ---
EXAMINATION TYPE: XR abdomen acute w cxr DATE OF EXAM: 09/03/2021 COMPARISON: Abdomen x-ray 07/14/2021 HISTORY: Abdominal pain and cough TECHNIQUE: 3 views FINDINGS: There is no heart failure nor confluent pneumonic infiltrate. 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 Costophrenic angles are clear. There is thoracolumbar levoscoliosis. There is no sign of intest inal obstruction or pneumoperitoneum. Fecal pattern is normal. No calcification seen over the kidneys . There is no evidence of a mass. IMPRESSION: Nonacute abdomen. No active cardiopulmonary disease. No adverse change.
[2021-09-03 17:08] LABS: Calcium 8.4 mg/dL (8.4-10.2); Total Bilirubin 0.7 mg/dL (0.2-1.3); Total Protein 7.3 g/dL (6.3-8.2)
[2021-09-03] MEDS ORDERED: OSELTAMIVIR 75 MG CAP PO STA (17:10)
--- NOTE | 2021-09-03 17:18 | ED ---
Abdominal Pain HPI - General Chief Complaint: Abdominal Pain Stated Complaint: Abd pain Time Seen by Provider: 09/03/21 15:54 Source: EMS Mode of arrival: EMS Limitations: no limitations - History of Present Illness Initial Comments: Patient is an 85-year-old female presenting with chief complaint of abdominal pain. Patient states pain is located in the epigastric region and has been ongoing for the last 3 days. Patient has a history of chronic pancreatitis and diabetic gastroparesis, she regularly takes [place] for pain relief but states that at home for [place] was not providing her with any relief. She admits to some nausea but states that she is unable to vomit. She admits to watery diarrhea. She denies any radiation of pain to the back. States that it is a sharp burning type pain. She was seen here about a week ago for similar symptoms. She states that it feels like one of her regular episodes. She is requesting Dilaudid 1 mg as "it is the only thing that works for me". He admits to a productive cough that has been going on for the last day. Sputum is white in color. She denies any chest pain, fever, chills, hematochezia, hematemesis, sore throat, ear pain, hemoptysis, dysuria, hematuria, urgency, frequency, dizziness, weakness, palpitations. - Related Data Home Medications Medication Instructions Recorded Confirmed amLODIPine [Norvasc] 5 mg PO DAILY 01/28/18 09/03/21 ondansetron HCL [Zofran] 8 mg PO Q6H PRN 08/17/18 09/03/21 Ergocalciferol [Vitamin D2 50,000 unit PO TU 11/29/19 09/03/21 (DRISDOL)] Losartan Potassium 100 mg PO DAILY 11/29/19 09/03/21 rOPINIRole HCL [Requip] 0.25 mg PO HS 07/24/20 09/03/21 Omeprazole [PriLOSEC] 20 mg PO BID 08/24/20 09/03/21 Rosuvastatin [Crestor] 10 mg PO HS 11/29/20 09/03/21 hydrOXYzine HCL [Atarax] 25 mg PO HS PRN 11/29/20 09/03/21 Buwzuxbwlnsedr-IH-Ujdmymehgj 1 tab PO DAILY 03/09/21 09/03/21 [Folbic] HYDROcodone/APAP 10-325MG [[place] 1 - 2 tab PO Q6H PRN 08/24/21 09/03/21 10-325] Mirtazapine 45mg Odt 45 mg SL HS 08/24/21 09/03/21 LORazepam [Ativan] 2 mg PO QID 09/03/21 09/03/21 metroNIDAZOLE [Flagyl] 500 mg PO TID 09/03/21 09/03/21 Previous Rx's Medication Instructions Recorded Famotidine [Pepcid] 20 mg PO BID 30 Days #60 tab 12/26/20 Oseltamivir [Tamiflu] 75 mg PO Q12HR 5 Days #9 cap 09/03/21 Allergies Allergy/AdvReac Type Severity Reaction Status Date / Time morphine Allergy Rash/Hives Verified 09/03/21 17:47 tetracycline Allergy Rash/Hives Verified 09/03/21 17:47 Review of Systems ROS Statement: Those systems with pertinent positive or pertinent negative responses have been documented in the HPI. ROS Other: All systems not noted in ROS Statement are negative. Past Medical History Past Medical History: Hyperlipidemia, Hypertension, Osteoarthritis (OA), Thyroid Disorder Additional Past Medical History / Comment(s): recently seen in ER for intractible abdominal pain,Gastroparesis, thyroid nodules, servere abdominal( LUQ) pain,nausea and vomiting,neuropathy calin feet, gastroparesis, pancreatitis. History of Any Multi-Drug Resistant Organisms: None Reported Past Surgical History: Appendectomy, Hysterectomy, Orthopedic Surgery, Tonsillectomy Additional Past Surgical History / Comment(s): L Shoulder surgery with plate, R knee replacement, colonoscopy, partial hysterectomy---still has her ovaries, carpal tunnel release bilaterally, calin cataracts, eye surgery for glaucoma Past Anesthesia/Blood Transfusion Reactions: No Reported Reaction, Postoperative Nausea & Vomiting (PONV) Additional Past Anesthesia/Blood Transfusion Reaction / Comment(s): abdominal pain post op Past Psychological History: Anxiety, Panic Disorder Smoking Status: Never smoker Past Alcohol Use History: None Reported Past Drug Use History: None Reported - Past Family History Mother Family Medical History: Cancer Additional Family Medical History / Comment(s): Colon Father Family Medical History: Coronary Artery Disease (CAD) Sister(s) Family Medical History: Deep Vein Thrombosis (DVT) General Exam Limitations: no limitations General appearance: alert, in no apparent distress Head exam: Present: atraumatic, normocephalic, normal inspection Eye exam: Present: normal appearance, PERRL, EOMI. Absent: scleral icterus, conjunctival injection, periorbital swelling ENT exam: Present: normal exam, mucous membranes moist Neck exam: Present: normal inspection Respiratory exam: Present: rales. Absent: respiratory distress, wheezes, rh onchi, stridor Cardiovascular Exam: Present: regular rate, normal rhythm, normal heart sounds. Absent: systolic murmur, diastolic murmur, rubs, gallop, clicks GI/Abdominal exam: Present: soft, tenderness (Epigastric region), normal bowel sounds. Absent: distended, guarding, rebound, rigid Neurological exam: Present: alert, oriented X3, CN II-XII intact Psychiatric exam: Present: normal affect, normal mood Skin exam: Present: warm, dry, intact, normal color. Absent: rash Course Vital Signs 09/03/21 09/03/21 09/03/21 15:43 18:30 19:31 Temperature 99 F 98.6 F Pulse Rate 110 H 88 78 Respiratory 18 18 18 Rate Blood Pressure 142/94 140/80 138/78 O2 Sat by Pulse 98 98 98 Oximetry Medical Decision Making - Medical Decision Making Patient is an 85-year-old female with history of diabetic gastroparesis and chronic pancreatitis presenting with chief complaint of epigastric pain. Patient states the pain began about 2 days ago, sharp pain that is consistent with regular pancreatitis flareups. Also admits to productive cough and nausea. On examination there are normal bowel sounds in all 4 quadrants, patient is tender in the epigastric region. Rales are heard on auscultation of the lungs. Lab work is remarkable for positive influenza A. Lipase is mildly elevated at 315. Patient is mildly hypokalemic at 3.3 and hyponatremic at 134. Acute abdominal series with chest x-ray shows nonacute abdomen. No active cardiopulmonary disease. No adverse change. Patient was given 1 L fluid bolus, 4 mg Zofran, 0.5 mg of Dilaudid. Patient states that her pain was not subsiding and they usually 1 mg of Dilaudid helps her pain. Patient was given an additional 0.5 mg of Dilaudid and 40 mEq of potassium. She was also given one dose of Tamiflu. Patient appears stable for discharge with outpatient follow-up at this time. Follow-up with PCP this week. Take Motrin and Tylenol for pain control and fever control as needed. Take Tamiflu as prescribed. Report back to ER if any worsening symptoms. I educated the patient on alarms symptoms answered all questions. She conveyed verbal understanding and agreed to the plan. I discussed this case with my attending Dr. Burger. - Lab Data Result diagrams: 09/03/21 16:29 09/03/21 16:29 Lab Results 09/03/21 09/03/21 09/03/21 Range/Units 16:29 16: 16:29 WBC 3.6 L (3.8-10.6) k/uL RBC 5.25 (3.80-5.40) m/uL Hgb 13.6 (11.4-16.0) gm/dL Hct 43.3 (34.0-46.0) % MCV 82.6 (80.0-100.0) fL MCH 25.9 (25.0-35.0) pg MCHC 31.3 (31.0-37.0) g/dL RDW 16.4 H (11.5-15.5) % Plt Count 212 (150-450) k/uL MPV 9.4 Neutrophils % 64 % Lymphocytes % 23 % Monocytes % 9 % Eosinophils % 0 % Basophils % 0 % Neutrophils # 2.3 (1.3-7.7) k/uL Lymphocytes # 0.8 L (1.0-4.8) k/uL Monocytes # 0.3 (0-1.0) k/uL Eosinophils # 0.0 (0-0.7) k/uL Basophils # 0.0 (0-0.2) k/uL Hypochromasia Moderate Anisocytosis Slight Sodium 134 L (137-145) mmol/L Potassium 3.3 L (3.5-5.1) mmol/L Chloride 99 (98-107) mmol/L Carbon Dioxide 22 (22-30) mmol/L Anion Gap 13 mmol/L BUN 12 (7-17) mg/dL Creatinine 0.81 (0.52-1.04) mg/dL Est GFR (CKD-EPI)AfAm 78 (>60 ml/min/1.73 sqM) Est GFR (CKD-EPI)NonAf 68 (>60 ml/min/1.73 sqM) Glucose 103 H (74-99) mg/dL Plasma Lactic Acid [place] 1.1 (0.7-2.0) mmol/L Calcium 8.4 (8.4-10.2) mg/dL Total Bilirubin 0.7 (0.2-1.3) mg/dL AST 33 (14-36) U/L ALT 14 (4-34) U/L Alkaline Phosphatase 57 (38-126) U/L Troponin I (0.000-0.034) ng/mL Total Protein 7.3 (6.3-8.2) g/dL Albumin 4.0 (3.5-5.0) g/dL Amylase 81 (30-110) U/L Lipase 315 H (23-300) U/L Coronavirus (PCR) (Not Detectd) Influenza Type A RNA (Not Detectd) Influenza Type B (PCR) (Not Detectd) 09/03/21 09/03/21 09/03/21 Range/Units 16:29 16:41 16:41 WBC (3.8-10.6) k/uL RBC (3.80-5.40) m/uL Hgb (11.4-16.0) gm/dL Hct (34.0-46.0) % MCV (80.0-100.0) fL MCH (25.0-35.0) pg MCHC (31.0-37.0) g/dL RDW (11.5-15.5) % Plt Count (150-450) k/uL MPV Neutrophils % % Lymphocytes % % Monocytes % % Eosinophils % % Basophils % % Neutrophils # (1.3-7.7) k/uL Lymphocytes # (1.0-4.8) k/uL Monocytes # (0-1.0) k/uL Eosinophils # (0-0.7) k/uL Basophils # (0-0.2) k/uL Hypochromasia Anisocytosis Sodium (137-145) mmol/L Potassium (3.5-5.1) mmol/L Chloride (98-107) mmol/L Carbon Dioxide (22-30) mmol/L Anion Gap mmol/L BUN (7-17) mg/dL Creatinine (0.52-1.04) mg/dL Est GFR (CKD-EPI)AfAm (>60 ml/min/1.73 sqM) Est GFR (CKD-EPI)NonAf (>60 ml/min/1.73 sqM) Glucose (74-99) mg/dL Plasma Lactic Acid [place] (0.7-2.0) mmol/L Calcium (8.4-10.2) mg/dL Total Bilirubin (0.2-1.3) mg/dL AST (14-36) U/L ALT (4-34) U/L Alkaline Phosphatase (38-126) U/L Troponin I <0.012 (0.000-0.034) ng/mL Total Protein (6.3-8.2) g/dL Albumin (3.5-5.0) g/dL Amylase (30-110) U/L Lipase (23-300) U/L Coronavirus (PCR) Not Detected (Not Detectd) Influenza Type A RNA Detected H (Not Detectd) Influenza Type B (PCR) Not Detected (Not Detectd) - EKG Data -: EKG Interpreted by Me EKG shows normal: sinus rhythm EKG Comments: Sinus rhythm with occasional supraventricular premature complexes. 96 bpm. Nonspecific T-wave abnormality that is seen on previous study. OK interval of 144. QRS duration of 85. Disposition Clinical Impression: Influenza Disposition: HOME SELF-CARE Condition: Good Instructions (If sedation given, give patient instructions): Influenza (DC) Additional Instructions: Follow-up with primary care in 1 week. Take medication as prescribed. Report back to ER with any worsening symptoms, including but not limited to fever unresponsive to Motrin and Tylenol, chest pain, shortness of breath, cough productive of green thick sputum. Prescriptions: Oseltamivir [Tamiflu] 75 mg PO Q12HR 5 Days #9 cap Is patient prescribed a controlled substance at d/c from ED?: No Referrals: Davida Doss MD [Primary Care Provider] - 1-2 days Time of Disposition: 19:11
[2021-09-03 17:26] LABS: Potassium 3.3 mmol/L (3.5-5.1)
[2021-09-03] MEDS ORDERED: POTASSIUM CHLORIDE ER 20 MEQ TAB.ER PO STA (18:49)
[2021-09-03 19:32] VITALS: BP 138/78; PULSE 78; TEMP 98.6
[2021-09-03 20:08] LABS: Appearance,Urine Clear (Clear); Bilirubin,Urine Negative (Negative); Blood,Urine Small (Negative); Color,Urine Yellow; Glucose,Urine (UA) Negative (Negative); Hyaline Casts,Urine 1 /lpf (0-2); Ketones,Urine 2+ (Negative); Leukocyte Esterase,Urine Large (Negative); Nitrite,Urine Negative (Negative); Protein,Urine Trace (Negative); RBC,Urine 5 /hpf (0-5); Specific Gravity,Urine 1.019 (1.001-1.035); Squamous Epithelial Cell,Urine 1 /hpf (0-4); Urobilinogen,Urine <2.0 mg/dL (<2.0); WBC,Urine 11 /hpf (0-5)
== END 2021-09-03 19:31 | disposition home or self-care (01) ==
LOC: EC 15:31
DX: J10.1 Influenza due to other identified influenza virus with other respiratory manifestations (principal); E78.5 Hyperlipidemia, unspecified; I10 Essential (primary) hypertension; M19.90 Unspecified osteoarthritis, unspecified site; E07.9 Disorder of thyroid, unspecified; F41.9 Anxiety disorder, unspecified; Z20.822 Contact with and (suspected) exposure to COVID-19; Z88.5 Allergy status to narcotic agent; Z90.49 Acquired absence of other specified parts of digestive tract; Z90.710 Acquired absence of both cervix and uterus; Z96.653 Presence of artificial knee joint, bilateral
CPT/HCPCS: 99284; 96374; 96375; 96376 ×2; 96361 ×2; 36415; 93005; 80053; 82150; 83605; 83690; 84484; 85025; 81001; 87086; 87502; 87635; 74022; J2405; J1170

== ENCOUNTER 2021-11-11 07:57 | Emergency (ER) | payer MEDICARE, OTHER ==
[2021-11-11 08:13] VITALS: TEMP 97.8
[2021-11-11] MEDS ORDERED: KETOROLAC 15 MG/ML 1 ML VIAL IVP STA (08:14)
[2021-11-11] MEDS ORDERED: ONDANSETRON 4 MG/2 ML VIAL IVP STA (08:14)
[2021-11-11] MEDS ORDERED: SODIUM CHLORIDE 0.9% 500 ML 500 ML IV STA (08:14)
[2021-11-11 08:31] LABS: Basophils # (A) 0.1 k/uL (0-0.2); Basophils % (A) 2 %; Eosinophils # (A) 0.1 k/uL (0-0.7); Eosinophils % (A) 1 %; HCT 37.4 % (34.0-46.0); HGB 11.8 gm/dL (11.4-16.0); Hypochromasia Moderate; Lymphocytes % (A) 20 %; MCH 26.4 pg (25.0-35.0); MCHC 31.5 g/dL (31.0-37.0); MCV 83.7 fL (80.0-100.0); Mean Platelet Volume 8.5; Monocytes # (A) 0.3 k/uL (0-1.0); Monocytes % (A) 7 %; Neutrophils # (A) 3.3 k/uL (1.3-7.7); Neutrophils % (A) 68 %; Platelet Count 191 k/uL (150-450); RBC 4.47 m/uL (3.80-5.40); RDW 15.6 % (11.5-15.5); WBC 4.8 k/uL (3.8-10.6)
[2021-11-11 08:46] LABS: Albumin 4.4 g/dL (3.5-5.0); Calcium 8.6 mg/dL (8.4-10.2); Potassium 3.9 mmol/L (3.5-5.1); Total Bilirubin 0.6 mg/dL (0.2-1.3); Total Protein 7.4 g/dL (6.3-8.2)
[2021-11-11 08:54] LABS: Appearance,Urine Clear (Clear); Bilirubin,Urine Negative (Negative); Blood,Urine Negative (Negative); Color,Urine Light Yellow; Glucose,Urine (UA) Negative (Negative); Ketones,Urine 1+ (Negative); Leukocyte Esterase,Urine Negative (Negative); Nitrite,Urine Negative (Negative); PH, Urine 5.5 (5.0-8.0); Protein,Urine Trace (Negative); Specific Gravity,Urine 1.009 (1.001-1.035); Urobilinogen,Urine <2.0 mg/dL (<2.0)
--- NOTE | 2021-11-11 09:05 | ED ---
General Adult HPI - General Chief complaint: Abdominal Pain Stated complaint: Abdominal Pain Time Seen by Provider: 11/11/21 08:00 Source: patient, EMS, RN notes reviewed, old records reviewed Mode of arrival: EMS Limitations: no limitations - History of Present Illness Initial comments: This is an 85-year-old female presents emergency Department stating that she has chronic gastroparesis and pancreatitis. Patient comes in today because she states she was vomiting and having epigastric abdominal pain when she normally does. Patient states the only thing that works is IV Zofran and IV Dilaudid. Patient states [place] isn't working for. Patient denies any fever chills per patient denies any diarrhea. Patient states there is nothing new about this pain. Patient denies any chest pain difficulty breathing shortness of breath. - Related Data Home Medications Medication Instructions Recorded Confirmed amLODIPine [Norvasc] 5 mg PO DAILY 01/28/18 11/11/21 ondansetron HCL [Zofran] 8 mg PO Q6H PRN 08/17/18 11/11/21 Ergocalciferol [Vitamin D2 50,000 unit PO TUSA 11/29/19 11/11/21 (DRISDOL)] Losartan Potassium 100 mg PO DAILY 11/29/19 11/11/21 rOPINIRole HCL [Requip] 0.25 mg PO HS 07/24/20 11/11/21 Omeprazole [PriLOSEC] 20 mg PO BID 08/24/20 11/11/21 Rosuvastatin [Crestor] 10 mg PO HS 11/29/20 11/11/21 [id number] 1 tab PO DAILY 03/09/21 11/11/21 [Folbic] HYDROcodone/APAP 10-325MG [[place] 2 tab PO Q6H PRN 08/24/21 11/11/21 10-325] Mirtazapine 45mg Odt 45 mg SL HS 08/24/21 11/11/21 LORazepam [Ativan] 2 mg PO QID 09/03/21 11/11/21 Previous Rx's Medication Instructions Recorded Famotidine [Pepcid] 20 mg PO BID 30 Days #60 tab 12/26/20 Allergies Allergy/AdvReac Type Severity Reaction Status Date / Time morphine Allergy Rash/Hives Verified 07/04/22 09:24 tetracycline Allergy Rash/Hives Verified 11/11/21 09:24 Review of Systems ROS Statement: Those systems with pertinent positive or pertinent negative responses have been documented in the HPI. ROS Other: All systems not noted in ROS Statement are negative. Past Medical History Past Medical History: Hyperlipidemia, Hypertension, Osteoarthritis (OA), Thyroid Disorder Additional Past Medical History / Comment(s): recently seen in ER for intractible abdominal pain,Gastroparesis, thyroid nodules, servere abdominal( LUQ) pain,nausea and vomiting,neuropathy calin feet, gastroparesis, pancreatitis. History of Any Multi-Drug Resistant Organisms: None Reported Past Surgical History: Appendectomy, Hysterectomy, Orthopedic Surgery, Tonsillectomy Additional Past Surgical History / Comment(s): L Shoulder surgery with plate, R knee replacement, colonoscopy, partial hysterectomy---still has her ovaries, carpal tunnel release bilaterally, calin cataracts, eye surgery for glaucoma Past Anesthesia/Blood Transfusion Reactions: No Reported Reaction, Postoperative Nausea & Vomiting (PONV) Additional Past Anesthesia/Blood Transfusion Reaction / Comment(s): abdominal pain post op Past Psychological History: Anxiety, Panic Disorder Smoking Status: Never smoker Past Alcohol Use History: None Reported Past Drug Use History: None Reported - Past Family History Mother Family Medical History: Cancer Additional Family Medical History / Comment(s): Colon Father Family Medical History: Coronary Artery Disease (CAD) Sister(s) Family Medical History: Deep Vein Thrombosis (DVT) General Exam - General Exam Comments Initial Comments: GENERAL: Patient is well-developed and well-nourished. Patient is nontoxic and well- hydrated and is in no acute distress. ENT: Neck is soft and supple. No significant lymphadenopathy is noted. Oropharynx is clear. Moist mucous membranes. Neck has full range of motion without eliciting any pain. EYES: The sclera were anicteric and conjunctiva were pink and moist. Extraocular movements were intact and pupils were equal round and reactive to light. Eyelids were unremarkable. PULMONARY: Unlabored respirations. Good breath sounds bilaterally. No audible rales rhonchi or wheezing was noted. CARDIOVASCULAR: There is a regular rate and rhythm without any murmurs gallops or rubs. ABDOMEN: Patient has no abdominal pain when distracted however when she sees you palpating her abdomen and his pain attention she states it hurts epigastric region. SKIN: Skin is clear with no lesions or rashes and otherwise unremarkable. NEUROLOGIC: Patient is alert and oriented x3. Cranial nerves II through XII are grossly intact. Motor and sensory are also intact. Normal speech, volume and content. Symmetrical smile. MUSCULOSKELETAL: Normal extremities with adequate strength and full range of motion. No lower extremity swelling or edema. No calf tenderness. LYMPHATICS: No significant lymphadenopathy is noted PSYCHIATRIC: Normal psychiatric evaluation. Limitations: no limitations Course Vital Signs 11/11/21 08:00 Temperature 97.8 F Pulse Rate 104 H Respiratory 18 Rate Blood Pressure 150/95 O2 Sat by Pulse 99 Oximetry Medical Decision Making - Medical Decision Making Patient did not vomit while in the emergency department. Toradol seemed to help her pain a little she did request some Dilaudid since she got 0.5 of Dilaudid and she stated she felt good enough to go home. Patient states she has Zofran at home and [place] at home - Lab Data Result diagrams: 11/11/21 08:20 11/11/21 08:20 Lab Results 11/11/21 11/11/21 11/11/21 Range/Units 08:20 08:20 08:25 WBC 4.8 (3.8-10.6) k/uL RBC 4.47 (3.80-5.40) m/uL Hgb 11.8 (11.4-16.0) gm/dL Hct 37.4 (34.0-46.0) % MCV 83.7 (80.0-100.0) fL MCH 26.4 (25.0-35.0) pg MCHC 31.5 (31.0-37.0) g/dL RDW 15.6 H (11.5-15.5) % Plt Count 191 (150-450) k/uL MPV 8.5 Neutrophils % 68 % Lymphocytes % 20 % Monocytes % 7 % Eosinophils % 1 % Basophils % 2 % Neutrophils # 3.3 (1.3-7.7) k/uL Lymphocytes # 1.0 (1.0-4.8) k/uL Monocytes # 0.3 (0-1.0) k/uL Eosinophils # 0.1 (0-0.7) k/uL Basophils # 0.1 (0-0.2) k/uL Hypochromasia Moderate Sodium 137 (137-145) mmol/L Potassium 3.9 (3.5-5.1) mmol/L Chloride 107 (98-107) mmol/L Carbon Dioxide 18 L (22-30) mmol/L Anion Gap 12 mmol/L BUN 11 (7-17) mg/dL Creatinine 0.85 (0.52-1.04) mg/dL Est GFR (CKD-EPI)AfAm 74 (>60 ml/min/1.73 sqM) Est GFR (CKD-EPI)NonAf 64 (>60 ml/min/1.73 sqM) Glucose 98 (74-99) mg/dL Calcium 8.6 (8.4-10.2) mg/dL Total Bilirubin 0.6 (0.2-1.3) mg/dL AST 22 (14-36) U/L ALT 11 (4-34) U/L Alkaline Phosphatase 78 (38-126) U/L Total Protein 7.4 (6.3-8.2) g/dL Albumin 4.4 (3.5-5.0) g/dL Amylase 54 (30-110) U/L Lipase 160 (23-300) U/L Urine Color Light Yellow Urine Appearance Clear (Clear) Urine pH 5.5 (5.0-8.0) Ur Specific Marceline 1.009 (1.001-1.035) Urine Protein Trace H (Negative) Urine Glucose (UA) Negative (Negative) Urine Ketones 1+ H (Negative) Urine Blood Negative (Negative) Urine Nitrite Negative (Negative) Urine Bilirubin Negative (Negative) Urine Urobilinogen <2.0 (<2.0) mg/dL Ur Leukocyte Esterase Negative (Negative) Disposition Clinical Impression: Vomiting, Chronic abdominal pain Disposition: HOME SELF-CARE Condition: Good Instructions (If sedation given, give patient instructions): Abdominal Pain (ED) Is patient prescribed a controlled substance at d/c from ED?: No Referrals: Davida Doss MD [Primary Care Provider] - 1-2 days Time of Disposition: 09:38
[2021-11-11] MEDS ORDERED: hydrALAZINE HCL 20 MG/ML 1 ML VIAL IVP STA (09:35)
[2021-11-11] MEDS ORDERED: HYDROmorphone 0.5 MG/0.5 ML SYRINGE IVP STA (09:36)
[2021-11-11 09:47] VITALS: BP 139/93; PULSE 100; RESP 16
== END 2021-11-11 10:03 | disposition home or self-care (01) ==
LOC: EC 07:57
DX: G89.29 Other chronic pain (principal); R10.9 Unspecified abdominal pain; R11.10 Vomiting, unspecified; E78.5 Hyperlipidemia, unspecified; I10 Essential (primary) hypertension; Z88.5 Allergy status to narcotic agent; Z88.1 Allergy status to other antibiotic agents
CPT/HCPCS: 36415; 80053; 82150; 83690; 85025; 81003; 99284; 96374; 96375; J2405; J1885; J1170